=== PATIENT | male | born 1950 | race Caucasian/White ===

== ENCOUNTER 2019-04-30 08:54 | Outpatient (CLI) | payer MEDICARE, OTHER, SELFPAY ==
[2019-04-30 13:16] LABS: Blood Urea Nitrogen 17 mg/dL (9-20); Calcium 9.7 mg/dL (8.4-10.2); Carbon Dioxide 28 mmol/L (22-30); Chloride 104 mmol/L (98-107); Estimated Glomerular Filt Rate > 60; Glucose 189 mg/dL (75-110); Potassium 4.4 mmol/L (3.4-5.0); Sodium 137 mmol/L (137-145)
== END 2019-04-30 08:55 | disposition home or self-care (01) ==
LOC: ANHWCLAB 08:59
PROVIDERS: PCP Internal Medicine; Visit Provider Internal Medicine Endocrinology, Diabetes & Metabolism
DX: E11.42 Type 2 diabetes mellitus with diabetic polyneuropathy (principal)
CPT/HCPCS: 36415; 80048

== ENCOUNTER 2019-05-19 18:16 | Emergency (ER) | payer MEDICARE, OTHER, SELFPAY ==
[2019-05-19] VITALS (7 sets, daily range): BP systolic 90–144; BP diastolic 61–83; PULSE 69–97; RESP 20–21; TEMP 36.1; O2SAT 98–99
--- NOTE | ~2019-05-19 | XR_ITS ---
EXAMINATION: XR chest 2V EXAM DATE: 05/19/2019 19:32 INDICATION: Dizziness, weakness. TECHNIQUE: Frontal and lateral projections of the chest obtained and reviewed. Comparison is made to prior examination from 03/29/2018. FINDINGS: The lungs are clear. There are no pleural effusions. Cardiac silhouette is prominent but magnified on this AP technique. There is no pneumothorax suspected. The bones and soft tissues are unremarkable. IMPRESSION: No acute cardiopulmonary findings. Reviewed, dictated and finalized at location A.
--- NOTE | 2019-05-19 18:40 | ED_ITS ---
I attest that this documentation has been prepared under the direction and in the presence of Franko Sandy MD. Lul Aviles, [place] 05/19/19;18:40 HPI - Weakness General Chief complaint: Weakness Stated complaint: dizziness/weakness Time Seen by Provider: 05/19/19 18:22 Related Data Home Medications Medication Instructions Recorded Confirmed aspirin 81 mg tablet,delayed 81 mg PO DAILY 01/19/19 02/26/19 release multivitamin 1 tablet PO DAILY 01/19/19 02/26/19 tamsulosin 0.4 mg capsule 0.4 mg PO DAILY 01/19/19 02/26/19 blood sugar diagnostic #10 each 01/29/19 02/26/19 lancets 28 gauge #25 each 01/29/19 02/26/19 pen needle, diabetic 31 gauge x #30 each 01/29/19 02/26/1906/29 rabeprazole [AcipHex] 20 mg PO DAILY 05/19/19 05/19/19 Allergies Allergy/AdvReac Type Severity Reaction Status Date / Time No Known Allergies Allergy Unverified 05/19/19 18:25 [facility] Social History Social History Smoking packs per day: 3 Smoking cigarettes per day: 60.0 Smoking status: Former smoker Smoking end date: 02/15/72 Alcohol intake: former Course Vital Signs Vital signs: Vital Signs Temperature 36.1 C L 05/19/19 18:18 Pulse Rate 97 05/19/19 18:18 Respiratory Rate 20 05/19/19 18:18 Blood Pressure 133/63 05/19/19 18:18 Pulse Oximetry 98 05/19/19 18:18 Temperature 36.1 C L 05/19/19 18:18 Pulse Rate 97 05/19/19 18:18 Respiratory Rate 20 05/19/19 18:18 Blood Pressure 133/63 05/19/19 18:18 Pulse Oximetry 98 05/19/19 18:18 Discharge Plan Discharge Prescriptions: No Action (DME) lancets [FreeStyle Lancets] 28 gauge misc See Rx Instructions .ROUTE .MEDSUPPLY Qty: 25 RF: 0 (DME) FreeStyle Test Strip See Rx Instructions .ROUTE .MEDSUPPLY Qty: 10 RF: 0 (DME) pen needle, diabetic [Sure Comfort Pen Needle] 31 gauge x 5/16 needle See Rx Instructions .ROUTE .MEDSUPPLY Qty: 30 RF: 0 aspirin [Aspir-81] 81 mg tablet,delayed release (DR/EC) 81 mg PO DAILY RF: 0 multivitamin [Multiple Vitamins] Tablet 1 tablet PO DAILY RF: 0 tamsulosin 0.4 mg capsule 0.4 mg PO DAILY RF: 0 Jardiance 10 mg tablet 10 mg PO DAILY Qty: 90 RF: 1 rabeprazole [AcipHex] 20 mg Tablet,Delayed Release (Dr/Ec) 20 mg PO DAILY RF: 0 lisinopril 40 mg tablet 40 mg PO DAILY Qty: 90 RF: 1 hydrochlorothiazide 25 mg tablet 25 mg PO DAILY Qty: 90 RF: 1 omega-3 acid ethyl esters [Lovaza] 1 gram capsule 4 cap PO DAILY Qty: 360 RF: 3 lovastatin 40 mg tablet 40 mg PO DAILY Qty: 90 RF: 1 metformin 1,000 mg tablet 1,000 mg PO BID Qty: 180 RF: 0 Trulicity 1.5 mg/0.5 mL pen injector 1.5 mg SUB-Q WEEKLY 84 Days Qty: 6 RF: 0 Lantus Solostar U-100 Insulin 100 unit/mL (3 mL) insulin pen 55 unit SUB-Q DAILY MDD 55 Qty: 15 RF: 1
--- NOTE | 2019-05-19 18:45 | ED.DIZZY ---
HPI - Dizziness General Chief Complaint: Weakness Stated Complaint: dizziness/weakness Time Seen by Provider: 05/19/19 18:22 Source: patient Mode of arrival: ambulatory Limitations: no limitations History of Present Illness HPI Narrative: The pt is a 68 y/o male who presents to the ED c/o lightheadedness onset 1600. Pt describes it as going mostly black. 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 Pt states that the condition is worsened by standing up and bending over, but sitting down and staying still improved it. He notes his lightheadedness is resolved currently. Pt reports weakness, but denies N/V, diaphoresis, poor appetite, CP, and palpitations. His family notes that he started Jardiance recently. MD elicited complaint: lightheadedness Onset (ago): hour(s) (2 ) Description: other ( Going black ) Exacerbating factors: movement/ambulation (Bending over) and standing Relieving factors: remaining still (And sitting down) Associated symptoms: weakness Related Data Home Medications Medication Instructions Recorded Confirmed aspirin 81 mg tablet,delayed 81 mg PO DAILY 01/19/19 02/26/19 release multivitamin 1 tablet PO DAILY 01/19/19 02/26/19 tamsulosin 0.4 mg capsule 0.4 mg PO DAILY 01/19/19 02/26/19 blood sugar diagnostic #10 each 01/29/19 02/26/19 lancets 28 gauge #25 each 01/29/19 02/26/19 pen needle, diabetic 31 gauge x #30 each 01/29/19 02/26/1906/29 rabeprazole [AcipHex] 20 mg PO DAILY 05/19/19 05/19/19 Allergies Allergy/AdvReac Type Severity Reaction Status Date / Time No Known Allergies Allergy Unverified 05/19/19 18:25 Review of Systems Review of Systems: All systems reviewed & are unremarkable except as noted in HPI and below Constitutional: Constitutional: Denies excessive sweating and Denies poor appetite Cardiovascular: Cardiovascular: Denies chest pain and Denies palpitations Gastrointestinal: Gastrointestinal: Denies nausea and Denies vomiting Neurologic: Reports weakness and Reports other (Lightheadedness (Described as going mostly black, Resolved)) [facility] Past Medical History Medical History Amputated toe 2014 Back pain Benign hypertension Body mass index (bmi) 37.0-37.9, adult Cataract Controlled type 2 diabetes mellitus with hyperglycemia Hearing loss Hepatitis History of measles, mumps, or rubella Hyperlipidemia, unspecified Hypertension Hypogonadism male Liver disease Obesity Osteopenia Renal disease SOB (shortness of breath) Type 2 diabetes mellitus with diabetic polyneuropathy Surgical History Surgical History H/O arthroscopy of left knee H/O vasectomy 1977 History of hip surgery History of tonsillectomy History of total knee replacement (TKR) 2010 S/P left knee arthroscopy Social History Social History (Updated 05/19/19 @ 19:06 by Lul Aviles) Smoking packs per day: 3 Smoking cigarettes per day: 60.0 Smoking status: Former smoker Smoking end date: 02/15/72 Alcohol intake: former Occupation/Education: occupation Additional occupation/education comments: Pt works at [employer]. Comments PCP: Dr. Abdul Exam Narrative: Exam Narrative: GENERAL: Well-appearing, well-nourished, and in no acute distress. HEAD: Normocephalic, atraumatic. ENT: Mucous membranes moist. CHEST: Clear to auscultation. No respiratory distress. HEART: Regular rate and rhythm. Normal peripheral pulses. ABDOMEN: Soft, nontender, nondistended. EXTREMITIES: Normal range of motion. No edema. SKIN: Warm, dry, no rash. NEURO: Alert and oriented x3. PSYCH: Normal mood and affect. Course Consultations Consultation #1: Discussed case with Dr. Abdul, recommends calling office on Tuesday to be seen. Date: 05/19/19 Time: 21:52 Vital Signs Vital signs: Vital Signs Temperature 97.0 F L 0
--- NOTE | 2019-05-19 19:01 | ECG_ITS ---
Measurements Intervals [place] Rate: 80 P: 35 TX: 168 QRS: -4 QRSD: 121 T: 9 QT: 368 QTc: 425 Interpretive Statements SINUS RHYTHM INTRAVENTRICULAR CONDUCTION DELAY DELAYED PRECORDIAL R/S TRANSITION VOLTAGE CRITERIA FOR LVH BORDERLINE ECG Electronically Signed On 05-19-2019 20:07:54 CDT by Fernando Amato D.O.
[2019-05-19 19:16] LABS: Basophils Absolute Auto 0.1 K/mm3 (0.0-0.1); Basophils Percent Auto 0.8 % (0.2-1.2); Eosinophils Absolute Auto 0.2 K/mm3 (0-0.3); Eosinophils Percent Auto 2.9 % (0-4.4); Hematocrit 38.2 % (42.0-52.0); Hemoglobin 12.5 g/dL (14.0-18.0); Immature Granulocyte Absolute 0.01 K/mm3 (0.00-0.031); Immature Granulocyte Percent A 0.2 % (0-0.5); Lymphocytes Absolute Auto 2.14 K/mm3 (0.9-3.2); Lymphocytes Percent Auto 32.9 % (18.3-44.2); Mean Corpuscular HGB Conc 32.7 g/dl (32-36); Mean Corpuscular Volume 88.6 fl (80-100); Mean Platelet Volume 10.4 fl (7.4-10.4); Monocytes Absolute Auto 0.5 K/mm3 (0.1-0.6); Monocytes Percent Auto 7.5 % (2.6-8.5); Neutrophils Absolute Auto 3.6 K/mm3 (1.3-6.7); Neutrophils Percent Auto 55.7 % (45.5-73.1); Platelet Count Result 297 k/mm3 (150-375); Red Blood Count 4.31 M/mm3 (4.6-6.20); Red Cell Distribution Width 12.4 % (11.5-14.5); White Blood Count 6.5 K/mm3 (4.5-10.0)
[2019-05-19 19:29] LABS: Blood Urea Nitrogen 32 mg/dL (9-20); Calcium 9.3 mg/dL (8.4-10.2); Carbon Dioxide 26 mmol/L (22-30); Chloride 99 mmol/L (98-107); Estimated CRCL calculation 52 ml/min; Estimated Glomerular Filt Rate 43; Glucose 310 mg/dL (75-110); Potassium 4.7 mmol/L (3.4-5.0); Sodium 134 mmol/L (137-145)
[2019-05-19] MEDS: SODIUM CHLORIDE 0.9% IV 1,000 ML 999 ML IV CONT ×2 (20:15→20:47)
[2019-05-19 22:47] LABS: Add Urine Microscopic? YES; Appearance Urine Clear (Clear); Bacteria Urine Trace /hpf; Bilirubin Urine Negative (Negative); Blood Urine Negative (Negative); Color Urine Straw (Yellow); Glucose Urine UA 3+ mg/dL (Negative); Ketones Urine Negative (Negative); Leukocyte Esterase Ur Negative LEU/UL (Negative); Mucus Urine Rare /lpf; Nitrate Urine Negative (Negative); Protein Urine Negative (Negative); RBC Urine 0-2 /hpf (0-2); Urobilinogen Urine Negative mg/dL (<2.0); WBC Urine 0-3 /hpf
== END 2019-05-19 22:30 | disposition home or self-care (01) ==
PROVIDERS: Emergency Provider Emergency Medicine; PCP Internal Medicine
DX: E86.0 Dehydration (principal); I10 Essential (primary) hypertension; E78.5 Hyperlipidemia, unspecified; E11.42 Type 2 diabetes mellitus with diabetic polyneuropathy; E11.65 Type 2 diabetes mellitus with hyperglycemia; M85.80 Other specified disorders of bone density and structure, unspecified site; N28.9 Disorder of kidney and ureter, unspecified; K76.9 Liver disease, unspecified; Z68.35 Body mass index [BMI] 35.0-35.9, adult; E66.9 Obesity, unspecified; Z79.82 Long term (current) use of aspirin; Z79.84 Long term (current) use of oral hypoglycemic drugs; Z79.4 Long term (current) use of insulin; R94.31 Abnormal electrocardiogram [ECG] [EKG]; I45.9 Conduction disorder, unspecified; Z87.891 Personal history of nicotine dependence; Z96.659 Presence of unspecified artificial knee joint
CPT/HCPCS: 36415; 71046; 80048; 81001; 85025; 93005; 96360; 99283; J7030

== ENCOUNTER 2019-05-28 08:10 | Outpatient (CLI) | payer MEDICARE, OTHER, SELFPAY ==
[2019-05-28 08:59] LABS: Blood Urea Nitrogen 24 mg/dL (9-20); Calcium 9.1 mg/dL (8.4-10.2); Carbon Dioxide 29 mmol/L (22-30); Chloride 100 mmol/L (98-107); Estimated Glomerular Filt Rate > 60; Glucose 227 mg/dL (75-110); Potassium 4.1 mmol/L (3.4-5.0); Sodium 135 mmol/L (137-145)
== END 2019-05-28 08:11 | disposition home or self-care (01) ==
PROVIDERS: PCP Internal Medicine; Visit Provider Internal Medicine Endocrinology, Diabetes & Metabolism
DX: E11.42 Type 2 diabetes mellitus with diabetic polyneuropathy (principal)
CPT/HCPCS: 36415; 80048

== ENCOUNTER 2019-06-12 10:17 | Outpatient (CLI) | payer MEDICARE, OTHER, SELFPAY ==
[2019-06-12 10:50] LABS: Blood Urea Nitrogen 33 mg/dL (9-20); Calcium 9.2 mg/dL (8.4-10.2); Carbon Dioxide 25 mmol/L (22-30); Chloride 101 mmol/L (98-107); Estimated Glomerular Filt Rate 60; Glucose 216 mg/dL (75-110); Potassium 4.5 mmol/L (3.4-5.0); Sodium 134 mmol/L (137-145)
== END 2019-06-12 10:18 | disposition home or self-care (01) ==
PROVIDERS: PCP Internal Medicine; Visit Provider Internal Medicine Endocrinology, Diabetes & Metabolism
DX: E88.81 Metabolic syndrome and other insulin resistance (principal); E78.5 Hyperlipidemia, unspecified; I10 Essential (primary) hypertension; E29.1 Testicular hypofunction; E11.9 Type 2 diabetes mellitus without complications
CPT/HCPCS: 36415; 80048

== ENCOUNTER 2019-12-04 16:16 | Outpatient (CLI) | payer MEDICARE, OTHER, SELFPAY ==
[2019-12-04 17:10] LABS: Basophils Absolute Auto 0.1 K/mm3 (0.0-0.1); Basophils Percent Auto 0.8 % (0.2-1.2); Eosinophils Absolute Auto 0.1 K/mm3 (0-0.3); Eosinophils Percent Auto 1.8 % (0-4.4); Hematocrit 38.8 % (42.0-52.0); Hemoglobin 12.7 g/dL (14.0-18.0); Immature Granulocyte Absolute 0.02 K/mm3 (0.00-0.031); Immature Granulocyte Percent A 0.3 % (0-0.5); Lymphocytes Absolute Auto 2.51 K/mm3 (0.9-3.2); Lymphocytes Percent Auto 34.9 % (18.3-44.2); Mean Corpuscular HGB Conc 32.7 g/dl (32-36); Mean Corpuscular Hemoglobin 29.3 pg (26-34); Mean Corpuscular Volume 89.4 fl (80-100); Monocytes Absolute Auto 0.4 K/mm3 (0.1-0.6); Monocytes Percent Auto 6.1 % (2.6-8.5); Neutrophils Percent Auto 56.1 % (45.5-73.1); Platelet Count Result 296 k/mm3 (150-375); Red Blood Count 4.34 M/mm3 (4.6-6.20); Red Cell Distribution Width 12.7 % (11.5-14.5); White Blood Count 7.2 K/mm3 (4.5-10.0)
[2019-12-04 17:16] LABS: Total Protein Urine Random 185 mg/dL
[2019-12-04 17:23] LABS: Add Urine Microscopic? YES; Appearance Urine Clear (Clear); Bilirubin Urine Negative (Negative); Blood Urine Negative (Negative); Color Urine Yellow (Yellow); Glucose Urine UA 1+ mg/dL (Negative); Ketones Urine Negative (Negative); Leukocyte Esterase Ur Negative LEU/UL (Negative); Mucus Urine Few /lpf; Nitrate Urine Negative (Negative); Protein Urine 2+ mg/dL (Negative); Specific Grav Ur 1.026 (1.001-1.035); Squamous Epithelial Cell Urine Rare /hpf (Few); Urobilinogen Urine Negative mg/dL (<2.0); WBC Urine 0-3 /hpf
[2019-12-04 17:26] LABS: Alanine Aminotransferase 22 U/L (4-50); Albumin Level 3.9 g/dL (3.5-5.1); Alkaline Phosphatase 70 U/L (38-126); Anion Gap 6 mmol/L (8-16); Aspartate Amino Transferase 24 U/L (17-59); Bilirubin,Total 0.4 mg/dL (0.2-1.3); Blood Urea Nitrogen 28 mg/dL (9-20); Calcium 9.3 mg/dL (8.4-10.2); Carbon Dioxide 27 mmol/L (22-30); Chloride 104 mmol/L (98-107); Cholesterol 176 mg/dL (0-200); Estimated Glomerular Filt Rate > 60; Glucose 112 mg/dL (75-110); HDL Direct 61 mg/dL; Phosphorus 4.4 mg/dL (2.5-4.5); Potassium 4.1 mmol/L (3.4-5.0); Sodium 137 mmol/L (137-145); Triglycerides 109 mg/dL (<150)
[2019-12-04 17:27] LABS: Hemoglobin A1C 7.6 % (<5.7)
[2019-12-04 17:37] LABS: LDL Cholesterol Direct 88 mg/dL
[2019-12-05 16:58] LABS: Prostate Specific Antigen 3.2 ng/mL (< OR = 4.0)
[2019-12-07 23:54] LABS: Vitamin D 1,25 (OH)2 Total 35 pg/mL (18-72); Vitamin D2 1,25 (OH)2 <8 pg/mL; Vitamin D3 1,25 (OH)2 35 pg/mL
== END 2019-12-04 16:17 | disposition home or self-care (01) ==
LOC: ANHLAB 16:21
PROVIDERS: Internal Medicine Endocrinology, Diabetes & Metabolism; Internal Medicine Nephrology; PCP Internal Medicine; Visit Provider Internal Medicine
DX: E78.5 Hyperlipidemia, unspecified (principal); M85.80 Other specified disorders of bone density and structure, unspecified site; E11.00 Type 2 diabetes mellitus with hyperosmolarity without nonketotic hyperglycemic-hyperosmolar coma (NKHHC); M81.0 Age-related osteoporosis without current pathological fracture; E11.65 Type 2 diabetes mellitus with hyperglycemia; Z12.5 Encounter for screening for malignant neoplasm of prostate; R94.4 Abnormal results of kidney function studies
CPT/HCPCS: 36415; 80053; 80061; 81001; 82570; 82652; 83036; 84100; 84153; 84156; 85025; G0103

== ENCOUNTER → 2019-12-10 13:38 | Outpatient (CLI) | payer MEDICARE, OTHER, SELFPAY ==
--- NOTE | ~2019-12-10 | CT_ITS ---
EXAMINATION: CT abdomen pelvis wo/w con DATE: 12/10/2019 14:27 INDICATION: Microscopic hematuria TECHNIQUE: Computed tomography (CT) of the abdomen and pelvis was performed without and with 130 cc O mnipaque 350 intravenous contrast. The dose-length product was 2460.71 mGy-cm. Automated exposure con trol and iterative reconstruction technique were employed. COMPARISON: None. FINDINGS: Densely calcified granuloma right lower lobe. Otherwise, lung bases are unremarkable. No si gnificant pleural or pericardial effusion. Heart size normal. There are calcified granulomas of the spleen. There is bladder wall thickening. Prostate gland is enl arged. No renal/ureteral stones. Nonspecific bilateral perinephric stranding, likely chronic. The lamont er, pancreas, adrenal glands and kidneys are otherwise unremarkable. Ureters are normal in course and caliber. Gallbladder is present. No significant vascular abnormality. No lymphadenopathy. No free ai r or free fluid. There is a dynamic compression screw transfixing the left femoral neck. The appendix is unremarkable. Nonobstructive bowel gas pattern. IMPRESSION: 1. Bladder wall thickening which may be due to chronic bladder outlet obstruction from enlarged prost ate gland or cystitis. Consider correlation with urinalysis. Reviewed, dictated and finalized at location A. IMPRESSION: 1. Bladder wall thickening which may be due to chronic bladder outlet obstructi on from enlarged prostate gland or cystitis. Consider correlation with urinalys is.
[2019-12-10 14:02] LABS: Estimated Glomerular Filt Rate > 60
== END ==
PROVIDERS: PCP Internal Medicine; Visit Provider Internal Medicine
DX: R31.21 Asymptomatic microscopic hematuria (principal); N32.9 Bladder disorder, unspecified
CPT/HCPCS: 74178; Q9967

== ENCOUNTER 2020-02-16 01:24 | Outpatient (CLI) | payer MEDICARE, OTHER, SELFPAY ==
[2020-02-16 20:09] LABS: SARS-CoV-2 RNA PCR Negative
== END 2020-02-16 01:25 | disposition home or self-care (01) ==
LOC: ANHCOVIDDT 01:24
PROVIDERS: PCP Internal Medicine; Visit Provider Internal Medicine Gastroenterology
DX: Z01.812 Encounter for preprocedural laboratory examination (principal); Z20.822 Contact with and (suspected) exposure to COVID-19
CPT/HCPCS: C9803; U0003

== ENCOUNTER 2020-02-20 01:38 | Day surgery (SDC) | payer MEDICARE, OTHER, SELFPAY ==
[2020-02-13 08:43] VITALS: BMI 34.7
[2020-02-20 08:56] VITALS: BP 148/80; PULSE 68; RESP 18; TEMP 36.1; O2SAT 99
[2020-02-20 09:05] LABS: Glucose Point of Care 117 (65-105)
[2020-02-20] MEDS: LACTATED RINGERS 1,000 ML 150 ML IV CONT (09:11)
--- NOTE | 2020-02-20 09:30 | WPDANESEPPF ---
Anes - Initial Pre Proc Eval Procedure: Operation Date: 02/20/20 09:45 Proposed Procedures p Screening Colonoscopy - Papo Seymour MD Date/Time: 02/20/20 09:30 Surgeon: Papo Seymour MD Pre Op Diagnosis: neoplasm screening Patient Data Age: 69 Gender: M Height: 5 ft 11 in Weight: 111 kg Last Vital Signs Temp 96.9 F L 02/20/20 08:56 Pulse 68 02/20/20 08:56 Resp 18 02/20/20 08:56 BP 148/80 H 02/20/20 08:56 Pulse Ox 99 02/20/20 08:56 Allergies Allergy/AdvReac Type Severity Reaction Status Date / Time alcohol Allergy Severe Itching Verified 02/20/20 08:52 Home Medications Medication Instructions Recorded Confirmed Type aspirin 81 mg tablet,delayed 81 mg PO DAILY 01/19/19 02/13/20 History release multivitamin 1 tablet PO DAILY 01/19/19 02/13/20 History pen needle, diabetic 31 gauge x #30 each 01/29/19 01/14/20 History /16 lancets 28 gauge #50 each 09/11/19 01/14/20 Rx blood sugar diagnostic #100 each 09/17/19 01/14/20 Rx lovastatin 40 mg tablet 40 mg PO DAILY #90 tablet 09/18/19 02/13/20 Rx lisinopril 40 mg tablet 40 mg PO DAILY #90 tablet 09/19/19 02/13/20 Rx metformin 1,000 mg tablet 1,000 mg PO BID #180 tablet 12/31/19 02/13/20 Rx dulaglutide 1.5 mg/0.5 mL 1.5 mg SUB-Q WEEKLY #2 ml 01/04/20 02/13/20 Rx subcutaneous pen injector tamsulosin 0.4 mg capsule 0.4 mg PO DAILY #90 cap 02/11/20 02/13/20 Rx acetaminophen [Tylenol Arthritis] 1,300 mg PO DAILY PRN 02/13/20 02/13/20 History insulin glargine [Lantus Solostar 32 unit SUB-Q BID 02/13/20 02/13/20 History U-100 Insulin] omega-3 acid ethyl esters [Lovaza] 2 cap PO BID 02/13/20 02/13/20 History Laboratory Tests 02/20/20 09:04 POC Capillary Glucose 117 mg/dl H mg/dl (65-105) Patient hx anesthesia problems: none Family hx anesthesia problems: none [facility] Past Medical History Medical History (Updated 01/14/20 @ 15:49 by Papo Seymour MD) Amputated toe 2014 Back pain Benign hypertension Body mass index (bmi) 37.0-37.9, adult Cataract Controlled type 2 diabetes mellitus with hyperglycemia Hearing loss Hepatitis History of colon polyps History of measles, mumps, or rubella Hyperlipidemia, unspecified Hypertension Hypogonadism male Liver disease Obesity Osteoarthritis of hands, bilateral Osteopenia Renal disease SOB (shortness of breath) Type 2 diabetes mellitus with diabetic polyneuropathy Surgical History Surgical History (Reviewed 01/14/20 @ 15:21 by Michelle Rodriguez [facility]) H/O arthroscopy of left knee H/O vasectomy 1977 History of hip surgery History of tonsillectomy History of total knee replacement (TKR) 2010 S/P left knee arthroscopy Family History Family History (Reviewed 01/14/20 @ 15:21 by Michelle Rodriguez [facility]) Other Adopted Social History Social History Smoking packs per day: 3 Smoking cigarettes per day: 60.0 Years smoked: 3 Smoking pack-years: 9.00 Smoking status: Former smoker Tobacco type: cigarettes Smokeless tobacco user: chewing tobacco Smoking end date: 02/15/72 Additional smoking assessment comments: QUITE CHEW 2011 Alcohol intake: former Substance use: never Substance use type: does not use Living arrangements: with family Additional occupation/education comments: Pt works at [employer]. [employer] Final PreProcedure Day of Procedure 02/20/20 09:30 Patient weight: obese Heart: regular rate and rhythm Lungs: clear to auscultation Airway: Mallampati scale class II Neurological: alert and oriented Last oral intake: >/= 8 hours ASA classification: III Emergent: no Anesthetic plan: proceed Anesthesia type and monitoring: general GIVS and standard monitoring Informed Consent: The patient's anesthetic plan and its attendant risks and benefits were discussed with the patient/family/POA. Questions were solicited and a
--- NOTE | 2020-02-20 10:05 | PM.HPGS ---
History of Present Illness History of Present Illness Consent: Risks, benefits, and alternatives have been discussed and questions answered. Patient agrees to proceed with procedure. Chief complaint: neoplasm screening Narrative: Milton Louis is a 69 year old male with colon polyps 2014 Review of Systems Constitutional: Constitutional: Denies headache(s) and Denies weakness Eyes: Eyes: Denies blurry vision ENT: Reports Normal hearing present, Denies headache(s) and Denies neck pain Cardiovascular: Cardiovascular: Denies chest pain and Denies dyspnea Respiratory: Respiratory: Denies dyspnea Gastrointestinal: Gastrointestinal: Reports no additional gastrointestinal complaints Genitourinary: Genitourinary: Denies dysuria Musculoskeletal: Musculoskeletal: Denies neck pain Integumentary/Breasts: Skin/Breast: Denies dry skin Neurologic: Reports Normal hearing present, Denies headache(s) and Denies weakness Psychiatric: Psychiatric: Denies anxiety Endocrine: Endocrine: Denies change in body appearance Hematologic/Lymphatic: Hematologic/Lymphatic: Denies easy bleeding Allergic/Immunologic: Allergic/Immunologic: Denies urticaria [facility] Past Medical History Medical History (Updated 01/14/20 @ 15:49 by Papo Seymour MD) Amputated toe 2015 Back pain Benign hypertension Body mass index (bmi) 37.0-37.9, adult Cataract Controlled type 2 diabetes mellitus with hyperglycemia Hearing loss Hepatitis History of colon polyps History of measles, mumps, or rubella Hyperlipidemia, unspecified Hypertension Hypogonadism male Liver disease Obesity Osteoarthritis of hands, bilateral Osteopenia Renal disease SOB (shortness of breath) Type 2 diabetes mellitus with diabetic polyneuropathy Surgical History Surgical History H/O arthroscopy of left knee H/O vasectomy 1977 History of hip surgery History of tonsillectomy History of total knee replacement (TKR) 2010 S/P left knee arthroscopy Family History Family History Other Adopted Social History Social History Smoking packs per day: 3 Smoking cigarettes per day: 60.0 Years smoked: 3 Smoking pack-years: 9.00 Smoking status: Former smoker Tobacco type: cigarettes Smokeless tobacco user: chewing tobacco Smoking end date: 02/15/72 Additional smoking assessment comments: QUITE CHEW 2011 Alcohol intake: former Substance use: never Substance use type: does not use Living arrangements: with family Additional occupation/education comments: Pt works at [employer]. Meds Home Medications and Allergies Home Medications Medication Instructions Recorded Confirmed Type aspirin 81 mg tablet,delayed 81 mg PO DAILY 01/19/19 02/13/20 History release multivitamin 1 tablet PO DAILY 01/19/19 02/13/20 History pen needle, diabetic 31 gauge x #30 each 01/29/19 01/14/20 History 06/29 lancets 28 gauge #50 each 09/11/19 01/14/20 Rx blood sugar diagnostic #100 each 09/17/19 01/14/20 Rx lovastatin 40 mg tablet 40 mg PO DAILY #90 tablet 09/18/19 02/13/20 Rx lisinopril 40 mg tablet 40 mg PO DAILY #90 tablet 09/19/19 02/13/20 Rx metformin 1,000 mg tablet 1,000 mg PO BID #180 tablet 12/31/19 02/13/20 Rx dulaglutide 1.5 mg/0.5 mL 1.5 mg SUB-Q WEEKLY #2 ml 01/04/20 02/13/20 Rx subcutaneous pen injector tamsulosin 0.4 mg capsule 0.4 mg PO DAILY #90 cap 02/11/20 02/13/20 Rx acetaminophen [Tylenol Arthritis] 1,300 mg PO DAILY PRN 02/13/20 02/13/20 History insulin glargine [Lantus Solostar 32 unit SUB-Q BID 02/13/20 02/13/20 History U-100 Insulin] omega-3 acid ethyl esters [Lovaza] 2 cap PO BID 02/13/20 02/13/20 History Allergies Allergy/AdvReac Type Severity Reaction Status Date / Time alcohol Allergy Severe Itching Verified 02/20/20 08:52 Vi
[2020-02-20 10:34] VITALS: BP 130/67; PULSE 73; RESP 27; O2SAT 97
[2020-02-20 10:44] VITALS: BP 135/80; PULSE 69; RESP 12; O2SAT 96
[2020-02-20 10:44] LABS: Glucose Point of Care 109 (65-105)
[2020-02-20 10:54] VITALS: BP 148/93; PULSE 73; RESP 17; O2SAT 100
== END 2020-02-20 11:06 | disposition home or self-care (01) ==
PROVIDERS: PCP Internal Medicine; Visit Provider Internal Medicine Gastroenterology
PROC: 0DJD8ZZ Inspection of Lower Intestinal Tract, Via Natural or Artificial Opening Endoscopic (ICD-10-PCS; CPT 45378; principal; 2020-02-20 09:45)
DX: Z12.11 Encounter for screening for malignant neoplasm of colon (principal); K63.5 Polyp of colon; K64.8 Other hemorrhoids; I10 Essential (primary) hypertension; K75.9 Inflammatory liver disease, unspecified; E78.5 Hyperlipidemia, unspecified; M19.90 Unspecified osteoarthritis, unspecified site; E11.42 Type 2 diabetes mellitus with diabetic polyneuropathy; N28.9 Disorder of kidney and ureter, unspecified; E66.9 Obesity, unspecified; Z68.34 Body mass index [BMI] 34.0-34.9, adult; Z79.82 Long term (current) use of aspirin; Z79.84 Long term (current) use of oral hypoglycemic drugs; Z79.4 Long term (current) use of insulin; Z87.891 Personal history of nicotine dependence
CPT/HCPCS: 45380; 88305; J2704; J7120

== ENCOUNTER 2020-03-11 09:53 | Outpatient (CLI) | payer MEDICARE, OTHER, SELFPAY ==
[2020-03-11 10:21] LABS: Basophils Absolute Auto 0.1 K/mm3 (0.0-0.1); Eosinophils Absolute Auto 0.2 K/mm3 (0-0.3); Eosinophils Percent Auto 3.3 % (0-4.4); Hematocrit 40.9 % (42.0-52.0); Hemoglobin 13.8 g/dL (14.0-18.0); Immature Granulocyte Absolute 0.01 K/mm3 (0.00-0.031); Immature Granulocyte Percent A 0.2 % (0-0.5); Lymphocytes Absolute Auto 0.92 K/mm3 (0.9-3.2); Mean Corpuscular HGB Conc 33.7 g/dl (32-36); Mean Corpuscular Hemoglobin 29.1 pg (26-34); Mean Corpuscular Volume 86.3 fl (80-100); Mean Platelet Volume 9.7 fl (7.4-10.4); Monocytes Absolute Auto 0.4 K/mm3 (0.1-0.6); Monocytes Percent Auto 7.5 % (2.6-8.5); Neutrophils Absolute Auto 4.1 K/mm3 (1.3-6.7); Platelet Count Result 288 k/mm3 (150-375); Red Blood Count 4.74 M/mm3 (4.6-6.20); Red Cell Distribution Width 12.3 % (11.5-14.5); White Blood Count 5.7 K/mm3 (4.5-10.0)
[2020-03-11 10:35] LABS: Alanine Aminotransferase 30 U/L (4-50); Albumin Level 3.6 g/dL (3.5-5.1); Alkaline Phosphatase 74 U/L (38-126); Anion Gap 5 mmol/L (8-16); Aspartate Amino Transferase 27 U/L (17-59); Bilirubin,Total 0.5 mg/dL (0.2-1.3); Blood Urea Nitrogen 19 mg/dL (9-20); Calcium 8.9 mg/dL (8.4-10.2); Carbon Dioxide 26 mmol/L (22-30); Chloride 104 mmol/L (98-107); Cholesterol 173 mg/dL (0-200); Estimated Glomerular Filt Rate > 60; Glucose 165 mg/dL (75-110); HDL Direct 52 mg/dL; Hemoglobin A1C 8.4 % (<5.7); Potassium 4.5 mmol/L (3.4-5.0); Sodium 135 mmol/L (137-145); Triglycerides 148 mg/dL (<150)
[2020-03-11 10:46] LABS: LDL Cholesterol Direct 76 mg/dL
[2020-03-11 10:49] LABS: Creatinine Urine 71.9 mg/dL
[2020-03-11 11:51] LABS: Microalbumin Urine Random > 1140.0 mg/L (0-16.7)
== END 2020-03-11 09:54 | disposition home or self-care (01) ==
LOC: ANHLAB 09:55
PROVIDERS: Family Provider Internal Medicine Nephrology; PCP Internal Medicine; Visit Provider Internal Medicine
DX: E11.9 Type 2 diabetes mellitus without complications (principal); D64.9 Anemia, unspecified
CPT/HCPCS: 36415; 80053; 80061; 82043; 82728; 83036; 85025

== ENCOUNTER 2020-04-04 10:10 | Emergency (ER) | payer MEDICARE, OTHER, SELFPAY ==
--- NOTE | ~2020-04-04 | XR_ITS ---
XR chest 1V portable DATE: 04/04/2020 11:48 INDICATION: Shortness of breath, elevated d-dimer dimer. Covid-positive. TECHNIQUE: Portable AP chest on April 04, 2020 at 1133 hours COMPARISON: 05/19/2019 AP and lateral chest FINDINGS: Scattered infiltrates are noted in the left mid and both lower lung zones. Cardiac megaly. No pleural effusion or pulmonary vascular congestion or pneumothorax is evident. Degenerative spurring of the thoracic spine. Moderate osteopenia. IMPRESSION: Scattered left mid and bilateral lower lung infiltrates and/or atelectasis Reviewed, dictated and finalized at location B. WORK CARPENTER IMPRESSION: Scattered left mid and bilateral lower lung infiltrates and/or atel ectasis
--- NOTE | ~2020-04-04 | CT_ITS ---
EXAMINATION: CTA chest PE protocol DATE: 04/04/2020 12:26 INDICATION: Shortness of breath. Elevated d-dimer. Recent Covid. TECHNIQUE: Computed tomography angiography (CTA) of the chest was performed with 100 mL Omnipaque-350 intravenous contrast timed to evaluate the pulmonary arteries. Coronal maximum intensity projection 3D-reconstructions were created by the technologist. Automated exposure control and iterative reconst ruction technique were employed. Exam dose: 622.61 mGy-cm total exam DLP. COMPARISON: April 04, 2020 portable AP chest FINDINGS: There is mild contrast opacification of the pulmonary arteries and no apparent pulmonary em bolism. No thoracic aortic aneurysm or dissection. Normal size and homogeneous attenuation of the thyroid gland. No hilar or mediastinal mass lesion or lymphadenopathy. Cardiomegaly. No pericardial or pleural effusion. There are scattered patchy infiltrates of the middle lobe in particular but also including both upper and lower lobes. Normal morphology of the adrenal glands. IMPRESSION: Scattered patchy bilateral pulmonary infiltrates, greatest involvement of the middle lob e No evidence of pulmonary embolism Reviewed, dictated and finalized at Location A. Reviewed, dictated and finalized at location B. WAY HOUSE COUNSELOR IMPRESSION: Scattered patchy bilateral pulmonary infiltrates, greatest involve ment of the middle lobe No evidence of pulmonary embolism
--- NOTE | ~2020-04-04 | US_ITS ---
EXAMINATION: US venous doppler [facility] DATE: 04/04/2020 12:17 INDICATION: Shortness of breath TECHNIQUE: Mendez scale images without and with compression and Doppler images of the bilateral lower e xtremity veins were obtained. COMPARISON: 09/21/2018 FINDINGS: The right common femoral vein, profunda femoral vein, femoral vein, popliteal vein, peroneal trunk, p osterior tibial veins, and greater saphenous vein are patent. The left common femoral vein, profunda femoral vein, femoral vein, popliteal vein, peroneal trunk, po sterior tibial veins, and greater saphenous vein are patent. IMPRESSION: 1. Patent bilateral lower extremity veins. No evidence of deep venous thrombosis. Reviewed, dictated and finalized at location A. RIAL LISTER IMPRESSION: 1. Patent bilateral lower extremity veins. No evidence of deep venous thrombosi s.
[2020-04-04 10:24] VITALS: BP 141/74; PULSE 108; RESP 18; TEMP 36.2; O2SAT 96
--- NOTE | 2020-04-04 10:53 | ECG_ITS ---
Measurements Intervals [place] Rate: 86 P: 49 [place]: 164 QRS: -19 QRSD: 106 T: 37 QT: 373 QTc: 448 Interpretive Statements SINUS RHYTHM VOLTAGE CRITERIA FOR LVH DELAYED PRECORDIAL R/S TRANSITION BORDERLINE ECG Electronically Signed On 04-04-2020 12:01:40 CEMENT CRUSHER OPERATOR by Fernando Amato D.O.
--- NOTE | 2020-04-04 10:56 | ED.GENADULT ---
HPI - General Adult General Chief complaint: Unspecified Stated complaint: multiple complaints Time Seen by Provider: 04/04/20 10:33 Source: patient Mode of arrival: ambulatory Limitations: no limitations History of Present Illness HPI narrative: This is a 69 year old male that presents to the ER for shortness of breath x 2 weeks. Reports he was diagnosed with covid on 03/18/20. Reports since he has had worsening shortness of breath. Reports a continued cough as well. Denies fever, chest pain, abdominal pain, vomiting, dysuria, or lower extremity edema. Related Data Home Medications Medication Instructions Recorded Confirmed aspirin 81 mg tablet,delayed 81 mg PO DAILY 01/19/19 02/13/20 release multivitamin 1 tablet PO DAILY 01/19/19 02/13/20 pen needle, diabetic 31 gauge x #30 each 01/29/19 01/14/2006/29 acetaminophen [Tylenol Arthritis] 1,300 mg PO DAILY PRN 02/13/20 02/13/20 omega-3 acid ethyl esters [Lovaza] 2 cap PO BID 02/13/20 02/13/20 Allergies Allergy/AdvReac Type Severity Reaction Status Date / Time alcohol Allergy Severe Itching Verified 02/20/20 08:52 Review of Systems Review of Systems: Narrative: CONSTITUTIONAL: Denies fever ENT: Denies rhinorrhea, congestion, sore throat CARDIOVASCULAR: Denies chest pain, or edema. RESPIRATORY: Reports cough and dyspnea. GASTROINTESTINAL: Reports nausea. Denies abdominal pain, vomiting GENITOURINARY: Denies dysuria or hematuria. All systems reviewed & are unremarkable except as noted in HPI and below PMFSH Past Medical History Medical History (Updated 04/04/20 @ 14:38 by Reyna Turpin PA-C) Amputated toe 2015 Back pain Benign hypertension Body mass index (bmi) 37.0-37.9, adult Cataract Controlled type 2 diabetes mellitus with hyperglycemia Hearing loss Hepatitis History of colon polyps History of measles, mumps, or rubella Hyperlipidemia, unspecified Hypertension Hypogonadism male Liver disease Obesity Osteoarthritis of hands, bilateral Osteopenia Renal disease SOB (shortness of breath) Type 2 diabetes mellitus with diabetic polyneuropathy Surgical History Surgical History H/O arthroscopy of left knee H/O vasectomy 1977 History of hip surgery History of tonsillectomy History of total knee replacement (TKR) 2010 S/P left knee arthroscopy Family History Family History Other Adopted Social History Social History Smoking packs per day: 3 Smoking cigarettes per day: 60.0 Years smoked: 3 Smoking pack-years: 9.00 Smoking status: Former smoker Tobacco type: cigarettes Smokeless tobacco user: chewing tobacco Smoking end date: 02/15/72 Additional smoking assessment comments: QUITE CHEW 2011 Alcohol intake: former Substance use: never Substance use type: does not use Additional occupation/education comments: Pt works at [employer]. Exam Narrative: Exam Narrative: GENERAL: Well-appearing, well-nourished, and in no acute distress. HEAD: Normocephalic, atraumatic. EYES: PERRLA and EOMI. ENT: Nares clear, no rhinorrhea or epistaxis. Mucous membranes moist. Oropharynx without tonsillar hypertrophy exudate or other lesions. NECK: Supple. No adenopathy or masses. CHEST: Clear to auscultation. No respiratory distress. No wheezes rales or rhonchi HEART: Regular rate and rhythm. No murmur heard. Normal peripheral pulses. EXTREMITIES: Normal range of motion. No edema. SKIN: Warm, dry, no rash. NEURO: No focal deficits. Alert and oriented x3. PSYCH: Normal mood and affect Course Consultations Consultation #1: Spoke with patient's primary about work-up who will follow-up in clinic Date: 04/04/20 Time: 14:34 Vital Signs Vital signs: Vital Signs Temperature 97.2 F L 04/04/20 10:24 Pulse Rate 108 H 04/04/20 10:24 Respiratory Rate 1
[2020-04-04] MEDS: ACETAMINOPHEN 500 MG TABLET 1000 MG PO (11:02)
[2020-04-04 11:09] LABS: Basophils Percent Auto 0.7 % (0.2-1.2); Eosinophils Absolute Auto 0.1 K/mm3 (0-0.3); Hematocrit 37.9 % (42.0-52.0); Hemoglobin 12.9 g/dL (14.0-18.0); Immature Granulocyte Absolute 0.02 K/mm3 (0.00-0.031); Immature Granulocyte Percent A 0.3 % (0-0.5); Lymphocytes Absolute Auto 1.23 K/mm3 (0.9-3.2); Lymphocytes Percent Auto 20.8 % (18.3-44.2); Mean Corpuscular Hemoglobin 29.3 pg (26-34); Mean Corpuscular Volume 86.1 fl (80-100); Monocytes Absolute Auto 0.5 K/mm3 (0.1-0.6); Monocytes Percent Auto 8.5 % (2.6-8.5); Neutrophils Absolute Auto 4.1 K/mm3 (1.3-6.7); Neutrophils Percent Auto 68.7 % (45.5-73.1); Platelet Count Result 328 k/mm3 (150-375); Red Cell Distribution Width 12.4 % (11.5-14.5); White Blood Count 5.9 K/mm3 (4.5-10.0)
[2020-04-04 11:18] LABS: INR 0.8; Prothrombin Time 11.9 Seconds (11.1-14.7)
[2020-04-04 11:19] LABS: Partial Thromboplastin Time 27.1 SECONDS (22.3-36.8)
[2020-04-04 11:21] LABS: D Dimer 0.76 ug/mL (<0.48)
[2020-04-04 11:23] LABS: Alanine Aminotransferase 24 U/L (4-50); Albumin Level 3.5 g/dL (3.5-5.1); Alkaline Phosphatase 90 U/L (38-126); Anion Gap 3 mmol/L (8-16); Aspartate Amino Transferase 20 U/L (17-59); Bilirubin,Total 0.5 mg/dL (0.2-1.3); Blood Urea Nitrogen 26 mg/dL (9-20); Calcium 9.3 mg/dL (8.4-10.2); Carbon Dioxide 27 mmol/L (22-30); Chloride 100 mmol/L (98-107); Estimated CRCL calculation 71 ml/min; Estimated Glomerular Filt Rate > 60; Glucose 519 mg/dL (75-110); Lactate Dehydrogenase 407 U/L (313-618); Potassium 4.7 mmol/L (3.4-5.0); Sodium 130 mmol/L (137-145)
[2020-04-04 11:32] LABS: Troponin I < 0.012 ng/mL (0.000-0.034)
[2020-04-04 11:43] LABS: Hemoglobin A1C 9.5 % (<5.7)
[2020-04-04 11:44] LABS: Magnesium 1.4 mg/dL (1.6-2.3); Phosphorus 3.8 mg/dL (2.5-4.5)
[2020-04-04] MEDS: INSULIN HUMAN REGULAR (*BKC) 100 UNITS/ML 11 UNITS IV PUSH (11:44)
[2020-04-04 11:45] LABS: Beta-Hydroxybutyrate/Acetoacetate 0.17 mmol/L (0.02-0.27)
[2020-04-04] MEDS: SODIUM CHLORIDE 0.9% IV 1,000 ML 999 ML IV CONT (11:45)
[2020-04-04 12:02] LABS: Glucose Point of Care 446 (65-105)
[2020-04-04 12:15] LABS: Alveolar/Arterial O2 Gradient 17.9 mmHg; Base Excess ABG -2.7 mEq/l (+/-2.0); Carboxyhemoglobin 0.6 % THb (0-2.0); Device ROOM AIR; Fractional Inspired Oxygen 21 %; HCO3 ABG 21.5 mEq/l (22.0-26.0); Methemoglobin ABG 0.3 %THb (0-1.5); Modified Allen's Test Pass; Oxygen Content ABG 17.3 %vol (16.0-22.0); Oxygen Saturation ABG 96.9 % (95.0-100.0); Oxyhemoglobin 95.4 % THb (90.0-100.0); PCO2 ABG 35.5 mmHg (35.0-45.0); PO2 ABG 89.3 mmHg (80.0-100.0); PO2 FiO2 Ratio Arterial Blood 4.25 %; Reduced Hemoglobin 3.7 %THb (0-5.0); Site Drawn LEFT RADIAL; Total Hemoglobin 12.8 g/dL (12.0-18.0)
[2020-04-04] MEDS: MAGNESIUM SULF 1 GM/D5W 100 ML 1 GM/100 ML BAG IVPB (12:41)
[2020-04-04 12:47] LABS: Add Urine Microscopic? YES; Appearance Urine Clear (Clear); Bilirubin Urine Negative (Negative); Blood Urine Negative (Negative); Color Urine Yellow (Yellow); Glucose Urine UA 3+ mg/dL (Negative); Ketones Urine Negative (Negative); Leukocyte Esterase Ur Negative LEU/UL (Negative); Mucus Urine Rare /lpf; Nitrate Urine Negative (Negative); Protein Urine 3+ mg/dL (Negative); Specific Grav Ur 1.027 (1.001-1.035); Squamous Epithelial Cell Urine Rare /hpf (Few); Urobilinogen Urine Negative mg/dL (<2.0); WBC Urine 0-3 /hpf
[2020-04-04 13:03] VITALS: BP 183/102; PULSE 72; RESP 15; O2SAT 96
[2020-04-04 13:14] LABS: Glucose Point of Care 382 (65-105)
[2020-04-04 13:52] VITALS: BP 134/86
[2020-04-04 14:51] VITALS: BP 141/80; PULSE 63; RESP 16; O2SAT 96
== END 2020-04-04 14:54 | disposition home or self-care (01) ==
PROVIDERS: Physician Assistant; Emergency Provider Emergency Medicine; PCP Internal Medicine
DX: U07.1 COVID-19 (principal); J12.82 Pneumonia due to coronavirus disease 2019; E11.65 Type 2 diabetes mellitus with hyperglycemia; E11.42 Type 2 diabetes mellitus with diabetic polyneuropathy; I10 Essential (primary) hypertension; E78.5 Hyperlipidemia, unspecified; K76.9 Liver disease, unspecified; M19.042 Primary osteoarthritis, left hand; M19.041 Primary osteoarthritis, right hand; M85.80 Other specified disorders of bone density and structure, unspecified site; N28.9 Disorder of kidney and ureter, unspecified; E66.9 Obesity, unspecified; Z68.33 Body mass index [BMI] 33.0-33.9, adult; Z86.010 Personal history of colon polyps; Z89.429 Acquired absence of other toe(s), unspecified side; Z79.82 Long term (current) use of aspirin; Z96.659 Presence of unspecified artificial knee joint; Z87.891 Personal history of nicotine dependence; R94.31 Abnormal electrocardiogram [ECG] [EKG]; Z79.4 Long term (current) use of insulin
CPT/HCPCS: 36415; 36600; 71045; 71275; 80053; 81001; 82010; 82375; 82728; 82805; 82948; 83036; 83050; 83615; 83735; 84100; 84484; 85025; 85380; 85610; 85730; 93005; 93970; 96361; 96365; 96375; 99284; A9270; J1815; J3475; J7030; Q9967

== ENCOUNTER 2020-04-11 09:17 | Outpatient (CLI) | payer MEDICARE, OTHER, SELFPAY ==
[2020-04-11 10:14] LABS: Anion Gap 5 mmol/L (8-16); Blood Urea Nitrogen 21 mg/dL (9-20); Calcium 9.6 mg/dL (8.4-10.2); Carbon Dioxide 27 mmol/L (22-30); Chloride 101 mmol/L (98-107); Estimated Glomerular Filt Rate > 60; Glucose 258 mg/dL (75-110); Magnesium 1.4 mg/dL (1.6-2.3); Potassium 4.5 mmol/L (3.4-5.0); Sodium 133 mmol/L (137-145)
== END 2020-04-11 09:18 | disposition home or self-care (01) ==
PROVIDERS: PCP Internal Medicine; Visit Provider Internal Medicine
DX: E83.42 Hypomagnesemia (principal); E87.1 Hypo-osmolality and hyponatremia
CPT/HCPCS: 36415; 80048; 83735

== ENCOUNTER → 2020-04-14 08:32 | Outpatient (CLI) | payer MEDICARE, OTHER, SELFPAY ==
--- NOTE | ~2020-04-14 | XR_ITS ---
EXAMINATION: HAND-TRAVIS ARTHRITIS 3+VIEWS DATE: 04/14/2020 08:50 INDICATION: Worsening chronic bilateral hand pain. TECHNIQUE: Posteroanterior, lateral, and oblique views of the left and of the right hands as well as a ballcatchers view of both hands were obtained. COMPARISON: None. FINDINGS: Bone alignment is normal. No fracture. Relatively symmetric pattern of polyarticular osteoarthritis a t both hands characterized by nonuniform joint space narrowing and/or small marginal osteophytes. Thi s is moderate to severe at the right second and third metacarpophalangeal joints and moderate severit y at the left third metacarpophalangeal joint with degenerative subarticular cystic change at the hea ds of each of the associated metacarpals. Moderate osteoarthritis at many of the bilateral distal int erphalangeal joints and mild osteoarthritis at the bilateral wrist, triscaphe, first carpometacarpal and remaining metacarpophalangeal and interphalangeal joints. No periarticular erosions to suggest an inflammatory arthritis. Soft tissues are unremarkable. IMPRESSION: 1. Polyarticular osteoarthritis at the bilateral hands and wrists. The disproportionate severity at t he second and third metacarpophalangeal joints suggest possibility of secondary osteoarthritis which could be related to either calcium pyrophosphate deposition (CPPD) disease or underlying rheumatoid a rthritis although there is no evident chondrocalcinosis to more specifically suggest the former nor p eriarticular erosions to suggest the latter. Reviewed, dictated and finalized at location B. HELPER IMPRESSION: 1. Polyarticular osteoarthritis at the bilateral hands and wrists. The dispropo rtionate severity at the second and third metacarpophalangeal joints suggest po ssibility of secondary osteoarthritis which could be related to either calcium pyrophosphate deposition (CPPD) disease or underlying rheumatoid arthritis alth ough there is no evident chondrocalcinosis to more specifically suggest the for hawa nor periarticular erosions to suggest the latter.
== END ==
PROVIDERS: PCP Internal Medicine; Visit Provider Internal Medicine
DX: M19.042 Primary osteoarthritis, left hand (principal); M19.041 Primary osteoarthritis, right hand
CPT/HCPCS: 73130

== ENCOUNTER 2020-05-21 10:40 | Outpatient (CLI) | payer MEDICARE, OTHER, SELFPAY ==
[2020-05-21 12:01] LABS: Rheumatoid Factor < 8.6 IU/ML (<12)
[2020-05-21 12:17] LABS: Erythrocyte Sedimentation Rate 26 mm/hr (0-20)
[2020-05-21 12:20] LABS: Iron 74 ug/dL (49-181)
[2020-05-21 13:23] LABS: Percent Iron Saturation 22 % (20-50)
[2020-05-27 11:08] LABS: Anti Cyclic Citrullinated Pept <16 Units (<20)
== END 2020-05-21 10:41 | disposition home or self-care (01) ==
PROVIDERS: PCP Internal Medicine; Visit Provider Internal Medicine
DX: D64.9 Anemia, unspecified (principal); M79.643 Pain in unspecified hand
CPT/HCPCS: 36415; 82728; 83540; 83550; 85652; 86038; 86200; 86430

== ENCOUNTER 2020-07-01 06:50 | Outpatient (CLI) | payer MEDICARE, OTHER, SELFPAY ==
[2020-07-01 07:41] LABS: Creatinine Urine 69.8 mg/dL
[2020-07-01 07:47] LABS: Potassium 4.3 mmol/L (3.4-5.0)
[2020-07-01 07:50] LABS: Albumin Level 3.5 g/dL (3.5-5.1); Anion Gap 4 mmol/L (8-16); Blood Urea Nitrogen 18 mg/dL (9-20); Calcium 9.2 mg/dL (8.4-10.2); Carbon Dioxide 26 mmol/L (22-30); Chloride 107 mmol/L (98-107); Estimated Glomerular Filt Rate > 60; Glucose 136 mg/dL (75-110); Phosphorus 3.6 mg/dL (2.5-4.5); Sodium 137 mmol/L (137-145)
[2020-07-01 08:02] LABS: Total Protein Urine Random 258 mg/dL
== END 2020-07-01 06:51 | disposition home or self-care (01) ==
PROVIDERS: PCP Internal Medicine; Visit Provider Internal Medicine Nephrology
DX: R80.1 Persistent proteinuria, unspecified (principal)
CPT/HCPCS: 36415; 80069; 82570; 84156

== ENCOUNTER 2020-07-17 07:38 | Outpatient (CLI) | payer MEDICARE, OTHER, SELFPAY ==
[2020-07-17 08:01] LABS: Hemoglobin A1C 9.2 % (<5.7)
[2020-07-17 08:02] LABS: Alanine Aminotransferase 21 U/L (4-50); Albumin Level 3.7 g/dL (3.5-5.1); Alkaline Phosphatase 72 U/L (38-126); Anion Gap 9 mmol/L (8-16); Aspartate Amino Transferase 22 U/L (17-59); Bilirubin,Total 0.3 mg/dL (0.2-1.3); Blood Urea Nitrogen 17 mg/dL (9-20); Calcium 9.2 mg/dL (8.4-10.2); Carbon Dioxide 23 mmol/L (22-30); Chloride 105 mmol/L (98-107); Cholesterol 218 mg/dL (0-200); Estimated Glomerular Filt Rate > 60; Glucose 312 mg/dL (75-110); HDL Direct 52 mg/dL; Potassium 4.6 mmol/L (3.4-5.0); Sodium 137 mmol/L (137-145); Triglycerides 326 mg/dL (<150)
[2020-07-17 08:12] LABS: LDL Cholesterol Direct 63 mg/dL
[2020-07-17 08:39] LABS: Basophils Absolute Auto 0.1 K/mm3 (0.0-0.1); Basophils Percent Auto 0.9 % (0.2-1.2); Eosinophils Absolute Auto 0.2 K/mm3 (0-0.3); Eosinophils Percent Auto 3.7 % (0-4.4); Hematocrit 41.7 % (42.0-52.0); Hemoglobin 13.4 g/dL (14.0-18.0); Immature Granulocyte Absolute 0.02 K/mm3 (0.00-0.031); Immature Granulocyte Percent A 0.4 % (0-0.5); Lymphocytes Absolute Auto 1.51 K/mm3 (0.9-3.2); Lymphocytes Percent Auto 26.8 % (18.3-44.2); Mean Corpuscular HGB Conc 32.1 g/dl (32-36); Mean Corpuscular Hemoglobin 28.7 pg (26-34); Mean Corpuscular Volume 89.3 fl (80-100); Monocytes Absolute Auto 0.5 K/mm3 (0.1-0.6); Monocytes Percent Auto 9.6 % (2.6-8.5); Neutrophils Absolute Auto 3.3 K/mm3 (1.3-6.7); Neutrophils Percent Auto 58.6 % (45.5-73.1); Platelet Count Result 282 k/mm3 (150-375); Red Blood Count 4.67 M/mm3 (4.6-6.20); Red Cell Distribution Width 12.3 % (11.5-14.5); White Blood Count 5.6 K/mm3 (4.5-10.0)
== END 2020-07-17 07:39 | disposition home or self-care (01) ==
PROVIDERS: PCP Internal Medicine; Visit Provider Internal Medicine
DX: D64.9 Anemia, unspecified (principal); E11.9 Type 2 diabetes mellitus without complications
CPT/HCPCS: 36415; 80053; 80061; 83036; 85025

== ENCOUNTER 2020-08-03 11:29 | Emergency (ER) | payer MEDICARE, OTHER, SELFPAY ==
[2020-08-03 11:44] VITALS: BP 100/70; PULSE 107; RESP 20; TEMP 36.7; O2SAT 98
--- NOTE | 2020-08-03 11:59 | ED.BACK ---
HPI - Back Pain/Injury General Chief Complaint: Back Pain/Injury Stated Complaint: Dizziness, Back pain Time Seen by Provider: 08/03/20 11:59 Source: patient and RN notes reviewed Mode of arrival: ambulatory Limitations: no limitations History of Present Illness HPI Narrative: 69-year-old male presents concern for low back pain that radiates to the upper back and bilateral hips. Reports approximately 2-month history of ongoing mild back pain, reports it is worsened in the last 2 days. 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 He denies any direct injury, trauma to his back. He denies loss of bowel or bladder function, perianal esthesia, weakness in any extremity, fever, abdominal pain. He reports he recently started a new blood pressure medication and changed a dose of his diabetes medication and since then has had mild nausea without vomiting and occasional lightheadedness when standing up from bending over. He denies any syncope or near syncope. He denies any headache, trouble speaking, trouble swallowing. He denies chest pain. MD elicited complaint: back pain Related Data Home Medications Medication Instructions Recorded Confirmed aspirin 81 mg tablet,delayed 81 mg PO DAILY 01/19/19 08/03/20 release multivitamin 1 tablet PO DAILY 01/19/19 08/03/20 pen needle, diabetic 31 gauge x #30 each 01/29/19 07/22/2006/29 acetaminophen [Tylenol Arthritis] 1,300 mg PO DAILY PRN 02/13/20 08/03/20 omega-3 acid ethyl esters [Lovaza] 2 cap PO BID 02/13/20 08/03/20 Allergies Allergy/AdvReac Type Severity Reaction Status Date / Time alcohol Allergy Severe Itching Verified 08/03/20 11:55 Review of Systems Review of Systems: Narrative: CONSTITUTIONAL: Denies malaise, chills, sweats, or fever. EYES: Denies visual changes CARDIOVASCULAR: Denies chest pain, palpitations, or edema. RESPIRATORY: Denies cough or dyspnea. GASTROINTESTINAL: Denies abdominal pain, vomiting, diarrhea, bloody, or mucous stools. Reports nausea GENITOURINARY: Denies dysuria, frequency, urgency, loss of bladder function, perianal anesthesia, or hematuria. SKIN: Denies lacerations, abrasions, redness, bruising MUSCULOSKELETAL: Reports bilateral low back pain that radiates to both hips and upper back. Denies myalgia. NEUROLOGIC: Denies numbness, weakness, or headache. All systems reviewed & are unremarkable except as noted in HPI and below PMFSH Past Medical History Medical History (Updated 08/03/20 @ 12:16 by Bhavna Lugo NP) Amputated toe 2015 Back pain Benign hypertension Body mass index (bmi) 37.0-37.9, adult Cataract Controlled type 2 diabetes mellitus with hyperglycemia Hearing loss Hepatitis History of colon polyps History of measles, mumps, or rubella Hyperlipidemia, unspecified Hypertension Hypogonadism male Liver disease Obesity Osteoarthritis of hands, bilateral Osteopenia Renal disease SOB (shortness of breath) Type 2 diabetes mellitus with diabetic polyneuropathy Surgical History Surgical History H/O arthroscopy of left knee H/O vasectomy 1977 History of hip surgery History of tonsillectomy History of total knee replacement (TKR) 2010 S/P left knee arthroscopy Family History Family History Other Adopted Social History Social History Smoking packs per day: 3 Smoking cigarettes per day: 60.0 Years smoked: 3 Smoking pack-years: 9.00 Smoking status: Former smoker Tobacco type: cigarettes Smokeless tobacco user: chewing tobacco Smoking end date: 02/15/72 Additional smoking assessment comments: QUITE CHEW 2011 Alcohol intake: former Substance use: never Substance use type: does not use Additional occupation/education comments: Pt works at [employer]. Comments At time of signature, agree
== END 2020-08-03 12:29 | disposition home or self-care (01) ==
PROVIDERS: Emergency Provider Nurse Practitioner; PCP Internal Medicine
DX: M54.5 Low back pain (principal); Z87.891 Personal history of nicotine dependence; E11.9 Type 2 diabetes mellitus without complications; E78.5 Hyperlipidemia, unspecified; M19.042 Primary osteoarthritis, left hand; M19.041 Primary osteoarthritis, right hand; M81.0 Age-related osteoporosis without current pathological fracture; E11.42 Type 2 diabetes mellitus with diabetic polyneuropathy; Z96.659 Presence of unspecified artificial knee joint; H26.9 Unspecified cataract
CPT/HCPCS: 99213; G0463

== ENCOUNTER 2020-09-12 09:26 | Outpatient (CLI) | payer MEDICARE, OTHER, SELFPAY ==
--- NOTE | ~2020-09-12 | US_ITS ---
EXAMINATION: US right upper quadrant EXAM DATE: 09/12/2020 10:04 INDICATION: R10.11 - Right upper quadrant pain . TECHNIQUE: Multiple grayscale and Doppler images of the abdomen right upper quadrant were obtained (b y a technologist who performed the scan) and subsequently reviewed. There is no prior study for rachael coburn. FINDINGS: The pancreatic head and body are normal in appearance. The pancreatic tail is not visualized. The l iver has normal echogenicity and contour. There are no focal liver lesions identified. There is no evidence of intrahepatic biliary duct dilation. Portal venous flow was seen in the hepatopedal, nor mal direction and has normal Doppler waveform. No right-sided hydronephrosis. Common bile duct measures 5 mm, which is normal. The gallbladder wall is normal in thickness, with ex pected amount of distention. No sonographic evidence of pericholecystic fluid. There is no cholelit hiases. Technologist performing exam reports patient did not demonstrate sonographic Peñaloza's sign. Please note that this sign is less reliable in patients who have received pain medication. IMPRESSION: 1. Unremarkable abdominal ultrasound exam. Reviewed, dictated and finalized at location B.
== END 2020-09-12 09:27 | disposition home or self-care (01) ==
PROVIDERS: PCP Internal Medicine; Visit Provider Clinical Nurse Specialist
DX: R10.11 Right upper quadrant pain (principal)
CPT/HCPCS: 76705

== ENCOUNTER 2020-09-19 07:24 | Outpatient (CLI) | payer MEDICARE, OTHER, SELFPAY ==
--- NOTE | ~2020-09-19 | NM_ITS ---
EXAMINATION: NM hepatobiliary w pharm DATE: 09/19/2020 10:00 INDICATION: Right upper quadrant abdominal pain COMPARISON: CT abdomen and pelvis dated 12/10/2019 TECHNIQUE: 5.1 mCi Tc-99m mebrofenin (Choletec) was administered intravenously. Scintigraphic images of the abdomen were obtained for one hour. 2.2 mcg sincalide (Kinevac) was administered by slow intr avenous infusion, and imaging was continued for 30 minutes. Gallbladder ejection fraction was calcula micki by the technologist. FINDINGS: There is normal clearance of radiotracer from the blood pool. There is homogeneous tracer uptake by t he liver. Activity progresses to the gallbladder and bowel. The gallbladder ejection fraction (GBEF) is 78% (normal 10-90%, but most patient with gallbladder dysfunction have GBEF < 35% which does over lap with the normal range). IMPRESSION: 1. Normal hepatobiliary scan. Reviewed, dictated and finalized at location A.
== END 2020-09-19 07:25 | disposition home or self-care (01) ==
PROVIDERS: PCP Internal Medicine; Visit Provider Clinical Nurse Specialist
DX: R10.11 Right upper quadrant pain (principal)
CPT/HCPCS: 78227; A9537; J2805

== ENCOUNTER 2020-10-17 08:23 | Outpatient (CLI) | payer MEDICARE, OTHER, SELFPAY ==
[2020-10-17 12:06] LABS: Hemoglobin A1C 8.7 % (<5.7)
== END 2020-10-17 08:24 | disposition home or self-care (01) ==
LOC: ANHLAB 08:27
PROVIDERS: PCP Internal Medicine; Visit Provider Nurse Practitioner
DX: E11.9 Type 2 diabetes mellitus without complications (principal)
CPT/HCPCS: 36415; 83036

== ENCOUNTER 2020-10-31 14:17 | Outpatient (CLI) | payer MEDICARE, OTHER, SELFPAY ==
--- NOTE | ~2020-10-31 | XR_ITS ---
XR lumbar spine min 4V DATE: 10/31/2020 14:40 INDICATION: Worsening lumbar back pain and right hip pain TECHNIQUE: AP, lateral, bilateral oblique views, coned lateral lumbosacral views COMPARISON: None FINDINGS: No fracture or bone destruction is evident. The lumbar pedicles are intact. No spondylolysi s or spondylolisthesis. There is mild degenerative disc disease at the upper mid lumbar interspaces and L5-S1, moderate degen erative disease at L4-5. The sacroiliac joints are intact. IMPRESSION: Mild/moderate degenerative disease Reviewed, dictated and finalized at location A.
== END 2020-10-31 14:18 | disposition home or self-care (01) ==
LOC: ANHIMG 14:24
PROVIDERS: PCP Internal Medicine; Visit Provider Nurse Practitioner
DX: M54.5 Low back pain (principal); M51.36 Other intervertebral disc degeneration, lumbar region
CPT/HCPCS: 72110

== ENCOUNTER 2020-12-18 09:30 | Outpatient (RCR) | payer MEDICARE, OTHER, SELFPAY ==
--- NOTE | 2020-11-19 11:40 | PTOPEVAL ---
PHYSICAL THERAPY EVALUATION AND PLAN OF CARE 11-19-20 Thank you for referring Milton Louis to [facility].? He is scheduled to be seen for therapy? 2 x/week for 4 weeks. Please review, sign, date and return this plan of care KYLAH. I agree with and certify that the following plan of care is medically necessary. Referring Physician Date Attending Provider: Reyna Alejo NP PT Outpatient Evaluation Document 11/19/20 10:35 NOEMI (Rec: 11/19/20 11:40 NOEMI [id number]) Outpatient Past Medical History Past Medical History Source of Past Medical History Recalled from Previous Visit, Confirmed with Patient/Family Neurological History Hx Other Neurological Disorders Yes: DM-neuropathy LEGS- B whole leg numb Cardiovascular History Hx Hypercholesterolemia Yes: meds Hx Hypertension Yes: meds, working on control, tends to be low now Respiratory History Hx COVID-19 Yes: Mar-more medical symptoms with HTN,diabetes, pain, neuropathy since Hx Sleep Apnea Yes Gastrointestinal History Hx Gastroesophageal Reflux Disease Yes: ACIPHEX FOR 2 MONTHS Hx Gastrointestinal Bleed Yes: BLOOD IN STOOL IN SEPTEMBER Genitourinary History Hx Other Genitourinary Disorders Yes: PROTIEN IN URINE Musculoskeletal History Hx Amputation Yes: PARTIAL R-toe DUE TO DM Hx Back Pain Yes: chronic back pain Hx Joint Replacement Yes: L-KNEE REPLACEMENT 2011 Hx Orthopedic Surgery Yes: L-femur 04/2018 FRACTURED -ORIF; R toe surgery Hx Other Musculoskeletal Disorders Yes: all joints hurt; R toe surgery scheduled Fri;to have B carpal tunnel surger Hematological History Hx Hematological Disorders No Significant History Endocrine History Hx Diabetes Yes: meds HEENT History Hx Tonsillectomy Yes Hx Other HEENT Disorders Yes: BILATERAL HEARING AIDES Integumentary History Hx Skin Disorders No Significant History Reproductive History Hx Other Reproductive Disorders Yes: VASCECTOMY Psychosocial History Hx Psychiatric Disorders No Significant History Pain History Has Past Pain Affected Your Daily Life Yes: CHRONIC NEUROPATHY LEGS Other History Hx Implanted Device Yes: L-KNEE, L-HIP Evaluation Information Problem Diagnosis low back pain Onset April 2020 Subjective Information increased back pain since had Query Text:As Reported By Patient/ COVID; Family Diagnostic Tests X-Rays For This Problem Yes: mild to moderate DDD Previous Treatments Previous Treatments For This Problem no PT
--- NOTE | 2020-12-18 09:53 | PTOPEVAL ---
PHYSICAL THERAPY DISCHARGE 12-18-20 Refer to the clinical summary below, for his status today, compared to the initial evaluation. The goals were achieved, except the L leg single leg standing time. Thank you for referring Milton Louis to [facility].? Please review, sign, date and return this Discharge Report KYLAH. I agree with and certify that the following plan of care is medically necessary. Referring Physician Date Attending Provider: Reyna Alejo NP Document 12/18/20 09:20 NOEMI (Rec: 12/18/20 09:53 NOEMI [id number]) Assessment Status Discharge Subjective Information Shawn reports: therapy has Query Text:As Reported By Patient/ helped--pain not as severe, Family have bouts of pain but not as bad; R foot is still recovering- on antibiotics due to toe red and swollen; have returned to work about 1 & 1/ 2 weeks ago and doing better with less pain; doing exercises at home; Pain Assessment Timing of Pain Assessment Timing of Pain Assessment Assessment Pain Scale Pain Scale Used Numeric (1 - 10) Self Report Pain Assessment Bilateral Back Reported Pain Level 1 Pain Frequency Chronic,Intermittent Other Pain Description severe ache; R and L lumbar and sacral; no pain into legs Lowest Pain Intensity 0 Greatest Pain Intensity 3 Pain Aggravating Factors Walking,Weight Bearing/ Standing Other Pain Aggravating Factors reported standing/walking tolerance 2 & 1/2 hours, then pain increase Pain Score Pain Score 1: Self Report Additional Pain Score Comments Oswestry self assessment functional activity level 20% limitation discussed home TENS unit, does not have one Interventions Used Interventions Used By Clinicians Education Pain Relief Interventions Used By Lying Supine,Medication, Patient Position Change,Sitting Other Alleviating Interventions tylenol Lower Extremity Muscle Strength Testing General Lower Extremity Strength Gross Lower Extremity Strength functional strength: single leg standing R 5/ L 3 seconds side lying hip abduction R 25/ L 25 reps supine/ hook lying alternate hip flexion R/L x 20 reps with
== END 2020-12-19 10:54 | disposition home or self-care (01) ==
LOC: ANHPT 09:30
PROVIDERS: PCP Internal Medicine; Visit Provider Nurse Practitioner
DX: M54.50 Low back pain, unspecified (principal)
CPT/HCPCS: 97014; 97110; 97161; 97530; G0283

== ENCOUNTER 2021-01-07 10:56 | Outpatient (CLI) | payer MEDICARE, OTHER, SELFPAY ==
[2021-01-07 12:24] LABS: Creatinine Urine 104.4 mg/dL; Total Protein Urine Random 168 mg/dL; Ur Ttl Prot Creatinine Ratio 1.61 mg/mg (0-0.20)
[2021-01-07 12:45] LABS: Anion Gap 10 mmol/L (8-16); Blood Urea Nitrogen 25 mg/dL (9-20); Calcium 9.6 mg/dL (8.4-10.2); Carbon Dioxide 23 mmol/L (22-30); Chloride 102 mmol/L (98-107); Estimated Glomerular Filt Rate > 60; Glucose 143 mg/dL (65-110); Potassium 4.7 mmol/L (3.4-5.0); Sodium 135 mmol/L (137-145)
[2021-01-07 12:46] LABS: Albumin Level 4.4 g/dL (3.5-5.1); Anion Gap 9 mmol/L (8-16); Blood Urea Nitrogen 25 mg/dL (9-20); Calcium 9.6 mg/dL (8.4-10.2); Carbon Dioxide 24 mmol/L (22-30); Chloride 102 mmol/L (98-107); Estimated Glomerular Filt Rate > 60; Glucose 144 mg/dL (65-110); Phosphorus 3.4 mg/dL (2.5-4.5); Potassium 4.7 mmol/L (3.4-5.0); Sodium 135 mmol/L (137-145)
[2021-01-07 13:05] LABS: Hemoglobin A1C 8.9 % (<5.7)
== END 2021-01-07 10:57 | disposition home or self-care (01) ==
PROVIDERS: PCP Internal Medicine; Referring Provider Anesthesiology; Visit Provider Nurse Practitioner
DX: E11.9 Type 2 diabetes mellitus without complications (principal); R80.1 Persistent proteinuria, unspecified
CPT/HCPCS: 36415; 80048; 80069; 82570; 83036; 84156

== ENCOUNTER → 2021-01-17 00:57 | Outpatient (CLI) | payer MEDICARE, OTHER, SELFPAY ==
[2021-01-17 18:54] LABS: SARS-CoV-2 RNA PCR Negative
== END ==
PROVIDERS: PCP Internal Medicine; Visit Provider Plastic Surgery
DX: Z01.812 Encounter for preprocedural laboratory examination (principal); Z20.822 Contact with and (suspected) exposure to COVID-19
CPT/HCPCS: C9803; U0003; U0005

== ENCOUNTER 2021-01-21 01:38 | Day surgery (SDC) | payer MEDICARE, OTHER, SELFPAY ==
[2021-01-07 08:46] VITALS: BMI 34.7
--- NOTE | 2021-01-07 09:27 | PC.NURSE ---
Report to the Outpatient Waiting Room, entrance under the green pavilion located off [facility], at time ___6:00AM____ on date __01/21/21 . OR Time: ___7:30AM . - You and your visitor will be asked a series of questions to screen for COVID 19 for your protection. - A mask is required within the hospital. - Only one visitor is allowed at this time. Patient visitors will be guided where to wait when not with patient. Preoperative COVID Testing Requirements: No COVID Test needed if: (proof is required; if not received patient will have Rapid Test prior to entry) - Patient has received COVID Vaccine at least 14 days prior to procedure date or - Patient has positive COVID test result within last 90 days of surgery date. COVID Test needed if above criteria is not met If not COVID vaccinated a COVID test must be conducted within 72 hours of surgery and patient is asked to isolate self from time of testing until procedure. You will go to the [employer] [facility] for your COVID testing. The [employer] [facility] is located at the corner of [address] [facility]. COVID TESTING 01/17/21 9:10AM You will only be called if COVID results are positive and your surgeon may reschedule your elective surgery date. Patients may have clear liquids (water, carbonated beverages, clear teas, apple juice) until 3 hours prior to surgery with a maximum of 20 ounces. - No food from midnight until time of surgery - Infants may have breast milk until 4 hours before surgery, formula 6 hours prior to surgery. - Children will be allowed to drink immediately following surgery. If applicable, please bring a bottle or sippy cup to assist with drinking. Juice, water, soda, and popsicles are readily available. For infants on formula, please bring formula the day of surgery. Pacifiers are allowed. Take the following medications with a SIP of water the morning of surgery: ____NONE Medications to discontinue per physician HOLD ALL VITAMINS/SUPPLEMENTS 3 DAYS PRE-OP Date to take last dose 01/18/[address] OHARA Please no make-up, nail khmer, hairspray, perfume, deodorant, or body powder the day of surgery. No jewelry (including any body piercings) or valuables the day of surgery, leave them at home. Please take a shower or bath the night before, or the morning of, surgery with an antibacterial soap. Wear comfortable, loose fitting clothing. Children are encouraged to wear pajamas. - Jewelry must be removed prior to entering the operating room. Rings and piercings that are not removed may be cut off. - The hospital will not accept responsibility for valuables. - Please leave all valuables, including medications, at home the day of surgery. If you are going home after surgery, a licensed parts driver must drive you home. - NO public transportation without another adult. - We recommend that an adult stay with you for 24 hours following discharge. - We also recommend that you do not drive, make important decision, drink alcoholic beverages, or take any drugs that were not prescribed by your health care provider for at least 24 hours after your discharge time. For Pediatric surgeries, we recommend two adults accompany the child home (only one inside the building at this time). Follow any additional instructions given to you from your surgeon. Telephone instructions given to ____PATIENT and asked if any additional questions and then verbalized understanding. Patient advised to call surgeon office or pre surgery nurse liaison [phone] if any additional questions.
[2021-01-21 06:50] LABS: Glucose Point of Care 307 mg/dl (65-105)
[2021-01-21 07:00] VITALS: BP 161/81; PULSE 76; RESP 16; TEMP 36.1; O2SAT 98
[2021-01-21 07:01] LABS: Anion Gap 9 mmol/L (8-16); Blood Urea Nitrogen 23 mg/dL (9-20); Calcium 9.2 mg/dL (8.4-10.2); Carbon Dioxide 24 mmol/L (22-30); Chloride 99 mmol/L (98-107); Estimated CRCL calculation 79 ml/min; Estimated Glomerular Filt Rate > 60; Glucose 329 mg/dL (65-110); Potassium 4.3 mmol/L (3.4-5.0); Sodium 132 mmol/L (137-145)
--- NOTE | 2021-01-21 07:09 | WPDANESEPPF ---
Anes - Initial Pre Proc Eval Procedure: Operation Date: 01/21/21 07:30 Proposed Procedures p Right Open Carpal Tunnel Release - Myles Moore MD Date/Time: 01/21/21 07:09 Surgeon: Myles Moore MD Pre Op Diagnosis: Rt Carpal Tunnel Syndrome Patient Data Age: 70 Gender: M Height: 1.8 m Weight: 113 kg Allergies Allergy/AdvReac Type Severity Reaction Status Date / Time alcohol Allergy Severe Itching, Verified 01/07/21 08:43 RASH Home Medications Medication Instructions Recorded Confirmed Type aspirin 81 mg tablet,delayed 81 mg PO DAILY 01/19/19 01/07/21 History release multivitamin 1 tablet PO DAILY 01/19/19 01/07/21 History pen needle, diabetic 31 gauge x #30 each 01/29/19 10/31/20 History 06/29 lancets 28 gauge #50 each 09/11/19 10/31/20 Rx acetaminophen [Tylenol Arthritis] 1,300 mg PO QAM PRN 02/13/20 01/07/21 History omega-3 acid ethyl esters [Lovaza] 2 cap PO BID 02/13/20 01/07/21 History cyclobenzaprine 10 mg PO TID PRN #20 tablet 08/03/20 01/07/21 Rx blood sugar diagnostic #100 each 09/29/20 10/31/20 Rx diclofenac potassium 50 mg tablet 50 mg PO DAILY PRN 10/22/20 01/07/21 History dulaglutide 4.5 mg/0.5 mL 4.5 mg SUBCUT WEEKLY #2 ml 10/22/20 01/07/21 Rx subcutaneous pen injector tamsulosin 0.4 mg capsule 0.4 mg PO DAILY #90 cap 12/04/20 01/07/21 Rx amlodipine 5 mg PO HS 01/07/21 01/07/21 History insulin glargine [Lantus Solostar 35 unit SUB-Q BID 01/07/21 01/07/21 History U-100 Insulin] lisinopril 40 mg PO QAM 01/07/21 01/07/21 History lovastatin 40 mg PO QAM 01/07/21 01/07/21 History magnesium oxide 400 mg PO DAILY 01/07/21 01/07/21 History metformin 1,000 mg PO BID 01/07/21 01/07/21 History omeprazole 10 mg capsule,delayed 10 mg PO HS #90 cap 01/14/21 Rx release Laboratory Tests 01/21/21 01/21/21 06:34 06:36 Sodium 132 mmol/L L mmol/L (137-145) Potassium 4.3 mmol/L mmol/L (3.4-5.0) Chloride 99 mmol/L mmol/L (98-107) Carbon Dioxide 24 mmol/L mmol/L (22-30) Anion Gap 9 mmol/L mmol/L (8-16) BUN 23 mg/dL H mg/dL (9-20) Creatinine 1.00 mg/dL mg/dL (0.7-1.3) Estim Creat Clear Calc 79 ml/min ml/min Estimated GFR > 60 (59 - ) Glucose 329 mg/dL H mg/dL (65-110) POC Capillary Glucose 307 mg/dl H mg/dl (65-105) Calcium 9.2 mg/dL mg/dL (8.4-10.2) Patient hx anesthesia problems: none Family hx anesthesia problems: none Results Review: All pre-operative results and documents have been reviewed as part of the pre-operative evaluation. [facility] Past Medical History Medical History Amputated toe 2015 Back pain Benign hypertension Body mass index (bmi) 37.0-37.9, adult Carpal tunnel syndrome Cataract Controlled type 2 diabetes mellitus with hyperglycemia Hearing loss Hepatitis History of colon polyps History of measles, mumps, or rubella Hyperlipidemia, unspecified Hypertension Hypogonadism male Liver disease Obesity Osteoarthritis of hands, bilateral Osteopenia Renal disease SOB (shortness of breath) Type 2 diabetes mellitus with diabetic polyneuropathy Surgical History Surgical History H/O arthroscopy of left knee H/O vasectomy 1977 History of hip surgery History of tonsillectomy History of total knee replacement (TKR) 2010 S/P left knee arthroscopy Family History Family History Other Adopted Social History Social History Smoking packs per day: 3.5 Smoking cigarettes per day: 70.0 Years smoked: 1 Smoking pack-years: 3.50 Smoking status: Former smoker Tobacco type: cigarettes Smokeless tobacco user: chewing tobacco Smoking end date: 08/14/74 Additional smoking assessment comments: RADHAMES CHEW 2012 Alcohol
--- NOTE | 2021-01-21 07:22 | WPDHPUPDATE1 ---
History and Physical Update Update Date/Time: 01/21/21 07:22 History and Physical has been reviewed, including an updated exam of the patient. There are NO changes in the patient's condition. Risks, benefits, and alternatives have been discussed and questions answered. Patient agrees to proceed with procedure.
[2021-01-21] MEDS: LIDO 1%/EPINEPHRINE/PF 1:200,000 30 ML VIAL 10 ML XX (07:49)
[2021-01-21 08:08] VITALS: BP 141/76; PULSE 73; RESP 20; O2SAT 95
[2021-01-21] MEDS: LACTATED RINGERS 1,000 ML 30 ML IV CONT (08:08)
[2021-01-21 08:18] LABS: Glucose Point of Care 292 mg/dl (65-105)
[2021-01-21 08:30] VITALS: BP 151/74; PULSE 72; RESP 20
--- NOTE | 2021-01-21 08:52 | W.PM.PROC2 ---
Procedure Note - Detailed Date of Procedure 01/21/21 Pre-op Diagnosis Rt Carpal Tunnel Syndrome Post-op Diagnosis same Procedure Performed Right open carpal tunnel release Surgeon Myles Moore MD Anesthesia MAC Description of Procedure The right volar wrist was marked on the patient in the holding area. He was then taken to the operating room where he was placed supine on the operating table. A time-out was held and confirmed. He was given sedation anesthesia. The right upper extremity was prepped draped in usual fashion. The site was remarked for incision and locally infiltrated with 1% lidocaine with epinephrine. No tourniquet was used. Sometimes allowed for hemostatic effect. The incision was made in the palm as marked and dissection was carried bluntly through the subcutaneous tissue to the palmar aponeurosis. This and the carpal retinaculum were incised with a 15 blade. Under 3 point retraction the ligament was divided distally and proximally for complete release. There was no unusual anatomy noted. The wound was closed with interrupted 4-0 nylon suture and the usual bandage with elastic wrap was applied. This patient has oxycodone at home already from the prior surgery Estimated Blood Loss 1 Tourniquet Time 0 Drains No Packing No Pathology none sent Condition stable Disposition same day
[2021-01-21 09:00] VITALS: BP 151/74; PULSE 72; RESP 20
[2021-01-21 09:30] VITALS: BP 155/76; PULSE 71; RESP 12
== END 2021-01-21 10:00 | disposition home or self-care (01) ==
PROVIDERS: Anesthesiology; PCP Internal Medicine; Visit Provider Plastic Surgery
PROC: (CPT 64721; principal; 2021-01-21 07:30)
DX: G56.01 Carpal tunnel syndrome, right upper limb (principal); I10 Essential (primary) hypertension; E11.42 Type 2 diabetes mellitus with diabetic polyneuropathy; E78.5 Hyperlipidemia, unspecified; E66.9 Obesity, unspecified; Z68.33 Body mass index [BMI] 33.0-33.9, adult; Z87.891 Personal history of nicotine dependence; Z79.4 Long term (current) use of insulin; Z79.82 Long term (current) use of aspirin; Z79.899 Other long term (current) drug therapy; Z79.84 Long term (current) use of oral hypoglycemic drugs
CPT/HCPCS: 64721; 36415; 80048; 82948; A9270; J2250; J2704; J3010; J7120

== ENCOUNTER → 2021-02-16 01:02 | Outpatient (CLI) | payer MEDICARE, OTHER, SELFPAY ==
[2021-02-16 21:22] LABS: SARS-CoV-2 RNA PCR Negative
== END ==
PROVIDERS: PCP Internal Medicine; Visit Provider Plastic Surgery
DX: Z01.812 Encounter for preprocedural laboratory examination (principal); Z20.822 Contact with and (suspected) exposure to COVID-19
CPT/HCPCS: C9803; U0003; U0005

== ENCOUNTER 2021-02-19 02:13 | Day surgery (SDC) | payer MEDICARE, OTHER, SELFPAY ==
[2021-02-16 12:30] VITALS: BMI 33.5
--- NOTE | 2021-02-16 12:38 | PC.NURSE ---
Report to the Outpatient Waiting Room, entrance under the green pavilion located off [facility], at time _0915__ on date _02/19/21__. OR Time: ____111____. - You and your visitor will be asked a series of questions to screen for COVID 19 for your protection. - A mask is required within the hospital. - NO visitors are allowed at this time. Patient visitors will be guided where to wait when not with patient. Preoperative COVID Testing Requirements: No COVID Test needed if: (proof is required; if not received patient will have Rapid Test prior to entry) - Patient has received COVID Vaccine at least 14 days prior to procedure date or - Patient has positive COVID test result within last 90 days of surgery date. COVID Test needed if above criteria is not met If not COVID vaccinated a COVID test must be conducted within 72 hours of surgery and patient is asked to isolate self from time of testing until procedure. You will go to the [facility] for your COVID testing. The [facility] Testing site is located at the corner of [address] [facility]. You will only be called if COVID results are positive and your surgeon may reschedule your elective surgery date. Patients may have clear liquids (water, carbonated beverages, clear teas, apple juice) until 3 hours prior to surgery with a maximum of 20 ounces. - No food from midnight until time of surgery - Infants may have breast milk until 4 hours before surgery, formula 6 hours prior to surgery. - Children will be allowed to drink immediately following surgery. If applicable, please bring a bottle or sippy cup to assist with drinking. Juice, water, soda, and popsicles are readily available. For infants on formula, please bring formula the day of surgery. Pacifiers are allowed. Take the following medications with a SIP of water the morning of surgery: ____CYCLOBENZAPRINE IF NEEDED Medications to discontinue per physician ALL VITAMINS/SUPPLEMENTS STOP OF TODAY Date to take last dose____02/16/21 Please no make-up, nail swazi, hairspray, perfume, deodorant, or body powder the day of surgery. No jewelry (including any body piercings) or valuables the day of surgery, leave them at home. Please take a shower or bath the night before, or the morning of, surgery with an antibacterial soap. Wear comfortable, loose fitting clothing. Children are encouraged to wear pajamas. - Jewelry must be removed prior to entering the operating room. Rings and piercings that are not removed may be cut off. - The hospital will not accept responsibility for valuables. - Please leave all valuables, including medications, at home the day of surgery. If you are going home after surgery, a licensed high lift driver must drive you home. - NO public transportation without another adult. - We recommend that an adult stay with you for 24 hours following discharge. - We also recommend that you do not drive, make important decision, drink alcoholic beverages, or take any drugs that were not prescribed by your health care provider for at least 24 hours after your discharge time. For Pediatric surgeries, we recommend two adults accompany the child home (only one inside the building at this time). Follow any additional instructions given to you from your surgeon. Telephone instructions given to PT and asked if any additional questions and then verbalized understanding. Patient advised to call surgeon office or pre surgery nurse liaison [phone] if any additional questions.
--- NOTE | 2021-02-19 07:16 | WPDHPUPDATE1 ---
History and Physical Update Update Date/Time: 02/19/21 07:16 History and Physical has been reviewed, including an updated exam of the patient. There are NO changes in the patient's condition. Risks, benefits, and alternatives have been discussed and questions answered. Patient agrees to proceed with procedure.
[2021-02-19 10:37] LABS: Glucose Point of Care 289 mg/dl (65-105)
--- NOTE | 2021-02-19 10:55 | SUR.PREOP ---
PT STATES HE STOPPED ALL HIS DAILY MEDICATIONS ON Tuesday02/16/21
[2021-02-19 11:02] VITALS: BMI 33.2
[2021-02-19] MEDS: LACTATED RINGERS 1,000 ML 30 ML IV CONT (11:15)
--- NOTE | 2021-02-19 11:17 | SUR.PREOP ---
DR KEMP NOTIFIED OF BS 289 AND PT STOPPED ALL MEDS ON TUESDAY, 8 UNITS REGULAR INSULIN SUBQ ORDERED
--- NOTE | 2021-02-19 11:21 | WPDANESEPPF ---
Anes - Initial Pre Proc Eval Procedure: Operation Date: 02/19/21 11:15 Proposed Procedures p Left Open Carpal Tunnel Release - Myles Moore MD Date/Time: 02/19/21 11:21 Surgeon: Myles Moore MD Pre Op Diagnosis: left carpal tunnel syndrome Patient Data Age: 70 Gender: M Height: 1.8 m Weight: 108 kg Allergies Allergy/AdvReac Type Severity Reaction Status Date / Time alcohol Allergy Severe Itching, Verified 02/19/21 10:48 RASH Home Medications Medication Instructions Recorded Confirmed Type aspirin 81 mg tablet,delayed 81 mg PO DAILY 01/19/19 02/19/21 History release multivitamin 1 tablet PO DAILY 01/19/19 02/19/21 History pen needle, diabetic 31 gauge x #30 each 01/29/19 02/16/21 History 06/29 lancets 28 gauge #50 each 09/11/19 02/16/21 Rx acetaminophen 1,300 mg PO QAM PRN 02/13/20 02/19/21 History omega-3 acid ethyl esters [Lovaza] 2 cap PO BID 02/13/20 02/19/21 History cyclobenzaprine 10 mg PO TID PRN #20 tablet 08/03/20 02/19/21 Rx blood sugar diagnostic #100 each 09/29/20 02/16/21 Rx diclofenac potassium 50 mg tablet 50 mg PO DAILY PRN 10/22/20 02/19/21 History tamsulosin 0.4 mg capsule 0.4 mg PO DAILY #90 cap 12/04/20 02/19/21 Rx amlodipine 5 mg PO HS 01/07/21 02/19/21 History lisinopril 40 mg PO QAM 01/07/21 02/19/21 History lovastatin 40 mg PO QAM 01/07/21 02/19/21 History magnesium oxide 400 mg PO DAILY 01/07/21 02/19/21 History omeprazole 10 mg capsule,delayed 10 mg PO HS #90 cap 01/14/21 02/19/21 Rx release hydrocodone-acetaminophen 1 tablet PO Q6H PRN #7 tablet MDD 6 01/21/21 02/19/21 Rx insulin glargine 100 unit/mL (3 40 unit SUB-Q BID ml 01/21/21 02/19/21 History mL) subcutaneous pen dulaglutide 4.5 mg/0.5 mL 4.5 mg SUBCUT WEEKLY #2 ml 01/22/21 02/19/21 Rx subcutaneous pen injector metformin 1,000 mg tablet 1,000 mg PO BID #180 tablet 02/16/21 Rx Laboratory Tests 02/19/21 10:34 POC Capillary Glucose 289 mg/dl H mg/dl (65-105) Patient hx anesthesia problems: none Family hx anesthesia problems: none Results Review: All pre-operative results and documents have been reviewed as part of the pre-operative evaluation. [facility] Past Medical History Medical History Amputated toe 2015 Back pain Benign hypertension Body mass index (bmi) 37.0-37.9, adult Carpal tunnel syndrome Cataract Controlled type 2 diabetes mellitus with hyperglycemia Hearing loss Hepatitis History of colon polyps History of measles, mumps, or rubella Hyperlipidemia, unspecified Hypertension Hypogonadism male Liver disease Obesity Obesity Osteoarthritis of hands, bilateral Osteopenia Renal disease SOB (shortness of breath) Type 2 diabetes mellitus with diabetic polyneuropathy Surgical History Surgical History H/O arthroscopy of left knee H/O vasectomy 1977 History of carpal tunnel surgery of right wrist History of hip surgery History of tonsillectomy History of total knee replacement (TKR) 2010 S/P left knee arthroscopy Family History Family History Other Adopted Social History Social History Smoking packs per day: 3 Smoking cigarettes per day: 60.0 Years smoked: 3 Smoking pack-years: 9.00 Smoking status: Never smoker Tobacco type: cigarettes Smokeless tobacco user: chewing tobacco Smoking end date: 02/15/72 Additional smoking assessment comments: QUITE CHEW 2011 Alcohol intake: former Alcohol use details: HEAVY DRINKER PRIOR TO 1994 Substance use: never Substance use type: does not use Living arrangements: with family Additional living arrangements comments: Additional occupation/education comments: Pt works at [employer]. Spiritual care concerns: No Anes - Eval Final Pr
[2021-02-19] MEDS: INSULIN HUMAN REGULAR (*BKC) 100 UNITS/ML 8 UNITS SUB-Q (11:32)
[2021-02-19] MEDS: LIDO 1%/EPINEPHRINE 1:100,000 50 ML VIAL INFILTRATE (12:39)
[2021-02-19] MEDS: BACITRACIN OINTMENT 15 GM TUBE 1 APPLIC TOPICAL (12:52)
[2021-02-19 12:58] VITALS: BP 112/69; PULSE 74; RESP 16; O2SAT 95
--- NOTE | 2021-02-19 13:06 | P.OP_ITS ---
Procedure Note - Detailed Date of Procedure 02/19/21 Pre-op Diagnosis left carpal tunnel syndrome Post-op Diagnosis same Procedure Performed Left open carpal tunnel release Surgeon Myles Moore MD Anesthesia MAC Description of Procedure The skin over the patient's left carpal tunnel was marked in the holding area. He was taken to the operating room where he was placed supine on the operating table. A time-out was held and confirmed. He was given IV sedation as the extremity was prepped and draped in usual fashion. The surgical site was marked for the incision and locally infiltrated with 1% lidocaine with epinephrine. The tourniquet was inflated to 250 mmHg. The incision was made as marked and d issection was carried bluntly through the subcutaneous tissue to the palmar aponeurosis. This and the transverse carpal retinaculum were incised with a 15 blade opening the canal. Under 3 point retraction the ligament was divided distally and proximally to completely release it. No unusual anatomy was noted. The wound was closed with interrupted nylon suture. The tourniquet was released. The usual bandage was applied. He was discharged home with instructions in wound care and follow-up. A prescription for hydrocodone 7 was sent to his pharmacy Estimated Blood Loss 0 Drains No Packing No Pathology none sent Complications No immediate complications Condition stable Disposition same day
[2021-02-19 13:11] LABS: Glucose Point of Care 265 mg/dl (65-105)
[2021-02-19 13:25] VITALS: BP 180/90; PULSE 63; RESP 16
[2021-02-19 13:55] VITALS: BP 175/89; PULSE 60; RESP 16
[2021-02-19 14:20] VITALS: BP 169/72; PULSE 63; RESP 16
== END 2021-02-19 14:30 | disposition home or self-care (01) ==
PROVIDERS: PCP Internal Medicine; Visit Provider Plastic Surgery
PROC: (CPT 64721; principal; 2021-02-19 11:15)
DX: G56.02 Carpal tunnel syndrome, left upper limb (principal); E11.42 Type 2 diabetes mellitus with diabetic polyneuropathy; I10 Essential (primary) hypertension; E78.5 Hyperlipidemia, unspecified; K76.9 Liver disease, unspecified; E66.9 Obesity, unspecified; Z68.33 Body mass index [BMI] 33.0-33.9, adult; Z87.891 Personal history of nicotine dependence; Z79.82 Long term (current) use of aspirin; Z79.4 Long term (current) use of insulin; Z79.84 Long term (current) use of oral hypoglycemic drugs; Z79.891 Long term (current) use of opiate analgesic
CPT/HCPCS: 64721; 82948; A9270; J1815; J2250; J2405; J2704; J3010; J7120

== ENCOUNTER → 2021-05-04 03:13 | Outpatient (CLI) | payer MEDICARE, OTHER, SELFPAY ==
[2021-05-04 10:53] LABS: SARS-CoV-2 RNA PCR Negative
== END ==
PROVIDERS: PCP Internal Medicine; Visit Provider Plastic Surgery
DX: Z01.812 Encounter for preprocedural laboratory examination (principal); Z20.822 Contact with and (suspected) exposure to COVID-19
CPT/HCPCS: C9803; U0003; U0005

== ENCOUNTER 2021-05-04 10:07 | Outpatient (CLI) | payer MEDICARE, OTHER, SELFPAY ==
[2021-05-04 10:07] LABS: Anion Gap 4 mmol/L (8-16); Blood Urea Nitrogen 20 mg/dL (9-20); Carbon Dioxide 27 mmol/L (22-30); Chloride 104 mmol/L (98-107); Estimated Glomerular Filt Rate > 60; Glucose 120 mg/dL (65-110); INR 0.9; Potassium 4.3 mmol/L (3.4-5.0); Prothrombin Time 12.1 Seconds (11.1-14.7); Sodium 135 mmol/L (137-145)
== END 2021-05-04 10:08 | disposition home or self-care (01) ==
PROVIDERS: PCP Internal Medicine; Visit Provider Anesthesiology
DX: Z01.818 Encounter for other preprocedural examination (principal); E11.9 Type 2 diabetes mellitus without complications; N28.9 Disorder of kidney and ureter, unspecified
CPT/HCPCS: 36415; 80048; 85610; 85730; C9803; U0003; U0005

== ENCOUNTER 2021-05-07 01:23 | Day surgery (SDC) | payer MEDICARE, OTHER, SELFPAY ==
[2021-04-29 10:10] VITALS: BMI 33.5
--- NOTE | 2021-04-29 10:23 | PC.NURSE ---
Addendum entered by Dali Abrams RN 04/30/21 13:47: called pt and instructed him to take 1/2 of his usual am dose of insulin morning of surgery. Verbalized understanding. also states takes Trulicity injection for diabetes weekly on .(surgery is on 05/07). Advised pt to wait until discharge home from hospital to do Trulicity injection. Original Note: Report to the Outpatient Waiting Room, entrance under the green pavilion located off [facility], at time _0930_ on date _05/07/21_. OR Time: _1129_. - You and your visitor will be asked a series of questions to screen for COVID 19 for your protection. - A mask is required within the hospital. One visitor will be allowed to accompany the patient into the hospital. Patients visitor will be instructed to remain with patient at all times or leave the building. We will allow the visitor to come back to the postoperative area when patient is ready. Preoperative COVID Testing Requirements: COVID TEST 05/04/21 @ 0930 A COVID test must be conducted within 72 hours of surgery and patient is asked to isolate self from time of testing until procedure. You will go to the [facility] for your COVID testing. The [facility] is located at the corner of [address] from [facility]. You will only be called if COVID results are positive and your surgeon may reschedule your elective surgery date. Patients may have clear liquids (water, carbonated beverages, clear teas, apple juice) until 3 hours prior to surgery (0830 AM) with a maximum of 20 ounces. - No food from midnight until time of surgery Take the following medications with a SIP of water the morning of surgery: _PAIN MEDS IF NEEDED_ Medications to discontinue per ANESTHESIA - ALL VITAMINS AND SUPPLEMENTS 3 DAYS PRIOR TO SURERY, Date to take last dose 05/03/21_ Please no deodorant, or body powder the day of surgery. No jewelry (including any body piercings) or valuables the day of surgery, leave them at home. Please take a shower or bath the night before, or the morning of, surgery with an antibacterial soap. Wear comfortable, loose fitting clothing. - Jewelry must be removed prior to entering the operating room. Rings and piercings that are not removed may be cut off. - The hospital will not accept responsibility for valuables. - Please leave all valuables, including medications, at home the day of surgery. If you are going home after surgery, a licensed school bus driver/mechanic must drive you home. - NO public transportation without another adult. - We recommend that an adult stay with you for 24 hours following discharge. - We also recommend that you do not drive, make important decision, drink alcoholic beverages, or take any drugs that were not prescribed by your health care provider for at least 24 hours after your discharge time. Follow any additional instructions given to you from your surgeon. Telephone instructions given to ____PT and asked if any additional questions and then verbalized understanding. Patient advised to call surgeon office or pre surgery nurse liaison [phone] if any additional questions.
--- NOTE | 2021-05-07 09:06 | WPDHPUPDATE1 ---
History and Physical Update Update Date/Time: 05/07/21 09:06 History and Physical has been reviewed, including an updated exam of the patient. There are NO changes in the patient's condition. Risks, benefits, and alternatives have been discussed and questions answered. Patient agrees to proceed with procedure.
[2021-05-07 09:34] VITALS: BP 159/96; PULSE 72; RESP 16; TEMP 36.3; O2SAT 98
--- NOTE | 2021-05-07 09:49 | WPDANESEPPF ---
Anes - Initial Pre Proc Eval Procedure: Operation Date: 05/07/21 11:30 Proposed Procedures p Left Ulnar Neuroplasty at the Elbow - Myles Moore MD Date/Time: 05/07/21 09:49 Surgeon: Myles Moore MD Pre Op Diagnosis: left cubital tunnel syndrome Patient Data Age: 70 Gender: M Height: 1.8 m Weight: 111.7 kg Allergies Allergy/AdvReac Type Severity Reaction Status Date / Time alcohol Allergy Severe Itching, Verified 05/07/21 09:46 RASH Home Medications Medication Instructions Recorded Confirmed Type aspirin 81 mg tablet,delayed 81 mg PO DAILY 01/19/19 04/29/21 History release multivitamin 1 tablet PO DAILY 01/19/19 04/29/21 History pen needle, diabetic 31 gauge x #30 each 01/29/19 04/29/21 History / acetaminophen 1,300 mg PO QAM PRN 02/13/20 04/29/21 History blood sugar diagnostic #100 each 09/29/20 04/29/21 Rx tamsulosin 0.4 mg capsule 0.4 mg PO DAILY #90 cap 12/04/20 04/29/21 Rx amlodipine 5 mg PO HS 01/07/21 04/29/21 History magnesium oxide 400 mg PO DAILY 01/07/21 04/29/21 History omeprazole 10 mg capsule,delayed 10 mg PO HS #90 cap 01/14/21 04/29/21 Rx release metformin 1,000 mg tablet 1,000 mg PO BID #180 tablet 02/16/21 04/29/21 Rx insulin glargine 100 unit/mL (3 40 unit SUB-Q BID #3 ml 03/24/21 04/29/21 Rx mL) subcutaneous pen lancets 28 gauge #50 each 04/01/21 04/29/21 Rx omega-3 acid ethyl esters 1 gram 2 cap PO BID #360 cap 04/03/21 04/29/21 Rx capsule dulaglutide 4.5 mg/0.5 mL 4.5 mg SUBCUT WEEKLY #2 ml 04/27/21 04/29/21 Rx subcutaneous pen injector lisinopril 40 mg tablet 40 mg PO QAM #90 tablet 04/27/21 04/29/21 Rx lovastatin 40 mg tablet 40 mg PO QAM #90 tablet 04/27/21 04/29/21 Rx Patient hx anesthesia problems: none Family hx anesthesia problems: none Results Review: All pre-operative results and documents have been reviewed as part of the pre-operative evaluation. [facility] Past Medical History Medical History Amputated toe 2015 Back pain Benign hypertension Body mass index (bmi) 37.0-37.9, adult Carpal tunnel syndrome Cataract Controlled type 2 diabetes mellitus with hyperglycemia Hearing loss Hepatitis History of colon polyps History of measles, mumps, or rubella Hyperlipidemia, unspecified Hypertension Hypogonadism male Liver disease Obesity Obesity Osteoarthritis of hands, bilateral Osteopenia Renal disease SOB (shortness of breath) Type 2 diabetes mellitus with diabetic polyneuropathy Surgical History Surgical History H/O arthroscopy of left knee H/O vasectomy 1977 History of carpal tunnel surgery of right wrist History of hip surgery History of tonsillectomy History of total knee replacement (TKR) 2010 S/P left knee arthroscopy Family History Family History Other Adopted Social History Social History Smoking packs per day: 3 Smoking cigarettes per day: 60.0 Years smoked: 3 Smoking pack-years: 9.00 Smoking status: Never smoker Tobacco type: cigarettes Smokeless tobacco user: chewing tobacco Second hand tobacco smoke exposure: No Smoking end date: 02/15/72 Additional smoking assessment comments: QUITE CHEW 2011 Alcohol intake: former Alcohol use details: STATES HEAVY DRINKER PRIOR TO 1994 Substance use: never Substance use type: does not use Living arrangements: with family Additional living arrangements comments: Additional occupation/education comments: Pt works at [employer]. Spiritual care concerns: No Anes - Eval Final PreProcedure Day of Procedure 05/07/21 09:49 Patient weight: obese Heart: regular rate and rhythm Lungs: clear to auscultation and normal air movement Airway: Mallampati scale class II Neurological: alert and
[2021-05-07 10:13] LABS: Glucose Point of Care 249 mg/dl (65-105)
[2021-05-07] MEDS: LACTATED RINGERS 1,000 ML 30 ML IV CONT (10:23)
[2021-05-07] MEDS: INSULIN HUMAN REGULAR (*BKC) 100 UNITS/ML IV PUSH (10:46)
[2021-05-07] MEDS: LIDO 1%/EPINEPHRINE/PF 1:200,000 30 ML VIAL XX (11:52)
[2021-05-07 12:02] VITALS: BP 137/73; PULSE 76; RESP 13; O2SAT 100
[2021-05-07 12:10] LABS: Glucose Point of Care 196 mg/dl (65-105)
[2021-05-07 12:30] VITALS: BP 146/83; PULSE 63; RESP 20
[2021-05-07 13:00] VITALS: BP 167/88; PULSE 70; RESP 20
--- NOTE | 2021-05-07 16:01 | P.OP_ITS ---
Procedure Note - Detailed Date of Procedure 05/07/21 Pre-op Diagnosis left cubital tunnel syndrome Post-op Diagnosis Same Procedure Performed Left ulnar neuroplasty at the elbow Surgeon Myles Moore MD Cellulose Insulation Helper Marika Anesthesia MAC Description of Procedure the skin over the cubital tunnel was marked on the patient in the holding area. He concurred. He was taken to the operating room placed supine on the operating table. A time-out was held confirmed. He was given IV sedation in the left upper extremity was prepped and draped in usual fashion. The site was carefully examined with the elbow flexed and supported on towels a new marking was placed with the incision and this area infiltrated with 1% lidocaine with epinephrine. The extremity was exsanguinated and the tourniquet inflated to 250 mmHg. The incision was made as marked and dissection was carried through the thick subcutaneous tissue to the interspace between the medial epicondyle and the olecranon. A moderate triceps muscle was identified there and the nerve lying just anterior to that was easily accessed proximal to the medial epicondyle. The fascial tissue over the nerve was released several cm proximal to the medial epicondyle no areas of compression were noted there. The nerve wa s then followed distally under Augustin's ligament which was divided and on into the proximal forearm under the flexor carpi ulnaris fashion. This was incised as well. The most compressed area appeared to be under the Augustin's ligament. The nerve did not sublux and did not need additional treatment. Bleeding points were electrocoagulated. The tourniquet was released and in this case the wound was closed with intradermal interrupted 3-0 Monocryl multiple sites. The skin was then closed with glue. No antibiotic was applied to the suture line. Usual bandage was applied with an Jean Marie wrap. The patient was awakened and discharged from the operating room stable condition. He has a prescription for hydrocodone 5/325 7. He is also discharged with Keflex 500 mg t.i.d. 15. This was in view of recent blood sugars and hemoglobin A1c the were elevated Estimated Blood Loss 5 Drains No Packing No Pathology None sent Complications No immediate complications Condition Stable Disposition Same day
== END 2021-05-07 13:20 | disposition home or self-care (01) ==
PROVIDERS: PCP Internal Medicine; Visit Provider Plastic Surgery
PROC: (CPT 64718; principal; 2021-05-07 11:30)
DX: G56.22 Lesion of ulnar nerve, left upper limb (principal); I10 Essential (primary) hypertension; E11.42 Type 2 diabetes mellitus with diabetic polyneuropathy; E78.5 Hyperlipidemia, unspecified; K76.9 Liver disease, unspecified; M85.80 Other specified disorders of bone density and structure, unspecified site; Z79.4 Long term (current) use of insulin; Z79.84 Long term (current) use of oral hypoglycemic drugs; Z79.82 Long term (current) use of aspirin; Z79.899 Other long term (current) drug therapy; E66.9 Obesity, unspecified; Z68.34 Body mass index [BMI] 34.0-34.9, adult; Z87.891 Personal history of nicotine dependence
CPT/HCPCS: 64718; 82948; A9270; J1815; J2704; J3010; J7120

== ENCOUNTER 2021-05-19 09:56 | Outpatient (CLI) | payer MEDICARE, OTHER, SELFPAY ==
[2021-05-19 10:17] LABS: Basophils Absolute Auto 0.1 K/mm3 (0.0-0.1); Eosinophils Absolute Auto 0.2 K/mm3 (0-0.3); Eosinophils Percent Auto 3.4 % (0-4.4); Hematocrit 39.3 % (42.0-52.0); Hemoglobin 13.4 g/dL (14.0-18.0); Immature Granulocyte Absolute 0.01 K/mm3 (0.00-0.031); Immature Granulocyte Percent A 0.2 % (0-0.5); Lymphocytes Absolute Auto 1.94 K/mm3 (0.9-3.2); Mean Corpuscular HGB Conc 34.1 g/dl (32-36); Mean Corpuscular Hemoglobin 29.4 pg (26-34); Mean Corpuscular Volume 86.2 fl (80-100); Mean Platelet Volume 9.5 fl (7.4-10.4); Monocytes Absolute Auto 0.4 K/mm3 (0.1-0.6); Monocytes Percent Auto 6.6 % (2.6-8.5); Neutrophils Absolute Auto 3.3 K/mm3 (1.3-6.7); Neutrophils Percent Auto 55.8 % (45.5-73.1); Platelet Count Result 314 k/mm3 (150-375); Red Blood Count 4.56 M/mm3 (4.6-6.20); Red Cell Distribution Width 12.9 % (11.5-14.5); White Blood Count 5.9 K/mm3 (4.5-10.0)
[2021-05-19 10:30] LABS: Alanine Aminotransferase 23 U/L (4-50); Albumin Level 3.8 g/dL (3.5-5.1); Alkaline Phosphatase 81 U/L (38-126); Anion Gap 2 mmol/L (8-16); Aspartate Amino Transferase 27 U/L (17-59); Bilirubin,Total 0.4 mg/dL (0.2-1.3); Blood Urea Nitrogen 14 mg/dL (9-20); Calcium 8.8 mg/dL (8.4-10.2); Carbon Dioxide 28 mmol/L (22-30); Chloride 105 mmol/L (98-107); Cholesterol 197 mg/dL (0-200); Estimated Glomerular Filt Rate > 60; Glucose 209 mg/dL (65-110); HDL Direct 44 mg/dL; Hemoglobin A1C 8.9 % (<5.7); Potassium 4.3 mmol/L (3.4-5.0); Sodium 135 mmol/L (137-145); Triglycerides 216 mg/dL (<150)
[2021-05-19 10:40] LABS: LDL Cholesterol Direct 84 mg/dL
[2021-05-19 10:58] LABS: Prostate Specific Antigen 3.2 ng/mL (< OR = 4.0)
== END 2021-05-19 09:57 | disposition home or self-care (01) ==
PROVIDERS: PCP Internal Medicine; Visit Provider Nurse Practitioner
DX: E11.65 Type 2 diabetes mellitus with hyperglycemia (principal); I10 Essential (primary) hypertension; Z12.5 Encounter for screening for malignant neoplasm of prostate; E78.5 Hyperlipidemia, unspecified
CPT/HCPCS: 36415; 80053; 80061; 83036; 84153; 85025; G0103

== ENCOUNTER 2021-05-25 15:48 | Outpatient (CLI) | payer MEDICARE, OTHER, SELFPAY | END 2021-05-25 15:49 | disposition home or self-care (01) | LOC: ANHLAB 15:49 | PROVIDERS: PCP Internal Medicine; Visit Provider Clinical Nurse Specialist | DX: R41.3 Other amnesia (principal) | CPT/HCPCS: 36415; 82607; 82746; 84443 ==

== ENCOUNTER 2021-07-16 09:51 | Outpatient (CLI) | payer MEDICARE, OTHER, SELFPAY ==
[2021-07-16 10:34] LABS: Hematocrit 38.7 % (42.0-52.0); Hemoglobin 12.7 g/dL (14.0-18.0); Mean Corpuscular HGB Conc 32.8 g/dl (32-36); Mean Corpuscular Hemoglobin 28.7 pg (26-34); Mean Corpuscular Volume 87.6 fl (80-100); Mean Platelet Volume 9.7 fl (7.4-10.4); Platelet Count Result 274 k/mm3 (150-375); Red Blood Count 4.42 M/mm3 (4.6-6.20); Red Cell Distribution Width 12.9 % (11.5-14.5); White Blood Count 5.7 K/mm3 (4.5-10.0)
[2021-07-16 10:43] LABS: Anion Gap 6 mmol/L (8-16); Blood Urea Nitrogen 23 mg/dL (9-20); Calcium 8.9 mg/dL (8.4-10.2); Carbon Dioxide 25 mmol/L (22-30); Chloride 106 mmol/L (98-107); Estimated Glomerular Filt Rate > 60; Glucose 257 mg/dL (65-110); Potassium 4.5 mmol/L (3.4-5.0); Sodium 137 mmol/L (137-145)
[2021-07-16 10:46] LABS: Creatinine Urine 103.7 mg/dL
[2021-07-16 11:50] LABS: Total Protein Urine Random 318 mg/dL; Ur Ttl Prot Creatinine Ratio 3.07 mg/mg (0-0.20)
== END 2021-07-16 09:52 | disposition home or self-care (01) ==
LOC: ANHLAB 10:02
PROVIDERS: PCP Internal Medicine; Visit Provider Internal Medicine Nephrology
DX: R80.1 Persistent proteinuria, unspecified (principal)
CPT/HCPCS: 36415; 80069; 82570; 84156; 85027

== ENCOUNTER 2021-07-25 18:37 | Emergency (ER) | payer MEDICARE, OTHER, SELFPAY ==
--- NOTE | ~2021-07-25 | XR_ITS ---
EXAMINATION: XR chest 1V portable Exam Date/Time: 07/25/2021 18:50 CDT HISTORY: cough/SOB/ WEAKNESS LASTNIGHT, HX HTN Comparison: 04/04/2020. RESULT: Lines, tubes, and devices: None. Lungs and pleura: Clear. Cardiomediastinal silhouette: Stable cardiomediastinal silhouette. Other: No acute osseous or upper abdominal finding. IMPRESSION: No acute cardiopulmonary process. Reviewed, dictated and finalized at location K.
[2021-07-25 18:40] VITALS: BP 146/80; PULSE 110; RESP 16; TEMP 36.5; O2SAT 97
--- NOTE | 2021-07-25 18:49 | ECG_ITS ---
Measurements Intervals [place] Rate: 108 P: 35 WV: 160 QRS: -8 QRSD: 104 T: 70 QT: 325 QTc: 437 Interpretive Statements SINUS TACHYCARDIA POSSIBLE LEFT ATRIAL ENLARGEMENT [-0.1mV P-WAVE IN V1/V2] LEFT VENTRICULAR HYPERTROPHY AND ST-T CHANGE [VOLTAGE CRITERIA PLUS ST/T ABNORMALITY] CANNOT RULE OUT INFERIOR INFARCTION ABNORMAL ECG COMPARED TO ECG 04/04/2020 11:05:45 [address]CARD[address] NOW PRESENT ST (T WAVE) DEVIATION NOW PRESENT Electronically Signed On 07-26-2021 11:02:52 CDT by Doyle Yousif M.D.
--- NOTE | 2021-07-25 18:51 | ED.WEAKNESS ---
HPI - Weakness General Chief complaint: Weakness Stated complaint: weak x 1 day Time Seen by Provider: 07/25/21 18:42 Source: RN notes reviewed History of Present Illness HPI Narrative: Patient presents emergency department from home for weakness. Patient states has been feeling generally weak since last night. States has been associated with a cough this been nonproductive as well as a sore throat mild rhinorrhea he denies any fevers or chills chest pain abdominal pain nausea vomiting diarrhea or any other symptoms. Patient states he has not taken any medication today for the symptoms Related Data Home Medications Medication Instructions Recorded Confirmed aspirin 81 mg tablet,delayed 81 mg PO DAILY 01/19/19 07/02/21 release (Aspir-) multivitamin (Multiple Vitamins 1 tablet PO DAILY 01/19/19 07/02/21 tablet) pen needle, diabetic 31 gauge x #30 ea 01/29/19 07/02/2106/29 (Sure Comfort Pen Needle) acetaminophen 650 mg 1,300 mg PO QAM PRN Pain 02/13/20 07/02/21 tablet,extended release amlodipine 5 mg tablet 5 mg PO HS 01/07/21 07/02/21 magnesium oxide 400 mg PO DAILY 01/07/21 07/02/21 Allergies Allergy/AdvReac Type Severity Reaction Status Date / Time alcohol Allergy Severe Itching, Verified 07/25/21 19:02 RASH Review of Systems Review of Systems: Gen.: Denies fevers or chills Eyes: Denies eye pain or visual change ENT: Reports sore throat and rhinorrhea Respiratory: Reports cough CV: Denies chest pain or palpitations GI: Denies abdominal pain nausea, emesis or diarrhea Musculoskeletal: Denies back pain or muscle pain Neuro: Reports weakness Skin: Denies rash Except as documented, all other systems reviewed and negative [facility] Past Medical History Medical History Amputated toe 2015 Back pain Benign hypertension Body mass index (bmi) 37.0-37.9, adult Carpal tunnel syndrome Carpal tunnel syndrome, left upper limb Cataract Controlled type 2 diabetes mellitus with hyperglycemia Hearing loss Hepatitis History of colon polyps History of measles, mumps, or rubella History of stress test Hyperlipidemia, unspecified Hypertension Hypogonadism male Liver disease Obesity Obesity Osteoarthritis of hands, bilateral Osteopenia Primary osteoarthritis of right knee Renal disease Sleep apnea SOB (shortness of breath) Type 2 diabetes mellitus with diabetic polyneuropathy Surgical History Surgical History H/O arthroscopy of left knee H/O vasectomy 1977 History of carpal tunnel surgery of right wrist History of hip surgery History of tonsillectomy History of total knee replacement (TKR) 2010 S/P left knee arthroscopy Family History Family History Other Adopted Social History Social History Smoking packs per day: 3 Smoking cigarettes per day: 60.0 Years smoked: 3 Smoking pack-years: 9.00 Smoking status: Former smoker Tobacco type: cigarettes Smokeless tobacco user: chewing tobacco Second hand tobacco smoke exposure: No Smoking end date: 02/15/72 Additional smoking assessment comments: QUIT CHEW 2011 Alcohol intake: former Alcohol use details: STATES HEAVY DRINKER PRIOR TO 1994 Substance use: never Substance use type: does not use Additional living arrangements comments: Additional occupation/education comments: Pt works at [employer]. Spiritual care concerns: No Exam Narrative: APPEARANCE: No acute distress, nontoxic, resting in bed EYES: EOMI HEENT: Normocephalic, atraumatic, OMM erythema exudate posterior pharynx nares patent RESPIRATORY: No respiratory distress Clear to auscultation bilaterally with no rhonchi wheezing or rales. CARDIOVASCULAR: Regular rate and rhythm without murmurs rubs or gallops. ABDOMINAL: Soft, non
[2021-07-25 18:59] VITALS: PULSE 105
[2021-07-25 19:02] LABS: Basophils Absolute Auto 0.1 K/mm3 (0.0-0.1); Basophils Percent Auto 0.8 % (0.2-1.2); Eosinophils Percent Auto 0.5 % (0-4.4); Hematocrit 38.3 % (42.0-52.0); Immature Granulocyte Absolute 0.03 K/mm3 (0.00-0.031); Immature Granulocyte Percent A 0.4 % (0-0.5); Lymphocytes Absolute Auto 0.56 K/mm3 (0.9-3.2); Lymphocytes Percent Auto 7.4 % (18.3-44.2); Mean Corpuscular HGB Conc 33.9 g/dl (32-36); Mean Corpuscular Hemoglobin 28.9 pg (26-34); Mean Corpuscular Volume 85.1 fl (80-100); Mean Platelet Volume 9.6 fl (7.4-10.4); Monocytes Absolute Auto 0.8 K/mm3 (0.1-0.6); Monocytes Percent Auto 10.8 % (2.6-8.5); Neutrophils Absolute Auto 6.1 K/mm3 (1.3-6.7); Neutrophils Percent Auto 80.1 % (45.5-73.1); Platelet Count Result 233 k/mm3 (150-375); Red Cell Distribution Width 12.8 % (11.5-14.5); White Blood Count 7.6 K/mm3 (4.5-10.0)
[2021-07-25] MEDS: SODIUM CHLORIDE 0.9% IV 1,000 ML 999 ML IV CONT (19:10)
[2021-07-25 19:12] LABS: Lactic Acid Reflex 1.7 mmol/L (0.7-2.0)
[2021-07-25 19:14] LABS: Alanine Aminotransferase 33 U/L (6-50); Albumin Level 3.8 g/dL (3.5-5.1); Alkaline Phosphatase 73 U/L (38-126); Anion Gap 5 mmol/L (8-16); Aspartate Amino Transferase 31 U/L (17-59); Bilirubin,Total 0.3 mg/dL (0.2-1.3); Blood Urea Nitrogen 13 mg/dL (9-20); Calcium 8.5 mg/dL (8.4-10.2); Carbon Dioxide 25 mmol/L (22-30); Chloride 103 mmol/L (98-107); Estimated CRCL calculation 88 ml/min; Estimated Glomerular Filt Rate > 60; Glucose 231 mg/dL (65-110); Magnesium 1.5 mg/dL (1.6-2.3); Potassium 4.2 mmol/L (3.4-5.0); Sodium 133 mmol/L (137-145)
[2021-07-25 19:18] LABS: Prothrombin Time 12.4 Seconds (11.1-14.7)
[2021-07-25 19:19] LABS: Partial Thromboplastin Time 32.1 SECONDS (22.3-36.8)
[2021-07-25 19:25] LABS: Troponin I < 0.012 ng/mL (0.000-0.034)
[2021-07-25] MEDS: MAGNESIUM SULF 2 GM/WATER 50ML 2 GM/50 ML BAG IVPB (19:37)
[2021-07-25 19:47] LABS: Influenza A QL RT-PCR Negative (Negative); Influenza B QL RT-PCR Negative (Negative); SARS-CoV-2 RNA PCR Positive
--- NOTE | 2021-07-25 20:41 | PC.NURSE ---
Ambulating pulse Ox ordered. Pt ambulated in room. Sats held at 94% on R/A ERMD informed.
--- NOTE | 2021-07-25 20:42 | PC.NURSE ---
Pt cont unable to urinate after 1 liteer fluids.
[2021-07-25 21:06] VITALS: BP 159/94; PULSE 95; RESP 18; TEMP 36.9; O2SAT 95
[2021-07-25 21:42] VITALS: BP 152/96; PULSE 92; RESP 18; TEMP 36.9; O2SAT 98
== END 2021-07-25 21:44 | disposition home or self-care (01) ==
PROVIDERS: Emergency Provider Emergency Medicine; PCP Internal Medicine
DX: U07.1 COVID-19 (principal); E11.42 Type 2 diabetes mellitus with diabetic polyneuropathy; I10 Essential (primary) hypertension; E78.5 Hyperlipidemia, unspecified; K76.9 Liver disease, unspecified; M19.042 Primary osteoarthritis, left hand; M19.041 Primary osteoarthritis, right hand; M85.80 Other specified disorders of bone density and structure, unspecified site; M17.11 Unilateral primary osteoarthritis, right knee; G47.30 Sleep apnea, unspecified; Z86.010 Personal history of colon polyps; Z89.429 Acquired absence of other toe(s), unspecified side; Z96.659 Presence of unspecified artificial knee joint; Z87.891 Personal history of nicotine dependence; Z86.16 Personal history of COVID-19; Z28.310 Unvaccinated for COVID-19; Z79.82 Long term (current) use of aspirin; Z79.84 Long term (current) use of oral hypoglycemic drugs; Z79.4 Long term (current) use of insulin; Z79.899 Other long term (current) drug therapy
CPT/HCPCS: 36415; 71045; 80053; 83605; 83735; 84484; 85025; 85610; 85730; 87502; 93005; 96365; 99284; C9803; J3475; J7030; U0003; U0005

== ENCOUNTER 2021-07-27 12:36 | Outpatient (RCR) | payer MEDICARE, OTHER, SELFPAY ==
[2021-07-27 12:51] VITALS: BP 149/79; PULSE 68; RESP 20; TEMP 36.7; O2SAT 99
[2021-07-27] MEDS: FAMOTIDINE 20 MG TABLET PO (12:55)
[2021-07-27] MEDS: ACETAMINOPHEN 325 MG TABLET 650 MG PO (12:55)
[2021-07-27] MEDS: diphenhydrAMINE HCl CAP 25 MG CAPSULE PO (12:55)
[2021-07-27] MEDS: BEBTELOVIMAB 175 MG/2 ML VIAL IV PUSH (13:15)
[2021-07-27 14:01] VITALS: BP 160/70; PULSE 66; RESP 20; O2SAT 99
== END 2021-07-27 16:00 ==
LOC: AMCINF 12:36
PROVIDERS: PCP Internal Medicine; Referring Provider Internal Medicine; Visit Provider Internal Medicine Hematology & Oncology
DX: U07.1 COVID-19 (principal); E11.9 Type 2 diabetes mellitus without complications; I10 Essential (primary) hypertension
CPT/HCPCS: A9270; M0222; Q0222

== ENCOUNTER 2021-09-16 12:30 | Outpatient (RCR) | payer MEDICARE, OTHER, SELFPAY ==
--- NOTE | 2021-07-16 08:34 | PTOPEVAL ---
PHYSICAL THERAPY EVALUATION AND PLAN OF CARE Thank you for referring Milton Louis to [facility].? The patient is scheduled to be seen for therapy? 2x/week for 5 weeks. Please review, sign, date and return this plan of care KYLAH. I agree with and certify that the following plan of care is medically necessary. Referring Physician Date Attending Provider: Oumar Franco MD Diagnosis right knee pain Onset 2months Subjective Information States that he is here for his Query Text:As Reported By Patient/ right knee. States that his Family primary complaint is that he cannot drive for longer than 30miles before he has to get out and walk. Can generally walk short distances but walking through a store or greater distances it can be painful. He has bilateral neuropathy. States that he has maybe had a couple of falls in the last year. patient does report to me that he has both back and hip pain that will hurt him more when walking than the knee does Self Report Pain Assessment Right Knee(s) Reported Pain Level 2 Pain Description Aching Knee Range of Motion Right Knee Flexion Range of Motion - Active 125 Knee Extension Range of Motion - Active -4 Query Text: Lower Extremity Muscle Strength Testing Hip Strength Right Hip Flexion Strength 4+ Good + Hip Extension Strength 4 Good Hip Abduction Strength 4 Good Hip Strength Comments pain in side of hip with glute med testing Knee Strength Right Knee Flexion Strength 4+ Good + Knee Extension Strength 4+ Good + Palpation Assessment Palpation Palpation hypomobility of patella Balance Assessment Schaefer Balance Assessment: 46/56 Time Up Go (TUG): 13seconds 5 Time Sit to Stand: 17.09 - increased knee pain Other Gait Observations narrow base of support; shortened step lengths; heavy foot down on right; reports more back and hip when walking than knee pain 2 Minute Walk Total Distance Walked (feet) 379 2 Minute Walk Gait Speed Score (feet/ 3.15 second) 2 Minute Walk Test Comments after test the right hip and low back hurting more than the knee PT Clinical Summary Milton is a 70 yo male
--- NOTE | 2021-08-19 13:19 | PTOPEVAL ---
PHYSICAL THERAPY PROGRESS REPORT Thank you for referring Milton Louis to [facility].? The patient is scheduled to be seen for therapy? 1x/week for 4weeks. Please review, sign, date and return this plan of care KYLAH. I agree with and certify that the following plan of care is medically necessary. Referring Physician Date Attending Provider: Oumar Franco MD Diagnosis right knee pain Onset 2months Subjective Information STates that his knee still Query Text:As Reported By Patient/ hurts all the time and therapy Family has not helped to change it at all. States that the reason he has a complaint about his knee pain is that he can only drive about 30miles before he has to stop and get out and walk around because the knee hurts so bad and this symptoms has not changed at all. Self Report Pain Assessment Right Knee(s) Reported Pain Level 3 Pain Aggravating Factors ADL's Pain Score Pain Score 3: Self Report Additional Pain Score Comments Pt reports he drove to therapy today and it was very painful - pain decreased once he got out of car. Interventions Used Interventions Used By Clinicians Activity or ADL's,Education, Exercise Pain Relief Interventions Used By Walking Patient Lower Extremity Range of Motion Knee Range of Motion Right Knee Flexion Range of Motion - Active 125 Knee Extension Range of Motion - Active -4 Query Text: Lower Extremity Muscle Strength Testing Hip Strength Right Hip Flexion Strength 5 Normal Hip Extension Strength 4 Good Hip Abduction Strength 4 Good Knee Strength Right Knee Flexion Strength 5 Normal Knee Extension Strength 5 Normal Balance Assessment Baird Balance Assessment BAIRD Balance Evaluation Total Score 47/56 Comments 1month ago = 46/56 Time Up Go (TUG) Timed Up and Go Test (TUG) (Seconds) 13 Comments 1month ago = 13seconds 5 Time Sit to Stand Time in Seconds 12.57 5 Time Sit to Stand Comments increased pressure at right knee; 1month ago = 17.09seconds Gait Assessment 2 Minute Walk Total Distance Walked (feet) 400 2 Minute Walk Gait Speed Score (feet/ 3.33 second) 2 Minute Walk Test Comments 1month ago = 379ft, 3.16ft/ second PT Clinical Summary
--- NOTE | 2021-09-09 14:59 | PCPTNOTE ---
On 09/09/21, the student, Kane Jacobs, provided care and completed [facility] documentation on this patient. I have reviewed the student's documentation and agree with the findings.
--- NOTE | 2021-09-16 12:52 | PTOPEVAL ---
PHYSICAL THERAPY DISCHARGE NOTE Thank you for referring Milton Louis to [facility].? Please review, sign, date and return this plan of care KYLAH. I agree with and certify that the following plan of care is medically necessary. Referring Physician Date Attending Provider: Oumar Franco MD Diagnosis right knee pain Onset 2months Subjective Information reports he is doing well. Query Text:As Reported By Patient/ Reports no trouble with Family driving distances most of the time. Pain Score 0: Self Report Balance Assessment Schaefer Balance Assessment 51/56 Comments 1month ago = 46/56 Time Up Go (TUG) Timed Up and Go Test (TUG) (Seconds) 8 Comments 1month ago = 13seconds 5 Time Sit to Stand Time in Seconds 7.63 5 Time Sit to Stand Comments increased pressure at right Query Text:Normative Data: If Greater knee Than 15 Seconds, 74% Increase Risk for 1month ago = 12.57seconds Recurrent Falls 2month ago = 17.09seconds Gait Assessment 2 Minute Walk Total Distance Walked (feet) 527 2 Minute Walk Gait Speed Score (feet/ 4.39 second) 2 Minute Walk Test Comments 1month ago = 3.33ft/second PT Clinical Summary Milton is a 70 yo male presenting to outpatient physical therapy with c/o right knee pain. He presents with functional strength and balance and normal gait pattern. He reports pain symptoms have subsided. He is understanding of HEP. Will D/C from PT at this time.
== END 2021-09-17 11:28 | disposition home or self-care (01) ==
LOC: ANHPT 12:30
PROVIDERS: PCP Internal Medicine; Visit Provider Orthopaedic Surgery
DX: M17.11 Unilateral primary osteoarthritis, right knee (principal)
CPT/HCPCS: 97110; 97112; 97162; 97530

== ENCOUNTER → 2021-11-16 10:42 | Outpatient (CLI) | payer MEDICARE, OTHER, SELFPAY ==
--- NOTE | ~2021-11-16 | XR_ITS ---
EXAM: XR lumbar spine 2-3V DATE: 11/16/2021 11:00 HISTORY: M54.30 - Sciatica, unspecified side . COMPARISON: 10/31/2020. FINDINGS: Decreased mineralization. 5 nonrib-bearing lumbar-type vertebral bodies. Pedicles intact. N ormal vertebral body alignment. Vertebral body heights preserved. Moderate disc space narrowing at L4 -5. Multilevel marginal osteophytosis. Normal multilevel facet sclerosis and hypertrophy and interspi nous narrowing. No fracture or dislocation. IMPRESSION: Multilevel degenerative disc disease in the lumbar spine, moderate at L4-5. Multilevel jayson mbar facet arthropathy. Reviewed, dictated and finalized at location K. IMPRESSION: Multilevel degenerative disc disease in the lumbar spine, moderate at L4-5. Multilevel lumbar facet arthropathy.
== END ==
PROVIDERS: PCP Nurse Practitioner; Visit Provider Nurse Practitioner
DX: M47.816 Spondylosis without myelopathy or radiculopathy, lumbar region (principal)
CPT/HCPCS: 72100

== ENCOUNTER 2022-01-11 12:38 | Outpatient (CLI) | payer MEDICARE, OTHER, SELFPAY ==
[2022-01-11 14:45] LABS: Albumin Level 4.4 g/dL (3.5-5.1); Anion Gap 10 mmol/L (8-16); Blood Urea Nitrogen 23 mg/dL (9-20); Calcium 9.2 mg/dL (8.4-10.2); Carbon Dioxide 25 mmol/L (22-30); Chloride 103 mmol/L (98-107); Estimated Glomerular Filt Rate 60; Glucose 124 mg/dL (65-110); Phosphorus 3.9 mg/dL (2.5-4.5); Sodium 138 mmol/L (137-145)
[2022-01-11 14:47] LABS: Creatinine Urine 60.6 mg/dL; Total Protein Urine Random 31 mg/dL; Ur Ttl Prot Creatinine Ratio 0.51 mg/mg (0-0.20)
== END 2022-01-11 12:39 | disposition home or self-care (01) ==
LOC: ANHLAB 12:43
PROVIDERS: PCP Internal Medicine; Visit Provider Internal Medicine Nephrology
DX: N18.2 Chronic kidney disease, stage 2 (mild) (principal); R80.1 Persistent proteinuria, unspecified
CPT/HCPCS: 36415; 80069; 82570; 84156

== ENCOUNTER 2022-01-26 09:30 | Outpatient (RCR) | payer MEDICARE, OTHER, SELFPAY ==
--- NOTE | 2021-11-30 10:05 | PTOPEVAL1 ---
Assessment and note entered by Jamin Perkins, PT Evaluation Information Assessment Status Evaluation Diagnosis low back pain Subjective Information Patient unsure if pain is coming from low back or from R knee, but has sciatic pain mid thigh of the RLE. Reported Pain Level Pain Score 3: Self Report Assessment PT Clinical Summary Milton is a 71 year old male coming into the clinic for low back pain. He reports sciatic pain , but is not sure if it coming from back to the knee or the knee to the back. He reports decreased pain since his last knee injection. The patient has tight hamstring on the RLE, tight TRAVIS giovanna femoris muscles, weak core strength, and a leg length discrepancy. Skilled intervention involves stretching, core strengthening, and trial of heel lift to see potential for referral for a more permanent build up to correct leg length discrepancy. Plan of Care Interventions Check Out for Orthotic/Pr,Electrical Stimulation, Gait Training,Hot Pack/Cold Pack,Manual Therapy, Neuro Re-education,Patient/Caregiver Education, Therapeutic Activities,Therapeutic Exercise, Ultrasound PT Services Indicated Yes These treatments will address the objective and functional deficits as defined above. The patient will be advanced safely and appropriately in order for the patient to progress towards his/her prior level of function. Additional exercises will be introduced and as well as a comprehensive home exercise program upon discharge, if needed, ?to ensure carryover of functional gains achieved in the clinic. This treatment plan has been reviewed and agreement upon by the patient.
--- NOTE | 2021-12-29 15:57 | PTOPREEVAL ---
Assessment and note entered by Jamin Perkins, PT Evaluation Information Assessment Status Re-evaluation Diagnosis low back pain Subjective Information Patient reports he is doing better with being in less pain and able to do more activity before the pain kicks in. He is going to the pool to do aquatic therapy on his own supplement his exercises. Reports having some issues with initial standing balance. Reported Pain Level Pain Score 3: Self Report Assessment PT Clinical Summary Shawn is a 71 year old male coming into the clinic for back/R knee pain. He has reported decreased pain and ability to do more activities before pain makes him stop including grocery shopping and walking in the park. He has come into the clinic for 5 sessions. The patient has improved his core strength and hamstring flexibility from -35 in 90 /90 to -25. I believe continued skilled physical therapy will help him further decrease his pain while also helping him with functional mobility. Plan of Care Interventions Electrical Stimulation,Gait Training,Hot Pack/Cold Pack,Manual Therapy,Mechanical Traction,Neuro Re- education,Patient/Caregiver Education,Therapeutic Activities,Therapeutic Exercise,Ultrasound PT Services Indicated Yes Treatment Frequency and 1x/wk for 4 weeks Duration These treatments will address the objective and functional deficits as defined above. The patient will be advanced safely and appropriately in order for the patient to progress towards his/her prior level of function. Additional exercises will be introduced and as well as a comprehensive home exercise program upon discharge, if needed, ?to ensure carryover of functional gains achieved in the clinic. This treatment plan has been reviewed and agreement upon by the patient.
--- NOTE | 2022-01-26 10:36 | PTOPDC ---
Assessment and note entered by Jamin Perkins, PT Evaluation Information Assessment Status Discharge Diagnosis low back pain Subjective Information Patient reports his back is doing a lot better. He is more concerned about his R knee and has an appt with Dr. Franco on 02/19/22 to look at surgical options. He is able to do grocery shopping without a break. He is doing his exercises not everyday, but consistently. Reported Pain Level Pain Score 4: Self Report Assessment PT Clinical Summary Shawn has been coming to the clinic since November 30 and attended 8 sessions. He has met functional goals for grocery shopping and sit to stands, still has tight hamstrings and unable to stand longer than 8 seconds in single limb stance, but at this current time he reports the R knee is more of an issue than the back and would like to talk to the surgeon about a replacement surgery and see if that helps the back. The patient has that appt scheduled for 02/19/22. Discharged from physical therapy at this time and then expect him to come back if he does surgery for rehab on the knee. Plan of Care PT Services Indicated No Treatment Frequency and Discharge from physical therapy. Duration
== END 2022-01-26 11:03 | disposition home or self-care (01) ==
LOC: ANHPT 09:30
PROVIDERS: PCP Nurse Practitioner; Visit Provider Nurse Practitioner
DX: M54.50 Low back pain, unspecified (principal)
CPT/HCPCS: 97014; 97110; 97161; 97530; G0283

== ENCOUNTER 2022-03-23 12:12 | Outpatient (CLI) | payer MEDICARE, OTHER, SELFPAY ==
[2022-03-23 13:10] LABS: Albumin Level 4.3 g/dL (3.5-5.1); Anion Gap 5 mmol/L (8-16); Blood Urea Nitrogen 22 mg/dL (9-20); Calcium 8.9 mg/dL (8.4-10.2); Carbon Dioxide 29 mmol/L (22-30); Chloride 96 mmol/L (98-107); Estimated Glomerular Filt Rate 55; Glucose 115 mg/dL (65-110); Phosphorus 4.1 mg/dL (2.5-4.5); Potassium 4.6 mmol/L (3.4-5.0); Sodium 130 mmol/L (137-145)
[2022-03-23 14:06] LABS: Creatinine Urine 61.8 mg/dL; Total Protein Urine Random 17 mg/dL; Ur Ttl Prot Creatinine Ratio 0.28 mg/mg (0-0.20)
== END 2022-03-23 12:13 | disposition home or self-care (01) ==
LOC: ANHLAB 12:14
PROVIDERS: PCP Internal Medicine; Visit Provider Internal Medicine Nephrology
DX: R80.1 Persistent proteinuria, unspecified (principal)
CPT/HCPCS: 36415; 80069; 82570; 84156

== ENCOUNTER 2022-04-15 07:56 | Outpatient (CLI) | payer MEDICARE, OTHER, SELFPAY ==
--- NOTE | ~2022-04-15 | CT_ITS ---
EXAMINATION: CT LE RT wo con DATE: 04/15/2022 08:51 INDICATION: Right knee osteoarthritis. TECHNIQUE: Computed tomography (CT) of the right lower limb was performed without intravenous contras t. Automated exposure control and iterative reconstruction technique were employed. The dose-length p roduct was 2220.76 mGy-cm. COMPARISON: Right knee radiographs 02/19/2022 FINDINGS: The right hip demonstrate normal bone alignment. No fracture. There is mild right hip osteo arthritis. The right knee demonstrate normal bone alignment. There is moderate osteoarthritis of medi al and lateral compartments and mild osteoarthritis of patellofemoral compartment. There is a small k nee joint effusion. There is a small Santana's cyst. There is severe midfoot osteoarthritis. IMPRESSION: 1. Moderate right knee osteoarthritis. 2. Small right knee joint effusion. 3. Small right Santana's cyst. 4. Mild right hip osteoarthritis. Reviewed, dictated and finalized at location A. MAN
[2022-04-15 08:59] LABS: Hematocrit 41.3 % (42.0-52.0); Hemoglobin 13.4 g/dL (14.0-18.0)
[2022-04-15 09:35] LABS: Hemoglobin A1C 6.6 % (<5.7)
== END 2022-04-15 07:57 | disposition home or self-care (01) ==
PROVIDERS: PCP Internal Medicine; Visit Provider Orthopaedic Surgery
DX: M17.11 Unilateral primary osteoarthritis, right knee (principal); M25.461 Effusion, right knee; M71.21 Synovial cyst of popliteal space [Baker], right knee; E11.42 Type 2 diabetes mellitus with diabetic polyneuropathy
CPT/HCPCS: 36415; 73700; 83036; 85014; 85018

== ENCOUNTER 2022-04-19 13:22 | Outpatient (CLI) | payer MEDICARE, OTHER, SELFPAY ==
--- NOTE | ~2022-04-19 | XR_ITS ---
[id number] DATE: 04/19/2022 13:44 INDICATION: Pleural chest pain TECHNIQUE: PA chest. 3 views of the left ribs. COMPARISON: 05/18/2021 view chest CTA chest FINDINGS: Multiple probable old anterior rib fractures beginning at the left fifth rib through 10th r ib. No definite recent rib fracture is evident. CT examination would be more definitive for identific ation and determination of age of rib fractures. Normal heart size. No hilar or mediastinal enlargement. No pulmonary infiltrate or consolidation. There is a calcified pulmonary granuloma at the posterior r ight lung base demonstrated to better advantage on the April 04, 2020 CT chest examination. No pleural effusion or pulmonary vascular congestion or pneumothorax. Degenerative spurring of the thoracic spine. IMPRESSION: Probable old left rib fractures No active cardiopulmonary disease Reviewed, dictated and finalized at Location A. Reviewed, dictated and finalized at location B. KLOAD CHECKER
== END 2022-04-19 13:23 | disposition home or self-care (01) ==
LOC: ANHIMG 13:27
PROVIDERS: PCP Internal Medicine; Visit Provider Clinical Nurse Specialist
DX: R07.81 Pleurodynia (principal)
CPT/HCPCS: 71101

== ENCOUNTER 2022-06-08 09:10 | Outpatient (CLI) | payer MEDICARE, OTHER, SELFPAY ==
[2022-06-08 10:50] LABS: Basophils Absolute Auto 0.1 K/mm3 (0.0-0.1); Eosinophils Absolute Auto 0.2 K/mm3 (0-0.3); Eosinophils Percent Auto 3.1 % (0-4.4); Hematocrit 42.7 % (42.0-52.0); Hemoglobin 13.9 g/dL (14.0-18.0); Immature Granulocyte Absolute 0.01 K/mm3 (0.00-0.031); Immature Granulocyte Percent A 0.2 % (0-0.5); Lymphocytes Absolute Auto 2.02 K/mm3 (0.9-3.2); Mean Corpuscular HGB Conc 32.6 g/dl (32-36); Mean Corpuscular Hemoglobin 28.7 pg (26-34); Mean Platelet Volume 9.5 fl (7.4-10.4); Monocytes Absolute Auto 0.4 K/mm3 (0.1-0.6); Monocytes Percent Auto 7.5 % (2.6-8.5); Neutrophils Absolute Auto 2.6 K/mm3 (1.3-6.7); Neutrophils Percent Auto 49.2 % (45.5-73.1); Platelet Count Result 283 k/mm3 (150-375); Red Blood Count 4.85 M/mm3 (4.6-6.20); Red Cell Distribution Width 13.6 % (11.5-14.5); White Blood Count 5.2 K/mm3 (4.5-10.0)
[2022-06-08 11:00] LABS: Albumin Level 4.4 g/dL (3.5-5.1)
[2022-06-08 11:01] LABS: INR 0.9
[2022-06-08 11:02] LABS: Partial Thromboplastin Time 30.3 SECONDS (22.3-36.8)
[2022-06-08 11:04] LABS: Anion Gap 9 mmol/L (8-16); Blood Urea Nitrogen 37 mg/dL (9-20); Calcium 9.1 mg/dL (8.4-10.2); Carbon Dioxide 25 mmol/L (22-30); Chloride 100 mmol/L (98-107); Estimated Glomerular Filt Rate 60; Glucose 115 mg/dL (65-110); Potassium 4.9 mmol/L (3.4-5.0); Sodium 134 mmol/L (137-145)
[2022-06-08 11:06] LABS: Urine Cotinine NEGATIVE
== END 2022-06-08 09:11 | disposition home or self-care (01) ==
LOC: ANHSURGERY 09:14
PROVIDERS: Anesthesiology; PCP Internal Medicine; Visit Provider Orthopaedic Surgery
DX: Z01.812 Encounter for preprocedural laboratory examination (principal); M17.11 Unilateral primary osteoarthritis, right knee; E11.9 Type 2 diabetes mellitus without complications; N28.9 Disorder of kidney and ureter, unspecified
CPT/HCPCS: 36415; 80048; 80307; 82040; 85025; 85610; 85730; 87081

== ENCOUNTER 2022-07-05 00:31 | Day surgery (SDC) | payer MEDICARE, OTHER, SELFPAY ==
--- NOTE | 2022-06-08 09:28 | PC.NURSE ---
PRE-OP INSTRUCTIONS, PLEASE READ CAREFULLY Report to the Outpatient Waiting Room, entrance under the green pavilion located off [facility], at time _1000_ on date _07/05/22_. Planned Procedure Time: _1200_. PACK A SMALL OVERNIGHT BAG AND LEAVE IN THE CAR ALONG WITH YOUR WALKER Time changes happen often and if your time is changed the preop area will call you the afternoon before. - You and your visitor will be asked to self-screen and do not enter if you have any COVID symptoms. - A mask is optional within the hospital at this time. -VISITING HOURS 8AM-8PM Patients may have clear liquids (water, carbonated beverages, clear teas, apple juice) until 3 hours prior to surgery (0900 AM) with a maximum of 20 ounces. - No food from midnight until time of surgery Take the following medications with a SIP of water the morning of surgery: _*1/2 DOSE OF YOUR AM INSULIN), DONEPEZIL, PRIMIDONE, TYLENOL IF NEEDED_ DO NOT STOP ANY OF YOUR OTHER PRESCRIPTION MEDICATIONS PRIOR TO SURGERY ?EXCEPT THE FOLLOWING Medications to discontinue per DR. DEMPSEY - _ASPIRIN 7 DAYS PRIOR TO SURGERY, Date to take last dose 06/27/22_ Medications to discontinue per ANESTHESIA -_MULTIVITAMIN, OMEGA 3 DAYS PRIOR TO SURGERY, Date to take last dose 07/01/22_ Please no make-up, nail south korean, hairspray, perfume, deodorant, or body powder the day of surgery. No jewelry (including any body piercings) or valuables the day of surgery, leave them at home. Please take a shower or bath the night before, or the morning of, surgery with an antibacterial soap. Wear comfortable, loose fitting clothing. - Jewelry must be removed prior to entering the operating room. Rings and piercings that are not removed may be cut off. - The hospital will not accept responsibility for valuables. - Please leave all valuables, including medications, at home the day of surgery. If you are going home after surgery, a licensed local company flatbed truck driver must drive you home. - NO public transportation without another adult if you receive anesthesia. - We recommend that an adult stay with you for 24 hours following discharge. - We also recommend that you do not drive, make important decision, drink alcoholic beverages, or take any drugs that were not prescribed by your health care provider for at least 24 hours after your discharge time. Follow any additional instructions given to you from your surgeon. If you or anyone in your household have experienced Covid symptoms in the past week, please notify your surgeon or the nurse liaison at the phone number below for possible testing. Instructions given to _PATIENT_and asked if any additional questions and then verbalized understanding. Patient advised to call surgeon office or pre surgery nurse liaison [phone] if any additional questions.
[2022-06-08 09:55] VITALS: BP 114/60; PULSE 70; RESP 20; TEMP 36.8; O2SAT 97; BMI 30.3
[2022-07-05] VITALS (14 sets, daily range): BP systolic 126–169; BP diastolic 69–86; PULSE 69–88; RESP 10–18; TEMP 36.3–36.8; O2SAT 94–100
--- NOTE | ~2022-07-05 | XR_ITS ---
EXAMINATION: [id number] DATE: 07/05/2022 15:54 CDT INDICATION: Right total knee arthroplasty TECHNIQUE: 2 views right knee FINDINGS: There is a right total knee arthroplasty in expected position. Subcutaneous gas with fluid and air in the joint and overlying skin rolando are consistent with recent surgery. No evidence of p eriprosthetic fracture. IMPRESSION: 1. Recent right total knee arthroplasty. Reviewed, dictated and finalized at location B.
[2022-07-05] MEDS: LACTATED RINGERS 1,000 ML 30 ML IV CONT ×2 (10:15→15:08)
[2022-07-05] MEDS: TRANEXAMIC ACID 1,000MG/ISO100 1,000 MG/100 ML BAG 200 MG IVPB (10:21)
[2022-07-05] MEDS: ACETAMINOPHEN 500 MG TABLET 1000 MG PO (10:22)
[2022-07-05 10:25] LABS: Glucose Point of Care 188 mg/dl (65-105)
--- NOTE | 2022-07-05 11:32 | WPDANESEPPF ---
Anes - Initial Pre Proc Eval Procedure: Operation Date: 07/05/22 12:00 Proposed Procedures p Right Total Knee Arthroplasty - Oumar Franco MD Date/Time: 07/05/22 11:32 Surgeon: Oumar Franco MD Pre Op Diagnosis: Prim O A Rt Knee Patient Data Age: 71 Gender: M Height: 1.8 m Weight: 97.25 kg Last Vital Signs Temp 36.4 C 07/05/22 09:38 Pulse 69 07/05/22 09:38 Resp 18 07/05/22 09:38 BP 126/69 07/05/22 09:38 Pulse Ox 98 07/05/22 09:38 O2 Del Method Room Air 07/05/22 09:38 Allergies Allergy/AdvReac Type Severity Reaction Status Date / Time alcohol Allergy Severe Itching, Verified 07/05/22 09:44 RASH - DRINKING ALCOHOL Home Medications Medication Instructions Recorded Confirmed Type aspirin 81 mg tablet,delayed 81 mg PO DAILY 01/19/19 06/09/22 History release (Aspir-) multivitamin (Multiple Vitamins 1 tablet PO DAILY 01/19/19 07/05/22 History tablet) magnesium oxide 400 mg PO DAILY 01/07/21 07/05/22 History lisinopril 40 mg tablet See Rx Instructions .Route 07/29/21 07/05/22 Rx .COMPLEX #90 tabs lovastatin 40 mg tablet See Rx Instructions .Route 07/29/21 07/05/22 Rx .COMPLEX #90 tabs omeprazole 10 mg capsule,delayed See Rx Instructions .Route 07/29/21 07/05/22 Rx release .COMPLEX #90 caps omega-3 acid ethyl esters 1 gram 2 cap PO BID #360 caps 11/16/21 07/05/22 Rx capsule (Lovaza) metformin 1,000 mg tablet 1,000 mg PO BID #180 tabs 05/17/22 07/05/22 Rx empagliflozin 25 mg tablet See Rx Instructions .Route 05/26/22 07/05/22 Rx (Jardiance) .COMPLEX #90 tabs flash glucose sensor (FreeStyle #6 ea 06/04/22 06/09/22 Rx Jesenia 2 Sensor kit) acetaminophen 650 mg 650 mg PO Q8H PRN Pain 06/08/22 06/09/22 History tablet,extended release (Tylenol 8 Hour) donepezil 5 mg tablet 10 mg PO BID 06/08/22 07/05/22 History insulin glargine 100 unit/mL (3 30 unit subcut ONCE diabetes 06/08/22 07/05/22 History mL) subcutaneous pen (Lantus Solostar U-100 Insulin) primidone 50 mg tablet 100 mg PO BID 06/08/22 07/05/22 History Laboratory Tests 07/05/22 07/05/22 10:07 10:18 POC Capillary Glucose 188 H mg/dl (65-105) Blood Type O Positive Antibody Screen Negative Patient hx anesthesia problems: none Family hx anesthesia problems: none Results Review: All pre-operative results and documents have been reviewed as part of the pre-operative evaluation. [facility] Past Medical History Medical History 2019 novel coronavirus–infected pneumonia (NCIP)#8211;infected pneumonia (NCIP) Amputated toe 2014 Back pain Benign hypertension Body mass index (bmi) 37.0-37.9, adult Carpal tunnel syndrome Carpal tunnel syndrome, left upper limb Cataract Cerumen impaction Controlled type 2 diabetes mellitus with hyperglycemia COVID-19 Dietary counseling and surveillance Hearing loss Hepatitis History of colon polyps History of measles, mumps, or rubella History of stress test Hospital discharge follow-up Hyperlipidemia, unspecified Hypertension Hypogonadism male Impacted cerumen of both ears Impacted cerumen of both ears Liver disease Obesity Osteoarthritis of hands, bilateral Osteopenia Otitis externa Otitis media Primary osteoarthritis of right knee Renal disease Screening PSA (prostate specific antigen) Sensation of fullness in both ears Sleep apnea Type 2 diabetes mellitus with diabetic polyneuropathy Surgical History Surgical History H/O arthroscopy of left knee H/O vasectomy 1977 History of carpal tunnel surgery of right wrist History of hip surgery left hip kevin placed History of tonsillectomy History of total knee replacement (TKR) 2010 left knee S/P left knee arthroscopy Family History Family History Other Diabetes guillermo
--- NOTE | 2022-07-05 12:07 | WPDHPUPDATE1 ---
History and Physical Update Update Date/Time: 07/05/22 12:07 History and Physical has been reviewed, including an updated exam of the patient. There are NO changes in the patient's condition. Risks, benefits, and alternatives have been discussed and questions answered. Patient agrees to proceed with procedure.
[2022-07-05] MEDS: ceFAZolin 2 GM/D5W 50 ML 2 GM/50 ML BAG IVPB ×2 (12:18→20:11)
[2022-07-05] MEDS: GENTAMICIN BONE CEMENT REFOBACIN 1 EACH TOPICAL (13:11)
[2022-07-05 15:17] LABS: Glucose Point of Care 182 mg/dl (65-105)
--- NOTE | 2022-07-05 15:29 | W.PM.PROC2 ---
Procedure Note - Detailed Date of Procedure 07/05/22 Pre-op Diagnosis Prim O A Rt Knee Post-op Diagnosis Same Procedure Performed Total knee arthroplasty, right. Surgeon Oumar Franco MD Anesthesia General and Regional (Subsartorial block.) Findings Moderate synovitis noted. Good bone quality. Lateral release required. Popliteus released. Description of Procedure Preoperative antibiotics were given. The limb was prepped and draped in the usual sterile fashion with a well-padded tourniquet high on the thigh. The limb was exsanguinated and the tourniquet inflated to 300 mmHg. A longitudinal incision was created just medial to the patella. A trivector approach to the knee was performed. Arthrotomy was taken down through the joint capsule. No significant releases were initially taken. The femur was exposed and the F1 jig was applied. The coring tool was used to remove the cartilage for the F2 jig to sit flush with the bone. The jig was pinned and the distal cut carefully taken. Caliper measurements confirmed appropriate bony resections according to the preoperative templated plan. The F4 cutting jig for the femur was applied, at the standard rotation. The AP and anterior chamfer cuts were taken. The tibia was prepared using the T1 jig, after removing cartilage for the jig contact points. Proper alignment was checked with the alignment kevin. The tibia was cut using the T1u guide. Gap balancing was performed. Gap measurements were taken and the knee was trialed. Excellent alignment and soft tissue balancing was confirmed. The posterior cruciate ligament was recessed along the proximal tibia. The patella was cut for resurfacing. Three lug holes were drilled. Meniscal remnants were removed. The trial components were assembled. Excellent range of motion and proper soft tissue balancing were confirmed throughout the full range of motion. Patellar tracking was excellent. The knee was copiously irrigated periodically throughout the procedure. The real implants were cemented into position. Excess cement was carefully removed. The wound was closed in layers with interrupted #1 Vicryl suture, #2 strata fix suture, 2-0 strata fix suture, 3-0 strata fix suture. Steri-Strips placed on the skin with the knee flexed. Sterile bulky dressing applied. The patient was brought to the recovery room in stable condition. There were no complications. Implants [place] triathlon cemented tka size 6 femur, 7 tibia. 10mm poly insert. 35 poly patella. Estimated Blood Loss -50.0 Drains No Complications No immediate complications Condition Stable Disposition PACU [facility] Billing Surgery - Charge Forward: Surgery Billing
[2022-07-05] MEDS: fentaNYL CITRATE INJ (*CRX) 100 MCG/2 ML VIAL 25 MCG IV PUSH ×6 (15:42→16:20)
[2022-07-05] MEDS: HYDROmorphone HCL INJ (*CRX) 1 MG/ML SYR 0.5 MG IV PUSH ×2 (16:36→16:44)
[2022-07-05 17:20] LABS: Glucose Point of Care 192 mg/dl (65-105)
--- NOTE | 2022-07-05 17:41 | ADMGEN ---
This patient, Milton Louis, was admitted to [facility] Surg Room 312-01. Patient/family oriented to hospital policies and general routines including ID bracelet, bed and alarms, visiting hours, pain management, procedures, bathroom and other care routines, personal items, smoking policy, room service/diet, and visiting hours. Information on how to activate the Rapid Response Team has been discussed. Patient/Family are encouraged to report perceived risks to care and to ask questions if they do not understand what they are told or what they should do.
[2022-07-05] MEDS: LOVASTATIN 20 MG TABLET 40 MG PO (18:49)
[2022-07-05] MEDS: EMPAGLIFLOZIN 25 MG TABLET BY MOUTH (18:49)
[2022-07-05] MEDS: PRIMIDONE 50 MG TABLET 100 MG PO (18:49)
[2022-07-05] MEDS: SENNA/DOCUSATE SODIUM TABLET 2 TAB PO (18:50)
[2022-07-05] MEDS: metFORMIN HCL 500 MG TABLET 1000 MG PO (18:50)
[2022-07-05] MEDS: OMEGA 3 POLYUNSAT FATTY ACIDS 1 GM CAP 2 GM PO (18:50)
[2022-07-05] MEDS: DONEPEZIL HCL 5 MG TABLET 10 MG PO (18:50)
[2022-07-05] MEDS: lisinopriL 20 MG TABLET 40 MG PO (18:51)
[2022-07-05] MEDS: FAMOTIDINE 20 MG TABLET PO (20:12)
[2022-07-05] MEDS: oxyCODONE HCL (*CRX) 5 MG TAB IR PO (22:20)
[2022-07-05] MEDS: CYCLOBENZAPRINE HCL 10 MG TABLET PO (22:20)
[2022-07-06 02:33] VITALS: BP 169/70; PULSE 80; RESP 18; TEMP 36.7; O2SAT 97
--- NOTE | 2022-07-06 02:36 | WPDCN ---
Assessment and Plan Assessment and plan (1) Osteoarthritis of right knee: Code(s): M17.11 - Unilateral primary osteoarthritis, right knee Status: Acute Assessment and Plan: Postoperative day 0 status post right total knee arthroplasty. Wound care, pain control, and DVT prophylaxis deferred to primary service. Agree with PT/OT. Check baseline labs in a.m. (2) Insulin dependent diabetes mellitus: Status: Acute Assessment and Plan: Random glucose this evening is 307. He will receive his basal insulin tonight and we will repeat Accu-Chek later on this evening to see if he needs sliding scale insulin. He is hesitant to receive short-acting insulin however because he has a tendency to ?bottom out.? Hypoglycemic protocol ordered. Check hemoglobin A1c in a.m. (3) Hypertension: Qualifiers: Hypertension type: essential hypertension Qualified Code(s): I10 - Essential (primary) hypertension Code(s): I10 - Essential (primary) hypertension Status: Chronic Assessment and Plan: Blood pressures were reviewed and they have been a bit elevated, in the 150 systolic. Continue antihypertensives and monitor. Plan Thank you for allowing us to participate in this patient's care. Please do not hesitate to contact us with any questions. HPI Data of Consult Date/Time: 07/05/22 21:30 Requesting Physician: Oumar Franco MD Consult Narrative Reason for consult: Postoperative medical management. Narrative: This is a very pleasant 71-year-old male with arthritis of the right knee, insulin-dependent diabetes, hypertension, hyperlipidemia, sleep apnea, chronic kidney disease, benign prostatic hyperplasia, and GERD whom the hospitalist service has been consulted for management of his medical conditions postoperatively. He presented today for elective right total knee arthroplasty given ongoing pain despite conservative outpatient treatment. Surgery was performed under general anesthesia with regional block. Estimated blood loss was 50 mL. No immediate complications were documented. Postoperatively he has minimal discomfort and he has no specific complaints. He denies fever, chills, sweats, nausea, vomiting, chest pain, and shortness of breath. is going to be helping him out when he returns home. At the time my evaluation he checked his continuous glucose monitor and his sugar was 307. He reports that sometimes his glucose will bottom out with short-acting insulin and he is hesitant to receive that at this time. Review of Systems Review of Systems: Twelve systems were reviewed. No recent cold or flu symptoms. No chest pain shortness a breath. He believes his diabetes is well controlled and states that his recent A1c was 6.6%. He does have issues with highs and lows however. He suffers from neuropathy of his lower legs. He does not always use his CPAP, more often not. He believes the rest of his chronic medical conditions are well controlled. No history of venous thromboembolism. Except as documented, all other systems were reviewed and are negative. COUNT INCLUDES THE [facility] Past Medical History Medical History (Updated 07/06/22 @ 20:53 by Evelyn Menendez PA-C) Benign hypertension Carpal tunnel syndrome Cataract Hepatitis History of colon polyps History of measles, mumps, or rubella Hyperlipidemia, unspecified Hypertension Hypogonadism male Liver disease Obesity Osteoarthritis Osteopenia Renal disease Sleep apnea Type 2 diabetes mellitus with diabetic polyneuropathy Surgical History Surgical History (Updated 07/06/22 @ 20:53 by Evelyn Menendez PA-C) Amputated toe 2014 H/O arthroscopy of left knee H/O vasectomy 1978 History of carpal tunnel surgery of right wrist History of hip surgery left hip kevin placed History of tonsillectomy History of total knee replacement (TKR) 2010 left knee S/P left knee arthroscopy Status post total knee replacement, right Fa
[2022-07-06] MEDS: ceFAZolin 2 GM/D5W 50 ML 2 GM/50 ML BAG IVPB ×2 (03:34→12:05)
[2022-07-06] MEDS: oxyCODONE HCL (*CRX) 5 MG TAB IR PO ×2 (03:37→15:20)
[2022-07-06 04:35] VITALS: BP 144/74; PULSE 83; RESP 18; TEMP 36.9; O2SAT 95
[2022-07-06 06:30] LABS: Basophils Absolute Auto 0.1 K/mm3 (0.0-0.1); Basophils Percent Auto 0.7 % (0.2-1.2); Eosinophils Absolute Auto 0.1 K/mm3 (0-0.3); Eosinophils Percent Auto 0.8 % (0-4.4); Hematocrit 38.5 % (42.0-52.0); Hemoglobin 12.4 g/dL (14.0-18.0); Immature Granulocyte Absolute 0.04 K/mm3 (0.00-0.031); Immature Granulocyte Percent A 0.4 % (0-0.5); Lymphocytes Absolute Auto 1.48 K/mm3 (0.9-3.2); Mean Corpuscular HGB Conc 32.2 g/dl (32-36); Mean Corpuscular Hemoglobin 28.4 pg (26-34); Mean Corpuscular Volume 88.1 fl (80-100); Mean Platelet Volume 9.6 fl (7.4-10.4); Monocytes Absolute Auto 0.9 K/mm3 (0.1-0.6); Monocytes Percent Auto 9.9 % (2.6-8.5); Neutrophils Absolute Auto 6.7 K/mm3 (1.3-6.7); Neutrophils Percent Auto 72.2 % (45.5-73.1); Platelet Count Result 262 k/mm3 (150-375); Red Blood Count 4.37 M/mm3 (4.6-6.20); Red Cell Distribution Width 13.8 % (11.5-14.5); White Blood Count 9.2 K/mm3 (4.5-10.0)
[2022-07-06 06:41] LABS: Magnesium 1.8 mg/dL (1.6-2.3)
[2022-07-06 06:45] LABS: Anion Gap 5 mmol/L (8-16); Blood Urea Nitrogen 19 mg/dL (9-20); Calcium 8.4 mg/dL (8.4-10.2); Carbon Dioxide 28 mmol/L (22-30); Chloride 100 mmol/L (98-107); Estimated CRCL calculation 81 ml/min; Estimated Glomerular Filt Rate > 60; Glucose 167 mg/dL (65-110); Potassium 4.2 mmol/L (3.4-5.0); Sodium 133 mmol/L (137-145)
[2022-07-06 06:59] LABS: Hemoglobin A1C 7.7 % (<5.7)
[2022-07-06 07:36] LABS: Glucose Point of Care 202 mg/dl (65-105)
[2022-07-06 07:55] VITALS: BP 146/79; PULSE 89; RESP 18; TEMP 36.2; O2SAT 99
[2022-07-06] MEDS: SENNA/DOCUSATE SODIUM TABLET 2 TAB PO (08:18)
[2022-07-06] MEDS: ASPIRIN 81 MG ENTERIC TABLET PO (08:18)
[2022-07-06] MEDS: lisinopriL 20 MG TABLET 40 MG PO (08:19)
[2022-07-06] MEDS: EMPAGLIFLOZIN 25 MG TABLET BY MOUTH (08:19)
[2022-07-06] MEDS: LOVASTATIN 20 MG TABLET 40 MG PO (08:19)
[2022-07-06] MEDS: FAMOTIDINE 20 MG TABLET PO (08:19)
[2022-07-06] MEDS: DONEPEZIL HCL 5 MG TABLET 10 MG PO (08:19)
[2022-07-06] MEDS: MAGNESIUM OXIDE 400 MG TABLET PO (08:20)
[2022-07-06] MEDS: metFORMIN HCL 500 MG TABLET 1000 MG PO (08:20)
[2022-07-06] MEDS: MULTIVITAMINS THERAPEUTIC TAB (*BKC) 1 TABLET PO (08:20)
[2022-07-06] MEDS: OMEGA 3 POLYUNSAT FATTY ACIDS 1 GM CAP 2 GM PO (08:20)
[2022-07-06] MEDS: PRIMIDONE 50 MG TABLET 100 MG PO (08:20)
[2022-07-06] MEDS: oxyCODONE HCL (*CRX) 5 MG TAB IR 10 MG PO (08:21)
[2022-07-06] MEDS: INSULIN ASPART (*BKC) 100 UNITS/ML SUB-Q ×2 (08:22→12:05)
[2022-07-06] MEDS: INSULIN GLARGINE (*BKC) 100 UNITS/ML 30 UNITS SUB-Q (08:23)
--- NOTE | 2022-07-06 10:47 | WPDANESPN ---
Anes - Prog Note Post-Op Date/Time: 07/06/22 10:47 Cardiovascular status: normal Respiratory status: normal Airway patency: baseline Mental status: baseline Post-Op hydration status: normal Vital Signs: Last Vital Signs Temp 36.2 C L 07/06/22 07:55 Pulse 89 07/06/22 07:55 Resp 18 07/06/22 07:55 BP 146/79 H 07/06/22 07:55 Pulse Ox 99 07/06/22 07:55 O2 Del Method Room Air 07/06/22 09:10 O2 Flow Rate 2 07/05/22 16:40 Pain Score (VAS): 03/26 I/O: Intake & Output 07/05/22 07/06/22 07/06/22 23:59 07:59 15:59 Intake Total 750 200 200 Output Total 2300 Balance 750 -2100 200 Laboratory Tests 07/06/22 06:08 07/06/22 06:08 07/05/22 07/05/22 07/05/22 10:07 15:14 17:16 WBC RBC Hgb Hct MCV MCH MCHC RDW Plt Count MPV Immature Gran % (Auto) Neut % (Auto) Lymph % (Auto) [place] % (Auto) Eos % (Auto) Baso % (Auto) Lymph # (Auto) [place] # (Auto) Eos # (Auto) Baso # (Auto) Abs Immat Gran (auto) Absolute Neuts (auto) Absolute Nucleated RBC Nucleated RBC % Sodium Potassium Chloride Carbon Dioxide Anion Gap BUN Creatinine Estim Creat Clear Calc Estimated GFR Glucose POC Capillary Glucose 182 H 192 H Hemoglobin A1c Calcium Magnesium Blood Type O Positive Antibody Screen Negative 07/06/22 07/06/22 06:08 07:29 WBC 9.2 RBC 4.37 L Hgb 12.4 L Hct 38.5 L MCV 88.1 MCH 28.4 MCHC 32.2 RDW 13.8 Plt Count 262 MPV 9.6 Immature Gran % (Auto) 0.4 Neut % (Auto) 72.2 Lymph % (Auto) 16.0 L [place] % (Auto) 9.9 H Eos % (Auto) 0.8 Baso % (Auto) 0.7 Lymph # (Auto) 1.48 Carroll # (Auto) 0.9 H Eos # (Auto) 0.1 Baso # (Auto) 0.1 Abs Immat Gran (auto) 0.04 H Absolute Neuts (auto) 6.7 Absolute Nucleated RBC 0.0 Nucleated RBC % 0.0 Sodium 133 L Potassium 4.2 Chloride 100 Carbon Dioxide 28 Anion Gap 5 L BUN 19 D Creatinine 0.90 Estim Creat Clear Calc 81 Estimated GFR > 60 Glucose 167 H POC Capillary Glucose 202 H Hemoglobin A1c 7.7 H Calcium 8.4 Magnesium 1.8 Blood Type Antibody Screen Post-procedural complaints: none Patient Feedback: Patient satisfied with anesthetic care.
[2022-07-06 11:54] VITALS: BP 140/95; PULSE 81; RESP 16; TEMP 36.3; O2SAT 95
[2022-07-06 11:56] LABS: Glucose Point of Care 265 mg/dl (65-105)
--- NOTE | 2022-07-06 14:34 | PM.IMPN ---
Progress Note: A&P Assessment and Plan (1) Osteoarthritis of right knee: Code(s): M17.11 - Unilateral primary osteoarthritis, right knee Status: Acute Assessment and Plan: Postoperative day 1 status post right total knee arthroplasty. Wound care, pain control, and DVT prophylaxis deferred to primary service. Agree with PT/OT. (2) Insulin dependent diabetes mellitus: Status: Acute Assessment and Plan: Accu-Chek ACHS. sliding scale insulin. Hypoglycemic protocol ordered. Hemoglobin A1c 7.7. Continue Jardiance and Metformin (3) Hypertension: Qualifiers: Hypertension type: essential hypertension Qualified Code(s): I10 - Essential (primary) hypertension Code(s): I10 - Essential (primary) hypertension Status: Chronic Assessment and Plan: Blood pressures were reviewed and they have been a bit elevated, in the 150 systolic. Continue antihypertensives and monitor. Subjective Date/time seen: 07/06/22 14:34 Interval history: Patient doing well and resting in bed. Patient continues to work with PT and OT. Patient's pain is well controlled. Review of Systems Review of Systems: All systems reviewed & are unremarkable except as noted in HPI and below Exam Narrative: GENERAL: Comfortable, no acute distress HENMT: moist mucous membranes EYES: EOM intact b/l NECK: no lymphadenopathy RESPIRATORY: clear to auscultation CARDIO: RRR GI: soft, nontender, bowel sounds present SKIN: no rashes EXTREMITIES: right knee Tegaderm dry and intact. Ice present. Objective Data Vital Signs Vital Signs: Vital Signs - 24 hr 07/05/22 15:10 07/05/22 15:25 07/05/22 15:40 Temperature 97.3 F L Pulse Rate 72 79 84 Respiratory Rate 13 14 12 Blood Pressure 129/74 164/83 H 169/86 H Pulse Oximetry 100 100 100 Oxygen Delivery Simple Face Mask Simple Face Mask Simple Face Mask Oxygen Flow Rate 8 8 8 07/05/22 15:55 07/05/22 16:10 07/05/22 16:25 Temperature Pulse Rate 87 80 77 Respiratory Rate 10 L 12 10 L Blood Pressure 169/81 H 164/80 H 152/83 H Pulse Oximetry 97 98 97 Oxygen Delivery Nasal Cannula Nasal Cannula Nasal Cannula Oxygen Flow Rate 2 2 2 07/05/22 16:40 07/05/22 17:35 07/05/22 17:50 Temperature 97.5 F L 97.4 F L Pulse Rate 82 77 77 Respiratory Rate 16 16 16 Blood Pressure 151/77 H 153/80 H 152/75 H Pulse Oximetry 99 98 95 Oxygen Delivery Nasal Cannula Oxygen Flow Rate 2 07/05/22 18:20 07/05/22 20:19 07/06/22 02:33 Temperature 98 F 98.2 F 98.1 F Pulse Rate 81 88 80 Respiratory Rate 18 18 18 Blood Pressure 166/79 H 157/78 H 169/70 H Pulse Oximetry 94 97 97 Oxygen Delivery Oxygen Flow Rate 07/05/22 22:00 07/05/22 23:00 07/06/22 04:35 Temperature 98.4 F Pulse Rate 83 Respiratory Rate 13 18 Blood Pressure 144/74 H Pulse Oximetry 98 95 Oxygen Delivery Autopap Room Air Oxygen Flow Rate 07/06/22 07:19 07/06/22 07:55 07/06/22 09:10 Temperature 97.2 F L Pulse Rate 89 Respiratory Rate 18 Blood Pressure 146/79 H Pulse Oximetry 99 Oxygen Delivery Room Air Room Air Oxygen Flow Rate 07/06/22 11:54 Temperature 97.3 F L Pulse Rate 81 Respiratory Rate 16 Blood Pressure 140/95 H Pulse Oximetry 95 Oxygen Delivery Oxygen Flow Rate Intake/Output Intake/Output: Intake & Output 07/03/22 07/04/22 07/05/22 07/06/22 23:59 23:59 23:59 23:59 Intake Total 1900 740 Output Total 3450 Balance 1900 -6380 Meds/Results Medications: Active Medications Generic Name Dose Route Start Last Admin Trade Name Freq PRN Reason Stop Dose Admin Acetaminophen 650 mg 07/05/22 16:48 Acetaminophen 325 Mg Tablet PO Q8H PRN Pain Aspirin 81 mg 07/06/22 09:00 07/06/22 08:18 Aspirin 81 Mg Enteric Tablet PO 81 mg DAILY ALLEGRA Administration Cyclobenzaprine HCl 10 mg 07/05/22 16:48 07/05/22 22:20 Cyclobenzaprine Hcl 10 Mg Tablet PO
--- NOTE | 2022-07-06 15:30 | PM.DS ---
DS: Admitting Diagnosis Discharge Date July 06, 2022 Admitting Diagnosis Right knee osteoarthritis. DS: Discharge Diagnosis Discharge Diagnosis (1) Status post total knee replacement, right: Code(s): Z96.651 - Presence of right artificial knee joint Status: Acute DS: Summary Hospital Course Reason for hospitalization: Total knee arthroplasty. Hospital Course: Tolerated surgery well. Progressed appropriately with therapy. Status at Discharge Functional status at discharge: uses cane/walker Overall status at discharge: patient is progressing back to baseline Time Spent with Patient Time attestation: Total time spent providing and/or coordinating discharge services: Exam Const: General: no acute distress Resp: Effort & Inspection: normal respiratory effort Skin: Other: Wound healing well. Mepilex dressing intact. No hematoma or drainage. Neuro: Motor exam (neuro): 5/5 motor strength present throughout Sensory Exam: normal sensation Psych: Mental Status: mental status grossly normal Speech and movement: Normal speech and movement present DS: Data Data Completed and Pending Labs on day of discharge: Labs from last 24 hours 07/06/22 07/06/22 07/06/22 11:34 07:29 06:08 WBC 9.2 RBC 4.37 L Hgb 12.4 L Hct 38.5 L MCV 88.1 MCH 28.4 MCHC 32.2 RDW 13.8 Plt Count 262 MPV 9.6 Immature Gran % (Auto) 0.4 Neut % (Auto) 72.2 Lymph % (Auto) 16.0 L [place] % (Auto) 9.9 H Eos % (Auto) 0.8 Baso % (Auto) 0.7 Lymph # (Auto) 1.48 [place] # (Auto) 0.9 H Eos # (Auto) 0.1 Baso # (Auto) 0.1 Abs Immat Gran (auto) 0.04 H Absolute Neuts (auto) 6.7 Absolute Nucleated RBC 0.0 Nucleated RBC % 0.0 Sodium 133 L Potassium 4.2 Chloride 100 Carbon Dioxide 28 Anion Gap 5 L BUN 19 D Creatinine 0.90 Estim Creat Clear Calc 81 Estimated GFR > 60 Glucose 167 H POC Capillary Glucose 265 H 202 H Hemoglobin A1c 7.7 H Calcium 8.4 Magnesium 1.8 07/05/22 17:16 WBC RBC Hgb Hct MCV MCH MCHC RDW Plt Count MPV Immature Gran % (Auto) Neut % (Auto) Lymph % (Auto) [place] % (Auto) Eos % (Auto) Baso % (Auto) Lymph # (Auto) [place] # (Auto) Eos # (Auto) Baso # (Auto) Abs Immat Gran (auto) Absolute Neuts (auto) Absolute Nucleated RBC Nucleated RBC % Sodium Potassium Chloride Carbon Dioxide Anion Gap BUN Creatinine Estim Creat Clear Calc Estimated GFR Glucose POC Capillary Glucose 192 H Hemoglobin A1c Calcium Magnesium Discharge Plan Discharge Patient Disposition: Home, Self-Care Discharge Instructions: See instruction sheet. Stand Alone Forms: General Discharge Instructions Follow-up/Referrals: Oumar Franco MD [Physician] - Discharge Medications: New oxycodone-acetaminophen 5-325 mg tablet 1 - 2 tablet PO Q4-6H MDD 6 tablets PRN (Reason: pain) Qty: 30 0RF Continued omega-3 acid ethyl esters [Lovaza] 1 gram capsule 2 cap PO BID Qty: 360 2RF donepezil 5 mg tablet 10 mg PO BID acetaminophen [Tylenol 8 Hour] 650 mg tablet extended release 650 mg PO Q8H PRN (Reason: Pain) aspirin [Aspir-81] 81 mg tablet,delayed release (DR/EC) 81 mg PO DAILY multivitamin [Multiple Vitamins] Tablet 1 tablet PO DAILY insulin glargine [Lantus Solostar U-100 Insulin] 100 unit/mL (3 mL) insulin pen 30 unit SUB-Q ONCE Patient Comments: TOOK 15 UNITS TODAY Rx Instructions: 30 units once daily AM primidone 50 mg tablet 100 mg PO BID Rx Instructions: Take 2 tablets in the morning and 2 tablets at night magnesium oxide 400 mg magnesium Capsule 400 mg PO DAILY lisinopril 40 mg tablet See Rx Instructions .ROUTE .COMPLEX Qty: 90 3RF Dose Instruction: TAKE 1 TABLET EVERY MORNING Rx Instructions: TAKE 1 TABLET EVERY MORNING lovastatin 40 mg tablet S
--- NOTE | 2022-07-06 18:57 | PC.NURSE ---
Discharge requirements were re-entered due to [employer] downtime this evening (orders were gone when [employer] was back up working).
== END 2022-07-06 16:20 | disposition home or self-care (01) ==
LOC: ANHSURGERY 09:20 → ANH3MEDSUR 17:09 → ANHSURGERY 07-06 15:49 → ANH3MEDSUR 07-06 18:54
PROVIDERS: Physician Assistant; PCP Internal Medicine; Visit Provider Orthopaedic Surgery
PROC: (CPT 27447; principal; 2022-07-05 12:00)
DX: M17.11 Unilateral primary osteoarthritis, right knee (principal); M65.9 Synovitis and tenosynovitis, unspecified; E11.9 Type 2 diabetes mellitus without complications; I10 Essential (primary) hypertension; Z87.891 Personal history of nicotine dependence; E66.9 Obesity, unspecified; Z68.31 Body mass index [BMI] 31.0-31.9, adult
CPT/HCPCS: 27447; 36415; 73560; 80048; 82948; 83036; 83735; 85025; 86850; 86900; 86901; 97110; 97116; 97161; 97165; 97535; A9270; C1713; C1776; J0171; J0690; J1170; J1815; J1885; J2250; J2270; J2405; J2704; J2795; J3010; J7120

== ENCOUNTER 2022-08-18 11:00 | Outpatient (RCR) | payer MEDICARE, OTHER, SELFPAY ==
--- NOTE | 2022-07-21 15:20 | PTOPEVAL1 ---
Assessment and note entered by Jamin Perkins, PT Evaluation Information Assessment Status Evaluation Diagnosis R TKA Subjective Information Patient had the surgery 2 weeks ago and has been at home doing his exercises, icing, and elevating the leg. Has been using the wheeled walker, but starting to use the straight cane around the house. Patient slightly hard of hearing. Assessment PT Clinical Summary Milton is a 71 year old male coming into the clinic with a diagnosis a R TKA. Patient has good strength and R knee active range of motion of 0-5 -95. Walking with the walker with good gait pattern. Physical therapy will work on improving range of motion and strength along with progressing from using a wheeled walker to no assistive device with gait if safe. Plan of Care Interventions Electrical Stimulation,Gait Training,Hot Pack/Cold Pack,Manual Therapy,Neuro Re-education,Patient/ Caregiver Education,Therapeutic Activities, Therapeutic Exercise,Ultrasound Other Interventions cupping, taping, IASTM PT Services Indicated Yes Treatment Frequency and 2x/wk for 4 weeks Duration These treatments will address the objective and functional deficits as defined above. The patient will be advanced safely and appropriately in order for the patient to progress towards his/her prior level of function. Additional exercises will be introduced and as well as a comprehensive home exercise program upon discharge, if needed, ?to ensure carryover of functional gains achieved in the clinic. This treatment plan has been reviewed and agreement upon by the patient.
--- NOTE | 2022-07-21 15:20 | OPREHPOC ---
Outpatient Therapy Plan of Care This is a Multidisciplinary Plan of Care that may contain components documented by all disciplines (PT, OT, and ST.) PT Problem 1 PT Problem #1 Knowledge Deficit PT Goal 1 Goal Independent with HEP Target Visit 8 PT Problem 2 PT Problem #2 Impaired Functional Mobil PT Goal 1 Goal ambulate without assistive device Independently. Target Visit 8 PT Problem 3 PT Problem #3 Impaired Range of Motion PT Goal 1 Goal 0-125 R knee active range of motion Target Visit 8 PT Problem 4 PT Problem #4 Impaired Strength PT Goal 1 Goal 5/5 R knee strength
--- NOTE | 2022-08-18 14:23 | PTOPPROG ---
Assessment and note entered by Jamin Perkins, PT Evaluation Information Assessment Status Progress Diagnosis R TKA Onset 07/05/22 Subjective Information Patient reports the knee is doing well besides not straightening all the way. 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 Patient is going back to the surgeon next week and see what the surgeon says. Assessment PT Clinical Summary Shawn is a 71 year old male coming into the hospital following a R TKA. Patient was evaluated on July 19 and has attended 9 sessions so far. He has met all goals for strength, functional mobility, and range of motion besides extension still missing 2 degrees. Physical therapy feels patient is safe for discharge with HEP and resumption of going to the gym, but patient wants surgeon to sign off first. Will continue to see patient to work on high end balance and extension exercises until then. Plan of Care Interventions Electrical Stimulation,Gait Training,Hot Pack/Cold Pack,Manual Therapy,Neuro Re-education,Patient/ Caregiver Education,Therapeutic Activities, Therapeutic Exercise,Ultrasound Other Interventions cupping, taping, IASTM PT Services Indicated Yes Treatment Frequency and 1-2x/wk for 4 weeks Duration These treatments will address the objective and functional deficits as defined above. The patient will be advanced safely and appropriately in order for the patient to progress towards his/her prior level of function. Additional exercises will be introduced and as well as a comprehensive home exercise program upon discharge, if needed, ?to ensure carryover of functional gains achieved in the clinic. This treatment plan has been reviewed and agreement upon by the patient.
--- NOTE | 2022-08-23 14:29 | PTOPDC ---
Assessment and note entered by Jamin Perkins, PT Evaluation Information Assessment Status Discharge - Pt Not Present Diagnosis R TKA Onset 07/05/22 Subjective Information Patient saw his surgeon and reports he is okay to be discharged from skilled physical therapy. Reassessment done late last week and sent to doctor for objective measurements and physical therapist's opinion Assessment PT Clinical Summary Shawn is a 71 year old male coming into the hospital following a R TKA. Patient was evaluated on July 19 and has attended 9 sessions so far. He has met all goals for strength, functional mobility, and range of motion besides extension still missing 2 degrees. Physical therapy feels patient is safe for discharge with HEP and resumption of going to the gym, but patient wants surgeon to sign off first. Will continue to see patient to work on high end balance and extension exercises until then. Plan of Care PT Services Indicated Yes
== END 2022-08-25 09:49 | disposition home or self-care (01) ==
LOC: ANHPT 11:00
PROVIDERS: PCP Internal Medicine; Visit Provider Orthopaedic Surgery
DX: Z48.89 Encounter for other specified surgical aftercare (principal); Z96.651 Presence of right artificial knee joint
CPT/HCPCS: 97110; 97161; 97530

== ENCOUNTER 2022-08-23 09:54 | Outpatient (CLI) | payer MEDICARE, OTHER, SELFPAY ==
--- NOTE | ~2022-08-23 | XR_ITS ---
Right Knee Technique: AP, lateral, and sunrise views were obtained. Clinical History: Joint replacement COMPARISON: 07/26/2022 Findings: No fracture or dislocation is seen. Right knee arthroplasty hardware is in place, unchanged from prior exam. No hardware complication is evident. There is stable suprapatellar soft tissue swel ling. No definite joint effusion. Impression: Right knee arthroplasty is unchanged. No acute fracture or dislocation seen. Suprapatellar soft tissue swelling/edema is present, nonspecific. Correlate for postoperative change versus other inflammatory/infectious process. Reviewed, dictated and finalized at location . Impression: Right knee arthroplasty is unchanged. No acute fracture or dislocation seen. Suprapatellar soft tissue swelling/edema is present, nonspecific. Correlate for postoperative change versus other inflammatory/infectious process.
== END 2022-08-23 09:55 | disposition home or self-care (01) ==
LOC: ANHIMG 09:57
PROVIDERS: PCP Internal Medicine; Visit Provider Orthopaedic Surgery
DX: Z47.1 Aftercare following joint replacement surgery (principal); Z96.659 Presence of unspecified artificial knee joint
CPT/HCPCS: 73562

== ENCOUNTER 2022-09-15 10:34 | Outpatient (CLI) | payer MEDICARE, OTHER, SELFPAY ==
[2022-09-15 11:30] LABS: Creatinine Urine 56.8 mg/dL; Total Protein Urine Random 17 mg/dL
[2022-09-15 11:36] LABS: Alanine Aminotransferase 49 U/L (6-50); Albumin Level 4.2 g/dL (3.5-5.1); Alkaline Phosphatase 95 U/L (38-126); Anion Gap 6 mmol/L (8-16); Aspartate Amino Transferase 37 U/L (17-59); Bilirubin,Total 0.3 mg/dL (0.2-1.3); Blood Urea Nitrogen 30 mg/dL (9-20); Calcium 9.1 mg/dL (8.4-10.2); Carbon Dioxide 26 mmol/L (22-30); Chloride 102 mmol/L (98-107); Cholesterol 204 mg/dL (0-200); Estimated Glomerular Filt Rate > 60; Glucose 131 mg/dL (65-110); HDL Direct 51 mg/dL; Potassium 4.5 mmol/L (3.4-5.0); Sodium 134 mmol/L (137-145); Triglycerides 189 mg/dL (<150)
[2022-09-15 11:37] LABS: Hemoglobin A1C 7.6 % (<5.7)
[2022-09-15 11:38] LABS: Phosphorus 4.3 mg/dL (2.5-4.5)
[2022-09-15 11:47] LABS: LDL Cholesterol Direct 91 mg/dL
[2022-09-15 12:05] LABS: Prostate Specific Antigen 3.7 ng/mL (< OR = 4.0)
[2022-09-15 13:08] LABS: Microalbumin Urine Random 58.7 mg/L (0-16.7)
[2022-09-17 20:29] LABS: Osmolality, Urine 587 mOsm/kg (50-1200)
== END 2022-09-15 10:35 | disposition home or self-care (01) ==
PROVIDERS: PCP Internal Medicine; Referring Provider Internal Medicine Nephrology; Visit Provider Nurse Practitioner
DX: Z12.5 Encounter for screening for malignant neoplasm of prostate (principal); E11.42 Type 2 diabetes mellitus with diabetic polyneuropathy; E78.2 Mixed hyperlipidemia; E78.5 Hyperlipidemia, unspecified; E88.81 Metabolic syndrome and other insulin resistance; E87.1 Hypo-osmolality and hyponatremia; R80.1 Persistent proteinuria, unspecified; R80.9 Proteinuria, unspecified; Z71.3 Dietary counseling and surveillance
CPT/HCPCS: 36415; 80053; 80061; 82043; 82533; 82570; 82607; 83036; 83930; 83935; 84100; 84153; 84156; 84443; G0103

== ENCOUNTER 2022-09-15 20:52 | Observation (INO) | payer MEDICARE, OTHER, SELFPAY ==
--- NOTE | ~2022-09-15 | CT_ITS ---
EXAMINATION: CT cervical spine wo con DATE: 09/15/2022 21:38 INDICATION: trauma TECHNIQUE: Computed tomography (CT) of the cervical spine was performed without intravenous contrast. Automated exposure control and iterative reconstruction technique were employed. The dose-length pro duct was 568.95 mGy-cm. COMPARISON: None. FINDINGS: Vertebral Body Alignment: Intact. 2 mm anterolisthesis at C4-5, likely on a degenerative basis. Craniocervical and atlantoaxial alignment: Moderate degenerative change. Alignment intact. Osseous structures/fracture: No evidence of a lytic or blastic process in the visualized spine. No e vidence of acute fracture. Cervical soft tissues: The paraspinal soft tissues planes are maintained. Degenerative changes: Multilevel moderate degenerative disc disease and facet arthropathy. Severe hernando ateral neural foraminal narrowing and moderate central canal narrowing at C3-4. IMPRESSION: No acute fracture or traumatic malalignment in the cervical spine. Reviewed, dictated and finalized at location K.
--- NOTE | ~2022-09-15 | XR_ITS ---
EXAMINATION: XR ribs RT 2V w CXR 2V Exam Date/Time: 09/15/2022 22:40 CDT HISTORY: pain status post fall Comparison: 07/25/2021. RESULT: Lines, tubes, and devices: None. Lungs and pleura: Clear. Cardiothymic silhouette: Stable. Other: No acute upper abdominal finding. Slight cortical irregularity of the lateral aspect of the r ight ninth rib IMPRESSION: No acute cardiopulmonary process. Possible nondisplaced right lateral ninth rib fracture, correlate w ith point tenderness. Reviewed, dictated and finalized at location K. IMPRESSION: No acute cardiopulmonary process. Possible nondisplaced right lateral ninth rib fracture, correlate with point tenderness.
--- NOTE | ~2022-09-15 | XR_ITS ---
EXAM: XR ankle RT min 3V DATE: 09/15/2022 21:53 HISTORY: Pain to rt hand, knee ankle and shoulder s/p fall . COMPARISON: None available. FINDINGS: Normal mineralization. No fracture or dislocation. No lytic or blastic lesion. Mild degene rative change in the tibiotalar joint. Moderate-severe degenerative changes in multiple midfoot joint s. Heterotopic ossification in the posterior soft tissues and plantar fascia. Moderate plantar enthes opathy. No erosion or periosteal change. Vascular calcifications. IMPRESSION: No acute osseous finding in the right ankle. Reviewed, dictated and finalized at location K.
--- NOTE | ~2022-09-15 | XR_ITS ---
EXAM: XR hand RT min 3V DATE: 09/15/2022 21:53 HISTORY: pain statust post syncope . COMPARISON: 04/14/2020. FINDINGS: Normal mineralization. No fracture or dislocation. No lytic or blastic lesion. Polyarticul ar osteoarthritis, most pronounced at the second and third MCP joints. No erosion or periosteal gao e. Soft tissues within normal limits. IMPRESSION: No acute osseous finding in the right hand. Reviewed, dictated and finalized at location K.
--- NOTE | ~2022-09-15 | XR_ITS ---
EXAM: XR knee RT 3V DATE: 09/15/2022 21:53 HISTORY: pain status post fall/syncope . COMPARISON: 08/23/2022. FINDINGS: Normal mineralization. No fracture or dislocation. No lytic or blastic lesion. Uncomplicat ed appearing right total knee arthroplasty. Moderate joint effusion. No erosion or periosteal change. Small focus of heterotopic ossification in the posterior calf soft tissues. IMPRESSION: No acute osseous finding in the right knee. No radiographic evidence of hardware related complication. Reviewed, dictated and finalized at location K. IMPRESSION: No acute osseous finding in the right knee. No radiographic evidenc e of hardware related complication.
--- NOTE | ~2022-09-15 | XR_ITS ---
EXAM: XR shoulder RT min 2V DATE: 09/15/2022 21:53 HISTORY: pain status post syncope . COMPARISON: None available. FINDINGS: Normal mineralization. No fracture or dislocation. No lytic or blastic lesion. Severe AC j oint and mild glenohumeral joint osteoarthritis. Calcific tendinitis in the distal rotator cuff. No e rosion or periosteal change. Soft tissues within normal limits. IMPRESSION: No acute osseous finding in the right shoulder. Reviewed, dictated and finalized at location K.
--- NOTE | ~2022-09-15 | CT_ITS ---
EXAMINATION: CT brain wo con DATE: 09/15/2022 21:36 INDICATION: syncope . TECHNIQUE: Computed tomography (CT) of the head was performed without intravenous contrast. The mA wa s adjusted according to patient size. Iterative reconstruction technique was employed. The dose-lengt h product was 681.00 mGy-cm. COMPARISON: None. FINDINGS: No acute intracranial hemorrhage or extra-axial fluid collection. No hydrocephalus, mass, or herniation. No acute ischemic infarct. Unremarkable dural venous sinus attenuation. No acute osseous abnormality. The aerated spaces are clear. Mild atrophy and chronic white matter change. Atherosclerotic intracranial calcification. Focal old r ight basal ganglia lacunar infarcts. Subacute/chronic appearing focal left basal ganglia lacunar infa rcts. IMPRESSION: No acute intracranial process. Reviewed, dictated and finalized at location K.
[2022-09-15 20:48] VITALS: BP 137/88; PULSE 87; RESP 16; TEMP 36.3; O2SAT 95
[2022-09-15 21:05] VITALS: BP 143/82; PULSE 83; RESP 10; O2SAT 94
--- NOTE | 2022-09-15 21:20 | ECG_ITS ---
Measurements Intervals [place] Rate: 80 P: 29 CO: 187 QRS: -11 QRSD: 108 T: 24 QT: 379 QTc: 439 Interpretive Statements SINUS RHYTHM MODERATE VOLTAGE CRITERIA FOR LVH, CONSIDER NORMAL VARIANT [MEETS CRITERIA IN ONE OF: R(aVL), S(V1), R(V5), R(V5/V6)+S(V1)] COMPARED TO ECG 07/25/2021 18:50:33 THE RATE IS SLOWER Electronically Signed On 09-16-2022 10:16:55 CDT by Sola Shields M.D.
[2022-09-15] MEDS: SODIUM CHLORIDE 0.9% IV 1,000 ML 999 ML IV CONT (22:01)
[2022-09-15] MEDS: TETANUS,DIPHTHERIA,AC PERTUSSIS ADULT (0.5 ML) BOOSTRIX IM (22:04)
[2022-09-15 22:18] LABS: Basophils Absolute Auto 0.1 K/mm3 (0.0-0.1); Basophils Percent Auto 0.6 % (0.2-1.2); Eosinophils Absolute Auto 0.2 K/mm3 (0-0.3); Eosinophils Percent Auto 1.8 % (0-4.4); Hematocrit 41.9 % (42.0-52.0); Hemoglobin 13.7 g/dL (14.0-18.0); Immature Granulocyte Absolute 0.03 K/mm3 (0.00-0.031); Immature Granulocyte Percent A 0.4 % (0-0.5); Lymphocytes Absolute Auto 1.21 K/mm3 (0.9-3.2); Lymphocytes Percent Auto 14.9 % (18.3-44.2); Mean Corpuscular HGB Conc 32.7 g/dl (32-36); Mean Corpuscular Hemoglobin 29.3 pg (26-34); Mean Corpuscular Volume 89.7 fl (80-100); Mean Platelet Volume 9.7 fl (7.4-10.4); Monocytes Absolute Auto 0.5 K/mm3 (0.1-0.6); Monocytes Percent Auto 5.9 % (2.6-8.5); Neutrophils Absolute Auto 6.2 K/mm3 (1.3-6.7); Neutrophils Percent Auto 76.4 % (45.5-73.1); Platelet Count Result 306 k/mm3 (150-375); Red Blood Count 4.67 M/mm3 (4.6-6.20); Red Cell Distribution Width 13.6 % (11.5-14.5); White Blood Count 8.1 K/mm3 (4.5-10.0)
[2022-09-15 22:25] LABS: Creatine Kinase 83 U/L (55-170); Lactic Acid Reflex 0.9 mmol/L (0.7-2.0)
[2022-09-15 22:26] LABS: Alanine Aminotransferase 42 U/L (6-50); Albumin Level 4.3 g/dL (3.5-5.1); Alkaline Phosphatase 98 U/L (38-126); Anion Gap 9 mmol/L (8-16); Aspartate Amino Transferase 31 U/L (17-59); Bilirubin,Total 0.3 mg/dL (0.2-1.3); Blood Urea Nitrogen 31 mg/dL (9-20); Calcium 9.1 mg/dL (8.4-10.2); Carbon Dioxide 24 mmol/L (22-30); Chloride 101 mmol/L (98-107); Estimated CRCL calculation 59 ml/min; Estimated Glomerular Filt Rate > 60; Glucose 197 mg/dL (65-110); INR 0.9; Magnesium 2.2 mg/dL (1.6-2.3); Potassium 4.4 mmol/L (3.4-5.0); Prothrombin Time 12.1 Seconds (11.1-14.7); Sodium 134 mmol/L (137-145)
[2022-09-15 22:26] LABS: Appearance Urine Clear (Clear); Bacteria Urine None Seen /hpf; Bilirubin Urine Negative (Negative); Blood Urine Negative (Negative); Color Urine Yellow (Yellow); Glucose Urine UA 3+ mg/dL (Negative); Ketones Urine Negative (Negative); Leukocyte Esterase Ur Negative LEU/UL (Negative); Nitrate Urine Negative (Negative); Non Pathogenic Casts 0-2; Protein Urine 1+ mg/dL (Negative); RBC Urine 0-2 /hpf (0-2); Specific Grav Ur 1.028 (1.001-1.035); Squamous Epithelial Cell Urine None seen /hpf (Few); Urobilinogen Urine 0.2 mg/dL (<2.0); WBC Urine 0-5 /hpf
[2022-09-15 22:27] LABS: Partial Thromboplastin Time 32.5 SECONDS (22.3-36.8)
[2022-09-15 22:37] LABS: Troponin I < 0.012 ng/mL (0.000-0.034)
[2022-09-15 22:43] LABS: Add Urine Microscopic? YES
--- NOTE | 2022-09-15 22:54 | ED.GENADULT ---
HPI - General Adult General Chief complaint: Syncope Stated complaint: passed out in sauna, knee and chest pain Time Seen by Provider: 09/15/22 21:09 History of Present Illness HPI narrative: Patient 71-year-old gentleman who presents the emergency department with chief complaint of syncopal episode. The patient reports that he had exercised at the local gym and then went into the sauna the patient states he remembered being in the sauna for approximately 15 minutes and then was bending over and sit to adjust something in the sauna and then set back up and then the next thing he know he was found by individuals on the floor the patient was drug out of the sauna and brought into the bathroom area so it was cooler and the patient reports that he feels okay at this point but reports that he has pain in the right side of his chest wall reports that he has a burn to the anterior chest of approximately size of his hand the patient reports also a small superficial burn to the dorsum of the right hand and reports a red chon on his right ankle and a red chon on his right knee. The patient reports no prior history of syncope denies chest pain denies shortness of breath denies palpitations. Related Data Home Medications Medication Instructions Recorded Confirmed aspirin 81 mg tablet,delayed 81 mg PO DAILY 01/19/19 08/30/22 release (Aspir-) multivitamin (Multiple Vitamins 1 tablet PO DAILY 01/19/19 08/30/22 tablet) magnesium oxide 400 mg PO DAILY 01/07/21 08/30/22 acetaminophen 650 mg 650 mg PO Q8H PRN Pain 06/08/22 08/30/22 tablet,extended release (Tylenol 8 Hour) donepezil 5 mg tablet 10 mg PO BID 06/08/22 08/30/22 insulin glargine 100 unit/mL (3 30 unit subcut ONCE diabetes 06/08/22 08/30/22 mL) subcutaneous pen (Lantus Solostar U-100 Insulin) primidone 50 mg tablet 100 mg PO BID 06/08/22 08/30/22 Allergies Allergy/AdvReac Type Severity Reaction Status Date / Time alcohol Allergy Severe Itching, Verified 08/30/22 11:29 RASH - DRINKING ALCOHOL Review of Systems Review of Systems: A 10 system review of systems was completed on the patient and is negative except for what is stated in the HPI. Nursing and ancillary documentation was reviewed. [facility] Past Medical History Medical History Benign hypertension Carpal tunnel syndrome Cataract Hepatitis History of colon polyps History of measles, mumps, or rubella Hyperlipidemia, unspecified Hypertension Hypogonadism male Liver disease Obesity Osteoarthritis Osteopenia Renal disease Sleep apnea Type 2 diabetes mellitus with diabetic polyneuropathy Surgical History Surgical History Amputated toe 2014 H/O arthroscopy of left knee H/O vasectomy 1977 History of carpal tunnel surgery of right wrist History of hip surgery left hip kevin placed History of tonsillectomy History of total knee replacement (TKR) 2010 left knee S/P left knee arthroscopy Status post right knee replacement Status post total knee replacement, right (~07/05/22) [place] -1 Family History Family History Other Diabetes mellitus Other Adopted Social History Social History Social History: Surrogate medical decision maker: Jeannette Louis, spouse. Code status: Full code. Smoking packs per day: 3 Smoking cigarettes per day: 60.0 Years smoked: 3 Smoking pack-years: 9.00 Smoking status: Former smoker Tobacco type: cigarettes Smokeless tobacco user: chewing tobacco Second hand tobacco smoke exposure: No Smoking end date: 02/15/72 Additional smoking assessment comments: Quit chewing tobacco in 2011. Alcohol intake: never Alcohol use details: Previous heavy drinker; quit in 1994. Substance
[2022-09-15] MEDS: SILVER SULFADIAZINE 1% CR 50 GM JAR (*BKC) 1 APPLIC TOPICAL (23:21)
[2022-09-16 01:10] LABS: Troponin I < 0.012 ng/mL (0.000-0.034)
--- NOTE | 2022-09-16 01:14 | PM.IMHP ---
H&P: HPI History of Present Illness Date/Time: 09/16/22 01:14 Chief Complaint: Passed out in the sauna Narrative: 71-year-old male with a past medical history of dementia, type 2 diabetes mellitus, diabetic peripheral neuropathy, diabetic retinopathy, BPH and essential hypertension who presented to the hospital from a local gym via EMS after having syncopal episode. The patient had evidently went to work out and rode a stationary bike for 20 minutes. After his workout then went and sat in the sauna for about 15 minutes. He states that he was on the top rack the sauna. And he sat up and leaned to the side to look at the clock. He noted they have been in the son about 15 minutes and was planning to stay in the sauna for another 10-15 minutes. The next thing he knows he woke up on the floor of the locker room. Evidently some bystanders found him in the sauna unconscious. They do not know how long he was unconscious. He was found with a second-degree burn to the right side of his chest. The patient does not recall any preceding symptoms for his syncopal event. He did not have any confusion or postictal state following his syncope. He is alert oriented x3 but had difficulty recalling the name of the current president. States that he does have dementia and has difficulty with recall of names. He eventually was able to name the president. He denies any prior syncopal events. He denies feeling lightheaded or dizzy prior to his episode of syncope. He does admit that he did not take any of his home medications prior to going to the gym. He states they did not take his home meds because he needed to have fasting labs done that morning. He states that he has lost 90 lb over the last urine half on weight watchers and working out at the gym. He used to have obstructive sleep apnea but does not uses CPAP anymore since his weight loss. He states that his has told him that he does not snore. He denies having any calf pain, chest pain or palpitations. He does have some chest discomfort on the right side of his chest where he has a second-degree burn. He has chronic difficulty with weak urinary stream and occasional urinary incontinence. He did not have any episodes of bowel or bladder incontinence at the time of his syncopal event. EKG in the ER was for the most part unremarkable. He has not had any events on telemetry since admission. The patient states that he was sitting on the top shelf of the sauna near the heater. He thinks that he probably landed close to the heater which caused a burn on his chest. He does report some discomfort in his right cheek. He denies any knee pain. He does have a burn on the dorsum of his right hand. Source of information: Past medical records and ER records. Patient also provide some of the history and is a fair historian. Review of Systems Review of Systems: 12 systems were reviewed with pertinent positives and negatives per HPI. Except as documented in the HPI, all other systems were reviewed and are negative. He has chronic hearing loss that is unchanged. He is not wearing his hearing aids at the time of my evaluation which mildly limited some of the history taking process. [facility] Past Medical History Medical History (Updated 09/16/22 @ 05:03 by Bouchra De Santiago DO) Benign hypertension Cataract Dementia Diabetic retinopathy Hepatitis History of colon polyps History of measles, mumps, or rubella Hyperlipidemia, unspecified Hypertension Hypogonadism male Liver disease Obesity Osteoarthritis Osteopenia Presbycusis of both ears With bilateral hearing aids Renal disease Sleep apnea Type 2 diabetes mellitus with diabetic polyneuropathy Surgical History Surgical History (Updated 09/16/22 @ 04:54 by Bouchra De Santiago DO) Amputated toe 2014 H/O arthroscopy of left knee H/O vasectomy 1977 History of carpal tunnel surgery of left wrist (02/19/21) History of carpal tunnel surgery of ri
[2022-09-16] MEDS: SODIUM CHLORIDE 0.9% IV 1,000 ML 999 ML IV CONT (01:19)
[2022-09-16 01:20] VITALS: BP 166/103; BP 167/89; PULSE 76; PULSE 83
[2022-09-16 01:22] VITALS: BP 163/94; PULSE 83
[2022-09-16] MEDS: ACETAMINOPHEN 325 MG TABLET 650 MG PO ×2 (02:38→13:06)
--- NOTE | 2022-09-16 02:53 | ADMGEN ---
This patient, Milton Louis, was admitted to Medical Room 340-01. Patient/family oriented to hospital policies and general routines including ID bracelet, bed and alarms, visiting hours, pain management, procedures, bathroom and other care routines, personal items, smoking policy, room service/diet, and visiting hours. Information on how to activate the Rapid Response Team has been discussed. Patient/Family are encouraged to report perceived risks to care and to ask questions if they do not understand what they are told or what they should do.
[2022-09-16 02:54] VITALS: BMI 30.3
[2022-09-16 02:55] VITALS: BP 162/63; PULSE 85; RESP 18; TEMP 36.3; O2SAT 100
[2022-09-16 04:00] VITALS: PULSE 74
[2022-09-16 04:06] LABS: Glucose Point of Care 154 mg/dl (65-105)
[2022-09-16] MEDS: SODIUM CHLORIDE 0.9% IV 1,000 ML 125 ML IV CONT (05:52)
[2022-09-16 06:00] VITALS: BP 140/75; PULSE 71; RESP 16; TEMP 36.3; O2SAT 98
[2022-09-16 06:48] LABS: Anion Gap 5 mmol/L (8-16); Blood Urea Nitrogen 24 mg/dL (9-20); Calcium 8.5 mg/dL (8.4-10.2); Carbon Dioxide 25 mmol/L (22-30); Chloride 105 mmol/L (98-107); Estimated CRCL calculation 80 ml/min; Estimated Glomerular Filt Rate > 60; Glucose 117 mg/dL (65-110); Sodium 135 mmol/L (137-145)
[2022-09-16 08:00] VITALS: PULSE 59
[2022-09-16] MEDS: LOVASTATIN 20 MG TABLET 40 MG PO (08:47)
[2022-09-16] MEDS: TAMSULOSIN HCL 0.4 MG CAPSULE PO (08:47)
[2022-09-16] MEDS: OMEGA 3 POLYUNSAT FATTY ACIDS 1 GM CAP 2 GM PO (08:47)
[2022-09-16] MEDS: lisinopriL 20 MG TABLET 40 MG PO (08:47)
[2022-09-16] MEDS: MAGNESIUM OXIDE 400 MG TABLET PO (08:47)
[2022-09-16] MEDS: PRIMIDONE 50 MG TABLET 100 MG PO (08:47)
[2022-09-16] MEDS: DONEPEZIL HCL 5 MG TABLET 10 MG PO (08:47)
[2022-09-16] MEDS: ASPIRIN 81 MG CHEWABLE TABLET PO (08:48)
[2022-09-16] MEDS: metFORMIN HCL 500 MG TABLET 1000 MG PO (08:48)
[2022-09-16] MEDS: EMPAGLIFLOZIN 25 MG TABLET PO (08:48)
[2022-09-16] MEDS: SILVER SULFADIAZINE 1% CR 50 GM JAR (*BKC) 1 APPLIC TOPICAL (08:49)
[2022-09-16 08:50] LABS: Glucose Point of Care 112 mg/dl (65-105)
--- NOTE | 2022-09-16 11:48 | PM.DS ---
DS: Admitting Diagnosis Discharge Date 09/16/22 Admitting Diagnosis syncope, burn DS: Discharge Diagnosis Discharge Diagnosis (1) Syncope: Qualifiers: Encounter type: initial encounter Syncope type: heat syncope Qualified Code(s): T67.1XXA - Heat syncope, initial encounter Code(s): R55 - Syncope and collapse Status: Acute (2) 2nd deg burn chest wall: Qualifiers: Encounter type: initial encounter Qualified Code(s): T21.21XA - Burn of second degree of chest wall, initial encounter Code(s): T21.21XA - Burn of second degree of chest wall, initial encounter Status: Acute (3) Type 2 diabetes mellitus with hyperglycemia, with long-term current use of insulin: Code(s): E11.65 - Type 2 diabetes mellitus with hyperglycemia; 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 The patient had evidently went to work out and rode a stationary bike for 20 minutes.? After his workout then went and sat in the sauna for about 15 minutes.? He states that he was on the top rack the sauna.? And he sat up and leaned to the side to look at the clock.? He noted they have been in the son about 15 minutes and was planning to stay in the sauna for another 10-15 minutes.? The next thing he knows he woke up on the floor of the locker room.? They do not know how long he was unconscious.? He was found with a second-degree burn to the right side of his chest.? The patient does not recall any preceding symptoms for his syncopal event.? He did not have any confusion or postictal state following his syncope.?He denies feeling lightheaded or dizzy prior to his episode of syncope. Chest discomfort on the right side of his chest where he has a second-degree burn.He did not have any episodes of bowel or bladder incontinence at the time of his syncopal event.? EKG in the ER was for the most part unremarkable.? He has not had any events on telemetry since admission. wound care consulted due to second-degree cruz on patient's right chest and right dorsum of his hand. They gave patient some silver sulfadiazine for his cruz. Patient was started on IV fluids. Telemetry monitored and patient did not have any events overnight. Patient likely experienced over hypovolemia and heat exhaustion her causing syncopal event. He is feeling back to himself. His labs and vital signs are stable and he is medically cleared for discharge. Time Spent with Patient Time attestation: Total time spent providing and/or coordinating discharge services: Exam Narrative: GENERAL: Comfortable, no acute distress HENMT: moist mucous membranes EYES: EOM intact b/l NECK: no lymphadenopathy RESPIRATORY: clear to auscultation CARDIO: RRR GI: soft, nontender, bowel sounds present SKIN: Right chest and right dorsum of the hand 2nd degree cruz. EXTREMITIES: no edema, redness or tenderness DS: Data Data Completed and Pending Labs on day of discharge: Labs from last 24 hours 09/16/22 09/16/22 09/16/22 08:29 06:02 02:17 WBC RBC Hgb Hct MCV MCH MCHC RDW Plt Count MPV Immature Gran % (Auto) Neut % (Auto) Lymph % (Auto) [place] % (Auto) Eos % (Auto) Baso % (Auto) Lymph # (Auto) [place] # (Auto) Eos # (Auto) Baso # (Auto) Abs Immat Gran (auto) Absolute Neuts (auto) Absolute Nucleated RBC Nucleated RBC % PT INR APTT Sodium 135 L Potassium 4.0 Chloride 105 Carbon Dioxide 25 Anion Gap 5 L BUN 24 H Creatinine 0.90
[2022-09-16 12:13] LABS: Glucose Point of Care 160 mg/dl (65-105)
== END 2022-09-16 13:38 | disposition home or self-care (01) ==
LOC: ANHED 23:23 → ANH3MED 09-16 02:19
PROVIDERS: Admitting Provider Internal Medicine; Emergency Provider Emergency Medicine; PCP Internal Medicine; Visit Provider Family Medicine
DX: T67.1XXA Heat syncope, initial encounter (principal); T21.21XA Burn of second degree of chest wall, initial encounter; M25.561 Pain in right knee; M25.571 Pain in right ankle and joints of right foot; M25.511 Pain in right shoulder; W17.89XA Other fall from one level to another, initial encounter; Y93.89 Activity, other specified; Y92.89 Other specified places as the place of occurrence of the external cause; M19.041 Primary osteoarthritis, right hand; Z23 Encounter for immunization; I10 Essential (primary) hypertension; E29.1 Testicular hypofunction; K75.9 Inflammatory liver disease, unspecified; E66.9 Obesity, unspecified; Z68.30 Body mass index [BMI] 30.0-30.9, adult; M19.90 Unspecified osteoarthritis, unspecified site; M85.80 Other specified disorders of bone density and structure, unspecified site; N28.9 Disorder of kidney and ureter, unspecified; G47.30 Sleep apnea, unspecified; E11.65 Type 2 diabetes mellitus with hyperglycemia; E11.42 Type 2 diabetes mellitus with diabetic polyneuropathy; E11.319 Type 2 diabetes mellitus with unspecified diabetic retinopathy without macular edema; Z87.891 Personal history of nicotine dependence; Z79.82 Long term (current) use of aspirin; Z79.1 Long term (current) use of non-steroidal anti-inflammatories (NSAID); Z79.4 Long term (current) use of insulin; Z79.899 Other long term (current) drug therapy; Z83.3 Family history of diabetes mellitus
CPT/HCPCS: 36415; 70450; 71046; 71100; 72125; 73030; 73130; 73562; 73610; 80048; 80053; 80061; 81001; 82043; 82533; 82550; 82570; 82607; 82948; 83036; 83605; 83735; 83930; 83935; 84100; 84153; 84156; 84443; 84484; 85025; 85610; 85730; 90471; 90715; 93005; 96360; 96361; 99285; A9270; G0103; G0378; J7030

== ENCOUNTER 2022-10-06 07:30 | Outpatient (RCR) | payer MEDICARE, OTHER, SELFPAY ==
[2022-09-24 10:10] VITALS: BMI 29.6
== END 2022-11-18 13:36 | disposition home or self-care (01) ==
LOC: ANHWOC 07:30
PROVIDERS: PCP Internal Medicine; Visit Provider Nurse Practitioner
DX: T30.0 Burn of unspecified body region, unspecified degree (principal)
CPT/HCPCS: 99212; 99213; G0463

== ENCOUNTER 2023-03-10 12:18 | Outpatient (CLI) | payer MEDICARE, OTHER, SELFPAY ==
[2023-03-10 12:44] LABS: Hematocrit 43.6 % (42.0-52.0); Hemoglobin 14.1 g/dL (14.0-18.0); Mean Corpuscular HGB Conc 32.3 g/dl (32-36); Mean Corpuscular Hemoglobin 29.3 pg (26-34); Mean Corpuscular Volume 90.5 fl (80-100); Mean Platelet Volume 9.2 fl (7.4-10.4); Platelet Count Result 237 k/mm3 (150-375); Red Blood Count 4.82 M/mm3 (4.6-6.20); Red Cell Distribution Width 13.4 % (11.5-14.5); White Blood Count 4.6 K/mm3 (4.5-10.0)
[2023-03-10 12:56] LABS: Albumin Level 4.4 g/dL (3.5-5.1); Anion Gap 6 mmol/L (8-16); Blood Urea Nitrogen 19 mg/dL (9-20); Calcium 9.2 mg/dL (8.4-10.2); Carbon Dioxide 28 mmol/L (22-30); Chloride 103 mmol/L (98-107); Estimated Glomerular Filt Rate > 60; Glucose 126 mg/dL (65-110); Phosphorus 3.6 mg/dL (2.5-4.5); Potassium 4.7 mmol/L (3.4-5.0); Sodium 137 mmol/L (137-145)
[2023-03-10 14:13] LABS: Creatinine Urine 63.2 mg/dL; Total Protein Urine Random 21 mg/dL; Ur Ttl Prot Creatinine Ratio 0.33 mg/mg (0-0.20)
== END 2023-03-10 12:19 | disposition home or self-care (01) ==
LOC: ANHLAB 12:23
PROVIDERS: PCP Internal Medicine; Visit Provider Internal Medicine Nephrology
DX: R80.1 Persistent proteinuria, unspecified (principal); N18.9 Chronic kidney disease, unspecified
CPT/HCPCS: 36415; 80069; 82570; 84156; 85027

== ENCOUNTER 2023-03-14 12:37 | Outpatient (CLI) | payer MEDICARE, OTHER, SELFPAY ==
[2023-03-14 19:13] LABS: Prostate Specific Antigen 3.4 ng/mL (< OR = 4.0)
== END 2023-03-14 12:38 | disposition home or self-care (01) ==
LOC: ANHGOSHLAB 12:39
PROVIDERS: PCP Internal Medicine; Visit Provider Internal Medicine
DX: Z12.5 Encounter for screening for malignant neoplasm of prostate (principal)
CPT/HCPCS: 36415; 84153; G0103

== ENCOUNTER 2023-05-23 09:48 | Outpatient (CLI) | payer MEDICARE, OTHER, SELFPAY ==
--- NOTE | ~2023-05-23 | MR_ITS ---
MRI of the cervical spine Clinical History: Cervicalgia Technique: Axial T2-weighted and gradient images, and sagittal T1-weighted, T2-weighted, and STIR waylon ges were acquired. Findings: There is no fracture or subluxation of the cervical spine. Vertebral bodies maintain normal height. No suspicious bone marrow signal abnormality seen. At C2-C3, there is no disc bulge or herniation. No spinal canal stenosis, cord compression or definit e neural foraminal narrowing. At C3-C4, there is disc osteophyte complex with mild canal stenosis but no mee cord compression. Th ere is probable bilateral neural foraminal narrowing. At C4-C5, there is disc osteophyte complex with mild canal stenosis but no mee cord compression. Pr obable bilateral neural foraminal narrowing, left worse than right. There is mild facet arthropathy. At C5-C6, there is mild disc osteophyte complex. No mee canal stenosis or cord compression. Neural foramina are probably preserved. At C6-C7, there is mild disc osteophyte complex. No mee spinal canal stenosis or cord compression. Neural foramina are preserved. No abnormal signal seen in the spinal cord. Paravertebral soft tissues are unremarkable. Impression: [id number] degenerative spondylosis, particularly at C3-C4 and C4-C5. Reviewed, dictated and finalized at [facility] [place]. Impression: [id number] degenerative spondylosis, particularly at C3-C4 and C4-C5.
== END 2023-05-23 09:49 | disposition home or self-care (01) ==
PROVIDERS: PCP Internal Medicine; Visit Provider Clinical Nurse Specialist
DX: M47.892 Other spondylosis, cervical region (principal)
CPT/HCPCS: 72141

== ENCOUNTER 2023-07-05 11:59 | Outpatient (CLI) | payer MEDICARE, OTHER, SELFPAY ==
--- NOTE | ~2023-07-05 | XR_ITS ---
EXAMINATION: XR knee RT 3V DATE: 07/05/2023 12:40 INDICATION: Presence of right artificial knee joint TECHNIQUE: Weight bearing AP, lateral and sunrise views of the right knee were obtained. of the right knee were obtained COMPARISON: None. FINDINGS: Right total knee arthroplasty with patellar resurfacing which remains well seated in near-anatomic al ignment. No periprosthetic lucency to suggest loosening or infection. No fracture. No knee joint effu janneth. IMPRESSION: 1. Expected appearance of a right total knee arthroplasty with patellar resurfacing. No joint effusio n or acute osseous abnormality. Reviewed, dictated and finalized at location A. IMPRESSION: 1. Expected appearance of a right total knee arthroplasty with patellar resurfa cing. No joint effusion or acute osseous abnormality.
== END 2023-07-05 12:00 | disposition home or self-care (01) ==
PROVIDERS: PCP Internal Medicine; Visit Provider Orthopaedic Surgery
DX: Z96.651 Presence of right artificial knee joint (principal)
CPT/HCPCS: 73562

== ENCOUNTER 2023-08-01 13:30 | Outpatient (RCR) | payer MEDICARE, OTHER, SELFPAY ==
--- NOTE | 2023-06-02 13:33 | OPREHPOC ---
Outpatient Therapy Plan of Care This is a Multidisciplinary Plan of Care that may contain components documented by all disciplines (PT, OT, and ST.) PT Problem 1 PT Problem #1 Knowledge Deficit PT Goal 1 Goal [place] with HEP PT Problem 2 PT Problem #2 Pain PT Goal 1 Goal Report ability to sleep pain free for 6 consistent hours Target Visit 4 PT Problem 3 PT Problem #3 Impaired Range of Motion PT Goal 1 Goal Demonstrate R shoulder flexion to 165 degrees to improve functional reach. Target Visit 8 PT Goal 2 Goal Demonstrate R shoulder External rotation to 85 degrees to improve self care and dressing Target Visit 8 PT Problem 4 PT Problem #4 Impaired Strength PT Goal 1 Goal Improve R shoulder flexion strength to 4+/5 to improve object lifting ability PT Goal 2 Goal Improve R shoulder external rotation strength to 4 +/5 to improve shoulder stability with ADL performance Target Visit 8
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
--- NOTE | 2023-06-30 17:42 | OPREHPOC ---
Outpatient Therapy Plan of Care This is a Multidisciplinary Plan of Care that may contain components documented by all disciplines (PT, OT, and ST.) PT Problem 1 PT Problem #1 Knowledge Deficit PT Goal 1 Goal [place] with HEP Target Visit 4 Progress Met PT Goal 2 Goal Report no pain greater than 1/10 in anterior shoulder with reaching behind back Target Visit 16 PT Problem 2 PT Problem #2 Pain PT Goal 1 Goal Report ability to sleep pain free for 6 consistent hours Target Visit 4 Progress Not Met Comment Improved with positioning but not eliminated PT Problem 3 PT Problem #3 Impaired Range of Motion PT Goal 1 Goal Demonstrate R shoulder flexion to 165 degrees to improve functional reach. Target Visit 16 Progress Partially Met PT Goal 2 Goal Demonstrate R shoulder External rotation to 85 degrees to improve self care and dressing Target Visit 16 Progress Partially Met PT Problem 4 PT Problem #4 Impaired Strength PT Goal 1 Goal Improve R shoulder flexion strength to 4+/5 to improve object lifting ability Target Visit 16 Progress Partially Met PT Goal 2 Goal Improve R shoulder external rotation strength to 4 +/5 to improve shoulder stability with ADL performance Target Visit 8 Progress Partially Met
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
--- NOTE | 2023-08-01 14:29 | OPREHPOC ---
Outpatient Therapy Plan of Care This is a Multidisciplinary Plan of Care that may contain components documented by all disciplines (PT, OT, and ST.) PT Problem 1 PT Problem #1 Knowledge Deficit PT Goal 1 Goal [place] with HEP Target Visit 4 Progress Met PT Goal 2 Goal Report no pain greater than 1/10 in anterior shoulder with reaching behind back Target Visit 16 Progress Met PT Problem 2 PT Problem #2 Pain PT Goal 1 Goal Report ability to sleep pain free for 6 consistent hours Target Visit 4 Progress Met PT Problem 3 PT Problem #3 Impaired Range of Motion PT Goal 1 Goal Demonstrate R shoulder flexion to 165 degrees to improve functional reach. Target Visit 16 Progress Met PT Goal 2 Goal Demonstrate R shoulder External rotation to 85 degrees to improve self care and dressing Target Visit 16 Progress Met PT Problem 4 PT Problem #4 Impaired Strength PT Goal 1 Goal Improve R shoulder flexion strength to 4+/5 to improve object lifting ability Target Visit 16 Progress Met PT Goal 2 Goal Improve R shoulder external rotation strength to 4 +/5 to improve shoulder stability with ADL performance Target Visit 8 Progress Met
--- NOTE | 2023-08-01 14:29 | PTOPDC ---
Assessment and note entered by Roland Hernandez, PT Evaluation Information Assessment Status Discharge Diagnosis Cervicalgia, Pain in R shoulder Onset 03/17/23 Subjective Information Patient reports he is about 90-90% better than when he started therapy. Feels he may have overdid it last week and noted a small flare up of pain which is now relieved. He has no problem with driving or sleeping. He is able to sleep on his right side which he hasn't for a long time. Still takes Tylenol for pain as needed. Reported Pain Level Pain Score 0: Self Report Assessment PT Clinical Summary Patient met all goals for therapy at this time and is suitable for discharge to [facility]. Demonstrates understanding of expectations and need for continued shoulder girdle stability and frequent ROM activity. No concerns for discharge at this time. Plan of Care PT Services Indicated D/C to [facility]
== END 2023-08-01 14:55 | disposition home or self-care (01) ==
LOC: ANHPT 13:30
PROVIDERS: PCP Internal Medicine; Visit Provider Clinical Nurse Specialist
DX: M54.2 Cervicalgia (principal); M25.511 Pain in right shoulder
CPT/HCPCS: 97014; 97110; 97140; 97161; 97530; G0283

== ENCOUNTER 2023-09-22 09:27 | Outpatient (CLI) | payer MEDICARE, OTHER, SELFPAY ==
[2023-09-22 10:24] LABS: Albumin Level 4.3 g/dL (3.5-5.1); Anion Gap 12 mmol/L (4-12); Blood Urea Nitrogen 24 mg/dL (9-20); Calcium 9.6 mg/dL (8.4-10.2); Carbon Dioxide 26 mmol/L (22-30); Chloride 98 mmol/L (98-107); Estimated Glomerular Filt Rate > 60; Glucose 155 mg/dL (65-110); Phosphorus 4.4 mg/dL (2.5-4.5); Potassium 4.8 mmol/L (3.4-5.0); Sodium 136 mmol/L (137-145)
[2023-09-22 10:29] LABS: Creatinine Urine 51.9 mg/dL; Total Protein Urine Random 21 mg/dL
== END 2023-09-22 09:28 | disposition home or self-care (01) ==
LOC: ANHLAB 09:34
PROVIDERS: PCP Internal Medicine; Visit Provider Internal Medicine Nephrology
DX: R80.1 Persistent proteinuria, unspecified (principal)
CPT/HCPCS: 36415; 80069; 82570; 84156

== ENCOUNTER 2023-10-01 08:05 | Outpatient (CLI) | payer MEDICARE, OTHER, SELFPAY ==
--- NOTE | ~2023-10-01 | MR_ITS ---
EXAMINATION: MR brain/brain stem wo con DATE: 10/01/2023 09:40 INDICATION: Chronic bilateral hand tremors TECHNIQUE: Magnetic resonance imaging (MRI) of the brain and brainstem was performed without intraven ous contrast. Sequences included sagittal and axial T1-weighted SE, axial diffusion-weighted FS SE, a xial T2*-weighted GRE, axial T2-weighted FLAIR, and axial T2-weighted FSE. Apparent diffusion coeffic ient (ADC) maps were created. COMPARISON: Head CT dated 09/15/2022 FINDINGS: There are no areas of restricted diffusion to suggest acute infarction. No intracranial hemorrhage or abnormal intracranial mass lesion. There are scattered areas of nonspecific increased T2-weighted si gnal intensity in the cerebral white matter, predominantly involving the deep and periventricular whi te matter which is within normal limits for age and likely sequela of chronic small vessel ischemic d isease.. There are no intraparenchymal signal abnormalities seen on the other pulse sequences. The ve ntricles are symmetric and normal in size. There are no abnormal extra-axial fluid collections. Flow voids are seen in the cerebral arteries on the T2-weighted sequences consistent with their expected p atency. Mild mucosal thickening the bilateral ethmoid sinuses. Visualized orbits and soft tissues are unremarkable. IMPRESSION: 1. Normal aging brain. No acute intracranial process. Reviewed, dictated and finalized at location A.
== END 2023-10-01 08:06 ==
PROVIDERS: PCP Internal Medicine; Visit Provider Student in an Organized Health Care Education/Training Program
DX: R25.1 Tremor, unspecified (principal)
CPT/HCPCS: 70551

== ENCOUNTER 2024-03-27 08:22 | Outpatient (CLI) | payer MEDICARE, OTHER, SELFPAY ==
--- OUTSIDE RECORDS SUMMARY | 2024-03-27 08:51 | XMS_ITS | Referral Summary ---
Author Organization [facility] Address [address] [place] [address] Care Team Providers Care Online Retailer Name Role Phone Nilesh Abdul DO Primary Care Provider [phone] Source Comments [facility],non-owned Affiliates and Associated Physician Practices is amultiple site organization consisting of ambulatory clinics and hospital sitesin [place], [place], [place] and [place]. This disclosure is being madepursuant to the Care Everywhere program and may not contain all information available regarding this patient. Last updated 17.[facility] Encounters Date Type Department Care Team Description 03/19/2024 Refill [facility] - Neurology [address] [place] [phone] Pat Glover APRN-CNP MEDICATION REFILL 02/06/2024 Travel 02/06/2024 10:00 AM THERMODYNAMIC PHYSICIST Office Visit [facility] - Neurology [address] [place] [phone] Pat Glover APRN-CNP Idiopathic Parkinson's disease (HCC) (Primary Dx) from Last 3 Months Allergies No known active allergies Medications * Be aware that medications may not be up to date on this document. Alwaysverify current medications with the patient. Medication Sig Dispensed Refills Start Date End Date Status metFORMIN (Glucophage) 1000 MG tablet Take 1 (one) tablet by mouth 2 times daily Active [place]-3 Fatty Acids (fish oil) 500 MG capsule Take 500 (five hundred) mg by mouth 2 times daily Active acetaminophen (Tylenol) 500 MG tablet Take 1 (one) tablet by mouth as needed for Fever or Pain Maximum allowable Acetaminophen amount = 4 Grams (4000 mg) / 24 hours. Active glimepiride (Amaryl) 2 MG tablet Take 1 (one) tablet by mouth 2 times daily Active multivitamin daily tablet Take 1 (one) tablet by mouth 2 times daily Active lisinopril (Prinivil; Zestril) 40 MG tablet Take 1 (one) tablet by mouth once daily Active rosuvastatin (Crestor) 40 MG tablet Take 1 (one) tablet by mouth once daily Active donepezil (Aricept) 10 MG tablet Take 1 (one) tablet by mouth once daily Active vitamin D3 (Cholecalcifero l) 25 MCG (1000 UNITS) tablet Take 1 (one) tablet by mouth 2 times daily Active primidone (Mysoline) 250 MG tablet Take 1 (one) tablet by mouth 2 times daily Active MAGNESIUM PO Take 420 mg by mouth 2 times daily Active omeprazole (PriLOSEC) 10 MG capsule Take 1 (one) capsule by mouth once daily Active tamsulosin (Flomax) 0.4 MG capsule Take 1 (one) capsule by mouth once daily At the same time every day after a meal. Active empagliflozin (Jardiance) 25 MG tablet Take 1 (one) tablet by mouth once daily Active aspirin EC (Ecotrin) 81 MG tablet Take 1 (one) tablet by mouth once daily Active Insulin Glargine (LANTUS SC) Inject 30 Units subcutaneously once daily Active dulaglutide (Trulicity) 1.5 MG/0.5ML injection Inject 1.5 (one and one-half) mg subcutaneously every 7 days Active carbidopa-levod opa (Sinemet) 25-100 MG tabletIndicatio ns:Idiopathic Parkinson's disease (HCC) Take 1 (one) tablet by mouth 3 times daily 270 tablet 3 03/19/2024 Active carbidopa-levod opa (Sinemet) 25-100 MG tabletIndicatio ns:Idiopathic Parkinson's disease (HCC) Take 1 (one) tablet by mouth 3 times daily 270 tablet 3 10/05/2023 5 Discontinue d(Reorder) Active Problems Problem Noted Date Diagnosed Date Memory loss 12/10/2021 Hyperlipidemia 01/09/2021 Acquired hammer toe of right foot 10/29/2020 Overview (10/05/2023): Added automatically from request for surgery [id number] 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 (AF LURIA, FLUZONE TRIVALENT; 6MO+) (IIV3) 12/17/2020 Social History Tobacco Use Types Packs/Day Years Used Date Smoking Tobacco: Never Sex and Gender Information Value Date Recorded Sex Assigned at Not on file Gender Identity Not on file Sexual Orientation Not on file Last Filed Vital Signs Vital Sign Reading Time Taken Comments Blood Pressure 151/83 02/06/2024 9:54 AM THERMODYNAMIC PHYSICIST Pulse 91 02/06/2024 9:54 AM THERMODYNAMIC PHYSICIST Temperature 36.5 C (97.7 F) 03/09/2014 3:16 PM THERMODYNAMIC PHYSICIST Respiratory Rate 14 03/09/2014 3:16 PM THERMODYNAMIC PHYSICIST Oxygen Saturation 97% 02/06/2024 9:54 AM THERMODYNAMIC PHYSICIST Inhaled Oxygen Concentration - - Weight 104.3 kg (230 lb) 02/06/2024 9:54 AM THERMODYNAMIC PHYSICIST Height 180.3 cm (5' 11 ) 10/05/2023 10:34 AM CDT Body Mass Index 32.08 10/05/2023 10:34 AM CDT Plan of Treatment Upcoming Encounters Date Type Department Care Team (Late st Contact Info) Description 08/06/2024 11:00 AM CDT Office Visit [facility] - Neurology [address] [place] [address], [place] [address] Pat Glover APRN-YADIEL [address] [place] [address] [place] [address] Care Teams Online Retailer Relationship Specialty Start Date End Date Nilesh Abdul DO PCP - General 03/09/14
--- OUTSIDE RECORDS SUMMARY | 2024-03-27 08:51 | XMS_ITS | Patient Health Summary ---
Author Organization [facility] Address [address] [place] [place] [address] Care Team Providers Care Despatching And Receiving Clerk Name Role Phone Nilesh Abdul DO Primary Care Provider [phone] Note from [facility],non-owned Affiliates and Associated Physician Practices is amultiple site organization consisting of ambulatory clinics and hospital sitesin [place], [place], [place] and [place]. This disclosure is being madepursuant to the Care Everywhere program and may not contain all information available regarding this patient. Last updated 17.[facility] Allergies No known active allergies Medications * Be aware that medications may not be up to date on this document. Alwaysverify current medications with the patient. * metFORMIN (Glucophage) 1000 MG tablet Take 1 (one) tablet by mouth 2 times daily * [place]-3 Fatty Acids (fish oil) 500 MG capsule Take 500 (five hundred) mg by mouth 2 times daily * acetaminophen (Tylenol) 500 MG tablet Take 1 (one) tablet by mouth as needed for Fever or Pain Maximum allowable Acetaminophen amount = 4Grams (4000 mg) / 24 hours. * glimepiride (Amaryl) 2 MG tablet Take 1 (one) tablet by mouth 2 times daily * multivitamin daily tablet Take 1 (one) tablet by mouth 2 times daily * lisinopril (Prinivil; Zestril) 40 MG tablet Take 1 (one) tablet by mouth once daily * rosuvastatin (Crestor) 40 MG tablet Take 1 (one) tablet by mouth once daily * donepezil (Aricept) 10 MG tablet Take 1 (one) tablet by mouth once daily * vitamin D3 (Cholecalciferol) 25 MCG (1000 UNITS) tablet Take 1 (one) tablet by mouth 2 times daily * primidone (Mysoline) 250 MG tablet Take 1 (one) tablet by mouth 2 times daily * MAGNESIUM PO Take 420 mg by mouth 2 times daily * omeprazole (PriLOSEC) 10 MG capsule Take 1 (one) capsule by mouth once daily * tamsulosin (Flomax) 0.4 MG capsule Take 1 (one) capsule by mouth once daily At the same time every day after a meal. * empagliflozin (Jardiance) 25 MG tablet Take 1 (one) tablet by mouth once daily * aspirin EC (Ecotrin) 81 MG tablet Take 1 (one) tablet by mouth once daily * Insulin Glargine (LANTUS SC) Inject 30 Units subcutaneously once daily * dulaglutide (Trulicity) 1.5 MG/0.5ML injection Inject 1.5 (one and one-half) mg subcutaneously every 7 days * carbidopa-levodopa (Sinemet) 25-100 MG tablet(Started 03/19/2024) Take 1 (one) tablet by mouth 3 times daily 3 refills by 03/19/2025 Ended Medications* carbidopa-levodopa (Sinemet) 25-100 MG tablet(Started 10/05/2023)(Discontinued) Take 1 (one) tablet by mouth 3 times daily 3 refills by 10/04/2024 Active Problems Problem Noted Date Diagnosed Date Memory loss 12/10/2021 Hyperlipidemia 01/09/2021 Acquired hammer toe of right foot 10/29/2020 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 (AFLURIA, FLUZONE TRIVALENT; 6MO+) (IIV3)(Given 12/17/2020) Social History Tobacco Use Types Packs/Day Years Used Date Smoking Tobacco: Never Sex and Gender Information Value Date Recorded Sex Assigned at Not on file Gender Identity Not on file Sexual Orientation Not on file Last Filed Vital Signs Vital Sign Reading Time Taken Comments Blood Pressure 151/83 02/06/2024 9:54 AM JOINTER SUBMARINE CABLE Pulse 91 02/06/2024 9:54 AM JOINTER SUBMARINE CABLE Temperature 36.5 C (97.7 F) 03/09/2014 3:16 PM JOINTER SUBMARINE CABLE Respiratory Rate 14 03/09/2014 3:16 PM JOINTER SUBMARINE CABLE Oxygen Saturation 97% 02/06/2024 9:54 AM JOINTER SUBMARINE CABLE Inhaled Oxygen Concentration - - Weight 104.3 kg (230 lb) 02/06/2024 9:54 AM JOINTER SUBMARINE CABLE Height 180.3 cm (5' 11 ) 10/05/2023 10:34 AM CDT Body Mass Index 32.08 10/05/2023 10:34 AM CDT Procedures * NM BRAIN IMAGING DIAMANTE SCAN(Performed 10/21/2023) Performed for Idiopathic Parkinson's disease Results * NM Brain Imaging Diamante Scan (10/21/2023 1:38 PM CDT) Anatomical Region Laterality Modality Head Nuclear Medicine 10/21/2023 9:42 AM CDT Impressions 10/21/2023 2:59 PM CDT Impression: Abnormal DaTscan study, finding supportive of parkinsonian syndromes. > Dictated by Izzy Brewer MD (Reduction Furnace Operator Helper) 10/21/2023 9:42 AM IRui DO have personally reviewed and interpreted this examination/study. > Interpreting Provider: Rui Ayala DO on 10/21/2023 2:59 PM Narrative 10/21/2023 2:59 PM CDT PROCEDURE: NM BRAIN IMAGING DIAMANTE SCAN DATE/TIME OF EXAM: 10/21/2023 1:39 PM CLINICAL INFORMATION: None relevant/not provided if blank. Indication: G20.A1: Idiopathic Parkinson's disease Procedure: Dopamine transporter (DaTscan) brain SPECT/CT History: A 72-year-old male presenting with memory problems, right hand resting tremor since 20 years with worsening during the last 3 years ago and started to the superior to his left hand, slowness and stiffness in hand. Technique: 45 minutes after oral administration of SSKI for thyroid blockade, 5.5 mCi I-123 Ioflupane was administered intravenously in the right antecubital fossa. Three hours later, tomographic whole brain SPECT/CT imaging was performed. Patient's BMI is32.8 kg/m . Low-dose noncontrast CT for attenuation correction was performed. COMPARISON: No prior study is available for comparison. Findings: Uptake in the striatum appears as follows: Left caudate nucleus head: Mildly reduced Right caudate nucleus head: Normal Left putamen: Mildly reduced Right putamen: Severely reduced Procedure Note Rui Ayala DO - 10/21/2023 PROCEDURE: NM BRAIN IMAGING DIAMANTE SCAN DATE/TIME OF EXAM: 10/21/2023 1:39 PM CLINICAL INFORMATION: None relevant/not provided if blank. Indication: G20.A1: Idiopathic Parkinson's disease Procedure: Dopamine transporter (DaTscan) brain SPECT/CT History: A 72-year-old male presenting with memory problems, right hand resting tremor since 20 years with worsening during the last 3 years ago and started to the superior to his left hand, slowness and stiffness in hand. Technique: 45 minutes after oral administration of SSKI for thyroid blockade, 5.5 mCi I-123 Ioflupane was administered intravenously in the right antecubital fossa. Three hours later, tomographic whole brain SPECT/CT imaging was performed. Patient's BMI is32.8 kg/m . Low-dose noncontrast CT for attenuation correction was performed. COMPARISON: No prior study is available for comparison. Findings: Uptake in the striatum appears as follows: Left caudate nucleus head: Mildly reduced Right caudate nucleus head: Normal Left putamen: Mildly reduced Right putamen: Severely reduced Impression: Abnormal DaTscan study, finding supportive of parkinsonian syndromes. > Dictated by Izzy Brewer MD (Reduction Furnace Operator Helper) 10/21/2023 9:42AM IRui DO have personally reviewed and interpreted this examination/study. > Interpreting Provider: Rui Ayala DO on 10/21/2023 2:59 PM Pat Glover TEMPORARY DATA ENTRY CLERK-PHARMACEUTICAL COMPOUNDING SUPERVISOR NM ORDERABLES Care Teams Despatching And Receiving Clerk Relationship Specialty Start Date End Date Nilesh Abdul DO PCP - General 03/09/14
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
--- OUTSIDE RECORDS SUMMARY | 2024-03-27 08:51 | XMS_ITS | Encounter Summary ---
Author Organization [facility] Address [address] [place] [address] Phone Care Team Providers Care Preparatory Technician Name Role Phone Nilesh Abdul DO Primary Care Provider [phone]- [phone] Nell Mark DPM Unavailable [phone] Encounter Details Date Type Department Care Team (Late st Contact Info) Description 01/13/2022 Imaging Exam [facility] [address] [facility] 6th [place] [address] [place] [address] Oumar Cerda MD [address] [place] [address] Social History Tobacco Use Types Packs/Day Years Used Date Smoking Tobacco: Former AUDIT-C Answer Date Recorded Q1: How often do you have a drink containing alc ohol? 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
--- OUTSIDE RECORDS SUMMARY | 2024-03-27 08:51 | XMS_ITS | Referral Summary ---
Author Organization [facility] Address [address] [place] [address] Care Team Providers Care Interlibrary Loan Services Librarian Name Role Phone Nilesh Abdul DO Primary Care Provider [phone] Nell Mark DPM Unavailable Allergies No known active allergies Medications omega 6-lyd-bby-fis h oil 1,000 mg (120 mg-180 mg) capsule Active lisinopriL (PRINIVIL,ZES TRIL) 40 mg tablet Take 1 tablet (40 mg total) by mouth daily Active metFORMIN (GLUCOPHAGE) 1,000 mg tablet Take 1 tablet (1,000 mg total) by mouth 2 (two) times a day with meals Active multivitamin capsule Take 1 capsule by mouth daily Active aspirin 81 mg chewable tablet Take 1 tablet (81 mg total) by mouth daily Active magnesium oxide 400 mg magnesium capsule Take 400 mg by mouth daily Active tamsulosin (FLOMAX) 0.4 mg extended release capsule Take 1 capsule (0.4 mg total) by mouth nightly Active Jardiance 25 mg tablet 05/27/19 23 Active primidone (MYSOLINE) 50 mg tablet Take 2 tablets (100 mg total) by mouth 3 (three) times a day Take 100 mg in the morning, afternoon, and evening 05/13/19 23 Active acetaminophen (ARTHRITIS PAIN RELIEF, ACETAM, ORAL) Take 650 mg by mouth 2 (two) times a day Active omeprazole (PriLOSEC) 10 mg capsule 07/24/19 23 Active omega-3 fatty acids (LOVAZA) 1 gram capsule 12/14/19 23 Active Sure Comfort Pen Needle 32 gauge x 5/32 needle 01/27/20 23 Active Trulicity 4.5 mg/0.5 mL pen injector 01/04/20 23 Active glimepiride (AMARYL) 2 mg tabletIndicat ions:type 2 diabetes mellitus Take 1 tablet (2 mg total) by mouth 2 (two) times a day before breakfast and dinner 09/12/19 24 Active donepeziL (ARICEPT) 10 mg tablet TAKE 1 TABLET DAILY AFTER BREAKFAST 90 tablet 3 03/13/19 25 Active amoxicillin 500 mg capsule TAKE 4 CAPSULES BY MOUTH 1 HOUR PRIOR TO DENTAL APPOINTMENT 12/19/19 24 Active carbidopa-lev odopa (SINEMET) 25-100 mg per tablet Take 1 tablet by mouth 3 (three) times a day Active cholecalcifer ol 25 mcg (1,000 unit) tablet Take 1 tablet (1,000 Units total) by mouth 2 (two) times a day Active rosuvastatin (CRESTOR) 40 mg tablet Take 1 tablet (40 mg total) by mouth daily 10/13/19 23 Active LANTUS 100 unit/mL (3 mL) pen for injection 01/04/20 24 Active lovastatin (MEVACOR) 40 mg tablet Take 1 tablet (40 mg total) by mouth daily 025 Discontinued(Al ternate therapy) insulin glargine (LANTUS, SEMGLEE) 100 unit/mL vial for injection Inject 35 Units under the skin 2 (two) times a day Patient takes 35 units at morning and 35 units at night. 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 Never 11/18/2020 Average Number of Drinks Not on file 021 Frequency of Binge Drinking Not on file 06/2020 Sex and Gender Information Value Date Recorded Sex Assigned at Not on file Legal Sex Male 7:46 PM DOCUMENTATION COORDINATOR Gender Identity Not on file Sexual Orientation Not on file Last Filed Vital Signs Vital Sign Reading Time Taken Comments Blood Pressure 169/84 09/12/2023 10:37 AM CDT Pulse 77 09/12/2023 10:37 AM CDT Temperature 36.8 C (98.3 F) 01/31/2023 9:15 AM DOCUMENTATION COORDINATOR Respiratory Rate 20 11/21/2020 2:49 PM CDT Oxygen Saturation 91% 01/31/2023 9:15 AM DOCUMENTATION COORDINATOR Inhaled Oxygen Concentration - - Weight 102 kg (224 lb 12.8 oz) 09/12/2023 10:37 AM CDT Height 180.3 cm (5' 11 ) 09/12/2023 10:37 AM CDT Body Mass Index 31.35 09/12/2023 10:37 AM CDT Plan of Treatment Not on file Insurance MEDICARE RAILROAD FOR LIFE MEDICARE RAILROAD FOR LIFE [facility]LY [facility] [employer] MEDICARE RAILROAD Care Teams Interlibrary Loan Services Librarian Relationship Specialty Start Date End Date Nilesh Abdul DO PCP - General 08/19/20 Nell Mark DPM [address] [place] [address] Consulting Physician Foot and Ankle Surg 11/21/20
[2024-03-27 08:52] LABS: Hematocrit 46.1 % (42.0-52.0); Hemoglobin 14.9 g/dL (14.0-18.0); Mean Corpuscular HGB Conc 32.3 g/dl (32-36); Mean Corpuscular Volume 89.7 fl (80-100); Mean Platelet Volume 9.1 fl (7.4-10.4); Platelet Count Result 290 k/mm3 (150-375); Red Blood Count 5.14 M/mm3 (4.6-6.20); Red Cell Distribution Width 12.4 % (11.5-14.5)
--- OUTSIDE RECORDS SUMMARY | 2024-03-27 08:52 | XMS_ITS | Clinical Summary ---
Author Organization [facility] Address [address] [place] [address] Phone Care Team Providers Care Nca Certified Concierge Name Role Phone UrsulademetrioNilesh rivas DO Primary Care Provider [phone] Allergies No known active allergies Medications Medication Sig Dispensed Refills Start Date End Date Status omega-3 (FISH OIL) 1000 MG capsule Take 1,000 mg by mouth 1 (one) time each day. Active Multiple Vitamins-Minerals (CENTURY MATURE ADULT FORMULA PO) Take 2 capsules by mouth 2 (two) times a day. Active metFORMIN (GLUCOPHAGE) 1000 MG tablet Take 1,000 mg by mouth 2 (two) times a day with meals. Active lovastatin (MEVACOR) 40 MG tablet Take 40 mg by mouth every night. Active lisinopril (PRINIVIL,ZESTRIL) 40 MG tablet Take 40 mg by mouth 1 (one) time each day. Active aspirin 81 MG chewable tablet Chew 81 mg 1 (one) time each day. Active insulin glargine (LANTUS) 100 UNIT/ML injection Inject under the skin every night. Active tamsulosin (FLOMAX) 0.4 MG 24 hr capsule Take 0.4 mg by mouth 1 (one) time each day. Active FREESTYLE LITE test strip 05/02/2020 Active colchicine 0.6 MG tablet 05/15/2020 Active Trulicity 4.5 MG/0.5ML solution pen-injector 10/22/2020 Active omeprazole (PriLOSEC) [address] capsule Take 10 mg by mouth 1 (one) time each day 12/04/2020 Active Magnesium Oxide 400 MG capsule Take 400 mg by mouth daily Active cyclobenzaprine (FLEXERIL) 5 MG tablet Take 1 mg by mouth prn Active hydroCHLOROthiazide (HYDRODIURIL) 25 MG tablet Take 1 tablet (25 mg total) by mouth 1 (one) time each day 90 tablet 3 07/22/2021 Active Active Problems Problem Noted Date Diagnosed Date Hyperlipidemia 01/09/2021 Systolic hypertension 07/12/2018 Persistent proteinuria 07/12/2018 Immunizations Name Administration Dates Next Due Influenza TIV (IM) 12/17/2020,12/31/2019(Deferre d: Patient Refused) Social History Tobacco Use Types Packs/Day Years Used Date Smoking Tobacco: Former Smokeless Tobacco: Former Comments:quit smok 1970s, qu it chewing 2008 Alcohol Use Standard Drinks/Week Comments No 0 (1 standard drink = 0.6 oz pur e alcohol) AUDIT-C Answer Date Recorded Frequency of Alcohol Consumption Never 07/12/2018 Average Number of Drinks Not on file 019 Frequency of Binge Drinking Not on file 06/15 Sex and Gender Information Value Date Recorded Sex Assigned at Not on file Gender Identity Not on file Sexual Orientation Not on file Last Filed Vital Signs Vital Sign Reading Time Taken Comments Blood Pressure 126/70 07/22/2021 1:50 PM CDT Pulse 70 07/22/2021 1:50 PM CDT Temperature 36.4 C (97.6 F) 07/22/2021 1:50 PM CDT Respiratory Rate - - Oxygen Saturation - - Inhaled Oxygen Concentration - - Weight 115 kg (254 lb) 07/22/2021 1:50 PM CDT Height 180.3 cm (5' 11 ) 07/22/2021 1:50 PM CDT Body Mass Index 35.43 07/22/2021 1:50 PM CDT Plan of Treatment Health Maintenance Due Date Last Done Comments Pneumococcal PPSV23/PCV13 65 + Years / High and Highest Risk (1 of 4 - PCV) 11/10/1956 Influenza Vaccine (#1) 2023 12/17/2020 Care Teams Nca Certified Concierge Relationship Specialty Start Date End Date Nilesh Abdul DO [address] [place], [place] [id number] PCP - General Internal Medicine 07/12/18
--- OUTSIDE RECORDS SUMMARY | 2024-03-27 08:52 | XMS_ITS | Continuity of Care Document ---
Author Organization [facility] Address [address] [place] [address] Phone Care Team Providers Care Stage Rigger Name Role Phone No Information Unavailable Unavailable Medications Medication Instructions Dosage Effective Dates (start - stop) Status Comments No Drug Therapy Prescribed Advance Directives Directive Yes / No Effective Date File Name No Information Encounters Encounter Description Practice Location Reason(s) For Visit Diagnoses Date Provider Providers Copied on Encounter [facility], [address] [place] [address], [address], [place] tel:[phone] No Information No Information Family History Family Member Type Diagnosis Age At Onset No Information Payers Payer name Insurance type Covered constitution party ID Authoriza tion(s) No Information Social [...]
--- OUTSIDE RECORDS SUMMARY | 2024-03-27 08:52 | XMS_ITS | Continuity of Care Document ---
Author Organization [facility] Address [address] [place] [address] [place] [address] Phone Care Team Providers Care Substation Operator Conversion Name Role Phone [facility] Unavailable Unavail able Cliff Lubin Unavailable Unavailable Procedures Procedure Date SV Plastic Sphcyl [place] +/-4d, .12-2d Ju Tint Photochromatic, Plastic Eye Exam & Treatment Refraction Office/outpatient Visit, Est Office/outpatient Visit, Est Office/outpatient Visit, Est Office/outpatient Visit, Est Advance Directives Directive Yes / No Effective Date File Name No Information Encounters Encounter Description Practice Location Reason(s) For Visit Diagnoses Date Provider Providers Copied on Encounter [facility], [address] [place], [place] [address] [address], [place], [place], [id number], [place] tel:[phone] SEC [facility] No Information 0 [facility] . [address] [place] [address], [facility] [address], [place], [id number], [place]. tel:[phone] Referring Provider: Leeann Valente, [address] [place] [address] [address], [place], [address]. tel:[phone] bermeo Provider: Cliff Lubin, [address] [place] [address], [place], [address]. tel:[phone] [facility], [address] [place] [address] [address], [place], [place], [id number], [place] tel:[phone] SEC [facility] [place] No Information 0-201 0 Yamilet Lugo [address] , [address], [place], [place], [facility], . tel:[phone] Office/outpat ient Visit, [facility], [address] [place] [address] [address], [place], [place], [id number], tel:[phone] SEC [facility] [place] No Information 1200 9 Yamilet Lugo [address] [facility] , [address], [place], [place], [facility], . tel:[phone] Office/outpat ient Visit, [facility], [address] [place] [address] [address], [place], [place], [id number], tel:[phone] SEC [facility] [place] No Information 9-200 8 Yamilet Bradshaw. [address] , [address], [place], [facility], . tel:[phone] Office/outpat ient Visit, [facility], [address] [place] [address] [address], [place], [place], [id number], [place] tel:[phone] SEC [facility] No Information 200 7 Yamilet Lugo [address] , [address], [place], [facility], [place]. tel:[phone] Office/outpat ient Visit, [facility], [address] [place] [address] [address], [place], [place], [id number], [place] tel:[phone] SEC [facility] [place] No Information 200 7 Yamilet Lugo [address] , [address], [place], [facility], . tel:[phone] Family History Family Member Type Diagnosis Age At Onset No Information Payers Payer name Insurance type Covered alliance party ID Authoriza tion(s) VSP [id number] Social [...]
--- OUTSIDE RECORDS SUMMARY | 2024-03-27 08:52 | XMS_ITS | CONTINUITY OF CARE DOCUMENT ---
Author Name marcusmigdalia marcusmigdalia Address Unknown Organization [facility] Address [address] [place] [address] [address] [place] [address] Phone [phone] Care Team Providers Care Dyno Technician Name Role Phone Arik Gutiérrez MD Unavailable ASHLEY CHAN DPM Unavailable ALICIA NEWTON DO Unavailable PROBLEMS Condition Status Date Provider Notes presurgery evaluation active Aleksandra Juárez Hypercholesterolemia active Aleksandra Juárez Hypertension active Aleksandra Juárez Abnormal electrocardiogram active Aleksandra May constantind Hyperlipidemia active ? Arik Gutiérrez MD Diabetes, Type 2 active Arik Gutiérrez MD ENCOUNTERS Date Type Provider Location Encounter Diagnosis - In-person encounter Office Visit Arik Gutiérrez MD [facility] Diabetes, Type 2Hyperlipidemia VITAL SIGNS Date Observation Value Provider blood pressure, diastolic 74 mm[Hg] Ks pepe Stringer blood pressure, systolic 149 mm[Hg] Lu Stringer pulse rate 84 /min Stella Stringer oxygen saturation, oximetry 97 % Stella Stringer respiratory rate E&M 14 /min Stella Stringer Body Mass Index (Ratio) 34.31 kg/m2 Janey Stringer weight E&M 246 [lb_av] Stella Stringer height E&M 71 [in_i] Stella Stringer ALLERGIES No Known Drug Allergies HISTORY OF MEDICATION USE Medication Status Instructions Dates Provider Indications Com ments FISH OIL CAPSULE active 1gm two caps twice daily Stella Stringer LOVASTATIN 40 MG ORAL TABLET active once daily Stella Stringer AMARYL 4 MG ORAL TABLET active once daily 2015 Stella Stringer JANUVIA 50 MG ORAL TABLET active once daily Stella Stringer ASPIRIN 81 MG ORAL TABLET active ONE TAB. DAILY Stella Stringer ACCUPRIL 40 MG ORAL TABLET active ONE TAB DAILY Stella Stringer HYDROCHLOROTHIAZIDE 25 MG ORAL TABLET active ONE TAB DAILY Stella Stringer CEFADROXIL 500 MG ORAL CAPSULE active two daily Stella Stringer METFORMIN HCL 1000 MG ORAL TABLET active twice daily Stella Stringer AMLODIPINE BESYLATE 5 MG ORAL TABLET active once daily Stella Stringer MULTIVITAMINS ORAL CAPSULE active ONE TAB. DAILY Stella Siomara SOCIAL HISTORY Date Observation Value Provider alcohol use no Arik Laird passive cigarette sm brent exposure no Arik Gutiérrez MD social history E&M Marital Statu s: C hildren: 2 O ccupation: retired Arik Gutiérrez MD social history reviewed E&M revi ewed - no changes required Arik Gutiérrez MD smoking, year quit 1975 Stella Chiang cigarette use yes Stella Stringer smoking status Former smoker Stella Himanshujohn nn FAMILY HISTORY Family Member Condition Mother Negative FH of Coron noemí Artery Disease INSURANCE PROVIDERS Payer name Policy type / Coverage type [place] red green party ID LANDON BAER [id number] TREATMENT PLAN Date Name Performer Cardiology Arik Gutiérrez MD Cardiology Arik Gutiérrez MD Cardiology:LVH with repolarization abnormalities. S tress test shows small inferior defect. Probable false positive as patient asymptomatic and has normal ECHO. W ill clear for surgery, cath not needed at this time. Arik Gutiérrez MD HISTORY OF PROCEDURES Procedure Date Procedure Name Provider Procedure Notes S tatus SNOMED-CT: 85983964 Physical Exam, Performed: Pulse Exam of Foot Arik Gutiérrez MD completed SNOMED-CT: [id number] Current Medications Documented Arik Gutiérrez MD completed Stress EKG Iam Lee MD completed Regadenoson, 4 units Arik Gutiérrez MD completed Cardiolite, 2 units Arik Gutiérrez MD completed SPECT Images Gianni [place] MD compl eted
--- OUTSIDE RECORDS SUMMARY | 2024-03-27 08:52 | XMS_ITS | Clinical Summary ---
Author Organization [facility] Address [address] [place] [address] Care Team Providers Care Director Of Development Name Role Phone Unavailable Primary Care Provider Unavailabl e Social History Tobacco Use Types Packs/Day Years Used Date Smoking Tobacco: Never Assessed Sex and Gender Information Value Date Recorded Sex Assigned at Not on file Legal Sex Male 10:44 PM CDT Gender Identity Not on file Sexual Orientation Not on file Last Filed Vital Signs Vital Sign Reading Time Taken Comments Blood Pressure 150/80 03/05/2013 8:55 AM SPECIAL EVENTS ASSISTANT Pulse - - Temperature - - Respiratory Rate - - Oxygen Saturation - - Inhaled Oxygen Concentration - - Weight 121.6 kg (268 lb) 03/05/2013 8:55 AM SPECIAL EVENTS ASSISTANT Height 180.3 cm (5' 11 ) 06/08/2012 1:01 PM CDT Body Mass Index 37.38 06/08/2012 1:01 PM CDT Plan of Treatment Health Maintenance Due Date Last Done Comments Colorectal Cancer Screening Colonoscopy (10 Years) 1950 Hepatitis C 11/10/1969 DTaP, Tdap and Td Vaccines ( 1 - Tdap) 11/10/1970 Zoster Vaccines (1 of 2) 11/10/2001 Pneumococcal Vaccine: 65+ Ye ars (1 of 1 - PCV) 11/10/2016 COVID-19 Vaccine ( - 2023-2 5 season) 2023 Influenza Adult (#1) 2023 RSV Immunization or 60+ Years (1 - 1-dose 75+ series) 11/10/2026 Meningococcal B Vaccine Aged Out No l onger eligible based on patient's age to complete this topic Meningococcal Vaccine Aged Out No gloria candelaria eligible based on patient's age to complete this topic RSV Immunizations Under 20 Months Aged Out No longer eligible based on patient's age to complete this topic
--- OUTSIDE RECORDS SUMMARY | 2024-03-27 08:52 | XMS_ITS | Clinical Summary ---
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 Overview (10/29/2020): Added automatically from request for surgery [id number] Surgical History Surgery Date Site/Laterality Comments VASECTOMY TONSILECTOMY, ADENOIDECTOMY, BILATERAL MYRINGOTOMY AND TUBES KNEE ARTHROPLASTY Left KNEE SURGERY Left total left knee HIP FRACTURE SURGERY Left patient states he has a kevin in his leg Medical History Medical History Date Comments Sleep apnea Hypertension Pneumonia GERD (gastroesophageal reflux disease) Type 2 diabetes mellitus (HCC) Social History Tobacco Use Types Packs/Day Years [...] on file Legal Sex Male 7:46 PM FORENSIC EXAMINER Gender Identity Not on file Sexual Orientation Not on file Obstetrics History Last Filed Vital Signs Vital Sign Reading Time Taken Comments Blood Pressure 169/84 09/12/2023 10:37 AM CDT Pulse 77 09/12/2023 10:37 AM CDT Temperature 36.8 C (98.3 F) 01/31/2023 9:15 AM FORENSIC EXAMINER Respiratory Rate 20 11/21/2020 2:49 PM CDT Oxygen Saturation 91% 01/31/2023 9:15 AM FORENSIC EXAMINER Inhaled Oxygen Concentration - - Weight 102 kg (224 lb 12.8 oz) 09/12/2023 10:37 AM CDT Height 180.3 cm (5' 11 ) 09/12/2023 10:37 AM CDT Body Mass Index 31.35 09/12/2023 10:37 AM CDT Plan of Treatment Health Maintenance Due Date Last Done Comments Colon Cancer Screening-Colonoscopy 1950 Depression Screening 1950 Fall Risk Assessment 1950 Hepatitis C Screening 1950 DTaP/Tdap/Td Vaccine (1 - Tdap) 11/10/1962 Hepatitis B Screening 11/10/1969 Zoster Vaccine (1 of 2) 11/10/2001 Abdominal Aortic Aneurysm (AAA) Screen 11/10/2016 Pneumococcal vaccine 65+ (1 of 1 - PCV) 11/10/2016 Well Visit 65+ 11/10/2016 Influenza Vaccine (#1) 2023 12/17/2020 Insurance MEDICARE RAILROAD [employer] MEDICARE RAILROAD [email or web address] FOR LIFE [facility] FOR LIFE MEDICARE RAILROAD Care Teams Program Planner Relationship Specialty Start Date End Date Nilesh Abdul DO PCP - General 08/19/20 Nell Mark DPM [address] [place] [address] Consulting Physician Foot and Ankle Surg 11/21/20
--- OUTSIDE RECORDS SUMMARY | 2024-03-27 08:52 | XMS_ITS | Clinical Summary ---
Author Organization [facility] Address [address] [place] [address] Care Team Providers Care Mold Tooling Technician Name Role Phone Nilesh Abdul DO Primary Care Provider [phone] Source Comments [facility],non-owned Affiliates and Associated Physician Practices is amultiple site organization consisting of ambulatory clinics and hospital sitesin [place], [place], [place] and [place]. This disclosure is being madepursuant to the Care Everywhere program and may not contain all information available regarding this patient. Last updated 17.[facility] [employer] Allergies No known active allergies Medications * Be aware that medications may not be up to date on this document. Alwaysverify current medications with the patient. 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 Overview (10/05/2023): Added automatically from request for surgery [id number] Persistent proteinuria 07/12/2018 Systolic hypertension 07/12/2018 Encounters Date Type Department Care Team Description 03/19/2024 Refill [facility] - Neurology [address] [place] [phone] Pat Glover APRN-CNP MEDICATION REFILL 02/06/2024 10:00 AM CORPORATE COORDINATOR Office Visit [facility] - Neurology [address] [place] [phone] Pat Glover APRN-CNP Idiopathic Parkinson's disease (HCC) (Primary Dx) 02/06/2024 Travel from Last 3 Months Immunizations Name Administration Dates Next Due INFLUENZA [...] Comments Blood Pressure 151/83 02/06/2024 9:54 AM CORPORATE COORDINATOR Pulse 91 02/06/2024 9:54 AM CORPORATE COORDINATOR Temperature 36.5 C (97.7 F) 03/09/2014 3:16 PM CORPORATE COORDINATOR Respiratory Rate 14 03/09/2014 3:16 PM CORPORATE COORDINATOR Oxygen Saturation 97% 02/06/2024 9:54 AM CORPORATE COORDINATOR Inhaled Oxygen Concentration - - Weight 104.3 kg (230 lb) 02/06/2024 9:54 AM CORPORATE COORDINATOR Height 180.3 cm (5' 11 ) 10/05/2023 10:34 AM CDT Body Mass Index 32.08 10/05/2023 10:34 AM CDT Plan of Treatment Upcoming Encounters Date Type Department Care Team (Late st Contact Info) Description 08/06/2024 11:00 AM CDT Office Visit [facility] - Neurology [address] [place] [phone] Pat Glover APRN-CNP [address] [place] [address] [place] [address] Health Maintenance Due Date Last Done Comments COLOGUARD (AGES 45-75) - COL ON CA SCREENING 1950 COLON MONITORING 1950 COLONOSCOPY - COLON CA SCREENING 1950 CT COLONOGRAPHY - COLON CA SCREENING 1950 Colorectal Cancer Screening 1950 FIT - COLON CA SCREENING 1950 FLEX SIG - COLON CA SCREENING 1950 MEDICARE AWV 12 MONTHS 1950 HEPATITIS C SCREENING 11/06/1969 DTAP/TDAP/TD VACCINES (1 - Tdap) 11/10/1970 PNEUMOCOCCAL VACCINE 50+ (1 of 1 - PCV) 11/10/2001 ZOSTER VACCINE (1 of 2) 11/10/2001 Respiratory Syncytial Virus (RSV) Vaccine Pt: or over 60 yrs (1 - Risk 60-74 years 1-dose series) 2011 COVID-19 VACCINE (2023-2 5 season) 2023 INFLUENZA VACCINE (#1) 2023 12/17/2020 DEPRESSION SCREENING 02/15/2024 HEPATITIS B VACCINE Aged Out No longe r eligible based on patient's age to complete this topic HIB VACCINE Aged Out No longer eligi ble based on patient's age to complete this topic HPV VACCINE Aged Out No longer eligi ble based on patient's age to complete this topic MENINGOCOCCAL (Group B) VACCINE Aged Out No longer eligible based on patient's age to complete this topic MENINGOCOCCAL VACCINE Aged Out No gloria candelaria eligible based on patient's age to complete this topic Care Teams Mold Tooling Technician Relationship Specialty Start Date End Date Nilesh Abdul DO PCP - General 03/09/14
--- OUTSIDE RECORDS SUMMARY | 2024-03-27 08:52 | XMS_ITS | Encounter Summary ---
Author Organization [facility] Address [address] [place] [address] Care Team Providers Care Special Education Kindergarten Teacher Name Role Phone Unavailable Primary Care Provider Unavailabl e Encounter Details Date Type Department Care Team (Latest Contact Info) Description 12/20/[address] [facility] , Generic Conversion, Social History Tobacco Use Types Packs/Day Years [...]
[2024-03-27 09:14] LABS: Cholesterol 114 mg/dL (0-200); HDL Direct 50 mg/dL; Triglycerides 121 mg/dL (<150)
[2024-03-27 09:25] LABS: LDL Cholesterol Direct 40 mg/dL
[2024-03-27 09:36] LABS: Creatinine Urine 85.3 mg/dL; Total Protein Urine Random 46 mg/dL; Ur Ttl Prot Creatinine Ratio 0.54 mg/mg (0-0.20)
[2024-03-27 09:46] LABS: Prostate Specific Antigen 4.1 ng/mL (< OR = 4.0)
[2024-03-27 10:30] LABS: Albumin Level 4.3 g/dL (3.5-5.1); Anion Gap 15 mmol/L (4-12); Blood Urea Nitrogen 15 mg/dL (9-20); Calcium 9.8 mg/dL (8.4-10.2); Carbon Dioxide 24 mmol/L (22-30); Chloride 102 mmol/L (98-107); Estimated Glomerular Filt Rate > 60; Glucose 85 mg/dL (65-110); Phosphorus 4.5 mg/dL (2.5-4.5); Potassium 4.2 mmol/L (3.4-5.0); Sodium 141 mmol/L (137-145)
== END 2024-03-27 08:23 | disposition home or self-care (01) ==
PROVIDERS: PCP Internal Medicine; Referring Provider Internal Medicine Endocrinology, Diabetes & Metabolism; Visit Provider Internal Medicine Nephrology
DX: E11.42 Type 2 diabetes mellitus with diabetic polyneuropathy (principal); E11.22 Type 2 diabetes mellitus with diabetic chronic kidney disease; N18.9 Chronic kidney disease, unspecified; E78.5 Hyperlipidemia, unspecified; R80.1 Persistent proteinuria, unspecified; Z12.5 Encounter for screening for malignant neoplasm of prostate; Z79.4 Long term (current) use of insulin
CPT/HCPCS: 36415; 80061; 80069; 82570; 82607; 84153; 84156; 85027; G0103

== ENCOUNTER 2024-03-28 10:36 | Outpatient (CLI) | payer MEDICARE, OTHER, SELFPAY ==
--- OUTSIDE RECORDS SUMMARY | 2024-03-28 11:32 | XMS_ITS | Referral Summary ---
Author Organization [facility] Address [address] [place] [address] Care Team Providers Care Explosive Technician Name Role Phone Nilesh Abdul DO Primary Care Provider [phone] Source Comments [facility],non-owned Affiliates and Associated Physician Practices is amultiple site organization consisting of ambulatory clinics and hospital sitesin [place], [place], [place] and [place]. This disclosure is being madepursuant to the Care Everywhere program and may not contain all information available regarding this patient. Last updated 17.[facility] Encounters Date Type Department Care Team Description 03/19/2024 Refill [facility] - Neurology [address] [place] [phone] Pat Glover APRN-CNP MEDICATION REFILL 02/06/2024 Travel 02/06/2024 10:00 AM TEACHER ASSOCIATE Office Visit [facility] Neurology [address] [place] [phone] Pat Glover APRN-CNP Idiopathic Parkinson's disease (HCC) (Primary Dx) from Last 3 Months Allergies No known active allergies Medications * Be aware that medications may not be up to date on this document. Alwaysverify current medications with the patient. 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 Overview (10/05/2023): Added automatically from request for surgery [id number] Persistent proteinuria 07/12/2018 Systolic hypertension 07/12/2018 Immunizations [...] Comments Blood Pressure 151/83 02/06/2024 9:54 AM TEACHER ASSOCIATE Pulse 91 02/06/2024 9:54 AM TEACHER ASSOCIATE Temperature 36.5 C (97.7 F) 03/09/2014 3:16 PM TEACHER ASSOCIATE Respiratory Rate 14 03/09/2014 3:16 PM TEACHER ASSOCIATE Oxygen Saturation 97% 02/06/2024 9:54 AM TEACHER ASSOCIATE Inhaled Oxygen Concentration - - Weight 104.3 kg (230 lb) 02/06/2024 9:54 AM TEACHER ASSOCIATE Height 180.3 cm (5' 11 ) 10/05/2023 10:34 AM CDT Body Mass Index 32.08 10/05/2023 10:34 AM CDT Plan of Treatment Upcoming Encounters Date Type Department Care Team (Late st Contact Info) Description 08/06/2024 11:00 AM CDT Office Visit [facility] - Neurology [address] [place] [address], [place] [address] Pat Glover APRN-YADIEL [address] [place] [address] [place] [address] Care Teams Explosive Technician Relationship Specialty Start Date End Date Nilesh Abdul DO PCP - General 03/09/14
--- OUTSIDE RECORDS SUMMARY | 2024-03-28 11:32 | XMS_ITS | Encounter Summary ---
Author Organization [facility] Address [address] [place] [address] Phone Care Team Providers Care Ground Water Pump Installer Name Role Phone Nilesh Abdul DO Primary Care Provider [phone] Nell Mark DPM Unavailable [phone] Encounter Details Date Type Department Care Team (Late st Contact Info) Description 01/13/2022 Imaging Exam [facility] [address] [facility] 6th [place] [address] [place] [address] Oumar Cerda MD [address] [place] [address] Social History Tobacco Use Types Packs/Day Years Used Date Smoking Tobacco: Former AUDIT-C Answer Date Recorded Q1: How often do you have a drink containing alc ohol? Never 11/18/2020 Average Number of Drinks Not on file 021 Frequency of Binge Drinking Not on file 06/2020 Sex and Gender Information Value Date Recorded Sex Assigned at Not on file Legal Sex Male 7:46 PM RECEPTIONIST/TELEPHONE OPERATOR Gender Identity Not on file Sexual Orientation Not on file documented as of this encounter Plan of Treatment Not on file documented as of this encounter Visit Diagnoses Not on filedocumented in this encounter Care Teams Ground Water Pump Installer Relationship Specialty Start Date End Date Nilesh Abdul DO PCP - General 08/19/20 Nell Mark DPM [address] [place] [address] Consulting Physician Foot and Ankle Surg 11/21/20 documented as of this encounter
--- OUTSIDE RECORDS SUMMARY | 2024-03-28 11:32 | XMS_ITS | CONTINUITY OF CARE DOCUMENT ---
Author Name marcusmigdalia marcusmigdalia Address Unknown Organization [facility] Address [address] [place] [address] [address] [place] [address] Phone [phone] Care Team Providers Care Refrigeration Houseman Name Role Phone Arik Gutiérrez MD Unavailable [phone] ASHLEY CHAN DPM Unavailable [phone] ALICIA NEWTON DO Unavailable PROBLEMS Condition Status Date Provider Notes presurgery evaluation active Aleksandra Juárez Hypercholesterolemia active Aleksandra Juárez Hypertension active Aleksandra Juárez Abnormal electrocardiogram active Aleksandra May constantind Hyperlipidemia active ? Arik Gutiérrez MD Diabetes, Type 2 active Arik Gutiérrez MD ENCOUNTERS Date Type Provider Location Encounter Diagnosis - In-person encounter Office Visit Arik Gutiérrez MD [place] [facility] Diabetes, Type 2Hyperlipidemia VITAL SIGNS Date Observation Value Provider blood pressure, diastolic 74 mm[Hg] Az pepe Stringer blood pressure, systolic 149 mm[Hg] [...] Payer name Policy type / Coverage type Paden red libertarian ID [employer] [id number] TREATMENT PLAN Date Name Performer Cardiology Arik Gutiérrez MD Cardiology Arik Gutiérrez MD Cardiology:LVH with repolarization abnormalities. S tress test shows small inferior defect. Probable false positive as patient asymptomatic and has normal ECHO. W ill clear for surgery, cath not needed at this time. Arik Gutiérrez MD HISTORY OF PROCEDURES Procedure Date Procedure Name Provider Procedure Notes S tatus SNOMED-CT: [id number] Physical Exam, Performed: Pulse Exam of Foot Arik Gutiérrez MD completed SNOMED-CT: [id number] Current Medications Documented Arik Gutiérrez MD completed Stress EKG Iam Lee MD completed Regadenoson, 4 units Arik Gutiérrez MD completed Cardiolite, 2 units Arik Gutiérrez MD completed SPECT Images Gianni Gilbert MD compl eted
--- OUTSIDE RECORDS SUMMARY | 2024-03-28 11:32 | XMS_ITS | Clinical Summary ---
Author Organization [facility] Address [address] [place] [address] Care Team Providers Care Application Security Architect Name Role Phone Unavailable Primary Care Provider [...] Comments Blood Pressure 150/80 03/05/2013 8:55 AM TWISTER TENDER PAPER Pulse - - Temperature - - Respiratory Rate - - Oxygen Saturation - - Inhaled Oxygen Concentration - - Weight 121.6 kg (268 lb) 03/05/2013 8:55 AM TWISTER TENDER PAPER Height 180.3 cm (5' 11 ) 06/08/2012 [...]
--- OUTSIDE RECORDS SUMMARY | 2024-03-28 11:32 | XMS_ITS | Referral Summary ---
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 Overview (10/29/2020): Added automatically from request for surgery [id number] Social History Tobacco Use Types Packs/Day Years [...] on file Legal Sex Male 7:46 PM REJOINER Gender Identity Not on file Sexual Orientation Not on file Last Filed Vital Signs Vital Sign Reading Time Taken Comments Blood Pressure 169/84 09/12/2023 10:37 AM CDT Pulse 77 09/12/2023 10:37 AM CDT Temperature 36.8 C (98.3 F) 01/31/2023 9:15 AM REJOINER Respiratory Rate 20 11/21/2020 2:49 PM CDT Oxygen Saturation 91% 01/31/2023 9:15 AM REJOINER Inhaled Oxygen Concentration - - Weight 102 kg (224 lb 12.8 oz) 09/12/2023 10:37 AM CDT Height 180.3 cm (5' 11 ) 09/12/2023 10:37 AM CDT Body Mass Index 31.35 09/12/2023 10:37 AM CDT Plan of Treatment Not on file Insurance MEDICARE RAILROAD FOR LIFE MEDICARE RAILROAD FOR LIFE [facility] [employer] MEDICARE RAILROAD Care Teams Garbage Pick Up Worker Relationship Specialty Start Date End Date Nilesh Abdul DO PCP - General 08/19/20 Nell Mark DPM [address] [place] [address] Consulting Physician Foot and Ankle Surg 11/21/20
--- OUTSIDE RECORDS SUMMARY | 2024-03-28 11:32 | XMS_ITS | Encounter Summary ---
Author Organization [facility] Address [address] [place] [address] Care Team Providers Care Carton Gluing Machine Operator Name Role Phone Nilesh Abdul DO Primary Care Provider [phone] Encounter Details Date Type Department Care Team (Late st Contact Info) Description 10/27/2023 Refill [facility] - Neurology [address] [place] [phone] Pat Glover, CERTIFIED INDOOR ENVIRONMENTALIST-ARTIFICIAL FLY TIER [address] [place] [phone] Social History Tobacco Use Types Packs/Day [...] and would like a phone call back [phone] documented in this encounter Plan of Treatment Upcoming Encounters Date Type Department Care Team (Late st Contact Info) Description 08/06/2024 11:00 AM CDT Office Visit [facility] - Neurology [address] [facility], [place] [address] Pat Glover APRN-ARTIFICIAL FLY TIER [address] [place] [address] [place] [phone] documented as of this encounter Visit Diagnoses Diagnosis Idiopathic Parkinson's disease (HCC) Paralysis agitans documented in this encounter Care Teams Carton Gluing Machine Operator Relationship Specialty Start Date End Date Nilesh Abdul DO PCP - General 03/09/14 documented as of this encounter
--- OUTSIDE RECORDS SUMMARY | 2024-03-28 11:32 | XMS_ITS | Continuity of Care Document ---
Author Organization [facility] Address [address] [place] [address] Phone Care Team Providers Care Globe Cleaner Name Role Phone No Information Unavailable Unavailable Medications Medication Instructions Dosage Effective Dates (start - stop) Status Comments No Drug Therapy Prescribed Advance Directives Directive Yes / No Effective Date File Name No Information Encounters Encounter Description Practice Location Reason(s) For Visit Diagnoses Date Provider Providers Copied on Encounter [facility], [address] [place] [address], [address], [place] tel:[phone] No Information No Information Family History Family Member Type Diagnosis Age At Onset No Information Payers Payer name Insurance type Covered republican ID Authoriza tion(s) No Information Social History [...]
--- OUTSIDE RECORDS SUMMARY | 2024-03-28 11:32 | XMS_ITS | Clinical Summary ---
Author Organization [facility] Address [address] [place] [address] Phone Care Team Providers Care Construction Ironworker Name Role Phone UrsulademetrioNilesh rivas DO Primary Care Provider [phone] Allergies No known active allergies Medications Medication [...] Influenza Vaccine (#1) 2023 12/17/2020 Care Teams Construction Ironworker Relationship Specialty Start Date End Date Nilesh Abdul DO [address] [place], [place] [phone] PCP - General Internal Medicine 07/12/18
--- OUTSIDE RECORDS SUMMARY | 2024-03-28 11:32 | XMS_ITS | Clinical Summary ---
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 Overview (10/29/2020): Added automatically from request for surgery [id number] Surgical History Surgery Date Site/Laterality Comments VASECTOMY [...] on file Legal Sex Male 7:46 PM FINAL INSPECTOR PAPER Gender Identity Not on file Sexual Orientation Not on file Obstetrics History Last Filed Vital Signs Vital Sign Reading Time Taken Comments Blood Pressure 169/84 09/12/2023 10:37 AM CDT Pulse 77 09/12/2023 10:37 AM CDT Temperature 36.8 C (98.3 F) 01/31/2023 9:15 AM FINAL INSPECTOR PAPER Respiratory Rate 20 11/21/2020 2:49 PM CDT Oxygen Saturation 91% 01/31/2023 9:15 AM FINAL INSPECTOR PAPER Inhaled Oxygen Concentration - - Weight 102 [...] Vaccine (#1) 2023 12/17/2020 Insurance MEDICARE RAILROAD [employer] MEDICARE RAILROAD [employer] FOR LIFE [facility] FOR LIFE MEDICARE RAILROAD Care Teams Cake Maker Relationship Specialty Start Date End Date Nilesh Abdul DO PCP - General 08/19/20 Nell Mark DPM [address] [place] [address] Consulting Physician Foot and Ankle Surg 11/21/20
--- OUTSIDE RECORDS SUMMARY | 2024-03-28 11:32 | XMS_ITS | Encounter Summary ---
Author Organization [facility] Address [address] [place] [address] Care Team Providers Care Mill Manager Name Role Phone Unavailable Primary Care Provider Unavailabl e Encounter Details Date Type Department Care Team (Latest Contact Info) Description 12/20/[address] [facility] , Generic Conversion, Social History [...]
--- OUTSIDE RECORDS SUMMARY | 2024-03-28 11:32 | XMS_ITS | Clinical Summary ---
Author Organization [facility] Address [address] [place] [address] Care Team Providers Care Chief Building Inspector Name Role Phone Nilesh Abdul DO Primary Care Provider [phone] Source Comments [facility],non-owned Affiliates and Associated Physician Practices is amultiple site organization consisting of ambulatory clinics and hospital sitesin [place], [place], [place] and [place]. This disclosure is being madepursuant to the Care Everywhere program and may not contain all information available regarding this patient. Last updated 17.[facility] [employer] Allergies No known active allergies Medications * Be aware that medications may not be up to date on this document. Alwaysverify current medications with the patient. 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 Overview (10/05/2023): Added automatically from request for surgery [id number] Persistent proteinuria 07/12/2018 Systolic hypertension 07/12/2018 Encounters Date Type Department Care Team Description 03/19/2024 Refill [facility] - Neurology [address] [place] [phone] Pat Glover APRN-CNP MEDICATION REFILL 02/06/2024 10:00 AM IN STORE REPRESENTATIVE Office Visit [facility] - Neurology [address] [place] [phone] Pat Glover APRN-CNP Idiopathic Parkinson's disease (HCC) [...] Comments Blood Pressure 151/83 02/06/2024 9:54 AM IN STORE REPRESENTATIVE Pulse 91 02/06/2024 9:54 AM IN STORE REPRESENTATIVE Temperature 36.5 C (97.7 F) 03/09/2014 3:16 PM IN STORE REPRESENTATIVE Respiratory Rate 14 03/09/2014 3:16 PM IN STORE REPRESENTATIVE Oxygen Saturation 97% 02/06/2024 9:54 AM IN STORE REPRESENTATIVE Inhaled Oxygen Concentration - - Weight 104.3 kg (230 lb) 02/06/2024 9:54 AM IN STORE REPRESENTATIVE Height 180.3 cm (5' 11 ) 10/05/2023 10:34 AM CDT Body Mass Index 32.08 10/05/2023 10:34 AM CDT Plan of Treatment Upcoming Encounters Date Type Department Care Team (Late st Contact Info) Description 08/06/2024 11:00 AM CDT Office Visit [facility] - Neurology [address] [place] [phone] Pat Glover APRN-CNP [address] [place] [address] [place] [address] Health Maintenance Due Date Last Done Comments [...] age to complete this topic Care Teams Chief Building Inspector Relationship Specialty Start Date End Date Nilesh Abdul DO PCP - General 03/09/14
--- OUTSIDE RECORDS SUMMARY | 2024-03-28 11:32 | XMS_ITS | Continuity of Care Document ---
Author Name [facility] Organization [facility] Care Team Providers Care Auto Damage Appraiser Name Role Phone [facility] Unavailable Unavailable Medications Combined list of outpatient medications from Department of Defense and Veterans Affairs facilities.Medications provided include 1) outpatient medications from the last 15 months, and 2) patient-reported medications. Medication Details Route Status Patient Instructions Prescription Expires Prescription Number Last Dispense Date Ordering Provider Order Date Order Qty Source CYCLOBENZAP RINE HCL (CYCLOBENZA JOVANY HCL), 10 MG, TABLET, ORAL, AUROBINDO PHARM, 500 ea. BOTTLE Active [id number] 2023 20 Pharmac y Data Transac tion Service Facilit y DONEPEZIL HCL (DONEPEZIL HCL), 10 MG, TABLET, ORAL, [employer] INC., 1000 ea. BOTTLE Active [id number] 4 2023 90 Pharmac y Data Transac tion Service Facilit y DONEPEZIL HCL (DONEPEZIL HCL), 10 MG, TABLET, ORAL, GSMS[employer] INC., 1000 ea. BOTTLE Active [id number] 4 2023 90 Pharmac y Data Transac tion Service Facilit y GENTAMICIN SULFATE (GENTAMICIN SULFATE), 0.1%, OINT.(GM), TOPICAL, PERRIGO CO., 15 g TUBE Cancele d [id number] : 2023 0 Pharmac y Data Transac tion Service Facilit y GLIMEPIRIDE (glimepirid e), 2 MG, TABLET, ORAL, CARLSBAD TECH, 500 ea. BOTTLE Active [id number] 2023 180 Pharmac y Data Transac tion Service Facilit y GLIMEPIRIDE (glimepirid e), 2 MG, TABLET, ORAL, [place] TECH, 500 ea. BOTTLE Active [id number] 2023 180 Pharmac y Data Transac tion Service Facilit y JARDIANCE (EMPAGLIFLO ZIN), 25 MG, TABLET, ORAL, BOEHRINGER ING., 30 ea. BOTTLE Active [id number] 2023 90 Pharmac y Data Transac tion Service Facilit y JARDIANCE (EMPAGLIFLO ZIN), 25 MG, TABLET, ORAL, BOEHRINGER ING., 30 ea. BOTTLE Active [id number] 4 2023 90 Pharmac y Data Transac tion Service Facilit y LANTUS SOLOSTAR (INSULIN GLARGINE,[facility].ANLOG ), 100/ML (3), INSULN PEN, SUB-Q, SANOFI-AVEN TIS, 3 ml SYRINGE Active [id number] 2023 30 Pharmac y Data Transac tion Service Facilit y LANTUS SOLOSTAR ([facility]ARGINE,[facility] ), 100/ML (3), INSULN PEN, SUB-Q, SANOFI-AVEN TIS, 3 ml SYRINGE Active [id number] 4 2023 30 Pharmac y Data Transac tion Service Facilit y LISINOPRIL (lisinopril ), 40 MG, TABLET, ORAL, EXELAN PHARMACE, 1000 ea. BOTTLE Active [id number] 2023 90 Pharmac y Data Transac tion Service Facilit y LISINOPRIL (lisinopril ), 40 MG, TABLET, ORAL, EXELAN PHARMACE, 180 ea. BOTTLE Active [id number] 4 2023 90 Pharmac y Data Transac tion Service Facilit y METFORMIN HCL (METFORMIN HCL), 1000 MG, TABLET, ORAL, [employer] INC[employer] 500 ea. BOTTLE Active [id number] 2023 180 Pharmac y Data Transac tion Service Facilit y PHILOMENA 2ND GEN PEN NEEDLE (pen needle, diabetic), 32GX 5/32 , DIS NEEDLE, MISCELL, BD DIABETES/EM B, 100 ea. BOX Active [id number] 2023 100 Pharmac y Data Transac tion Service Facilit y PHILOMENA 2ND GEN PEN NEEDLE (pen needle, diabetic), 32GX 5/32 , DIS NEEDLE, MISCELL, BD DIABETES/EM B, 100 ea. BOX Damaris d [id number] : 2023 0 Pharmac y Data Transac tion Service Facilit y PHILOMENA 2ND GEN PEN NEEDLE (pen needle, diabetic), 32GX 532 , DIS NEEDLE, MISCELL, BD DIABETES/EM B, 100 ea. BOX Active [id number] 3 2023 300 Pharmac y Data Transac tion Service Facilit y NAPROXEN (NAPROXEN), 500MG, TABLET, ORAL, GLENMARK PHARMA, 500 ea. BOTTLE Active [id number] 4 2023 20 Pharmac y Data Transac tion Service Facilit y OMEGA-3 ACID ETHYL ESTERS (omega-3 acid ethyl esters), 1 G, CAPSULE, ORAL, AMNEAL PHARMACE, 120 ea. BOTTLE Active [id number] 4 2023 360 Pharmac y Data Transac tion Service Facilit y OMEGA-3 ACID ETHYL ESTERS (OMEGA-3 ACID ETHYL ESTERS), 1 G, CAPSULE, ORAL, AVKARE, 120 ea. BOTTLE Active [id number] 2023 360 Pharmac y Data Transac tion Service Facilit y OMEPRAZOLE (OMEPRAZOLE ), 10MG, CAPSULE DR, ORAL, APOTEX ISAIAH, 30 ea. BOTTLE Active [id number] 2023 90 Pharmac y Data Transac tion Service Facilit y OMEPRAZOLE (OMEPRAZOLE ), 10MG, CAPSULE DR, ORAL, APOTEX ISAIAH, 30 ea. BOTTLE Active [id number] 2023 90 Pharmac y Data Transac tion Service Facilit y OMEPRAZOLE (OMEPRAZOLE ), 10MG, CAPSULE DR, ORAL, APOTEX ISAIAH, 30 ea. BOTTLE Active [id number] 2023 90 Pharmac y Data Transac tion Service Facilit y PRIMIDONE (primidone) , 250 MG, TABLET, ORAL, PD-RX PHARM, 100 ea. BOTTLE Active [id number] 2023 180 Pharmac y Data Transac tion Service Facilit y PRIMIDONE (primidone) , 50 MG, TABLET, ORAL, ADVAGEN PHARMA, 100 ea. BOTTLE Active [id number] 2023 540 Pharmac y Data Transac tion Service Facilit y PRIMIDONE (primidone) , 50 MG, TABLET, ORAL, ADVAGEN PHARMA, 100 ea. BOTTLE Cancele d [id number] : 2023 0 Pharmac y Data Transac tion Service Facilit y PRIMIDONE (PRIMIDONE) , 50 MG, TABLET, ORAL, AV BELLE, 500 ea. BOTTLE Cancele d [id number] : 2023 0 Pharmac y Data Transac tion Service Facilit y TAMSULOSIN HCL (TAMSULOSIN HCL), 0.4 MG, CAP.SR 24H, ORAL, ZYDUS PHARMACEU, 1000 ea. BOTTLE Active [id number] 2023 90 Pharmac y Data Transac tion Service Facilit y TAMSULOSIN HCL (TAMSULOSIN HCL), 0.4 MG, CAP.SR 24H, ORAL, ZYDUS PHARMACEU, 1000 ea. BOTTLE Active [id number] 4 2023 90 Pharmac y Data Transac tion Service Facilit y TRULICITY (dulaglutid e), 4.5 MG/0.5, PEN INJCTR, SUBCUT, JUSTIN ISABEL & CO., .5 ml SYRINGE Cancele d [id number] : 2023 0 Pharmac y Data Transac tion Service Facilit y TRULICITY (dulaglutid e), 4.5 MG/0.5, PEN INJCTR, SUBCUT, [employer] ISABEL [employer] CO., .5 ml SYRINGE Cancele d [id number] : 2023 0 Pharmac y Data Transac tion Service Facilit y TRULICITY (dulaglutid e), 4.5 MG/0.5, PEN INJCTR, SUBCUT, JUSTIN ISABEL [employer] CO., .5 ml SYRINGE Active [id number] 4 2023 6 Pharmac y Data Transac tion Service Facilit y TRULICITY (dulaglutid e), 4.5 MG/0.5, PEN INJCTR, SUBCUT, JUSTIN ISABEL [employer] CO., .5 ml SYRINGE Cancele d [id number] : 2023 0 Pharmac y Data Transac tion Service Facilit y Immunizations Combined list of available immunizations from the Department of Defense and Veterans Affairs facilities. Immunization Series Date Given Administered By Site Reaction Lot Number CVX Code Drug Mass Communications Professor Status Comments Source Influenza vaccine, quadrivalent, adjuvanted 2020 JUSTIN GUTIERRES () Not Given Influenza vaccine, quadrival ent, adjuvante d DoD Social History Combined list of available smoking, tobacco, and other social history from Department of Defense and Veterans Affairs facilities. Social History Type Response Date Comment Sour e This section is an empty social history section. DoD
--- OUTSIDE RECORDS SUMMARY | 2024-03-28 11:32 | XMS_ITS | Continuity of Care Document ---
Author Organization [facility] Address [address] [place] [address] [place] [address] Phone Care Team Providers Care Non Garment Sewing Machine Operator Name Role Phone [facility] Unavailable Unavail able Cliff Lubin Unavailable Unavailable Procedures Procedure Date SV Plastic Sphcyl [place] +/-4d, .12-2d Ju Tint Photochromatic, Plastic Eye Exam & Treatment Refraction Office/outpatient Visit, Est Office/outpatient Visit, Est Office/outpatient Visit, Est Office/outpatient Visit, Est Advance Directives Directive Yes / No Effective Date File Name No Information Encounters Encounter Description Practice Location Reason(s) For Visit Diagnoses Date Provider Providers Copied on Encounter [facility], [address] [place], [place] [address] [address], [place], [place], [id number], [place] tel:[phone] SEC [facility] No Information 0 [facility] . [address] [place] [address], [facility] [address], [place], [id number], [place]. tel:[phone] Referring Provider: Leeann Valente, [address] [place] [address] [address], [place], [address]. tel:[phone] bermeo Provider: Cliff Lubin, [address] [place] [address], [place], [address]. tel:[phone] [facility], [address] [place] [address] [address], [place], [place], [id number], [place] tel:[phone] SEC [facility] [place] No Information 0-201 0 Yamilet Lugo [address] , [address], [place], [place], [facility], . tel:[phone] Office/outpat ient Visit, [facility], [address] [place] [address] [address], [place], [place], [id number], tel:[phone] [facility] [place] No Information 1200 9 Yamilet Lugo [address] , [address], [place], [facility], . tel:[phone] Office/outpat ient Visit, [facility], [address] [place] [address] [address], [place], [place], [id number], tel:[phone] [facility] [place] No Information 9-200 8 Yamilet Bradshaw. [address] , [address], [place], [facility], . tel:[phone] Office/outpat ient Visit, [facility], [address] [place] [address] [address], [place], [place], [address], [place] tel:[phone] [facility] No Information 200 7 Yamilet Lugo [address] , [address], [place], [facility], [place]. tel:[phone] Office/outpat ient Visit, [facility], [address] [place] [address] [address], [place], [place], [address], [place] tel:[phone] [facility] [place] No Information 200 7 Yamilet Lugo [address] , [address], [place], [facility], . tel:[phone] Family History Family Member Type Diagnosis Age At Onset No Information Payers Payer name Insurance type Covered democrat ID Authoriza tion(s) VSP CI [id number] Social [...]
--- OUTSIDE RECORDS SUMMARY | 2024-03-28 11:32 | XMS_ITS | Patient Health Summary ---
Author Organization [facility] Address [address] [facility] [place] [address] Care Team Providers Care Athletic Equipment Custodian Name Role Phone Nilesh Abdul DO Primary Care Provider [phone] Note from [facility],non-owned Affiliates and Associated Physician Practices is amultiple site organization consisting of ambulatory clinics and hospital sitesin [place], [place], [place] and [place]. This disclosure is being madepursuant to the Care Everywhere program and may not contain all information available regarding this patient. Last updated 17.[facility] Allergies No known active allergies Medications * Be aware that medications may not be up to date on this document. Alwaysverify current medications with the patient. * metFORMIN (Glucophage) 1000 MG tablet Take 1 (one) tablet by mouth 2 times daily * [place]-3 Fatty Acids (fish oil) 500 MG capsule [...] Comments Blood Pressure 151/83 02/06/2024 9:54 AM CONTINUOUS IMPROVEMENT BLACK BELT Pulse 91 02/06/2024 9:54 AM CONTINUOUS IMPROVEMENT BLACK BELT Temperature 36.5 C (97.7 F) 03/09/2014 3:16 PM CONTINUOUS IMPROVEMENT BLACK BELT Respiratory Rate 14 03/09/2014 3:16 PM CONTINUOUS IMPROVEMENT BLACK BELT Oxygen Saturation 97% 02/06/2024 9:54 AM CONTINUOUS IMPROVEMENT BLACK BELT Inhaled Oxygen Concentration - - Weight 104.3 kg (230 lb) 02/06/2024 9:54 AM CONTINUOUS IMPROVEMENT BLACK BELT Height 180.3 cm (5' 11 ) 10/05/2023 [...] syndromes. > Dictated by Izzy Brewer MD (Newspaper Stuffer) 10/21/2023 9:42 AM IRui DO have personally [...] syndromes. > Dictated by Izzy Brewer MD (Newspaper Stuffer) 10/21/2023 9:42AM IRui DO have personally reviewed and interpreted this examination/study. > Interpreting Provider: Rui Ayala DO on 10/21/2023 2:59 PM Pat Glover CUSTOMER SERVICES COORDINATOR-GEAR CUTTER NM ORDERABLES Care Teams Athletic Equipment Custodian Relationship Specialty Start Date End Date Nilesh Abdul DO PCP - General 03/09/14
[2024-03-30 12:16] LABS: Kit Draw Collected
== END 2024-03-28 10:37 | disposition home or self-care (01) ==
PROVIDERS: PCP Internal Medicine; Visit Provider Internal Medicine
DX: Z76.89 Persons encountering health services in other specified circumstances (principal)
CPT/HCPCS: 36415

== ENCOUNTER 2024-05-12 14:03 | Emergency (ER) | payer MEDICARE, OTHER, SELFPAY ==
--- NOTE | ~2024-05-12 | CT_ITS ---
History: Syncope PROCEDURE: CT head without contrast. COMPARISON: Reference is made to an MRI examination dated 10/01/2023 TECHNIQUE: Axial imaging of the head performed from the skull base to the vertex without IV contrast. Sagittal a nd coronal reformations obtained. DLP: 681 mGy-cm FINDINGS: The ventricles are normal in size, shape and position. There is no mass, mass effect or midline shift. There is no abnormal extra-axial fluid collection or intracranial hemorrhage. Visualized paranasal sinuses are clear. The mastoid air cells are well aerated. No acute displaced fractures within the overlying cranium. Impression: No acute intracranial hemorrhage or suspicious mass effect. Reviewed, dictated and finalized at location A. Impression: No acute intracranial hemorrhage or suspicious mass effect.
--- NOTE | ~2024-05-12 | XR_ITS ---
CHEST RADIOGRAPH, PA AND LATERAL CLINICAL HISTORY: syncope . COMPARISON: None available TECHNIQUE: PA and lateral views of the chest. FINDINGS The cardiomediastinal silhouette is unremarkable. The lungs are clear. IMPRESSION: No focal infiltrate or effusion. Reviewed, dictated and finalized at location A.
--- OUTSIDE RECORDS SUMMARY | 2024-05-12 14:06 | XMS_ITS | CONTINUITY OF CARE DOCUMENT ---
Author Name marcusmigdalia marcusmigdalia Address Unknown Organization [facility] Address [address] [place] [address] [address] [place] [address] Phone [phone] Care Team Providers Care Freelance Director Name Role Phone Arik Gutiérrez MD Unavailable [phone] ASHLEY CHAN DPM Unavailable [phone] ALICIA NEWTON DO Unavailable [phone] PROBLEMS Condition Status Date Provider Notes presurgery evaluation active Aleksandra Franck Hypercholesterolemia active Aleksandra Juárez Hypertension active Aleksandra Juárez Abnormal electrocardiogram active Aleksandra tsai Diabetes, Type 2 active Arik Gutiérrez MD Hyperlipidemia active ? Arik Gutiérrez MD ENCOUNTERS Date Type Provider Location Encounter Diagnosis - In-person encounter Office Visit Arik Gutiérrez MD [place] [facility] Diabetes, Type 2Hyperlipidemia VITAL SIGNS Date Observation Value Provider blood pressure, diastolic 74 mm[Hg] Nv pepe Stringer blood pressure, systolic 149 mm[Hg] [...] Payer name Policy type / Coverage type [place] red democrat ID LANDON BAER [id number] TREATMENT PLAN Date Name Performer Cardiology Arik Gutiérrez MD Cardiology Arik Gutiérrez MD Cardiology:LVH with repolarization abnormalities. S tress test shows small inferior defect. Probable false positive as patient asymptomatic and has normal ECHO. W ill clear for surgery, cath not needed at this time. Arik Gutiérrez MD HISTORY OF PROCEDURES Procedure Date Procedure Name Provider Procedure Notes S tatus SNOMED-CT: [id number] Physical Exam, Performed: Pulse Exam of Foot Arik Gutiérrez MD completed SNOMED-CT: [id number] Current Medications Documented Arik Gutiérrez MD completed Stress EKG Iam Lee MD completed Regadenoson, 4 units Arik Gutiérrez MD completed Cardiolite, 2 units Arik Gutiérrez MD completed SPECT Images Gianni Gilbert MD compl eted
--- OUTSIDE RECORDS SUMMARY | 2024-05-12 14:06 | XMS_ITS | Clinical Summary ---
Author Organization [facility] Address [address] [facility] [place] [address] Care Team Providers Care Tick Eradicator Name Role Phone Nilesh Abdul DO Primary Care Provider Source Comments [facility],non-owned Affiliates and Associated Physician Practices is [facility] organization consisting of ambulatory clinics and hospital sitesin [place], [place], [place] and [place]. This disclosure is being madepursuant to the Care Everywhere program and may not contain all information available regarding this patient. Last updated 17.[facility] Allergies No known active allergies Medications * Be aware that medications may not be up to date on this document. Alwaysverify current medications with the patient. Medication Sig Dispensed Refills Start Date End Date Status metFORMIN (Glucophage) 1000 MG tablet Take 1 (one) tablet by mouth 2 times daily Active [place]-3 Fatty Acids (fish oil) 500 MG capsule [...] by mouth once daily Active vitamin D3 (Cholecalciferol ) 25 MCG (1000 UNITS) tablet Take 1 [...] one-half) mg subcutaneously every 7 days Active carbidopa-levodo pa (Sinemet) 25-100 MG tabletIndication s:Idiopathic Parkinson's disease (HCC) Take 1 (one) tablet by mouth 3 times daily 270 tablet 3 03/19/2024 Active pramipexole (Mirapex) 0.125 MG tabletIndication s:Idiopathic Parkinson's disease (HCC) Take 1 (one) tablet by mouth 3 times daily 270 tablet 3 04/16/2024 04/16/2025 Active Active Problems Problem Noted Date Diagnosed Date Memory loss 12/10/2021 Hyperlipidemia 01/09/2021 Acquired hammer toe of right foot 10/29/2020 Overview (10/05/2023): Added automatically from request for surgery [id number] 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 Overview (10/05/2023): Added automatically from request for surgery [id number] Persistent proteinuria 07/12/2018 Systolic hypertension 07/12/2018 Encounters Date Type Department Care Team Description 05/01/2024 Travel 04/16/2024 Orders Only [facility] - Neurology [address] [place] [address], [place] [address] Pat Glover APRN-CNP Idiopathic Parkinson's disease 04/13/2024 Telephone [facility] - Neurology [address] [place] [address], [place] [address] Pat Glover APRN-CNP Medication Issue (Pt is requesting a call back regarding carbidopa-levodopa (Sinemet) 25-100 MG tablet, stated the medication isn't working and would like it to be increased./Next ov:25) 03/19/2024 Refill [facility] - Neurology [address] [place] [address], [place] [address] Pat Glover APRN-CNP MEDICATION REFILL from Last 3 Months Immunizations Name Administration [...] Comments Blood Pressure 151/83 02/06/2024 9:54 AM GSE MECHANIC Pulse 91 02/06/2024 9:54 AM GSE MECHANIC Temperature 36.5 C (97.7 F) 03/09/2014 3:16 PM GSE MECHANIC Respiratory Rate 14 03/09/2014 3:16 PM GSE MECHANIC Oxygen Saturation 97% 02/06/2024 9:54 AM GSE MECHANIC Inhaled Oxygen Concentration - - Weight 104.3 kg (230 lb) 02/06/2024 9:54 AM GSE MECHANIC Height 180.3 cm (5' 11 ) 10/05/2023 10:34 AM CDT Body Mass Index 32.08 10/05/2023 10:34 AM CDT Plan of Treatment Upcoming Encounters Date Type Department Care Team (Late st Contact Info) Description 06/20/2024 2:00 PM CDT Office Visit [facility] - [facility]rology [address] [place] [id number] Mike Carey MD [address] [place] [address] 08/06/2024 11:00 AM CDT Office Visit [facility] - Neurology [address] [place] [address] Pat Glover APRN-SUPERVISOR [employer] [address] [place] [address] Health Maintenance Due Date Last Done Comments [...] 60-74 years 1-dose series) 2011 COVID-19 VACCINE ( - 2023-2 5 season) 2023 INFLUENZA VACCINE (#1) 2023 12/17/2020 DEPRESSION SCREENING 02/15/2024 HEPATITIS B VACCINE Aged Out No longe r eligible based on patient's age to complete this topic HIB VACCINE Aged Out No longer eligi ble based on patient's age to complete this topic HPV VACCINE Aged Out No longer eligi ble based on patient's age to complete this topic MENINGOCOCCAL (Group B) VACC INE SHARED DECISION-MAKING Aged Out No longer eligibl e based on patient's age to complete this topic MENINGOCOCCAL GROUPS A/C/Y/W VACCINE Aged Out No longer eligible b ased on patient's age to complete this topic Care Teams Tick Eradicator Relationship Specialty Start Date End Date Nilesh Abdul DO PCP - General 03/09/14
--- OUTSIDE RECORDS SUMMARY | 2024-05-12 14:06 | XMS_ITS | Continuity of Care Document ---
Author Organization [facility] Address [address] [place] [address] Phone Care Team Providers Care Nematology Teacher Name Role Phone No Information Unavailable Unavailable Medications Medication Instructions Dosage Effective Dates (start - stop) Status Comments No Drug Therapy Prescribed Advance Directives Directive Yes / No Effective Date File Name No Information Encounters Encounter Description Practice Location Reason(s) For Visit Diagnoses Date Provider Providers Copied on Encounter [facility], [address] [place] [address], [address], [place] tel:[phone] No Information No Information Family History Family [...]
--- OUTSIDE RECORDS SUMMARY | 2024-05-12 14:06 | XMS_ITS | Continuity of Care Document ---
Author Organization [facility] Address [address] [place] [address] [place] [address] Phone Care Team Providers Care Refinery Operator Assistant Name Role Phone [facility] Unavailable Unavail able Cliff Lubin Unavailable Unavailable Procedures Procedure Date SV Plastic Sphcyl [place] +/-4d, .12-2d Ju Tint Photochromatic, Plastic Eye Exam & Treatment Refraction Office/outpatient Visit, Est Office/outpatient Visit, Est Office/outpatient Visit, Est Office/outpatient Visit, Est Advance Directives Directive Yes / No Effective Date File Name No Information Encounters Encounter Description Practice Location Reason(s) For Visit Diagnoses Date Provider Providers Copied on Encounter [facility], [address] [place], [place] [address] [address], [place], [place], [id number], [place] tel:[phone] SEC [facility] No Information 0 [facility] . [address] [place] [address], [facility] [address], [place], [address], [place]. tel:[phone] Referring Provider: Leeann Valente, [address] [place] [address] [address], [place], [address]. tel:[phone] bermeo Provider: Cliff Lubin, [address] [place] [address], [place], [address]. tel:[phone] [facility], [address] [place] [address] [address], [place], [place], [address], [place] tel:[phone] [facility] [place] No Information 0-201 0 Yamilet Lugo [address] , [address], [place], [place], [facility], . tel:[phone] Office/outpat ient Visit, [facility], [address] [place] [address] [address], [place], [place], [address], tel:[phone] [facility] [place] No Information 1200 9 Yamilet Lugo [address] , [address], [place], [facility], . tel:[phone] Office/outpat ient Visit, [facility], [address] [place] [address] [address], [place], [place], [address], tel:[phone] [facility] [place] No Information 9-200 8 Yamilet Bradshaw. [address] , [address], [place], [place], [facility], . tel:[phone] Office/outpat ient Visit, [facility], [address] [place] [address] [address], [place], [place], [address], [place] tel:[phone] SEC [facility] No Information 200 7 Yamilet Lugo [address] , [address], [place], [place], [facility], [place]. tel:[phone] Office/outpat ient Visit, [facility], [address] [place] [address] [address], [place], [place], [address], [place] tel:[phone] [facility] [place] No Information 200 7 Yamilet Lugo [address] , [address], [place], [facility], . tel:[phone] Family History Family Member Type Diagnosis Age At Onset No Information Payers Payer name Insurance type Covered libertarian ID Authoriza tion(s) VSP CI [id number] Social [...]
--- OUTSIDE RECORDS SUMMARY | 2024-05-12 14:06 | XMS_ITS | Encounter Summary ---
Author Organization [facility] Address [address] [place] [address] Care Team Providers Care Stock Or Delivery Clerk Name Role Phone Unavailable Primary Care Provider Unavailabl e Encounter Details Date Type Department Care Team (Latest Contact Info) Description 12/20/2017 Abstract [facility] , Generic Conversion, Social [...]
--- OUTSIDE RECORDS SUMMARY | 2024-05-12 14:06 | XMS_ITS | Clinical Summary ---
Author Organization [facility] Address [address] [place] [address] Care Team Providers Care Metal Checker Name Role Phone Unavailable Primary Care Provider [...] Comments Blood Pressure 150/80 03/05/2013 8:55 AM CAPTURE MANAGER Pulse - - Temperature - - Respiratory Rate - - Oxygen Saturation - - Inhaled Oxygen Concentration - - Weight 121.6 kg (268 lb) 03/05/2013 8:55 AM CAPTURE MANAGER Height 180.3 cm (5' 11 ) 06/08/2012 [...]
--- OUTSIDE RECORDS SUMMARY | 2024-05-12 14:06 | XMS_ITS | Encounter Summary ---
Author Organization [facility] Address [address] [facility] [place] [address] Care Team Providers Care Advertising Sales Consultant Name Role Phone Nilesh Abdul DO Primary Care Provider Encounter Details Date Type Department Care Team (Late st Contact Info) Description 10/27/2023 Refill [facility] - [facility]rology [address] [place] [address], [place] [address] Pat Glover APRN-ORGANIZATIONAL DEVELOPMENT SPECIALIST [address] [place] [address] [place] [id number] Social History Tobacco Use Types Packs/Day Years [...] and would like a phone call back [phone] documented in this encounter Plan of Treatment Upcoming Encounters Date Type Department Care Team (Late st Contact Info) Description 06/20/2024 2:00 PM CDT Office Visit [facility] - [facility]rology [address] [place] [address] Mike Carey MD [address] [facility] 2L [place] [address] 08/06/2024 11:00 AM CDT Office Visit [facility] - Neurology [address] [facility], [place] [address] Pat Glover APRN-YADIEL [address] [place] [address] 1L [place] [address] documented as of this encounter Visit Diagnoses Diagnosis Idiopathic Parkinson's disease (HCC) Paralysis agitans documented in this encounter Care Teams Advertising Sales Consultant Relationship Specialty Start Date End Date Nilesh Abdul DO PCP - General 03/09/14 documented as of this encounter
--- OUTSIDE RECORDS SUMMARY | 2024-05-12 14:06 | XMS_ITS | Clinical Summary ---
Author Organization [facility] Address [address] [place] [address] Phone Care Team Providers Care Electronic Development Technician Name Role Phone UrsulademetrioNilesh rivas Primary Care Provider Allergies No known active allergies Medications Medication [...] Risk (1 of 4 - PCV) 11/10/1957 Pneumococcal PPSV23/PCV13 65 + Years / Low and Medium Risk (1 of 4 - PCV) 11/10/2016 Influenza Vaccine (#1) 2023 12/17/2020 Care Teams Electronic Development Technician Relationship Specialty Start Date End Date Nilesh Abdul DO [address] [place] [address] PCP - General Internal Medicine 07/12/18
--- OUTSIDE RECORDS SUMMARY | 2024-05-12 14:06 | XMS_ITS | Referral Summary ---
Author Organization [facility] Address [address] [place] [address] Care Team Providers Care Film Rental Clerk Name Role Phone Nilesh Abdul DO Primary Care Provider [phone] Nell Mark DPM Unavailable [phone] Encounters Date Type Department Care Team Description 04/05/2024 1:00 PM BRAKE REPAIRER BUS Office Visit [facility] [address] [place] [address] 6th Floor [address] [place] [address] Pam Richards NP 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) from Last 3 Months Allergies No known active allergies Medications omega 0-ffm-ved-fish oil 1,000 mg (120 mg-180 mg) capsule Active lisinopriL (PRINIVIL,ZESTR IL) 40 mg tablet Take 1 tablet (40 [...] mouth nightly Active Jardiance 25 mg tablet 3 Active primidone (MYSOLINE) 50 mg tablet Take 2 tablets (100 mg total) by mouth 3 (three) times a day Take 100 mg in the morning, afternoon, and evening 3 Active acetaminophen (ARTHRITIS PAIN RELIEF, ACETAM, ORAL) Take 650 mg by mouth 2 (two) times a day Active omeprazole (PriLOSEC) 10 mg capsule 3 Active omega-3 fatty acids (LOVAZA) 1 gram capsule 3 Active Sure Comfort Pen Needle 32 gauge x needle 3 Active Trulicity 4.5 mg/0.5 mL pen injector 3 Active glimepiride (AMARYL) 2 mg tabletIndicatio ns:type 2 diabetes mellitus Take 1 tablet (2 mg total) by mouth 2 (two) times a day before breakfast and dinner 4 Active donepeziL (ARICEPT) 10 mg tablet TAKE 1 TABLET DAILY AFTER BREAKFAST 90 tablet 3 5 Active amoxicillin 500 mg capsule TAKE 4 CAPSULES BY MOUTH 1 HOUR PRIOR TO DENTAL APPOINTMENT 4 Active carbidopa-levod opa (SINEMET) 25-100 mg per tablet Take 1 tablet by mouth 3 (three) times a day Active cholecalciferol 25 mcg (1,000 unit) tablet Take 1 tablet (1,000 Units total) by mouth 2 (two) times a day Active rosuvastatin (CRESTOR) 40 mg tablet Take 1 tablet (40 mg total) by mouth daily 3 Active LANTUS 100 unit/mL (3 mL) pen for injection 4 Active Active Problems Problem Noted Date Diagnosed Date Mixed Alzheimer's and vascular dementia 04/05/19 25 Overview (04/05/2024): - onset 2020 - MRI he did have 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 - positive amyloid PET - continue donepezil/Aricept - brain MRI: no MCH or siderosis, Small lacunar infarcts in the bilateral thalami and left external capsule -- DIAMANTE Scan at [facility], followed by Movement Disorders for tremor Findings: Uptake in the striatum appears as follows: Left caudate nucleus head: Mildly reduced Right caudate nucleus head: Normal Left putamen: Mildly reduced Right putamen: Severely reduced Abnormal DaTscan study, finding supportive of parkinsonian syndromes Memory loss 12/10/2021 Acquired hammer toe of right foot 10/29/2020 Overview (10/29/2020): Added automatically from request for surgery [id number] 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 Overview (10/29/2020): Added automatically from request for surgery [id number] Social History Tobacco Use Types Packs/Day Years [...] on file Legal Sex Male 7:46 PM BRAKE REPAIRER BUS Gender Identity Not on file Sexual Orientation Not on file Last Filed Vital Signs Vital Sign Reading Time Taken Comments Blood Pressure 141/83 04/05/2024 12:15 PM BRAKE REPAIRER BUS Pulse 84 04/05/2024 12:15 PM BRAKE REPAIRER BUS Temperature 36.4 C (97.5 F) 04/05/2024 12:15 PM BRAKE REPAIRER BUS Respiratory Rate 20 11/21/2020 2:49 PM CDT Oxygen Saturation 99% 04/05/2024 12:15 PM BRAKE REPAIRER BUS Inhaled Oxygen Concentration - - Weight 107.7 kg (237 lb 8 oz) 04/05/2024 12:15 P M BRAKE REPAIRER BUS Height 180.3 cm (5' 11 ) 04/05/2024 12:15 PM BRAKE REPAIRER BUS Body Mass Index 33.12 04/05/2024 12:15 PM BRAKE REPAIRER BUS Plan of Treatment Not on file Insurance [employer] MEDICARE RAILROAD FOR LIFE [facility] FOR LIFE MEDICARE RAILROAD Care Teams Film Rental Clerk Relationship Specialty Start Date End Date Nilesh Abdul DO PCP - General 08/19/20 Nell Mark DPM [address] [place] [address] Consulting Physician Foot and Ankle Surg 11/21/20
--- OUTSIDE RECORDS SUMMARY | 2024-05-12 14:06 | XMS_ITS | Clinical Summary ---
Author Organization [facility] Address [address] [place] [address] Care Team Providers Care Sustainability Officer Name Role Phone Nilesh Abdul DO Primary Care Provider [phone] Nell Mark DPM Unavailable [phone] Allergies No known active allergies Medications omega 5-xrq-kmt-fish oil 1,000 mg (120 mg-180 mg) capsule [...] Pen Needle 32 gauge x 5/32 needle 3 Active Trulicity 4.5 mg/0.5 mL [...] left external capsule - DIAMANTE Scan at [facility], followed by Movement Disorders for tremor Findings: Uptake in the striatum appears as follows: Left caudate nucleus head: Mildly reduced Right caudate nucleus head: Normal Left putamen: Mildly reduced Right putamen: Severely reduced Abnormal DaTscan study, finding supportive of parkinsonian syndromes. 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 - positive amyloid PET - continue donepezil/Aricept - brain MRI: no MCH or siderosis, Small lacunar infarcts in the bilateral thalami and left external capsule -- DIAMANTE Scan at [facility], followed by Movement Disorders for tremor Findings: Uptake in the striatum appears as follows: Left caudate nucleus head: Mildly reduced Right caudate nucleus head: Normal Left putamen: Mildly reduced Right putamen: Severely reduced Abnormal DaTscan study, finding supportive of parkinsonian syndromes Memory loss 12/10/2021 Acquired hammer toe of right foot 10/29/2020 Overview (10/29/2020): Added automatically from request for surgery [id number] 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 Overview (10/29/2020): Added automatically from request for surgery [id number] Encounters Date Type Department Care Team Description 04/05/2024 1:00 PM VIBRATION ENGINEER Office Visit [facility] [address] [place] [address] 6th Floor [address] [place] [address] Richards, Pam Obrien NP 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) from Last 3 Months Surgical History Surgery Date Site/Laterality Comments VASECTOMY [...] on file Legal Sex Male 7:46 PM VIBRATION ENGINEER Gender Identity Not on file Sexual Orientation Not on file Obstetrics History Last Filed Vital Signs Vital Sign Reading Time Taken Comments Blood Pressure 141/83 04/05/2024 12:15 PM VIBRATION ENGINEER Pulse 84 04/05/2024 12:15 PM VIBRATION ENGINEER Temperature 36.4 C (97.5 F) 04/05/2024 12:15 PM VIBRATION ENGINEER Respiratory Rate 20 11/21/2020 2:49 PM CDT Oxygen Saturation 99% 04/05/2024 12:15 PM VIBRATION ENGINEER Inhaled Oxygen Concentration - - Weight 107.7 kg (237 lb 8 oz) 04/05/2024 12:15 P M VIBRATION ENGINEER Height 180.3 cm (5' 11 ) 04/05/2024 12:15 PM VIBRATION ENGINEER Body Mass Index 33.12 04/05/2024 12:15 PM VIBRATION ENGINEER Plan of Treatment Health Maintenance Due Date Last Done Comments Colon Cancer Screening-Colonoscopy 1950 Depression Screening 1950 Fall Risk Assessment 1950 Hepatitis C Screening 1950 DTaP/Tdap/Td Vaccine (1 - Tdap) 11/10/1962 Hepatitis B Screening 11/10/1969 Pneumococcal vaccine 65+ (1 of 1 - PCV) 11/10/2001 Zoster Vaccine (1 of 2) 11/10/2001 Abdominal Aortic Aneurysm (AAA) Screen 11/10/2016 Well Visit 65+ 11/10/2016 Influenza Vaccine (#1) 2023 12/17/2020 Insurance MEDICARE RAILROAD [facility] Address: [facility] [address] [place] [address] [employer] MEDICARE RAILROAD FOR LIFE [facility] DEPARTMENT FOR LIFE [facility] Address: [address] [place] [address] MEDICARE RAILROAD Care Teams Sustainability Officer Relationship Specialty Start Date End Date Nilesh Abdul DO PCP - General 08/19/20 Nell Mark DPM [address] [place] [address] Consulting Physician Foot and Ankle Surg 11/21/20
--- OUTSIDE RECORDS SUMMARY | 2024-05-12 14:06 | XMS_ITS | Encounter Summary ---
Author Organization [facility] Address [address] [place] [address] Phone Care Team Providers Care Brand Strategy Manager Name Role Phone Nilesh Abdul DO Primary Care Provider [phone]- [phone] Nell Mark DPM Unavailable [phone] Encounter Details Date Type Department Care Team (Late st Contact Info) Description 01/13/2022 Imaging Exam [facility] [address] [facility] Advanced Medicine 6th [place] [address] [place] [address] Oumar Cerda MD [address] [place] [address] Social History Tobacco Use Types Packs/Day Years Used Date Smoking Tobacco: Former AUDIT-C Answer Date Recorded Q1: How often do you have a drink containing alc ohol? Never 11/18/2020 Average Number of Drinks Not on file 021 Frequency of Binge Drinking Not on file 06/2020 Sex and Gender Information Value Date Recorded Sex Assigned at Not on file Legal Sex Male 7:46 PM SENIOR UX DESIGNER Gender Identity Not on file Sexual Orientation Not on file documented as of this encounter Plan of Treatment Not on file documented as of this encounter Visit Diagnoses Not on filedocumented in this encounter Care Teams Brand Strategy Manager Relationship Specialty Start Date End Date Nilesh Abdul DO PCP - General 08/19/20 Nell Mark DPM [address] [place] [address] Consulting Physician Foot and Ankle Surg 11/21/20 documented as of this encounter
[2024-05-12 14:07] VITALS: BP 100/60; PULSE 99; RESP 16; TEMP 36.3; O2SAT 95
[2024-05-12 15:04] VITALS: BP 110/74; PULSE 83
[2024-05-12 15:05] VITALS: BP 113/71; BP 113/75; PULSE 91; PULSE 95
--- OUTSIDE RECORDS SUMMARY | 2024-05-12 15:25 | XMS_ITS | Clinical Summary ---
Author Organization [facility] Address [address] [place] [address] Care Team Providers Care Health Nurse Name Role Phone Unavailable Primary Care Provider [...] Comments Blood Pressure 150/80 03/05/2013 8:55 AM SWITCH INSPECTOR Pulse - - Temperature - - Respiratory Rate - - Oxygen Saturation - - Inhaled Oxygen Concentration - - Weight 121.6 kg (268 lb) 03/05/2013 8:55 AM SWITCH INSPECTOR Height 180.3 cm (5' 11 ) 06/08/2012 [...]
--- OUTSIDE RECORDS SUMMARY | 2024-05-12 15:25 | XMS_ITS | Clinical Summary ---
Author Organization [facility] Address [address] [place] [address] Care Team Providers Care Spa Coordinator Name Role Phone Nilesh Abdul DO Primary Care Provider [phone] Source Comments [facility],non-owned Affiliates and Associated Physician Practices is [facility] organization consisting of ambulatory clinics and hospital sitesin [place], [place], [place] and [place]. This disclosure is being madepursuant to the Care Everywhere program and may not contain all information available regarding this patient. Last updated 17.[facility] Allergies No known active allergies Medications * Be aware that medications may not be up to date on this document. Alwaysverify current medications with the patient. 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 Overview (10/05/2023): Added automatically from request for surgery [id number] Persistent proteinuria 07/12/2018 Systolic hypertension 07/12/2018 Encounters Date Type Department Care Team Description 05/01/2024 Travel 04/16/2024 Orders Only [facility] - Neurology [address] [place] [address], [place] [address] Pat Glover APRN-CNP Idiopathic Parkinson's disease 04/13/2024 Telephone [facility] [address] [place] [address], [place] [address] Pat Glover APRN-CNP Medication Issue (Pt is requesting a call back regarding carbidopa-levodopa (Sinemet) 25-100 MG tablet, stated the medication isn't working and would like it to be increased./Next ov:25) 03/19/2024 Refill [facility] - Neurology [address] [place] [address], [place] [address] Pat Glover APRN-CNP MEDICATION REFILL from Last [...] Comments Blood Pressure 151/83 02/06/2024 9:54 AM MIXING ENGINEER Pulse 91 02/06/2024 9:54 AM MIXING ENGINEER Temperature 36.5 C (97.7 F) 03/09/2014 3:16 PM MIXING ENGINEER Respiratory Rate 14 03/09/2014 3:16 PM MIXING ENGINEER Oxygen Saturation 97% 02/06/2024 9:54 AM MIXING ENGINEER Inhaled Oxygen Concentration - - Weight 104.3 kg (230 lb) 02/06/2024 9:54 AM MIXING ENGINEER Height 180.3 cm (5' 11 ) 10/05/2023 10:34 AM CDT Body Mass Index 32.08 10/05/2023 10:34 AM CDT Plan of Treatment Upcoming Encounters Date Type Department Care Team (Late st Contact Info) Description 06/20/2024 2:00 PM CDT Office Visit [facility] - [facility] [address] [place] [phone] Mike Carey MD [address] 2L [place] [address] 08/06/2024 11:00 AM CDT Office Visit [facility] - [facility] [address] [place] [address] Pat Glover APRN-CAMERA ASSEMBLER [address] 1L [place] [address] Health Maintenance Due Date Last Done Comments [...] age to complete this topic Care Teams Spa Coordinator Relationship Specialty Start Date End Date Nilesh Abdul DO PCP - General 03/09/14
--- OUTSIDE RECORDS SUMMARY | 2024-05-12 15:25 | XMS_ITS | Referral Summary ---
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 - positive amyloid PET - continue donepezil/Aricept - brain MRI: no MCH or siderosis, Small lacunar infarcts in the bilateral thalami and left external capsule -- DIAMANTE Scan at [facility], followed by Movement Disorders for tremor Findings: Uptake in the striatum appears as follows: Left caudate nucleus head: Mildly reduced Right caudate nucleus head: Normal Left putamen: Mildly reduced Right putamen: Severely reduced Abnormal DaTscan study, finding supportive of parkinsonian syndromes Memory loss 12/10/2021 Acquired hammer toe of right foot 10/29/2020 Overview (10/29/2020): Added automatically from request for surgery [id number] 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 Overview (10/29/2020): Added automatically from request for surgery [id number] Social History Tobacco Use Types Packs/Day Years [...] on file Legal Sex Male 7:46 PM RN MED SURG Gender Identity Not on file Sexual Orientation Not on file Last Filed Vital Signs Vital Sign Reading Time Taken Comments Blood Pressure 141/83 04/05/2024 12:15 PM RN MED SURG Pulse 84 04/05/2024 12:15 PM RN MED SURG Temperature 36.4 C (97.5 F) 04/05/2024 12:15 PM RN MED SURG Respiratory Rate 20 11/21/2020 2:49 PM CDT Oxygen Saturation 99% 04/05/2024 12:15 PM RN MED SURG Inhaled Oxygen Concentration - - Weight 107.7 kg (237 lb 8 oz) 04/05/2024 12:15 P M RN MED SURG Height 180.3 cm (5' 11 ) 04/05/2024 12:15 PM RN MED SURG Body Mass Index 33.12 04/05/2024 12:15 PM RN MED SURG Plan of Treatment Not on file Insurance [employer] MEDICARE RAILROAD FOR LIFE [facility] FOR LIFE MEDICARE RAILROAD Care Teams Vacuum Form Operator Relationship Specialty Start Date End Date Nilesh Abdul DO PCP - General 08/19/20 Nell Mark DPM [address] [place] [address] Consulting Physician Foot and Ankle Surg 11/21/20
--- OUTSIDE RECORDS SUMMARY | 2024-05-12 15:25 | XMS_ITS | Clinical Summary ---
Author Organization [facility] Address [address] [place] [address] Phone Care Team Providers Care Broth Mixer Name Role Phone UrsulademetrioNilesh rivas Primary Care Provider [phone] Allergies No known active allergies Medications Medication [...] Influenza Vaccine (#1) 2023 12/17/2020 Care Teams Broth Mixer Relationship Specialty Start Date End Date Nilesh Abdul DO [address] [place] [address] PCP - General Internal Medicine 07/12/18
--- OUTSIDE RECORDS SUMMARY | 2024-05-12 15:25 | XMS_ITS | Clinical Summary ---
Author Organization [facility] Address [address] [place] [address] Care Team Providers Care Facilities Administrator Name Role Phone Nilesh Abdul DO Primary Care Provider [phone] Nell Mark DPM Unavailable [phone] Allergies No known active allergies Medications omega 0-jwp-wch-fish oil 1,000 mg (120 mg-180 mg) capsule [...] left external capsule - DIAMANTE Scan at [facility], followed by Movement Disorders for tremor Findings: Uptake in the striatum appears as follows: Left caudate nucleus head: Mildly reduced Right caudate nucleus head: Normal Left putamen: Mildly reduced Right putamen: Severely reduced Abnormal DaTscan study, finding supportive of parkinsonian syndromes. 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 - positive amyloid PET - continue donepezil/Aricept - brain MRI: no MCH or siderosis, Small lacunar infarcts in the bilateral thalami and left external capsule -- DIAMANTE Scan at [facility], followed by Movement Disorders for tremor Findings: Uptake in the striatum appears as follows: Left caudate nucleus head: Mildly reduced Right caudate nucleus head: Normal Left putamen: Mildly reduced Right putamen: Severely reduced Abnormal DaTscan study, finding supportive of parkinsonian syndromes Memory loss 12/10/2021 Acquired hammer toe of right foot 10/29/2020 Overview (10/29/2020): Added automatically from request for surgery [id number] 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 Overview (10/29/2020): Added automatically from request for surgery [id number] Encounters Date Type Department Care Team Description 04/05/2024 1:00 PM GRAIN FARMER Office Visit [facility] [address] [place] [address] 6th Floor [address] [place] [address] Richards, Pam Obrien NP Mixed Alzheimer's and [...] on file Legal Sex Male 7:46 PM GRAIN FARMER Gender Identity Not on file Sexual Orientation Not on file Obstetrics History Last Filed Vital Signs Vital Sign Reading Time Taken Comments Blood Pressure 141/83 04/05/2024 12:15 PM GRAIN FARMER Pulse 84 04/05/2024 12:15 PM GRAIN FARMER Temperature 36.4 C (97.5 F) 04/05/2024 12:15 PM GRAIN FARMER Respiratory Rate 20 11/21/2020 2:49 PM CDT Oxygen Saturation 99% 04/05/2024 12:15 PM GRAIN FARMER Inhaled Oxygen Concentration - - Weight 107.7 kg (237 lb 8 oz) 04/05/2024 12:15 P M GRAIN FARMER Height 180.3 cm (5' 11 ) 04/05/2024 12:15 PM GRAIN FARMER Body Mass Index 33.12 04/05/2024 12:15 PM GRAIN FARMER Plan of Treatment Health Maintenance Due Date [...] Vaccine (#1) 2023 12/17/2020 Insurance MEDICARE RAILROAD [facility] Address: [facility] [address] [place] [address] [employer] MEDICARE RAILROAD FOR LIFE [facility] INCLUDES [facility] FOR LIFE MEDICARE RAILROAD Care Teams Facilities Administrator Relationship Specialty Start Date End Date Nilesh Abdul DO PCP - General 08/19/20 Nell Mark DPM [address] [place] [address] Consulting Physician Foot and Ankle Surg 11/21/20
--- OUTSIDE RECORDS SUMMARY | 2024-05-12 15:25 | XMS_ITS | Continuity of Care Document ---
Author Organization [facility] Address [address] [place] [address] Phone Care Team Providers Care Business Objects Report Developer Name Role Phone No Information Unavailable Unavailable Medications Medication Instructions Dosage Effective Dates (start - stop) Status Comments No Drug Therapy Prescribed Advance Directives Directive Yes / No Effective Date File Name No Information Encounters Encounter Description Practice Location Reason(s) For Visit Diagnoses Date Provider Providers Copied on Encounter [facility], [address] [place] [address], [address], [place] tel:[phone] No Information No Information Family History Family Member Type Diagnosis Age At Onset No Information Payers Payer name Insurance type Covered green party ID Authoriza tion(s) No Information Social [...]
--- OUTSIDE RECORDS SUMMARY | 2024-05-12 15:25 | XMS_ITS | Encounter Summary ---
Author Organization [facility] Address [address] [place] [address] Care Team Providers Care Cma Name Role Phone Unavailable Primary Care Provider Unavailabl e Encounter Details Date Type Department Care Team (Latest Contact Info) Description 12/20/2017 Abstract [facility] , Generic Conversion, Social [...]
--- OUTSIDE RECORDS SUMMARY | 2024-05-12 15:25 | XMS_ITS | Encounter Summary ---
Author Organization [facility] Address [address] [place] [address] Phone Care Team Providers Care Lock Expert Name Role Phone Nilesh Abdul DO Primary Care Provider [phone] Nell Mark DPM Unavailable [phone] Encounter Details Date Type Department Care Team (Late st Contact Info) Description 01/13/2022 Imaging Exam [facility] [address] [facility] Advanced Medicine 6th [place] [address] [place] [address] Oumar Cerda MD [address] [place] [address] Social History Tobacco Use Types Packs/Day Years Used Date Smoking Tobacco: Former AUDIT-C Answer Date Recorded Q1: How often do you have a drink containing alc ohol? Never 11/18/2020 Average Number of Drinks Not on file 021 Frequency of Binge Drinking Not on file 06/2020 Sex and Gender Information Value Date Recorded Sex Assigned at Not on file Legal Sex Male 7:46 PM PUBLIC SPEAKING INSTRUCTOR Gender Identity Not on file Sexual Orientation Not on file documented as of this encounter Plan of Treatment Not on file documented as of this encounter Visit Diagnoses Not on filedocumented in this encounter Care Teams Lock Expert Relationship Specialty Start Date End Date Nilesh Abdul DO PCP - General 08/19/20 Nell Mark DPM [address] [place] [address] Consulting Physician Foot and Ankle Surg 11/21/20 documented as of this encounter
--- OUTSIDE RECORDS SUMMARY | 2024-05-12 15:25 | XMS_ITS | Encounter Summary ---
Author Organization [facility] Address [address] [place] [place] [address] Care Team Providers Care Aircraft Mechanic Armament Name Role Phone Nilesh Abdul DO Primary Care Provider Encounter Details Date Type Department Care Team (Late st Contact Info) Description 10/27/2023 Refill [facility] - Neurology [address] [place] [address], [place] [id number] Pat Glover APRN-TIN TIE MACHINE OPERATOR AUTOMATIC [address] [place] [address] [place] [address] Social History Tobacco Use Types Packs/Day Years [...] and would like a phone call back [phone] documented in this encounter Plan of Treatment Upcoming Encounters Date Type Department Care Team (Late st Contact Info) Description 06/20/2024 2:00 PM CDT Office Visit [facility] - Urology [address] [place] [address] Mike Carey MD [address] [facility] 2L [place] [address] 08/06/2024 11:00 AM CDT Office Visit [facility] - Neurology [address] [facility], [place] [address] Pat Glover APRN-YADIEL [address] [place] [address] 1L [place] [address] documented as of this encounter Visit Diagnoses Diagnosis Idiopathic Parkinson's disease (HCC) Paralysis agitans documented in this encounter Care Teams Aircraft Mechanic Armament Relationship Specialty Start Date End Date Nilesh Abdul DO PCP - General 03/09/14 documented as of this encounter
--- OUTSIDE RECORDS SUMMARY | 2024-05-12 15:25 | XMS_ITS | CONTINUITY OF CARE DOCUMENT ---
Author Name marcusmigdalia marcusmigdalia Address Unknown Organization [facility] Address [id number] [place] [address] [address] [place] [address] Phone [phone] Care Team Providers Care Canvassing Manager Name Role Phone Arik Gutiérrez MD Unavailable ASHLEY CHAN DPM Unavailable [phone] ALICIA NEWTON DO Unavailable PROBLEMS Condition Status Date Provider Notes presurgery evaluation active Aleksandra Franck Hypercholesterolemia active Aleksandra Juárez Hypertension active Aleksandra Juárez Abnormal electrocardiogram active Aleksandra tsai Diabetes, Type 2 active Arik Gutiérrez MD Hyperlipidemia active ? Arik Gutiérrez MD ENCOUNTERS Date Type Provider Location Encounter Diagnosis - In-person encounter Office Visit Arik Gutiérrez MD [facility] Diabetes, Type 2Hyperlipidemia VITAL SIGNS Date Observation Value Provider blood pressure, diastolic 74 mm[Hg] Ny pepe Stringer blood pressure, systolic 149 mm[Hg] [...] Payer name Policy type / Coverage type [place] red green party ID LANDON BAER [id number] TREATMENT PLAN Date Name Performer Cardiology Arik Gutiérrez MD Cardiology Arik Gutiérrez MD Cardiology:LVH with repolarization abnormalities. S tress test shows small inferior defect. Probable false positive as patient asymptomatic and has normal ECHO. W ill clear for surgery, cath not needed at this time. Arik Gutiérrez MD HISTORY OF PROCEDURES Procedure Date Procedure Name Provider Procedure Notes S tatus SNOMED-CT: 28882473 Physical Exam, Performed: Pulse Exam of Foot Arik Gutiérrez MD completed SNOMED-CT: [id number] Current Medications Documented Arik Gutiérrez MD completed Stress EKG Iam Lee MD completed Regadenoson, 4 units Arik Gutiérrez MD completed Cardiolite, 2 units Arik Gutiérrez MD completed SPECT Images Gianni Gilbert MD compl eted
--- OUTSIDE RECORDS SUMMARY | 2024-05-12 15:25 | XMS_ITS | Continuity of Care Document ---
Author Organization [facility] Address [address] [place] [address] [place] [address] Phone Care Team Providers Care Slab Stripper Name Role Phone [facility] Unavailable Unavail able Cliff Lubin Unavailable Unavailable Procedures Procedure Date SV Plastic Sphcyl [place] +/-4d, .12-2d Ju Tint Photochromatic, Plastic Eye Exam & Treatment Refraction Office/outpatient Visit, Est Office/outpatient Visit, Est Office/outpatient Visit, Est Office/outpatient Visit, Est Advance Directives Directive Yes / No Effective Date File Name No Information Encounters Encounter Description Practice Location Reason(s) For Visit Diagnoses Date Provider Providers Copied on Encounter [facility], [address] [place], [place] [address], [place], [place], [id number], [place] tel:[phone] [facility] No Information 0 [facility] . [address] [place] [address], [facility] [address], [place], [id number], [place]. tel:[phone] Referring Provider: Leeann Valente, [address] [place] [address] [address], [place], [address]. tel:[phone] bermeo Provider: Cliff Lubin, [address] [place] [address], [place], [address]. tel:[phone] [facility], [address] [place] [address] [address], [place], [place], [id number], [place] tel:[phone] [facility] No Information [phone] 0 Yamilet Lugo [address] , [address], [place], [place], [facility], . tel:[phone] Office/outpat ient Visit, [facility], [address] [place] [address] [address], [place], [place], [id number], tel:[phone] [facility] [place] [facility] No Information 1200 9 Yamilet Lugo [address] [facility] , [address], [place], [place], [facility], . tel:[phone] Office/outpat ient Visit, [facility], [address] [place] [address] [address], [place], [place], [id number], tel:[phone] [facility] [place] [facility] No Information [phone] 8 Yamilet Bradshaw. [address] [facility] , [address], [place], [place], [facility], . tel:[phone] Office/outpat ient Visit, [facility], [address] [place] [address] [address], [place], [place], [id number], [place] tel:[phone] SEC [facility] No Information 200 7 Yamilet Lugo [address] [facility] , [address], [place], [place], [facility], [place]. tel:[phone] Office/outpat ient Visit, [facility], [address] [place] [address] [address], [place], [place], [id number], [place] tel:[phone] [facility] [place] [facility] No Information 200 7 Yamilet Lugo [address] , [address], [place], [place], [facility], . tel:[phone] Family History Family Member Type Diagnosis Age At Onset No Information Payers Payer name Insurance type Covered green party ID Authoriza tion(s) VSP [id number] [...]
--- NOTE | 2024-05-12 15:27 | ECG_ITS ---
Test Date: 2024-05-12 15:41:57 Measurements Intervals [place] Rate: 81 P: 24 MA: 181 QRS: -12 QRSD: 116 T: 16 QT: 359 QTc: 418 Interpretive Statements SINUS RHYTHM MODERATE INTRAVENTRICULAR CONDUCTION DELAY [110+ ms QRS DURATION] MODERATE VOLTAGE CRITERIA FOR LVH, CONSIDER NORMAL VARIANT [MEETS CRITERIA IN ONE OF: R(aVL), S(V1), R(V5), R(V5/V6)+S(V1)] NONSPECIFIC T-WAVE ABNORMALITY ABNORMAL ECG No previous ECG available for comparison Electronically Signed On 05-12-2024 15:44:57 CDT by Doyle Yousif M.D.
[2024-05-12 15:54] LABS: Basophils Absolute Auto 0.1 K/mm3 (0.0-0.1); Basophils Percent Auto 0.8 % (0.2-1.2); Eosinophils Absolute Auto 0.2 K/mm3 (0-0.3); Hematocrit 43.2 % (42.0-52.0); Hemoglobin 14.1 g/dL (14.0-18.0); Immature Granulocyte Absolute 0.03 K/mm3 (0.00-0.031); Immature Granulocyte Percent A 0.4 % (0-0.5); Lymphocytes Absolute Auto 1.43 K/mm3 (0.9-3.2); Mean Corpuscular HGB Conc 32.6 g/dl (32-36); Mean Corpuscular Volume 88.7 fl (80-100); Mean Platelet Volume 9.4 fl (7.4-10.4); Monocytes Absolute Auto 0.5 K/mm3 (0.1-0.6); Monocytes Percent Auto 6.1 % (2.6-8.5); Neutrophils Absolute Auto 5.8 K/mm3 (1.3-6.7); Neutrophils Percent Auto 72.7 % (45.5-73.1); Platelet Count Result 244 k/mm3 (150-375); Red Blood Count 4.87 M/mm3 (4.6-6.20); Red Cell Distribution Width 12.6 % (11.5-14.5); White Blood Count 7.9 K/mm3 (4.5-10.0)
[2024-05-12 16:03] LABS: INR 0.9; Prothrombin Time 12.4 Seconds (11.1-14.7)
[2024-05-12 16:09] LABS: Alanine Aminotransferase 11 U/L (6-50); Albumin Level 4.5 g/dL (3.5-5.1); Alkaline Phosphatase 63 U/L (38-126); Anion Gap 16 mmol/L (4-12); Aspartate Amino Transferase 24 U/L (17-59); Bilirubin,Total 0.5 mg/dL (0.2-1.3); Blood Urea Nitrogen 26 mg/dL (9-20); Calcium 9.7 mg/dL (8.4-10.2); Carbon Dioxide 18 mmol/L (22-30); Chloride 103 mmol/L (98-107); Estimated CRCL calculation 57 ml/min; Estimated Glomerular Filt Rate 53; Glucose 147 mg/dL (65-110); Potassium 4.9 mmol/L (3.4-5.0); Sodium 137 mmol/L (137-145)
[2024-05-12 16:20] LABS: Troponin I < 0.012 ng/mL (0.000-0.034)
[2024-05-12 16:35] VITALS: BP 119/76; PULSE 77; RESP 19; O2SAT 96
[2024-05-12] MEDS: SODIUM CHLORIDE 0.9% IV 1,000 ML 999 ML IV CONT (16:35)
--- NOTE | 2024-05-12 17:10 | ED.SYNCOPE ---
HPI - Syncope General Chief Complaint: Syncope Stated Complaint: Syncopal episode after going in Sauna Time Seen by Provider: 05/12/24 14:53 History of Present Illness HPI narrative: Patient is a 73-year-old male who presents ER with syncope. He was in a sauna at a local gym and became lightheaded and lost consciousness. This happened to him a year ago as well. No chest pain or shortness of breath. Reports he had some coffee this morning 20 oz water but otherwise did not eat. No chest pain or chest pressure. Has no complaints at this time. Patient family wanted him to be evaluated. Related Data Home Medications ?Medication ?Instructions ?Recorded ?Confirmed ?Last Taken ?Type multivitamin (Multiple Vitamins 1 tablet PO DAILY 01/19/19 04/15/24 09/14/22 09:00 History tablet) magnesium oxide 400 mg PO DAILY 01/07/21 04/15/24 09/14/22 09:00 History acetaminophen 650 mg 650 mg PO Q8H PRN Pain 06/08/22 04/15/24 Unknown History tablet,extended release (Tylenol 8 Hour) aspirin 81 mg tablet 81 mg PO DAILY 09/16/22 04/15/24 09/14/22 09:00 History calcium 500 mg-vitamin D3 1,000 tablet PO 01/24/24 04/15/24 Unknown History unit-vitamin K 40 mcg chewable tablet glimepiride 2 mg tablet 2 mg PO QAM 01/24/24 04/15/24 Unknown History carbidopa 25 mg-levodopa 100 mg 1 tablet PO TID 02/29/24 04/15/24 Unknown History tablet (Sinemet) Allergies Allergy/AdvReac Type Severity Reaction Status Date / Time alcohol Allergy Severe Itching, Verified 05/12/24 14:05 RASH - DRINKING ALCOHOL Review of Systems Review of Systems: All systems reviewed & are unremarkable except as noted in HPI and below Constitutional: Constitutional: Reports no additional constitutional complaints Cardiovascular: Cardiovascular: Reports no additional cardiovascular complaints Respiratory: Respiratory: Reports no additional respiratory complaints Gastrointestinal: Gastrointestinal: Reports no additional gastrointestinal complaints Neurologic: Reports system reviewed and no additional complaints, except as documented [facility] Past Medical History Medical History Presbycusis of both ears With bilateral hearing aids Dementia Diabetic retinopathy Osteoarthritis Sleep apnea History of colon polyps Hypertension History of measles, mumps, or rubella Renal disease Obesity Liver disease Hepatitis Cataract Osteopenia Benign hypertension Hyperlipidemia, unspecified Hypogonadism male Type 2 diabetes mellitus with diabetic polyneuropathy Surgical History Surgical History History of carpal tunnel surgery of left wrist (02/19/21) Status post repair of nerve Ulnar neuroplasty 05/07/2021 Status post total knee replacement, right (~07/05/22) [place] -1 History of carpal tunnel surgery of right wrist (01/21/21) History of hip surgery left hip kevin placed H/O arthroscopy of left knee H/O vasectomy 1977 History of tonsillectomy Amputated toe 2014 History of total knee replacement (TKR) 2010 left knee Family History Family History Other Diabetes mellitus Other Adopted Social History Social History Social History: Surrogate medical decision maker: Jeannette Louis, spouse. Code status: Full code. Smoking packs per day: 3 Smoking cigarettes per day: 60.0 Years smoked: 3 Smoking pack-years: 9.00 Smoking status: Former smoker Tobacco type: cigarettes Smokeless tobacco user: chewing tobacco Second hand tobacco smoke exposure: No Smoking end date: 02/15/72 Additional smoking assessment comments: Quit chewing tobacco in 2011. Alcohol intake: never Alcohol use details: Previous heavy drinker; quit in 1994. He states that he quit due to flushing and rash that develops with alcohol use. Substance use: never Substance use type: does not use Do You Feel Safe in your Home?: Yes Lack of Transportation: No Lack of Food: Never True Current Housing: I Have Housing Concerned About Future Housing: No Difficulty Paying Gas/Electric Bills: No Difficulty Paying for Meds: No Currently Unemployed: No Education: High School Diploma/GED Difficulty w/ Childcare or Family Care: No Living arrangements: alone Additional living arrangements comments: Lives with spouse in [place]. They have been for 50 years. They have daughter and a son. They currently have a small dog and a cat. Occupation/Education: occupation Additional occupation/education comments: He served in the [employer] and then transition to the [employer]. He retired from the after 23 years. 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 According the prior history still works at the [employer]. Gender identity (if verbalized by the patient): Male Spiritual care concerns: No Exam Narrative: GENERAL: Well-appearing, well-nourished, and in no acute distress. HEAD: Normocephalic, atraumatic. ENT: Mucous membranes moist. NECK: Supple. CHEST: Clear to auscultation. No respiratory distress. HEART: Regular rate and rhythm. Normal peripheral pulses. ABDOMEN: Soft, nontender, nondistended. EXTREMITIES: Normal range of motion. No edema. SKIN: Warm, dry, no rash. NEURO: Alert and oriented x3. Course Course Emergency Course: Patient resting comfortably. Hydrated. Negative orthostatics. Mildly bumped creatinine. Patient ambulatory with a steady gait. Imaging negative. Ambulates with a steady gait. Appropriate for discharge. Vital Signs Vital signs: Vital Signs Temperature 97.3 F L 05/12/24 14:07 Pulse Rate 99 05/12/24 14:07 Respiratory Rate 16 05/12/24 14:07 Blood Pressure 100/60 05/12/24 14:07 Pulse Oximetry 95 05/12/24 14:07 Temperature 97.3 F L 05/12/24 14:07 Pulse Rate 77 05/12/24 16:35 Respiratory Rate 19 05/12/24 16:35 Blood Pressure 119/76 05/12/24 16:35 Pulse Oximetry 96 05/12/24 16:35 MDM - Syncope Lab Data 05/12/24 15:38 05/12/24 15:38 Labs: Lab Results 05/12/24 Range/Units 15:38 WBC 7.9 (4.5-10.0) K/mm3 RBC 4.87 (4.6-6.20) M/mm3 Hgb 14.1 (14.0-18.0) g/dL Hct 43.2 (42.0-52.0) % MCV 88.7 (80-100) fl MCH 29.0 (26-34) pg MCHC 32.6 (32-36) g/dl RDW 12.6 (11.5-14.5) % Plt Count 244 (150-375) k/mm3 MPV 9.4 (7.4-10.4) fl Immature Gran % (Auto) 0.4 (0-0.5) % Neut % (Auto) 72.7 (45.5-73.1) % Lymph % (Auto) 18.0 L (18.3-44.2) % Tripp % (Auto) 6.1 (2.6-8.5) % Eos % (Auto) 2.0 (0-4.4) % Baso % (Auto) 0.8 (0.2-1.2) % Lymph # (Auto) 1.43 (0.9-3.2) K/mm3 Tripp # (Auto) 0.5 (0.1-0.6) K/mm3 Eos # (Auto) 0.2 (0-0.3) K/mm3 Baso # (Auto) 0.1 (0.0-0.1) K/mm3 Abs Immat Gran (auto) 0.03 (0.00-0.031) K/mm3 Absolute Neuts (auto) 5.8 (1.3-6.7) K/mm3 Absolute Nucleated RBC 0.000 (0.0-0.012) K/mm3 Nucleated RBC % 0.0 (0.0-0.2) % PT 12.4 (11.1-14.7) Seconds INR 0.9 APTT 28.0 (22.3-36.8) Seconds Sodium 137 (137-145) mmol/L Potassium 4.9 (3.4-5.0) mmol/L Chloride 103 (98-107) mmol/L Carbon Dioxide 18 L (22-30) mmol/L Anion Gap 16 H (4-12) mmol/L BUN 26 H D (9-20) mg/dL Creatinine 1.32 H (0.7-1.3) mg/dL Estim Creat Clear Calc 57 ml/min Estimated GFR 53 L (59 - ) Glucose 147 H (65-110) mg/dL Calcium 9.7 (8.4-10.2) mg/dL Total Bilirubin 0.5 (0.2-1.3) mg/dL AST 24 (17-59) U/L ALT 11 (6-50) U/L Alkaline Phosphatase 63 (38-126) U/L Troponin I < 0.012 (0.000-0.034) ng/mL Total Protein 7.0 (6.3-8.2) g/dL Albumin 4.5 (3.5-5.1) g/dL Imaging Data Radiologist's impression: ITS Impressions Chest X-Ray 05/12/24 16:00 IMPRESSION: No focal infiltrate or effusion. Head CT 05/12/24 16:35 Impression: No acute intracranial hemorrhage or suspicious mass effect. ECG Data EKG #1: ECG completion date: 05/12/24 ECG completion time: 15:41 EKG Interpretation: normal rate (81), sinus rhythm, no ST changes, normal QRS, normal QT and left axis Discharge Plan Discharge Clinical Impression: Syncope, Dehydration Patient Disposition: Home, Self-Care Condition: Stable Instructions: Dehydration (ED), Syncope (ED) Additional Instructions: Make sure you drink plenty of water or electrolyte drinks to stay hydrated. Return the ER if you develop chest pain with shortness of breath, you cannot keep down food water, or you have additional concerns. Patient Language: [place] Prescriptions: No Action acetaminophen [Tylenol 8 Hour] 650 mg tablet extended release 650 mg PO Q8H PRN (Reason: Pain) insulin glargine [Lantus Solostar U-100 Insulin] 100 unit/mL (3 mL) insulin pen 30 unit subcut DAILY Qty: 30 3RF multivitamin [Multiple Vitamins] Tablet 1 tablet PO DAILY carbidopa-levodopa [Sinemet] 25-100 mg tablet 1 tablet PO TID glimepiride 2 mg tablet 2 mg PO QAM Rx Instructions: administer with breakfast calcium-vitamin D3-vitamin K 500 mg-1,000 unit-40 mcg tablet,chewable PO aspirin 81 mg Tablet 81 mg PO DAILY magnesium oxide 400 mg magnesium Capsule 400 mg PO DAILY (DME) FreeStyle Jesenia 2 Sensor Kit See Rx Instructions .ROUTE .MEDSUPPLY Qty: 6 1RF Rx Instructions: As directed omeprazole 10 mg capsule,delayed release(DR/EC) 10 mg PO HS Qty: 90 2RF metformin 1,000 mg tablet 1,000 mg PO BID Qty: 180 1RF lisinopril 40 mg tablet 40 mg PO DAILY Qty: 90 1RF tamsulosin 0.4 mg capsule See Rx Instructions .ROUTE .COMPLEX Qty: 90 3RF Dose Instruction: TAKE 1 CAPSULE DAILY Rx Instructions: TAKE 1 CAPSULE DAILY Jardiance 25 mg tablet See Rx Instructions .ROUTE .COMPLEX Qty: 90 1RF Dose Instruction: TAKE 1 TABLET DAILY Rx Instructions: TAKE 1 TABLET DAILY rosuvastatin 40 mg tablet 40 mg PO DAILY Qty: 90 3RF Trulicity 4.5 mg/0.5 mL pen injector 4.5 mg subcut WEEKLY 90 Days Qty: 6.5 2RF Fish Oil 100-160-1,000 mg capsule 2 cap PO BID Qty: 360 3RF Follow-up/Referrals: Nilesh Abdul DO [Primary Care Provider] - 1 Week
== END 2024-05-12 17:41 | disposition home or self-care (01) ==
PROVIDERS: Emergency Provider Emergency Medicine; PCP Internal Medicine
DX: R55 Syncope and collapse (principal); E86.0 Dehydration; F03.90 Unspecified dementia, unspecified severity, without behavioral disturbance, psychotic disturbance, mood disturbance, and anxiety; E11.319 Type 2 diabetes mellitus with unspecified diabetic retinopathy without macular edema; E11.42 Type 2 diabetes mellitus with diabetic polyneuropathy; I10 Essential (primary) hypertension; E78.5 Hyperlipidemia, unspecified; N28.9 Disorder of kidney and ureter, unspecified; G47.30 Sleep apnea, unspecified; M85.80 Other specified disorders of bone density and structure, unspecified site; M19.90 Unspecified osteoarthritis, unspecified site; Z96.653 Presence of artificial knee joint, bilateral; Z86.0100 Personal history of colon polyps, unspecified; Z87.891 Personal history of nicotine dependence; Z89.429 Acquired absence of other toe(s), unspecified side; Z79.82 Long term (current) use of aspirin; Z79.4 Long term (current) use of insulin; Z79.84 Long term (current) use of oral hypoglycemic drugs; Z79.85 Long-term (current) use of injectable non-insulin antidiabetic drugs; Z79.899 Other long term (current) drug therapy; I45.9 Conduction disorder, unspecified; R94.31 Abnormal electrocardiogram [ECG] [EKG]
CPT/HCPCS: 36415; 70450; 71046; 80053; 84484; 85025; 85610; 85730; 93005; 96360; 99284; J7030

== ENCOUNTER 2024-08-22 08:55 | Outpatient (CLI) | payer MEDICARE, OTHER, SELFPAY ==
--- OUTSIDE RECORDS SUMMARY | 2024-08-22 09:05 | XMS_ITS | Continuity of Care Document ---
Author Name [facility] Organization [facility] Care Team Providers Care Automotive Exhaust Emissions Technician Name Role Phone [facility] Unavailable Unavailable Medications Combined list of outpatient medications from Department of Defense and Veterans Affairs facilities.Medications provided include 1) outpatient medications from the last 15 months, and 2) patient-reported medications. Medication Details Route Status Patient Instructions Prescription Expires Prescription Number Last Dispense Date Ordering Provider Order Date Order Qty Source JARDIANCE (EMPAGLIFLO ZIN), 25 MG, TABLET, ORAL, BOEHRINGER ING., 30 ea. BOTTLE Active [id number] 4 2023 90 Pharmac y Data Transac tion Service Facilit y JARDIANCE (EMPAGLIFLO ZIN), 25 MG, TABLET, ORAL, BOEHRINGER ING., 30 ea. BOTTLE Active [id number] 4 2023 90 Pharmac y Data Transac tion Service Facilit y LANTUS SOLOSTAR (INSULIN GLARGINE,LEONARDO EdwardsREC.ANLOG ), 100/ML (3), INSULN PEN, SUB-Q, SANOFI-AVEN TIS, 3 ml SYRINGE Active [id number] 4 2023 30 Pharmac y Data Transac tion Service Facilit y LISINOPRIL (lisinopril ), 40 MG, TABLET, ORAL, EXELAN PHARMACE, 1000 ea. BOTTLE Active [id number] 4 2023 90 Pharmac y Data Transac tion Service Facilit y METFORMIN HCL (METFORMIN HCL), 1000 MG, TABLET, ORAL, [employer] 500 ea. BOTTLE Active [id number] 4 2023 180 Pharmac y Data Transac tion Service Facilit y PHILOMENA 2ND GEN PEN NEEDLE (pen needle, diabetic), 32GX /32, DIS NEEDLE, MISCELL, BD DIABETES/EM B, 100 ea. BOX Active [id number] 4 2023 100 Pharmac y Data Transac tion Service Facilit y PRIMIDONE (primidone) , 250 MG, TABLET, ORAL, PD-RX PHARM, 100 ea. BOTTLE Active [id number] 4 2023 180 Pharmac y Data Transac tion Service Facilit y TAMSULOSIN HCL (TAMSULOSIN HCL), 0.4 MG, CAP.SR 24H, ORAL, ZYDUS PHARMACEU, 1000 ea. BOTTLE Active [id number] 4 2023 90 Pharmac y Data Transac tion Service Facilit y TRULICITY (dulaglutid e), 4.5 MG/0.5, PEN INJCTR, SUBCUT, [employer] .5 ml SYRINGE Cancele d [id number] : 2023 0 Pharmac y Data Transac tion Service Facilit y Immunizations Combined list of available immunizations from the Department of Defense and Veterans Affairs facilities. Immunization Series Date Given Administered By Site Reaction Lot Number CVX Code Drug Conveyor Monitor Status Comments Source Influenza vaccine, quadrivalent, adjuvanted 2020 JUSTIN GUTIERRES () Not Given Influenza vaccine, quadrival ent, adjuvante d DoD Social History Combined list of available smoking, tobacco, and other social history from Department of Defense and Veterans Affairs facilities. Social History Type Response Date Comment [facility] e This section is an empty social history section. [facility]
--- OUTSIDE RECORDS SUMMARY | 2024-08-22 09:05 | XMS_ITS | Clinical Summary ---
Author Organization [facility] Address [address] [facility] [place] [address] Care Team Providers Care Shutdown Planner Name Role Phone Nilesh Abdul DO Primary Care Provider Source Comments [facility],non-owned Affiliates and Associated Physician Practices is amultiple site organization consisting of ambulatory clinics and hospital sitesin [place], [place], [place] and [place]. This disclosure is being madepursuant to the Care Everywhere program and may not contain all information available regarding this patient. Last updated 17.[facility] Allergies No known active allergies Medications * Be aware that medications may not be up to date on this document. Alwaysverify current medications with the patient. metFORMIN (Glucophage) 1000 MG tablet Take 1 (one) tablet by mouth 2 times daily Active White Post-3 Fatty Acids (fish oil) 500 MG capsule [...] by mouth once daily Active vitamin D3 (Cholecalcifer ol) 25 MCG (1000 UNITS) tablet Take 1 [...] one-half) mg subcutaneously every 7 days Active carbidopa-levo dopa (Sinemet) 25-100 MG tabletIndicati ons:Idiopathic Parkinson's disease (HCC) Take 1 (one) tablet by mouth 3 times daily 270 tablet 3 5 Active pramipexole (Mirapex) 0.125 MG tabletIndicati ons:Idiopathic Parkinson's disease (HCC) Take 1 (one) tablet by mouth 3 times daily 270 tablet 3 5 026 Active Active Problems Problem Noted Date Diagnosed Date Memory loss 12/10/2021 Hyperlipidemia 01/09/2021 Acquired hammer toe of right foot 10/29/2020 Overview (10/05/2023): Added automatically from request for surgery [id number] 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 Overview (10/05/2023): Added automatically from request for surgery [id number] Persistent proteinuria 07/12/2018 Systolic hypertension 07/12/2018 Encounters Date Type Department Care Team Description 08/18/2024 Telephone [facility] - Urology [address] [place] [address] Mike Carey MD Results 08/16/2024 9:48 AM CDT - 08/16/2024 11:59 PM CDT Hospital Encounter [facility] MRI [address] [place] [address] Mike Carey MD Discharge Disposition: Home or Self Care 08/16/2024 Travel 08/06/2024 11:00 AM CDT Office Visit [facility] - Neurology [address] [facility], [place] [address] Pat Glover APRN-FURNACE ERECTOR Idiopathic Parkinson's disease (HCC) (Primary Dx) 08/06/2024 Travel 06/20/2024 2:00 PM CDT Office Visit [facility] - Urology [address] [place] [address] Mike Carey MD Elevated PSA (Primary Dx) 06/20/2024 Travel from Last 3 Months Immunizations Immunization Administration Dates Next Due INFLUENZA VACCINE, TRIV. (AF LURIA, FLUZONE TRIVALENT; 6MO+) (IIV3) 12/17/2020 Social History Tobacco Use Types Packs/Day Years Used Date Smoking Tobacco: Never PHQ-2 Answer Date Recorded Patient Health Questionnaire-2 Score 0 08/06/2024 Sex and Gender Information Value Date Recorded Sex Assigned at Not on file Legal Sex Male 6:22 PM PAINT SPRAY TENDER Gender Identity Not on file Sexual Orientation Not on file Last Filed Vital Signs Vital Sign Reading Time Taken Comments Blood Pressure 118/79 08/06/2024 10:51 AM CDT Pulse 85 08/06/2024 10:51 AM CDT Temperature 36.7 C (98.1 F) 06/20/2024 1:50 PM CDT Respiratory Rate 17 06/20/2024 1:50 PM CDT Oxygen Saturation 99% 06/20/2024 1:50 PM CDT Inhaled Oxygen Concentration - - Weight 104.8 kg (231 lb) 08/06/2024 10:51 AM CDT Height 180.3 cm (5' 11) 08/06/2024 10:51 AM CDT Body Mass Index 32.22 08/06/2024 10:51 AM CDT Plan of Treatment Upcoming Encounters Date Type Department Care Team (Late st Contact Info) Description 01/31/2025 10:00 AM PAINT SPRAY TENDER Office Visit [facility] - Neurology [address] [facility], [place] [address] Pat Glover APRN-FURNACE ERECTOR [address] [facility] [address]L [place] [address] 08/23/2025 2:15 PM CDT Office Visit [facility] - Urology [address] [place] [address] [address] [place] [phone] Mike Carey MD [address] [facility] 2L [place] [address] Health Maintenance Due Date Last Done Comments [...] (2023-2 5 season) 2023 INFLUENZA VACCINE (#1) 2024 12/17/2020 DEPRESSION SCREENING Completed 08/06/2024 HEPATITIS B VACCINE Aged Out No longe [...] on patient's age to complete this topic Procedures Procedure Name Priority Date/Time Associated Diagnosis Comments MRI PROSTATE W 3D WWO CONTRAST Routine 08/16/2024 12:02 PM CDT Elevated PSA from Last 3 Months Results * MRI Prostate W 3D Wwo Contrast (08/16/2024 12:02 PM CDT) Anatomical Region Laterality Modality Pelvis Magnetic Resonan ce 08/16/2024 1:06 PM CDT Impressions 08/17/2024 3:58 AM CDT IMPRESSION: A lesion in the left junction of medial and lateral peripheral zone at the mid gland is at intermediate suspicion for malignancy with an overall PI-RADS score of 3. No extraprostatic extension. BPH with sequela of bladder outlet obstruction. > Dictated by Rafal Stanley MD, (resident inspector). I, Yair Ruiz MD have personally reviewed and interpreted this examination/study. > Interpreting Provider: Yair Ruiz MD on 08/17/2024 3:58 AM Narrative 08/17/2024 3:58 AM CDT PROCEDURE: MRI PROSTATE W 3D WWO CONTRAST, DATE/TIME OF EXAM: 08/16/2024 12:02 PM, LOCATION [facility] INDICATION: R97.20: Elevated PSA ADDITIONAL CLINICAL INFORMATION: Additional: 73-year-old male with history of BPH on Flomax, recent PSA 4.1. COMPARISON: None. Technique: Multiplanar, multisequence imaging of the pelvis in accordance with PI-RADS recommendations before and after intravenous administration of 20 mL of MultiHance at 2 mL/s on a 3Tesla platform. A coronal HASTE of entire pelvis, dedicated 3 plane 20 cm FOV FSE T2, axial diffusion-weighted imaging with the b values 50, 400 and 1000 and ADC map, and calculated b = 1500 sec/mm2. Precontrast axial T1-weighted images of the pelvis followed by axial 3-D dynamic contrast-enhanced T1-weighted imaging with 10 seconds temporal resolution were acquired using 3 mm slice thickness. In addition a full pelvis post contrast T1-weighted axial and sagittal sequences were also obtained. Images were interpreted and measurements were made using the Exara software. FINDINGS: Size: 6.0 x 4.8 x 5.4 cm and approximate volume was 74.6 cc. Quality: Images are diagnostic quality Hemorrhage: None. Peripheral zone: T2: Score 1: Uniform hyperintense signal intensity. DWI: Score 3: Focal hypointense lesion on ADC as described below. DCE: No early or contemporaneous enhancement; or diffuse multifocal enhancement NOT corresponding to a focal finding on T2W and/or DWI. Transitional zone: T2: Score 2 well-circumscribed capsulated nodules consistent with BPH. DWI: No abnormal diffusion restriction focus/lesion is seen.. DCE: No early enhancement; or diffuse multifocal enhancement NOT corresponding to a focal finding on T2W and/or DWI. Lesion 1: In the left mid gland at the junction of medial and lateral segments there is a 1.7 x 0.8 cm (volume 0.6mL), DWI score of 3, T2 score of 3, DCE negative. No extraprostatic extension. Lesion overall PI RADS:3 Seminal vesicles: Unremarkable. Lymph nodes: No significantly enlarged pelvic lymph nodes. Urinary bladder: Diffuse mural thickening of the urinary bladder seen. Findings are indicating bladder outlet obstruction secondary to the BPH. Others:Rectum and another pelvic viscera are unremarkable. Left femoral fixation hardware. Procedure Note Yair Ruiz MD - 08/17/2024 PROCEDURE: MRI PROSTATE W 3D WWO CONTRAST, DATE/TIME OF EXAM: 08/16/2024 12:02 PM, LOCATION [facility] INDICATION: R97.20: Elevated PSA ADDITIONAL CLINICAL INFORMATION: Additional: 73-year-old male with history of BPH on Flomax, recent PSA 4.1. COMPARISON: None. Technique: Multiplanar, multisequence imaging of the pelvis inaccordance with PI-RADS recommendations before and after intravenous administrationof 20 mL of MultiHance at 2 mL/s on a 3Tesla platform. A coronal HASTE of entire pelvis, dedicated 3 plane 20 cm FOV FSE T2, axialdiffusion-weighted imaging with the b values 50, 400 and 1000 and ADC map, and calculated b= 1500 sec/mm2. Precontrast axial T1-weighted images of the pelvisfollowed by axial 3-D dynamic contrast-enhanced T1-weighted imaging with 10seconds temporal resolution were acquired using 3 mm slice thickness. In additiona full pelvis post contrast T1-weighted axial and sagittal sequences were also obtained. Images were interpreted and measurements were made using the Exara software. FINDINGS: Size: 6.0 x 4.8 x 5.4 cm and approximate volume was 74.6 cc. Quality: Images are diagnostic quality Hemorrhage: None. Peripheral zone: T2: Score 1: Uniform hyperintense signal intensity. DWI: Score 3: Focal hypointense lesion on ADC as described below. DCE: No early or contemporaneous enhancement; or diffuse multifocal enhancement NOT corresponding to a focal finding on T2W and/or DWI. Transitional zone: T2: Score 2 well-circumscribed capsulated nodules consistent with BPH. DWI: No abnormal diffusion restriction focus/lesion is seen.. DCE: No early enhancement; or diffuse multifocal enhancement NOT corresponding to a focal finding on T2W and/or DWI. Lesion 1: In the left mid gland at the junction of medial and lateral segmentsthere is a 1.7 x 0.8 cm (volume 0.6mL), DWI score of 3, T2 score of 3, DCE negative. No extraprostatic extension. Lesion overall PI RADS:3 Seminal vesicles: Unremarkable. Lymph nodes: No significantly enlarged pelvic lymph nodes. Urinary bladder: Diffuse mural thickening of the urinary bladder seen. Findings are indicating bladder outlet obstruction secondary to the BPH. Others:Rectum and another pelvic viscera are unremarkable. Left femoral fixation hardware. IMPRESSION: A lesion in the left junction of medial and lateral peripheral zone atthe mid gland is at intermediate suspicion for malignancy with an overall PI-RADS score of 3. No extraprostatic extension. BPH with sequela of bladder outlet obstruction. > Dictated by Rafal Stanley MD, (resident inspector). I, Yair Ruiz MD have personally reviewed and interpreted this examination/study. > Interpreting Provider: Yair Ruiz MD on 08/17/2024 3:58 AM us Mike Carey MD MR ORDERABLES Final Resu lt from Last 3 Months Insurance MEDICARE * Guarantor: Milton Louis Account Type Relation to Patient Date of Phone Billing Address Personal/Family Self [address] [place] [id number] MEDICARE Care Teams Shutdown Planner Relationship Specialty Start Date End Date Nilesh Abdul DO PCP - General 03/09/14
--- OUTSIDE RECORDS SUMMARY | 2024-08-22 09:05 | XMS_ITS | Clinical Summary ---
Author Organization [facility] Address [address] [place] [phone] Phone Care Team Providers Care Daycare Manager Name Role Phone Nilesh Abdul DO Primary Care Provider [phone] Allergies No known active allergies Medications omega-3 (FISH OIL) 1000 MG capsule Take 1,000 mg by mouth 1 (one) time each day. Active Multiple Vitamins-Minera ls (CENTURY MATURE ADULT FORMULA PO) Take 2 capsules by mouth 2 (two) times a day. Active metFORMIN (GLUCOPHAGE) 1000 MG tablet Take 1,000 mg by mouth 2 (two) times a day with meals. Active lovastatin (MEVACOR) 40 MG tablet Take 40 mg by mouth every night. Active lisinopril (PRINIVIL,ZESTR IL) 40 MG tablet Take 40 mg by [...] Take 1 mg by mouth prn Active hydroCHLOROthia zide (HYDRODIURIL) 25 MG tablet Take 1 tablet (25 mg total) by mouth 1 (one) time each day 90 tablet 3 07/22/2021 Active Active Problems Problem Noted Date Diagnosed Date Hyperlipidemia 01/09/2021 Systolic hypertension 07/12/2018 Persistent proteinuria 07/12/2018 Immunizations Immunization Administration Dates Next Due Influenza TIV (IM) [...] at Not on file Legal Sex Male 8:09 AM MDT Gender Identity Not on file Sexual Orientation [...] 1:50 PM CDT Height 180.3 cm (5' 11) 07/22/2021 1:50 PM CDT Body Mass Index 35.43 07/22/2021 1:50 PM CDT Plan of Treatment Health Maintenance Due Date Last Done Comments Pneumococcal PPSV23/PCV13 65 + Years / Low and Medium Risk (1 of 2 - PCV) 11/10/2001 Influenza Vaccine (#1) 2024 12/17/2020 [address] [place] [address] [address] [place] [address] Care Teams Daycare Manager Relationship Specialty Start Date End Date Nilesh Abdul DO [address] [place] [id number] PCP - General Internal Medicine 07/12/18
--- OUTSIDE RECORDS SUMMARY | 2024-08-22 09:05 | XMS_ITS | Continuity of Care Document ---
Author Organization [facility] Address [address] [place] [address] Phone Care Team Providers Care Bottle And Glass Inspector Name Role Phone No Information Unavailable Unavailable Medications Medication Instructions Dosage Effective Dates (start - stop) Status Comments No Drug Therapy Prescribed Advance Directives Directive Yes / No Effective Date File Name No Information Encounters Encounter Description Practice Location Reason(s) For Visit Diagnoses Date Provider Providers Copied on Encounter [facility], [address] [place] [address], [address], [place] tel:[phone] No Information No Information Family History Family Member Type Diagnosis Age At Onset No Information Payers Payer name Insurance type Covered libertarian ID Authoriza tion(s) No Information Social History [...]
--- OUTSIDE RECORDS SUMMARY | 2024-08-22 09:05 | XMS_ITS | Clinical Summary ---
Author Organization [facility] Address [address] [place] [address] Care Team Providers Care Stain Remover Name Role Phone Unavailable Primary Care Provider [...] Comments Blood Pressure 150/80 03/05/2013 8:55 AM LADLE REPAIRMAN Pulse - - Temperature - - Respiratory Rate - - Oxygen Saturation - - Inhaled Oxygen Concentration - - Weight 121.6 kg (268 lb) 03/05/2013 8:55 AM LADLE REPAIRMAN Height 180.3 cm (5' 11) 06/08/2012 1:01 PM CDT Body Mass Index 37.38 06/08/2012 1:01 PM CDT Plan of Treatment Health Maintenance Due Date Last Done Comments Colorectal Cancer Screening Colonoscopy (10 Years) 1950 Hepatitis C 11/10/1969 DTaP, Tdap and Td Vaccines ( 1 - Tdap) 11/10/1970 Pneumococcal Vaccine: 50+ Ye ars (1 of 1 - PCV) 11/10/2001 Zoster Vaccines (1 of 2) 11/10/2001 COVID-19 Vaccine ( - 2023-2 5 season) 2023 RSV Immunization or 60+ Years (1 [...]
--- OUTSIDE RECORDS SUMMARY | 2024-08-22 09:05 | XMS_ITS | Clinical Summary ---
Author Organization [facility] Address [address] [place] [address] Care Team Providers Care Embalmer/Funeral Director Name Role Phone Nilesh Abdlu DO Primary Care Provider [phone] Nell Mark DPM Unavailable [phone] Allergies No known active allergies Medications omega 5-bsr-vbu-fish oil 1,000 mg (120 mg-180 mg) capsule [...] left external capsule - DIAMANTE Scan at [facility], followed by Movement Disorders for tremor Findings: Uptake in the striatum appears as follows: Left caudate nucleus head: Mildly reduced Right caudate nucleus head: Normal Left putamen: Mildly reduced Right putamen: Severely reduced Abnormal DaTscan study, finding supportive of parkinsonian syndromes. 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 - continue donepezil/Aricept - brain MRI: no MCH or siderosis, Small lacunar infarcts in the bilateral thalami and left external capsule -- DIAMANTE Scan at [facility], followed by Movement Disorders for tremor Findings: Uptake in the striatum appears as follows: Left caudate nucleus head: Mildly reduced Right caudate nucleus head: Normal Left putamen: Mildly reduced Right putamen: Severely reduced Abnormal DaTscan study, finding supportive of parkinsonian syndromes Memory loss 12/10/2021 Acquired hammer toe of right foot 10/29/2020 Overview (10/29/2020): Added automatically from request for surgery [id number] 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 Overview (10/29/2020): Added automatically from request for surgery [id number] Surgical History Surgery Date Site/Laterality Comments VASECTOMY [...] on file Legal Sex Male 7:46 PM HOUSE MOVER HELPER Gender Identity Not on file Sexual Orientation Not on file Obstetrics History Last Filed Vital Signs Vital Sign Reading Time Taken Comments Blood Pressure 141/83 04/05/2024 12:15 PM HOUSE MOVER HELPER Pulse 84 04/05/2024 12:15 PM HOUSE MOVER HELPER Temperature 36.4 C (97.5 F) 04/05/2024 12:15 PM HOUSE MOVER HELPER Respiratory Rate 20 11/21/2020 2:49 PM CDT Oxygen Saturation 99% 04/05/2024 12:15 PM HOUSE MOVER HELPER Inhaled Oxygen Concentration - - Weight 107.7 kg (237 lb 8 oz) 04/05/2024 12:15 P M HOUSE MOVER HELPER Height 180.3 cm (5' 11) 04/05/2024 12:15 PM HOUSE MOVER HELPER Body Mass Index 33.12 04/05/2024 12:15 PM HOUSE MOVER HELPER Plan of Treatment Health Maintenance Due Date Last Done Comments Colon Cancer Screening-Colonoscopy 1950 Depression Screening 1950 Fall Risk Assessment 1950 Hepatitis C Screening 1950 DTaP/Tdap/Td Vaccine (1 - Tdap) 11/10/1962 Hepatitis B Screening 11/10/1969 Pneumococcal vaccine 65+ (1 of 1 - PCV) 11/10/2001 Zoster Vaccine (1 of 2) 11/10/2001 Abdominal Aortic Aneurysm (AAA) Screen 11/10/2016 Well Visit 65+ 11/10/2016 Influenza Vaccine (Season Ended) 2024 12/18/19 21 Insurance MEDICARE RAILROAD Eye Phone MEDICARE RAILROAD FOR LIFE [facility] MEDICARE RAILROAD Care Teams Embalmer/Funeral Director Relationship Specialty Start Date End Date Nilesh Abdul DO PCP - General 08/19/20 Nell Mark DPM [address] [place] [address] Consulting Physician Foot and Ankle Surg 11/21/20
--- OUTSIDE RECORDS SUMMARY | 2024-08-22 09:05 | XMS_ITS | Encounter Summary ---
Author Organization [facility] Address [address] [facility] [place] [address] Care Team Providers Care Patent Litigation Associate Name Role Phone Nilesh Abdul DO Primary Care Provider [phone] Encounter Details Date Type Department Care Team (Late st Contact Info) Description 10/27/2023 Refill [facility] - Neurology [address] [place] [address], [place] [address] Pat Glover APRN-TAPER/FINISHER [address] [place] [address] [place] [phone] Social History Tobacco Use Types Packs/Day Years Used Date Smoking Tobacco: Never Sex and Gender Information Value Date Recorded Sex Assigned at Not on file Legal Sex Male 6:22 PM TELECOMMUNICATIONS SUPPORT Gender Identity Not on file Sexual Orientation [...] and would like a phone call back [phone] documented in this encounter Plan of Treatment Upcoming Encounters Date Type Department Care Team (Late st Contact Info) Description 01/31/2025 10:00 AM TELECOMMUNICATIONS SUPPORT Office Visit [facility] - Neurology [facility] [facility] [place], [place] [address] Pat Glover, FIELD SERVICES ANALYST-TAPER/FINISHER [address] [facility] 1L [place] [address] 08/23/2025 2:15 PM CDT Office Visit [facility] - Urology [address] [facility] [address] [place] [address] Mike Carey MD [address] [facility] 2L [place] [address] documented as of this encounter Visit Diagnoses Diagnosis Idiopathic Parkinson's disease (HCC) Paralysis agitans documented in this encounter Care Teams Patent Litigation Associate Relationship Specialty Start Date End Date Nilesh Abdul DO PCP - General 03/09/14 documented as of this encounter
--- OUTSIDE RECORDS SUMMARY | 2024-08-22 09:05 | XMS_ITS | Referral Summary ---
Author Organization [facility] Address [address] [place] [address] Care Team Providers Care Drywall Finisher Foreman Name Role Phone Nilesh Abdul DO Primary Care Provider [phone] Nell Mark DPM Unavailable [phone] Allergies No known active allergies Medications omega 3-kpp-tpg-fish oil 1,000 mg (120 mg-180 mg) capsule [...] left external capsule - DIAMANTE Scan at [facility], followed by Movement Disorders for tremor Findings: Uptake in the striatum appears as follows: Left caudate nucleus head: Mildly reduced Right caudate nucleus head: Normal Left putamen: Mildly reduced Right putamen: Severely reduced Abnormal DaTscan study, finding supportive of parkinsonian syndromes. 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 - positive amyloid PET - continue donepezil/Aricept - brain MRI: no MCH or siderosis, Small lacunar infarcts in the bilateral thalami and left external capsule -- DIAMANTE Scan at [facility], followed by Movement Disorders for tremor Findings: Uptake in the striatum appears as follows: Left caudate nucleus head: Mildly reduced Right caudate nucleus head: Normal Left putamen: Mildly reduced Right putamen: Severely reduced Abnormal DaTscan study, finding supportive of parkinsonian syndromes Memory loss 12/10/2021 Acquired hammer toe of right foot 10/29/2020 Overview (10/29/2020): Added automatically from request for surgery [id number] 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 Overview (10/29/2020): Added automatically from request for surgery [id number] Social History Tobacco Use Types Packs/Day Years [...] on file Legal Sex Male 7:46 PM RECORDS ASSOCIATE Gender Identity Not on file Sexual Orientation Not on file Last Filed Vital Signs Vital Sign Reading Time Taken Comments Blood Pressure 141/83 04/05/2024 12:15 PM RECORDS ASSOCIATE Pulse 84 04/05/2024 12:15 PM RECORDS ASSOCIATE Temperature 36.4 C (97.5 F) 04/05/2024 12:15 PM RECORDS ASSOCIATE Respiratory Rate 20 11/21/2020 2:49 PM CDT Oxygen Saturation 99% 04/05/2024 12:15 PM RECORDS ASSOCIATE Inhaled Oxygen Concentration - - Weight 107.7 kg (237 lb 8 oz) 04/05/2024 12:15 P M RECORDS ASSOCIATE Height 180.3 cm (5' 11) 04/05/2024 12:15 PM RECORDS ASSOCIATE Body Mass Index 33.12 04/05/2024 12:15 PM RECORDS ASSOCIATE Plan of Treatment Not on file Insurance MEDICARE RAILROAD FOR LIFE MEDICARE RAILROAD FOR LIFE [employer] FOR LIFE MEDICARE RAILROAD Care Teams Drywall Finisher Foreman Relationship Specialty Start Date End Date Nilesh Abdul DO PCP - General 08/19/20 Nell Mark DPM [address] [place] [id number] Consulting Physician Foot and Ankle Surg 11/21/20
--- OUTSIDE RECORDS SUMMARY | 2024-08-22 09:05 | XMS_ITS | Encounter Summary ---
Author Organization [facility] Address [address] [place] [address] Phone Care Team Providers Care Superintendent Maintenance Name Role Phone Nilesh Abdul DO Primary Care Provider [phone] Nell Mark DPM Unavailable [phone] Encounter Details Date Type Department Care Team (Late st Contact Info) Description 01/13/2022 Imaging Exam [facility] [address] [facility] Advanced Medicine 6th [place] [address] [place] [address] Oumar Cerda MD [address] [place] [address] Social History Tobacco Use Types Packs/Day Years Used Date Smoking Tobacco: Former AUDIT-C Answer Date Recorded Q1: How often do you have a drink containing alc ohol? Never 11/18/2020 Average Number of Drinks Not on file 021 Frequency of Binge Drinking Not on file 06/2020 Sex and Gender Information Value Date Recorded Sex Assigned at Not on file Legal Sex Male 7:46 PM HUMAN RESOURCES SUPERVISOR Gender Identity Not on file Sexual Orientation Not on file documented as of this encounter Plan of Treatment Not on file documented as of this encounter Visit Diagnoses Not on filedocumented in this encounter Care Teams Superintendent Maintenance Relationship Specialty Start Date End Date Nilesh Abdul DO PCP - General 08/19/20 Nell Mark DPM [address] [place] [address] Consulting Physician Foot and Ankle Surg 11/21/20 documented as of this encounter
--- OUTSIDE RECORDS SUMMARY | 2024-08-22 09:05 | XMS_ITS | Continuity of Care Document ---
Author Organization [facility] Address [address] [place] [address] [place] [address] Phone Care Team Providers Care Pathology Technologist Name Role Phone [facility] Unavailable Unavail able Cliff Lubin Unavailable Unavailable Procedures Procedure Date SV Plastic Sphcyl Jasper +/-4d, .12-2d Ju Tint Photochromatic, Plastic Eye Exam & Treatment Refraction Office/outpatient Visit, Est Office/outpatient Visit, Est Office/outpatient Visit, Est Office/outpatient Visit, Est Advance Directives Directive Yes / No Effective Date File Name No Information Encounters Encounter Description Practice Location Reason(s) For Visit Diagnoses Date Provider Providers Copied on Encounter [facility], [address] [place], [place] [address] [address], [place], [place], [id number], [place] tel:[phone] [facility] No Information 0 [facility] . [address] [place] [address], [facility] [address], [place], [id number], [place]. tel:[phone] Referring Provider: Leeann Valente, [address] [place] [address] [address], [place], [address]. tel:[phone] bermeo Provider: Cliff Lubin, [address] [place] [address], [place], [address]. tel:[phone] [facility], [address] [place] [address] [address], [place], [place], [id number], [place] tel:[phone] [facility] No Information 0-201 0 Yamilet Lugo [address] , [address], [place], [place], [facility], . tel:[phone] Office/outpat ient Visit, [facility], [address] [place] [address] [address], [place], [place], [id number], tel:[phone] [facility] [place] No Information 1200 9 Yamilet Lugo [address] [facility] , [address], [place], [place], [facility], . tel:[phone] Office/outpat ient Visit, [facility], [address] [place] [address] [address], [place], [place], [id number], tel:[phone] [facility] [place] No Information 9-200 8 Yamilet Bradshaw. [address] [facility] , [address], [place], [facility], . tel:[phone] Office/outpat ient Visit, [facility], [address] [place] [address] [address], [place], [place], [id number], [place] tel:[phone] [facility] No Information 200 7 Yamilet Lugo [address] [facility] , [address], [place], [facility], [place]. tel:[phone] Office/outpat ient Visit, [facility], [address] [place] [address] [address], [place], [place], [id number], [place] tel:[phone] [facility] [place] No Information 200 7 Yamilet Lugo [address] , [address], [place], [facility], . tel:[phone] Family History Family Member Type Diagnosis Age [...]
--- OUTSIDE RECORDS SUMMARY | 2024-08-22 09:05 | XMS_ITS | Encounter Summary ---
Author Organization [facility] Address [address] [place] [address] Care Team Providers Care Nutrition Technician Name Role Phone Unavailable Primary Care Provider Unavailabl e Encounter Details Date Type Department Care Team (Latest Contact Info) Description 12/20/2017 Abstract [facility] , Generic Conversion, Social History [...]
[2024-08-22 16:32] LABS: Prostate Specific Antigen 3.8 ng/mL (< OR = 4.0)
== END 2024-08-22 08:56 | disposition home or self-care (01) ==
PROVIDERS: PCP Internal Medicine
DX: R97.20 Elevated prostate specific antigen [PSA] (principal)
CPT/HCPCS: 36415; 84153

== ENCOUNTER 2024-09-20 09:43 | Outpatient (CLI) | payer MEDICARE, OTHER, SELFPAY ==
--- OUTSIDE RECORDS SUMMARY | 2024-09-20 09:48 | XMS_ITS | Encounter Summary ---
Author Organization [facility] Address [address] [place] [address] Phone Care Team Providers Care Solutions Executive Security Name Role Phone iNlesh Abdul DO Primary Care Provider [phone] Nell Mark DPM Unavailable [phone] Encounter Details Date Type Department Care Team (Late st Contact Info) Description 01/13/2022 Imaging Exam [facility] [address] [facility] Advanced Medicine 6th [place] [address] [place] [address] Oumar Cerda MD [address] [place] [address] Social History Tobacco Use Types Packs/Day Years Used Date Smoking Tobacco: Former AUDIT-C Answer Date Recorded Q1: How often do you have a drink containing alc ohol? 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
--- OUTSIDE RECORDS SUMMARY | 2024-09-20 09:48 | XMS_ITS | Clinical Summary ---
Author Organization [facility] Address [address] [place] [address] Phone Care Team Providers Care Partition Assembler Name Role Phone Nilesh Abdul DO Primary Care Provider [phone] Allergies No known active allergies Medications omega-3 [...] Vaccine (#1) 2024 12/17/2020 Insurance [address] [place] [address] [address] [place] [address] Care Teams Partition Assembler Relationship Specialty Start Date End Date Nilesh Abdul DO [address] [place] [address] PCP - General Internal Medicine 07/12/18
--- OUTSIDE RECORDS SUMMARY | 2024-09-20 09:48 | XMS_ITS | Encounter Summary ---
Author Organization [facility] Address [address] [place] [address] Care Team Providers Care Glass Curvature Gauger Name Role Phone Nilesh Abdul DO Primary Care Provider Encounter Details Date Type Department Care Team (Late st Contact Info) Description 10/27/2023 Refill [facility] - Neurology [address] [place] [address], [place] [address] Pat Glover APRN-SANITATION TANK WASHER [address] [place] [address] [place] [address] Social History Tobacco Use Types Packs/Day Years Used Date Smoking Tobacco: Never Sex and Gender Information Value Date Recorded Sex Assigned at Not on file Legal Sex Male 6:22 PM PAYROLL SECRETARY Gender Identity Not on file Sexual Orientation [...] and would like a phone call back [phone] documented in this encounter Plan of Treatment Upcoming Encounters Date Type Department Care Team (Late st Contact Info) Description 01/31/2025 10:00 AM PAYROLL SECRETARY Office Visit [facility] - Neurology [facility] [facility], [place] [address] Pat Glover, FLEXO OPERATOR-SANITATION TANK WASHER [address] [facility] 1L [place] [address] 08/23/2025 2:15 PM CDT Office Visit [facility] - Urology [address] [facility] [address] [place] [address] Mike Carey MD [address] [facility] 2L [place] [address] documented as of this encounter Visit Diagnoses Diagnosis Idiopathic Parkinson's disease (HCC) Paralysis agitans documented in this encounter Care Teams Glass Curvature Gauger Relationship Specialty Start Date End Date Nilesh Abdul DO PCP - General 03/09/14 documented as of this encounter
--- OUTSIDE RECORDS SUMMARY | 2024-09-20 09:48 | XMS_ITS | Encounter Summary ---
Author Organization [facility] Address [address] [place] [address] Care Team Providers Care Hazard Mitigation Officer Name Role Phone Unavailable Primary Care Provider Unavailabl e Encounter Details Date Type Department Care Team (Latest Contact Info) Description 12/20/2017 Abstract [facility] Medical Group , Generic Conversion, Social [...]
--- OUTSIDE RECORDS SUMMARY | 2024-09-20 09:48 | XMS_ITS | Continuity of Care Document ---
Author Name [facility] Organization [facility] Care Team Providers Care Projection Technician Name Role Phone [facility] Unavailable Unavailable Medications Combined list of outpatient medications from Department of Defense and Veterans Affairs facilities.Medications provided include 1) outpatient medications from the last 15 months, and 2) patient-reported medications. Medication Details Route Status Patient Instructions Prescription Expires Prescription Number Last Dispense Date Ordering Provider Order Date Order Qty Source JARDIANCE (EMPAGLIFLO ZIN), 25 MG, TABLET, ORAL, BOEHRINGER ING., 30 ea. BOTTLE Active [id number] 4 2023 90 Pharmac y Data Transac tion Service Facilit y LANTUS SOLOSTAR (INSULIN GLARGINE,LEONARDO EdwardsREC.ANLOG ), 100/ML (3), INSULN PEN, SUB-Q, SANOFI-AVEN TIS, 3 ml SYRINGE Active [id number] 4 2023 30 Pharmac y Data Transac tion Service Facilit y PHILOMENA 2ND GEN PEN NEEDLE (pen needle, diabetic), 32GX /, DIS NEEDLE, MISCELL, BD DIABETES/EM B, 100 ea. BOX Active [id number] 4 2023 100 Pharmac y Data Transac tion Service Facilit y TAMSULOSIN HCL (TAMSULOSIN HCL), 0.4 MG, CAP.SR 24H, ORAL, ZYDUS PHARMACEU, 1000 ea. BOTTLE Active [id number] 4 2023 90 Pharmac y Data Transac tion Service Facilit y TRULICITY (dulaglutid e), 4.5 MG/0.5, PEN INJCTR, SUBCUT, [employer] .5 ml SYRINGE Cancele d [id number] : 2023 0 Pharmac y Data Transac tion Service Facilit y Immunizations Combined list of available immunizations from the Department of Defense and Veterans Affairs facilities. Immunization Series Date Given Administered By Site Reaction Lot Number CVX Code Drug Food General Manager Status Comments Source Influenza vaccine, quadrivalent, adjuvanted 2020 JUSTIN GUTIERRES () Not Given Influenza vaccine, quadrival ent, adjuvante d DoD Social History Combined list of available smoking, tobacco, and other social history from Department of Defense and Veterans Affairs facilities. Social History Type Response Date Comment [facility] e This section is an empty social history section. DoD
--- OUTSIDE RECORDS SUMMARY | 2024-09-20 09:48 | XMS_ITS | Clinical Summary ---
Author Organization [facility] Address [address] [place] [address] Care Team Providers Care Home Health Administrator Name Role Phone Nilesh Abdul DO Primary Care Provider [phone] Nell Mark DPM Unavailable [phone] Allergies No known active allergies Medications omega 3-kez-ghw-fish oil 1,000 mg (120 mg-180 mg) capsule [...] (3 mL) pen for injection 4 Active pramipexole (MIRAPEX) 0.125 mg tablet Take 1 tablet (0.125 mg total) by mouth 3 (three) times a day 5 04/17/19 26 Active FreeStyle Jesenia 3 Plus Sensor device 5 Active Active Problems Problem Noted Date Diagnosed Date Mixed Alzheimer's and vascular dementia 04/05/19 25 Overview (04/05/2024): - onset 2020 - MRI he did have bilateral lacunar infarcts in the thalami - positive amyloid PET - continue donepezil/Aricept - brain MRI: no MCH or siderosis, Small lacunar infarcts in the bilateral thalami and left external capsule - DIAMANTE Scan at [facility], followed by Movement Disorders for tremor Findings: Uptake in the striatum appears as follows: Left caudate nucleus head: Mildly reduced Right caudate nucleus head: Normal Left putamen: Mildly reduced Right putamen: Severely reduced Abnormal DaTscan study, finding supportive of parkinsonian syndromes. 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/2024 1:08 PM FOOD SERVICE CLERK): - onset 2020 - MRI he did have bilateral lacunar infarcts in the thalami - positive amyloid PET - continue donepezil/Aricept - brain MRI: no MCH or siderosis, Small lacunar infarcts in the bilateral thalami and left external capsule -- DIAMANTE Scan at [facility], followed by Movement Disorders for tremor Findings: Uptake in the striatum appears as follows: Left caudate nucleus head: Mildly reduced Right caudate nucleus head: Normal Left putamen: Mildly reduced Right putamen: Severely reduced Abnormal DaTscan study, finding supportive of parkinsonian syndromes Memory loss 12/10/2021 Acquired hammer toe of right foot 10/29/2020 Overview (10/29/2020): Added automatically from request for surgery [id number] 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 Overview (10/29/2020): Added automatically from request for surgery [id number] Encounters Date Type Department Care Team Description 09/17/2024 11:30 AM CDT Office Visit [facility] [address] [facility] 6th [place] [address] [place] [address] Oumar Cerda MD 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); Parkinsonism, unspecified Parkinsonism type (HCC) from Last 3 Months Surgical History Surgery Date Site/Laterality Comments VASECTOMY TONSILECTOMY, ADENOIDECTOMY, BILATERAL MYRINGOTOMY AND TUBES KNEE ARTHROPLASTY Left KNEE SURGERY Left total left knee HIP FRACTURE SURGERY Left patient states he has a kevin in his leg Medical History Medical History Date Comments Sleep apnea Hypertension Pneumonia GERD (gastroesophageal reflux disease) Type 2 diabetes mellitus Social History Tobacco Use Types Packs/Day Years [...] on file Legal Sex Male 7:46 PM FOOD SERVICE CLERK Gender Identity Not on file Sexual Orientation Not on file Obstetrics History Last Filed Vital Signs Vital Sign Reading Time Taken Comments Blood Pressure 154/89 09/17/2024 11:20 AM CDT Pulse 61 09/17/2024 11:20 AM CDT Temperature 36.4 C (97.5 F) 04/05/2024 12:15 PM FOOD SERVICE CLERK Respiratory Rate 20 11/21/2020 2:49 PM CDT Oxygen Saturation 99% 04/05/2024 12: 15 PM FOOD SERVICE CLERK Inhaled Oxygen Concentration - - Weight 108.1 kg (238 lb 6.4 oz) 025 11:20 AM CDT Height 180.3 cm (5' 11) 09/17/2024 11: 20 AM CDT Body Mass Index 33.25 09/17/2024 11:20 AM CDT Plan of Treatment Health Maintenance [...] Well Visit 65+ 11/10/2016 Influenza Vaccine (#1) 2024 12/17/2020 Insurance MEDICARE RAILROAD FOR LIFE MEDICARE RAILROAD FOR LIFE [facility] MEDICARE RAILROAD Care Teams Home Health Administrator Relationship Specialty Start Date End Date Nilesh Abdul DO PCP - General 08/19/20 Nell Mark DPM [address] [place] [address] Consulting Physician Foot and Ankle Surg 11/21/20
--- OUTSIDE RECORDS SUMMARY | 2024-09-20 09:49 | XMS_ITS | Clinical Summary ---
Author Organization [facility] Address [address] [place] [address] Care Team Providers Care Well Point Pumping Supervisor Name Role Phone Unavailable Primary Care Provider [...] Comments Blood Pressure 150/80 03/05/2013 8:55 AM AUTO REFINISHER Pulse - - Temperature - - Respiratory Rate - - Oxygen Saturation - - Inhaled Oxygen Concentration - - Weight 121.6 kg (268 lb) 03/05/2013 8:55 AM AUTO REFINISHER Height 180.3 cm (5' 11) 06/08/2012 1:01 [...]
--- OUTSIDE RECORDS SUMMARY | 2024-09-20 09:49 | XMS_ITS | Clinical Summary ---
Author Organization [facility] Address [address] [facility] [place] [address] Care Team Providers Care Biblical Studies Professor Name Role Phone Nilesh Abdul DO Primary Care Provider [phone] Source Comments [facility],non-owned Affiliates and Associated Physician Practices is amultiple site organization consisting of ambulatory clinics and hospital sitesin [place], [place], [place] and [place]. This disclosure is being madepursuant to the Care Everywhere program and may not contain all information available regarding this patient. Last updated 17.[facility] Allergies No known active allergies Medications * Be aware that medications may not be up to date on this document. Alwaysverify current medications with the patient. 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 Overview (10/05/2023): Added automatically from request for surgery [id number] Persistent proteinuria 07/12/2018 Systolic hypertension 07/12/2018 Encounters Date Type Department Care Team Description 08/18/2024 Telephone [facility] - Urology [address] [facility] [address] [place] [address] Mike Carey MD Results 08/16/2024 9:48 AM CDT - 08/16/2024 11:59 PM CDT Hospital Encounter [facility] MRI [address] [place] [address] Mike Carey MD Discharge Disposition: Home or Self Care 08/16/2024 Travel 08/06/2024 11:00 AM CDT Office Visit [facility] - Neurology [address] [facility], [place] [address] Pat Glover APRN-OXYGEN FURNACE OPERATOR Idiopathic Parkinson's disease (HCC) (Primary Dx) 08/06/2024 Travel 06/20/2024 2:00 PM CDT Office Visit [facility] - Urology [address] [place] [address] Mike Carey MD Elevated PSA (Primary Dx) [...] on file Legal Sex Male 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 LAMP 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 Gender Identity Not on file Sexual Orientation [...] st Contact Info) Description 01/31/2025 10:00 AM LAMP 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 Office Visit [facility] - Neurology [address] [facility], [place] [address] Pat Glover APRN-OXYGEN FURNACE OPERATOR [address] [facility] 1L [place] [address] 08/23/2025 2:15 PM CDT Office Visit [facility] - Urology [address] [place] [address] [address] [place] [address] Mike Carey MD [address] [facility] 2L [place] [address] Health Maintenance Due Date Last [...] obstruction. > Dictated by Rafal Stanley MD, (residential worker). I, Yair Ruiz MD have personally reviewed and interpreted this examination/study. > Interpreting Provider: Yair Ruiz MD on 08/17/2024 3:58 AM Narrative 08/17/2024 3:58 AM CDT PROCEDURE: MRI PROSTATE W 3D WWO CONTRAST, DATE/TIME OF EXAM: 08/16/2024 12:02 PM, LOCATION [facility] INDICATION: R97.20: Elevated PSA ADDITIONAL CLINICAL INFORMATION: [...] interpreted and measurements were made using the SharedReviews software. FINDINGS: Size: 6.0 x 4.8 x [...] DATE/TIME OF EXAM: 08/16/2024 12:02 PM, LOCATION [facility] INDICATION: R97.20: Elevated PSA ADDITIONAL CLINICAL INFORMATION: [...] interpreted and measurements were made using the SharedReviews software. FINDINGS: Size: 6.0 x 4.8 x [...] obstruction. > Dictated by Rafal Stanley MD, (residential worker). I, Yair Ruiz MD have personally reviewed and interpreted this examination/study. > Interpreting Provider: Yair Ruiz MD on 08/17/2024 3:58 AM us Mike Carey MD MR ORDERABLES Final Resu lt from Last 3 Months Insurance MEDICARE MEDICARE Care Teams Biblical Studies Professor Relationship Specialty Start Date End Date Nilesh Abdul DO PCP - General 03/09/14
[2024-09-20 11:05] LABS: Hematocrit 43.9 % (42.0-52.0); Hemoglobin 14.5 g/dL (14.0-18.0); Mean Corpuscular HGB Conc 33.0 g/dl (32-36); Mean Corpuscular Hemoglobin 28.8 pg (26-34); Mean Corpuscular Volume 87.3 fl (80-100); Platelet Count Result 310 k/mm3 (150-375); Red Blood Count 5.03 M/mm3 (4.6-6.20); White Blood Count 5.4 K/mm3 (4.5-10.0)
[2024-09-20 11:18] LABS: Total Protein Urine Random 18 mg/dL; Ur Ttl Prot Creatinine Ratio 0.29 mg/mg (0-0.20)
[2024-09-20 11:28] LABS: Albumin Level 4.6 g/dL (3.5-5.1); Anion Gap 10 mmol/L (4-12); Blood Urea Nitrogen 24 mg/dL (9-20); Calcium 10.1 mg/dL (8.4-10.2); Carbon Dioxide 25 mmol/L (22-30); Chloride 99 mmol/L (98-107); Estimated Glomerular Filt Rate > 60; Glucose 201 mg/dL (65-110); Potassium 4.7 mmol/L (3.4-5.0); Sodium 134 mmol/L (137-145)
== END 2024-09-20 09:44 | disposition home or self-care (01) ==
PROVIDERS: PCP Internal Medicine; Visit Provider Internal Medicine Nephrology
DX: R80.1 Persistent proteinuria, unspecified (principal); I10 Essential (primary) hypertension
CPT/HCPCS: 36415; 80069; 82570; 84156; 85027

== ENCOUNTER 2024-10-01 09:59 | Outpatient (CLI) | payer MEDICARE, OTHER, SELFPAY ==
--- OUTSIDE RECORDS SUMMARY | 2024-10-01 10:57 | XMS_ITS | Continuity of Care Document ---
Author Organization [facility] Address [address] [place] [address] [place] [address] Phone Care Team Providers Care Radiation Therapy Technologist Name Role Phone [facility] Unavailable Unavail able Cliff Lubin Unavailable Unavailable Procedures Procedure Date SV Plastic Sphcyl Rea +/-4d, .12-2d Ju Tint Photochromatic, Plastic Eye Exam & Treatment Refraction Office/outpatient Visit, Est Office/outpatient Visit, Est Office/outpatient Visit, Est Office/outpatient Visit, Est Advance Directives Directive Yes / No Effective Date File Name No Information Encounters Encounter Description Practice Location Reason(s) For Visit Diagnoses Date Provider Providers Copied on Encounter Located within [facility], [address] [place], [place] [address], [place], [place], [id number], [place] tel:[phone] [facility] No Information 0 [facility] . [address] [place] [address], [facility] [address], [place], [id number], [place]. tel:[phone] Referring Provider: Leeann Valente, [address] [place] [address] [address], [place], [address]. tel:[phone] bermeo Provider: Cliff Lubin, [address] [place] [address], [place], [address]. tel:[phone] Located within [facility], [address] [place] [address] [address], [place], [place], [id number], [place] tel:[phone] [facility] No Information 0-201 0 Yamilet Lugo [address] , [address], [place], [place], [facility], . tel:[phone] [place]pat [place], [facility] [place] [address] [place] [address] [address], [place], [place], [id number], tel:[phone] [facility] No Information [address] [facility] , [address], [place], [place], [facility], . tel:[phone] [place]pat [place], [facility] [place] [address] [place] [address] [address], [place], [place], [address], tel:[phone] [facility] No Information 9-200 [address] [facility] , [address], [place], [place], [facility], . tel:[phone] Office/outpat ient [place], [facility] [place] [address] [place] [address] [address], [place], [place], [id number], [place] tel:[phone] [facility] No Information 200 [address] [facility] , [address], [place], [place], [facility], [place]. tel:[phone] Office/outpat ient [place], [facility] [address] [place] [address] [address], [place], [place], [address], [place] tel:[phone] [facility] No Information 200 7 Yamilet Lugo [address] , [address], [place], [place], [facility], . tel:[phone] Family History Family Member Type Diagnosis Age At Onset No Information Payers Payer name Insurance type Covered constitution party ID Authoriza tion(s) VSP [id number] [...]
--- OUTSIDE RECORDS SUMMARY | 2024-10-01 10:57 | XMS_ITS | Encounter Summary ---
Author Organization [facility] Address [address] [place] [address] Phone Care Team Providers Care Ornamental Ironworker Name Role Phone Nilesh Abdul DO Primary Care Provider [phone] Nell Mark DPM Unavailable [phone] Encounter Details Date Type Department Care Team (Late st Contact Info) Description 01/13/2022 Imaging Exam [facility] [address] [facility] 6th [place] [address] [place] [address] Omuar Cerda MD [address] [place] [address] Social History Tobacco Use Types Packs/Day Years Used Date Smoking Tobacco: Former AUDIT-C Answer Date Recorded Q1: How often do you have a drink containing alc ohol? 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
--- OUTSIDE RECORDS SUMMARY | 2024-10-01 10:57 | XMS_ITS | Clinical Summary ---
Author Organization [facility] Address [address] [place] [address] Phone Care Team Providers Care Trust Manager Name Role Phone Nilesh Abdul DO Primary Care Provider [phone] Allergies No known active allergies Medications omega-3 [...] Vaccine (#1) 2024 12/17/2020 Insurance [address] [place] [address] [address] [place] [address] Care Teams Trust Manager Relationship Specialty Start Date End Date Nilesh Abdul DO [address] [place] [address] PCP - General Internal Medicine 07/12/18
--- OUTSIDE RECORDS SUMMARY | 2024-10-01 10:57 | XMS_ITS | Encounter Summary ---
Author Organization [facility] Address [address] [place] [address] Care Team Providers Care Plodder Operator Name Role Phone Nilesh Abdul DO Primary Care Provider [phone] Encounter Details Date Type Department Care Team (Late st Contact Info) Description 10/27/2023 Refill [facility] - Neurology [address] [place] [address], [place] [address] Pat Glover APRN-HOSE MENDER [address] [place] [address] [place] [address] Social History Tobacco Use Types Packs/Day Years Used Date Smoking Tobacco: Never Sex and Gender Information Value Date Recorded Sex Assigned at Not on file Legal Sex Male 6:22 PM MANAGER OF RADIOLOGY Gender Identity Not on file Sexual Orientation [...] and would like a phone call back [phone] documented in this encounter Plan of Treatment Upcoming Encounters Date Type Department Care Team (Late st Contact Info) Description 01/31/2025 10:00 AM MANAGER OF RADIOLOGY Office Visit [facility] - Neurology [facility], [place] [address] Pat Glover, DOG AND CAT FOOD COOK-HOSE MENDER [address] [facility] 1L [place] [address] 08/23/2025 2:15 PM CDT Office Visit [facility] - Urology [address] [facility] [address] [place] [address] Mike Carey MD [address] [facility] 2L DIV [place] [address] documented as of this encounter Visit Diagnoses Diagnosis Idiopathic Parkinson's disease (HCC) Paralysis agitans documented in this encounter Care Teams Plodder Operator Relationship Specialty Start Date End Date Nilesh Abdul DO PCP - General 03/09/14 documented as of this encounter
--- OUTSIDE RECORDS SUMMARY | 2024-10-01 10:57 | XMS_ITS | Continuity of Care Document ---
Author Name [facility] Organization [facility] Care Team Providers Care Bend Up Name Role Phone [facility] Unavailable Unavailable Medications Combined list of outpatient medications from Department of Defense and Veterans Affairs facilities.Medications provided include 1) outpatient medications from the last 15 months, and 2) patient-reported medications. Medication Details Route Status Patient Instructions Prescription Expires Prescription Number Last Dispense Date Ordering Provider Order Date Order Qty Source JARDIANCE (EMPAGLIFLO ZIN), 25 MG, TABLET, ORAL, BOEHRINGER ING., 30 ea. BOTTLE Active [id number] 4 2023 90 Pharmac y Data Transac tion Service Facilit y LANTUS SOLOSTAR (INSULIN GLARGINE,LEONARDO EdwardsREC.ANLOG ), 100/ML (3), INSULN PEN, SUB-Q, SANOFI-AVEN TIS, 3 ml SYRINGE Active [id number] 4 2023 30 Pharmac y Data Transac tion Service Facilit y PHILOMENA 2ND GEN PEN NEEDLE (pen needle, diabetic), 32GX /, DIS NEEDLE, MISCELL, BD DIABETES/EM B, 100 ea. BOX Active [id number] 4 2023 100 Pharmac y Data Transac tion Service Facilit y TAMSULOSIN HCL (TAMSULOSIN HCL), 0.4 MG, CAP.SR 24H, ORAL, ZYDUS PHARMACEU, 1000 ea. BOTTLE Active [id number] 4 2023 90 Pharmac y Data Transac tion Service Facilit y TRULICITY (dulaglutid e), 4.5 MG/0.5, PEN INJCTR, SUBCUT, JUSTIN IS[employer]., .5 ml SYRINGE Cancele d [id number] 4 [id number] : 2023 0 Pharmac y Data Transac tion Service Facilit y Immunizations Combined list of available immunizations from the Department of Defense and Veterans Affairs facilities. Immunization Series Date Given Administered By Site Reaction Lot Number CVX Code Drug Executive Personal Assistant Status Comments Source Influenza vaccine, quadrivalent, adjuvanted 2020 JUSTIN GUTIERRES () Not Given Influenza vaccine, quadrival ent, adjuvante d DoD Social History Combined list of available smoking, tobacco, and other social history from Department of Defense and Veterans Affairs facilities. Social History Type Response Date Comment [facility] e This section is an empty social history section. DoD
--- OUTSIDE RECORDS SUMMARY | 2024-10-01 10:57 | XMS_ITS | Encounter Summary ---
Author Organization [facility] Address [address] [place] [address] Care Team Providers Care Service Dispatcher Name Role Phone Unavailable Primary Care Provider Unavailabl e Encounter Details Date Type Department Care Team (Latest Contact Info) Description 12/20/2017 Abstract [facility] , Generic Conversion, [...]
--- OUTSIDE RECORDS SUMMARY | 2024-10-01 10:57 | XMS_ITS | Clinical Summary ---
Author Organization [facility] Address [address] [place] [address] Care Team Providers Care Carbonator Name Role Phone Nilesh Abdul DO Primary Care Provider [phone] Nell Mark DPM Unavailable [phone] Allergies No known active allergies Medications omega 1-zoo-qze-fish oil 1,000 mg (120 mg-180 mg) capsule [...] external capsule - DIAMANTE Scan at [facility], followed by Movement Disorders for tremor Findings: Uptake in the striatum appears as follows: Left caudate nucleus head: Mildly reduced Right caudate nucleus head: Normal Left putamen: Mildly reduced Right putamen: Severely reduced Abnormal DaTscan study, finding supportive of parkinsonian syndromes. 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 - positive amyloid PET - continue donepezil/Aricept - brain MRI: no MCH or siderosis, Small lacunar infarcts in the bilateral thalami and left external capsule -- DIAMANTE Scan at [facility], followed by Movement Disorders for tremor Findings: Uptake in the striatum appears as follows: Left caudate nucleus head: Mildly reduced Right caudate nucleus head: Normal Left putamen: Mildly reduced Right putamen: Severely reduced Abnormal DaTscan study, finding supportive of parkinsonian syndromes Memory loss 12/10/2021 Acquired hammer toe of right foot 10/29/2020 Overview (10/29/2020): Added automatically from request for surgery [id number] 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 Overview (10/29/2020): Added automatically from request for surgery [id number] Encounters Date Type Department Care Team Description 09/21/2024 5:14 PM CDT - 09/21/2024 11:59 PM CDT Hospital Encounter [facility] [address] [place] [address] Discharge Disposition: Discharge to home or self care 09/17/2024 11:30 AM CDT Office Visit [facility] [address] [facility] 6th [place] [address] [place] [address] Oumar Cerda MD Amnestic MCI (mild cognitive [...] on file Legal Sex Male 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 Gender Identity Not on file Sexual Orientation Not on file Obstetrics History Last Filed Vital Signs Vital Sign Reading Time Taken Comments Blood Pressure 154/89 09/17/2024 11:20 AM CDT Pulse 61 09/17/2024 11:20 AM CDT Temperature 36.4 C (97.5 F) 04/05/2024 12:15 PM GUN STOCK MAKER Respiratory Rate 20 11/21/2020 2:49 PM CDT Oxygen Saturation 99% 04/05/2024 12: 15 PM GUN STOCK MAKER Inhaled Oxygen Concentration - - Weight 108.1 [...] 65+ 11/10/2016 Influenza Vaccine (#1) 2024 12/17/2020 Procedures Procedure Name Priority Date/Time Associated Diagnosis Comments NM OUTSIDE REFERENCE Routine 09/21/2024 5:14 PM CDT from Last 3 Months Results * NM Outside Reference (09/21/2024 5:14 PM CDT) Impressions [facility]_P[facility] - 09/21/2024 5:14 PM CDT These images are for Reference purposes only and have not been reviewed by [facility] Radiology. There will be no report generated by a [facility] Radiologist. Narrative [facility]EMAPACAlex[facility] - 09/21/2024 5:14 PM CDT EXAMINATION: Images For Reference Purposes Only us Oumar Cerda MD IMG NM PROCEDURES Final Res ult RAD_[facility] from Last 3 Months Insurance MEDICARE RAILROAD [employer] MEDICARE RAILROAD FOR LIFE [facility] MEDICARE RAILROAD Care Teams Carbonator Relationship Specialty Start Date End Date Nilesh Abdul DO PCP - General 08/19/20 Nell Mark DPM [address] [place] [address] Consulting Physician Foot and Ankle Surg 11/21/20
--- OUTSIDE RECORDS SUMMARY | 2024-10-01 10:58 | XMS_ITS | Clinical Summary ---
Author Organization [facility] Address [address] [place] [address] Care Team Providers Care Mapper Name Role Phone Unavailable Primary Care Provider [...] Comments Blood Pressure 150/80 03/05/2013 8:55 AM SUPPLY CATALOGUER Pulse - - Temperature - - Respiratory Rate - - Oxygen Saturation - - Inhaled Oxygen Concentration - - Weight 121.6 kg (268 lb) 03/05/2013 8:55 AM SUPPLY CATALOGUER Height 180.3 cm (5' 11) 06/08/2012 1:01 [...]
--- OUTSIDE RECORDS SUMMARY | 2024-10-01 10:58 | XMS_ITS | Clinical Summary ---
Author Organization [facility] Address [address] [facility] [place] [address] Care Team Providers Care Quiller Operator Name Role Phone Nilesh Abdul DO Primary Care Provider Source Comments [facility],non-owned Affiliates and Associated Physician Practices is amultiple site organization consisting of ambulatory clinics and hospital sitesin [place], [place], [place] and [place]. This disclosure is being madepursuant to the Care Everywhere program and may not contain all information available regarding this patient. Last updated 17.[facility] Allergies No known active allergies Medications * Be aware that medications may not be up to date on this document. Alwaysverify current medications with the patient. 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 Overview (10/05/2023): Added automatically from request for surgery [id number] Persistent proteinuria 07/12/2018 Systolic hypertension 07/12/2018 Encounters Date Type Department Care Team Description 08/18/2024 Telephone [facility] - Urology [address] [facility] [address] [place] [address] Mike Carey MD Results 08/16/2024 9:48 AM CDT - 08/16/2024 11:59 PM CDT Hospital Encounter [facility] MRI [address] [place] [address] Mike Carey MD Discharge Disposition: Home or Self Care 08/16/2024 Travel 08/06/2024 11:00 AM CDT Office Visit [facility] - Neurology [address] [facility], [place] [address] Pat Glover, JAYME-FLUXER Idiopathic Parkinson's disease (HCC) (Primary Dx) 08/06/2024 Travel from Last 3 Months Immunizations Immunization Administration Dates Next Due INFLUENZA VACCINE, TRIV. 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 Gender Identity Not on file Sexual Orientation [...] st Contact Info) Description 01/31/2025 10:00 AM SHIP RIGGER Office Visit [facility] - Neurology [address] [facility], [place] [address] Pat Glover APRN-FLUXER [address] [place] [address] 1L [place] [address] 08/23/2025 2:15 PM CDT Office Visit [facility] - Urology [address] [place] [address] [address] [place] [address] Mike Carey MD [address] [facility] 2L [place] [address] Health Maintenance Due Date Last [...] 2023-2 5 season) 2023 INFLUENZA VACCINE (#1) 2024 [...] obstruction. > Dictated by Rafal Stanley MD, (vice president fixed income). I, Yair Ruiz MD have personally reviewed and interpreted this examination/study. > Interpreting Provider: Yair Ruiz MD on 08/17/2024 3:58 AM Narrative 08/17/2024 3:58 AM CDT PROCEDURE: MRI PROSTATE W 3D WWO CONTRAST, DATE/TIME OF EXAM: 08/16/2024 12:02 PM, LOCATION [facility] INDICATION: R97.20: Elevated PSA ADDITIONAL CLINICAL [...] interpreted and measurements were made using the Yoono software. FINDINGS: Size: 6.0 x 4.8 x [...] DATE/TIME OF EXAM: 08/16/2024 12:02 PM, LOCATION [facility] INDICATION: R97.20: Elevated PSA ADDITIONAL CLINICAL [...] interpreted and measurements were made using the Yoono software. FINDINGS: Size: 6.0 x 4.8 x [...] obstruction. > Dictated by Rafal Stanley MD, (vice president fixed income). I, Yair Ruiz MD have personally reviewed and interpreted this examination/study. > Interpreting Provider: Yair Ruiz MD on 08/17/2024 3:58 AM us Mike Carey MD MR ORDERABLES Final Resu lt from Last 3 Months Insurance MEDICARE MEDICARE Care Teams Quiller Operator Relationship Specialty Start Date End Date Nilesh Abdul DO PCP - General 03/09/14
--- OUTSIDE RECORDS SUMMARY | 2024-10-01 10:58 | XMS_ITS | Continuity of Care Document ---
Author Organization [facility] Address [address] [place] [address] Phone Care Team Providers Care Md Do Resident Urgent Care Name Role Phone No Information Unavailable Unavailable Medications Medication Instructions Dosage Effective Dates (start - stop) Status Comments No Drug Therapy Prescribed Advance Directives Directive Yes / No Effective Date File Name No Information Encounters Encounter Description Practice Location Reason(s) For Visit Diagnoses Date Provider Providers Copied on Encounter [facility], [address] [place] [address], [address], [place] tel:[phone] No Information No Information Family History Family [...]
--- NOTE | 2024-10-01 14:09 | WPDPFTINT ---
PFT Procedure Performed PFT Procedure Performed Spirometry with Pre/Post Bronchodilator Plethysmography (Lung Vol) Diffusing Cap (DLCO) Flow Vol Loop PFT Interpretation This is a pulmonary function test with pre and post-bronchodilator spirometry, plethysmography and diffusing capacity. The test was performed and results interpreted in accordance with the 2019 and 2005 ATS/ERS Task Force guidelines respectively using the Global Lung Function Initiative-2012 reference equations. Patient demonstrated good effort and cooperation. Reproducibility criteria were met. The quality of the pre bronchodilator spirometry maneuver was Grade A and post bronchodilator spirometry maneuver was Grade A. Findings: Spirometry: The contour the inspiratory and expiratory flow tracing are normal. The pre bronchodilator FVC is 3.65 L, 85% predicted. The pre bronchodilator FEV1 is 2.53 L, 78% predicted. The pre bronchodilator FEV1: FVC ratio 69%. The post bronchodilator FVC is 3.65 L, representing no change. The post bronchodilator FEV1 is 2.75 L, representing an 8% increase. The post bronchodilator FEV1: FVC ratio 75%. Plethysmography: The total lung capacity is 7.21 L, 100% predicted. The functional residual capacity is 3.95 L, 103% predicted. The residual volume is 2.85 L, 112% predicted. Diffusing capacity: The diffusing capacity unadjusted for hemoglobin and carboxyhemoglobin is 26.2, 101% predicted. The diffusing capacity adjusted for alveolar volume is 4.71, 123% predicted. Impression: The spirometry is normal without evidence of an obstructive abnormality. There is no significant improvement after inhaling a single dose of albuterol. The lung volumes are normal. The diffusing capacity is normal. There are no prior studies for comparison
== END 2024-10-01 10:00 | disposition home or self-care (01) ==
LOC: ANHPFT 10:01
PROVIDERS: PCP Internal Medicine; Visit Provider Internal Medicine
DX: R06.00 Dyspnea, unspecified (principal); R06.89 Other abnormalities of breathing
CPT/HCPCS: 94060; 94726; 94729

== ENCOUNTER 2024-10-16 11:34 | Outpatient (CLI) | payer MEDICARE, OTHER, SELFPAY ==
--- OUTSIDE RECORDS SUMMARY | 1999-02-13 19:00 | XMS_ITS | Continuity of Care Document ---
Author Organization [facility] Address [address] [place] [address] Phone Care Team Providers Care Russian Teacher Name Role Phone No Information Unavailable Unavailable Medications Medication Instructions Dosage Effective Dates (start - stop) Status Comments No Drug Therapy Prescribed Advance Directives Directive Yes / No Effective Date File Name No Information Encounters Encounter Description Practice Location Reason(s) For Visit Diagnoses Date Provider Providers Copied on Encounter [facility], [address] [place] [address], [address], [place] tel:[phone] No Information No Information Family History Family Member Type Diagnosis Age At Onset No Information Payers Payer name Insurance type Covered alliance party ID Authoriza tion(s) No Information Social History Type Description Quantity Date Captured Comments Sex Male Smoking Status No Information Chief Complaint And Reason For Visit No Information History Of Present Illness Encounter Date Complaint History Of Prese nt Illness No Information Medications Administered Medication Instructions Dosage Effective Dates (start - stop) Status Comments No Drug Therapy Prescribed Instructions Date Instruction Additional Infor mation No Information Assessments Type Assessment Date No Information
--- OUTSIDE RECORDS SUMMARY | 2009-07-29 19:00 | XMS_ITS | Continuity of Care Document ---
Author Organization [facility] Address [address] [place] [address] [place] [address] Phone Care Team Providers Care Director Engineering Name Role Phone [facility] Unavailable Unavail able Cliff Lubin Unavailable Unavailable Procedures Procedure Date SV Plastic Sphcyl [place] +/-4d, .12-2d Ju Tint Photochromatic, Plastic Eye Exam & Treatment Refraction Office/outpatient Visit, Est Office/outpatient Visit, Est Office/outpatient Visit, Est Office/outpatient Visit, Est Advance Directives Directive Yes / No Effective Date File Name No Information Encounters Encounter Description Practice Location Reason(s) For Visit Diagnoses Date Provider Providers Copied on Encounter [facility], [address] [place], [place] [address] [address], [place], [place], [id number], [place] tel:[phone] [facility][note 3] No Information 0 [facility] . [address] [place] [address], [facility] [address], [place], [id number], [place]. tel:[phone] Referring Provider: Leeann Valente, [address] [place] [address] [address], [place], [address]. tel:[phone] bermeo Provider: Cliff Lubin, [address] [place] [address], [place], [address]. tel:[phone] [facility], [address] [place] [address] [address], [place], [place], [id number], [place] tel:[phone] [facility] No Information 0-201 0 Yamilet Lugo [address] , [address], [place], [place], [facility], . tel:[phone] Office/outpat ient Visit, [facility], [address] [place] [address] [address], [place], [place], [id number], tel:[phone] [facility] No Information [address] [facility] , [address], [place], [place], [facility], . tel:[phone] Office/outpat ient Visit, [facility], [address] [place] [address] [address], [place], [place], [id number], tel:[phone] [facility] No Information 9-200 [address] [facility] [address] , [address], [place], [place], [facility], . tel:[phone] Office/outpat ient Visit, [facility], [address] [place] [address] [address], [place], [place], [id number], [place] tel:[phone] [facility] No Information [address] [facility] [address] , [address], [place], [place], [facility], [place]. tel:[phone] Office/outpat ient Visit, [facility], [address] [place] [address] [address], [place], [place], [id number], [place] tel:[phone] [facility] No Information 200 7 Yamilet Lugo [address] , [address], [place], [place], [facility], . tel:[phone] Family History Family Member Type Diagnosis Age At Onset No Information Payers Payer name Insurance type Covered republican ID Authoriza tion(s) VSP [id number] Social History Type Description Quantity Date Captured Comments Sex Male Smoking Status No Information Chief Complaint And Reason For Visit No Information Reason For Referral Reason For Referral No Information History Of Present Illness Encounter Date Complaint History Of Prese nt Illness No Information Functional Status Date Functional Assessmen t No Information Instructions Date Instruction Additional Infor mation No Information Assessments Type Assessment Date No Information Patient Care Teams Name Effective Dates (start - stop) Status Members No Information
--- OUTSIDE RECORDS SUMMARY | 2024-10-16 11:05 | XMS_ITS | Continuity of Care Document ---
Author Name [facility] Organization [facility] Care Team Providers Care Marble Supervisor Name Role Phone [facility] Unavailable Unavailable Medications Combined list of outpatient medications from Department of Defense and Veterans Affairs facilities.Medications provided include 1) outpatient medications from the last 15 months, and 2) patient-reported medications. Medication Details Route Status Patient Instructions Prescription Expires Prescription Number Last Dispense Date Ordering Provider Order Date Order Qty Source JARDIANCE (EMPAGLIFLO ZIN), 25 MG, TABLET, ORAL, BOEHRINGER ING., 30 ea. BOTTLE Active [id number] 4 2023 90 Pharmac y Data Transac tion Service Facilit y LANTUS SOLOSTAR (INSULIN GLARGINE,LEONARDO EdwardsREC.ANLOG ), 100/ML (3), INSULN PEN, SUB-Q, SANOFI-AVEN TIS, 3 ml SYRINGE Active [id number] 4 2023 30 Pharmac y Data Transac tion Service Facilit y PHILOMENA 2ND GEN PEN NEEDLE (pen needle, diabetic), 32GX /, DIS NEEDLE, MISCELL, BD DIABETES/EM B, 100 ea. BOX Active [id number] 4 2023 100 Pharmac y Data Transac tion Service Facilit y TAMSULOSIN HCL (TAMSULOSIN HCL), 0.4 MG, CAP.SR 24H, ORAL, ZYDUS PHARMACEU, 1000 ea. BOTTLE Active [id number] 4 2023 90 Pharmac y Data Transac tion Service Facilit y TRULICITY (dulaglutid e), 4.5 MG/0.5, PEN INJCTR, SUBCUT, [employer]., .5 ml SYRINGE Cancele d [id number] 4 [id number] : 2023 0 Pharmac y Data Transac tion Service Facilit y Immunizations Combined list of available immunizations from the Department of Defense and Veterans Affairs facilities. Immunization Series Date Given Administered By Site Reaction Lot Number CVX Code Drug Client Onboarding Analyst Status Comments Source Influenza vaccine, quadrivalent, adjuvanted 2020 JUSTIN GUTIERRES () Not Given Influenza vaccine, quadrival ent, adjuvante d DoD Social History Combined list of available smoking, tobacco, and other social history from Department of Defense and Veterans Affairs facilities. Social History Type Response Date Comment [facility] e This section is an empty social history section. DoD
--- OUTSIDE RECORDS SUMMARY | 2024-10-16 11:59 | XMS_ITS | Clinical Summary ---
Author Organization [facility] Address [address] [place] [address] Care Team Providers Care Crew Leader/Control Room Operator Name Role Phone Unavailable Primary Care Provider [...] Comments Blood Pressure 150/80 03/05/2013 8:55 AM PROPERTY LOSS INSURANCE CLAIM ADJUSTER Pulse - - Temperature - - Respiratory Rate - - Oxygen Saturation - - Inhaled Oxygen Concentration - - Weight 121.6 kg (268 lb) 03/05/2013 8:55 AM PROPERTY LOSS INSURANCE CLAIM ADJUSTER Height 180.3 cm (5' 11) 06/08/2012 1:01 [...]
--- OUTSIDE RECORDS SUMMARY | 2024-10-16 11:59 | XMS_ITS | Encounter Summary ---
Author Organization [facility] Address [address] [place] [address] Care Team Providers Care Video News Editor Name Role Phone Unavailable Primary Care Provider [...]
--- OUTSIDE RECORDS SUMMARY | 2024-10-16 11:59 | XMS_ITS | Clinical Summary ---
Author Organization [facility] Address [address] [place] [address] Care Team Providers Care Metal Buffer Name Role Phone Nilesh Abdul DO Primary Care Provider [phone] Nell Mark DPM Unavailable [phone] Allergies No known active allergies Medications omega 0-bpu-iwo-fish oil 1,000 mg (120 mg-180 mg) capsule [...] left external capsule - DIAMANTE Scan at [facility], followed by Movement Disorders for tremor Findings: Uptake in the striatum appears as follows: Left caudate nucleus head: Mildly reduced Right caudate nucleus head: Normal Left putamen: Mildly reduced Right putamen: Severely reduced Abnormal DaTscan study, finding supportive of parkinsonian syndromes. 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 Overview (10/29/2020): Added automatically from request for surgery [id number] Encounters Date Type Department Care Team Description 09/21/2024 5:14 PM CDT - 09/21/2024 11:59 PM CDT Hospital Encounter [facility] [address] [place] [address] Discharge Disposition: Discharge to home or self care 09/17/2024 11:30 AM CDT Office Visit [facility] [address] [place] [address] for Advanced Medicine 6th [place] [address] [place] [address] Oumar Cerda MD Amnestic MCI (mild cognitive [...] on file Legal Sex Male 7:46 PM DIRECTOR STATISTICAL PROGRAMMING Gender Identity Not on file Sexual Orientation Not on file Obstetrics History Last Filed Vital Signs Vital Sign Reading Time Taken Comments Blood Pressure 154/89 09/17/2024 11:20 AM CDT Pulse 61 09/17/2024 11:20 AM CDT Temperature 36.4 C (97.5 F) 04/05/2024 12:15 PM DIRECTOR STATISTICAL PROGRAMMING Respiratory Rate 20 11/21/2020 2:49 PM CDT Oxygen Saturation 99% 04/05/2024 12: 15 PM DIRECTOR STATISTICAL PROGRAMMING Inhaled Oxygen Concentration - - Weight 108.1 [...] only and have not been reviewed by [facility] Radiology. There will be no report generated by a [facility] Radiologist. Narrative [facility] - 09/21/2024 5:14 PM CDT EXAMINATION: Images For Reference Purposes Only us Oumar Cerda MD IMG NM PROCEDURES Final Res ult RAD_[facility] from Last 3 Months Insurance MEDICARE RAILROAD [facility] Address: [address] [address] [place] [address] [employer] MEDICARE RAILROAD FOR LIFE [facility] FOR [employer] MEDICARE RAILROAD Care Teams Metal Buffer Relationship Specialty Start Date End Date Nilesh Abdul DO PCP - General 08/19/20 Nell Mark DPM [address] [place] [address] Consulting Physician Foot and Ankle Surg 11/21/20
--- OUTSIDE RECORDS SUMMARY | 2024-10-16 11:59 | XMS_ITS | Clinical Summary ---
Author Organization [facility] Address [address] [place] [address] Care Team Providers Care Operations Specialist Name Role Phone Nilesh Abdul DO Primary Care Provider Source Comments [facility],non-owned Affiliates and Associated Physician Practices is amultiple site organization consisting of ambulatory clinics and hospital sitesin [place], [place], [place] and [place]. 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 Overview (10/05/2023): Added automatically from request for surgery [id number] Persistent proteinuria 07/12/2018 Systolic hypertension 07/12/2018 Encounters Date Type Department Care Team Description 08/18/2024 Telephone [facility] - Urology [address] [facility] [address] [place] [address] Mike Carey MD Results 08/16/2024 9:48 AM CDT - 08/16/2024 11:59 PM CDT Hospital Encounter [facility] MRI [address] [place] [address] Mike Carey MD Discharge Disposition: Home or Self Care 08/16/2024 Travel 08/06/2024 11:00 AM CDT Office Visit [facility] - Neurology [address] [facility], [place] [address] Pat Glover, JAYME-AGRISCIENCE TECHNOLOGY INSTRUCTOR Idiopathic Parkinson's disease (HCC) (Primary Dx) 08/06/2024 [...] on file Legal Sex Male 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 2L [place] [address] Health Maintenance Due Date Last [...] > Dictated by Rafal Stanley MD, (residential plumber). I, Yair Ruiz MD have personally reviewed and interpreted this examination/study. > Interpreting Provider: Yair Ruiz MD on 08/17/2024 3:58 AM Narrative 08/17/2024 3:58 AM CDT PROCEDURE: MRI PROSTATE W 3D WWO CONTRAST, DATE/TIME OF EXAM: 08/16/2024 12:02 PM, LOCATION [facility] INDICATION: R97.20: Elevated PSA ADDITIONAL CLINICAL INFORMATION: [...] interpreted and measurements were made using the [employer] software. FINDINGS: Size: 6.0 x 4.8 x [...] DATE/TIME OF EXAM: 08/16/2024 12:02 PM, LOCATION [facility] INDICATION: R97.20: Elevated PSA ADDITIONAL CLINICAL INFORMATION: [...] interpreted and measurements were made using the [employer] software. FINDINGS: Size: 6.0 x 4.8 x [...] > Dictated by Rafal Stanley MD, (residential plumber). I, Yair Ruiz MD have personally reviewed and interpreted this examination/study. > Interpreting Provider: Yair Ruiz MD on 08/17/2024 3:58 AM us Mike Carey MD MR ORDERABLES Final Resu lt from Last 3 Months Insurance MEDICARE MEDICARE Care Teams Operations Specialist Relationship Specialty Start Date End Date Nilesh Abdul DO PCP - General 03/09/14
--- OUTSIDE RECORDS SUMMARY | 2024-10-16 11:59 | XMS_ITS | Clinical Summary ---
Author Organization [facility] Address [address] [place] [address] Phone Care Team Providers Care Rough Planer Tender Name Role Phone Nilesh Abdul DO Primary Care Provider [phone] Allergies No known active allergies Medications omega-3 [...] Vaccine (#1) 2024 12/17/2020 Insurance [address] [place] [address] [address] [place] [address] Care Teams Rough Planer Tender Relationship Specialty Start Date End Date Nilesh Abdul DO [address] [place] [address] PCP - General Internal Medicine 07/12/18
--- OUTSIDE RECORDS SUMMARY | 2024-10-16 11:59 | XMS_ITS | Encounter Summary ---
Author Organization [facility] Address [address] [place] [address] Phone Care Team Providers Care Enterprise Application Architect Name Role Phone Nilesh Abdul DO Primary Care Provider [phone] Nell Mark DPM Unavailable [phone] Encounter Details Date Type Department Care Team (Late st Contact Info) Description 01/13/2022 Imaging Exam [facility] [address] [facility] for [facility] Medicine 6th [place] [address] [place] [address] Oumar Cerda MD [address] [place] [address] Social History Tobacco Use Types Packs/Day Years Used Date Smoking Tobacco: Former AUDIT-C Answer Date Recorded Q1: How often do you have a drink containing alc ohol? 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
--- OUTSIDE RECORDS SUMMARY | 2024-10-16 11:59 | XMS_ITS | Encounter Summary ---
Author Organization [facility] Address [address] [place] [place] [address] Care Team Providers Care Invasive Cardiologist Name Role Phone Nilesh Abdul DO Primary Care Provider [phone] Encounter Details Date Type Department Care Team (Late st Contact Info) Description 10/27/2023 Refill [facility] - Neurology [address] [place] [address], [place] [phone] Pat Glover APRN-PACKING AND STAMPING MACHINE OPERATOR [address] [place] [address] [place] [phone] Social History Tobacco Use Types Packs/Day Years Used Date Smoking Tobacco: Never Sex and Gender Information Value Date Recorded Sex Assigned at Not on file 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, [place] [address] Pat Glover, ADVANCED MANUFACTURING TECHNICIAN-PACKING AND STAMPING MACHINE OPERATOR [address] [facility] 1L [place] [phone] 08/23/2025 2:15 PM CDT Office Visit [facility] [address] [facility] [address] [place] [phone] Mike Carey MD [address] [facility] 2L [place] [address] documented as of this encounter Visit Diagnoses Diagnosis Idiopathic Parkinson's disease (HCC) Paralysis agitans documented in this encounter Care Teams Invasive Cardiologist Relationship Specialty Start Date End Date Nilesh Abdul DO PCP - General 03/09/14 documented as of this encounter
[2024-10-16 13:04] LABS: Alanine Aminotransferase 11 U/L (6-50); Albumin Level 4.4 g/dL (3.5-5.1); Alkaline Phosphatase 68 U/L (38-126); Anion Gap 9 mmol/L (4-12); Aspartate Amino Transferase 30 U/L (17-59); Bilirubin,Total 0.4 mg/dL (0.2-1.3); Blood Urea Nitrogen 21 mg/dL (9-20); Calcium 9.5 mg/dL (8.4-10.2); Carbon Dioxide 22 mmol/L (22-30); Chloride 103 mmol/L (98-107); Cholesterol 130 mg/dL (0-200); Estimated Glomerular Filt Rate > 60; Glucose 198 mg/dL (65-110); HDL Direct 50 mg/dL; Potassium 4.9 mmol/L (3.4-5.0); Sodium 134 mmol/L (137-145); Total Protein 7.6 g/dL (6.3-8.2); Triglycerides 157 mg/dL (<150)
[2024-10-16 13:22] LABS: Free T4 Free Thyroxine 0.87 ng/dL (0.78-2.19)
[2024-10-16 13:40] LABS: Thyroid Stimulating Hormone 1.660 uIU/mL (0.465-4.680)
[2024-10-16 13:59] LABS: Vitamin B12 828.0 pg/mL (239-931)
[2024-10-16 14:08] LABS: MALB Creatinine Ratio 139.9 mg/g (0-30)
== END 2024-10-16 11:35 | disposition home or self-care (01) ==
PROVIDERS: PCP Internal Medicine; Visit Provider Nurse Practitioner Family
DX: E11.42 Type 2 diabetes mellitus with diabetic polyneuropathy (principal); E78.2 Mixed hyperlipidemia; E11.29 Type 2 diabetes mellitus with other diabetic kidney complication; R80.9 Proteinuria, unspecified; E87.1 Hypo-osmolality and hyponatremia; Z79.4 Long term (current) use of insulin
CPT/HCPCS: 36415; 80053; 80061; 82043; 82306; 82607; 84439; 84443